=== PATIENT | female | born 1945 | race Caucasian/White ===

== ENCOUNTER → 2016-09-02 | Outpatient (CLI) | payer MEDICARE | LOC: RAD 07:58 | PROVIDERS: ATTEND Physician Assistant | DX: M25.511 Pain in right shoulder (principal) ==

== ENCOUNTER 2016-09-11 22:33 | Emergency (ER) | payer MEDICARE ==
[2016-09-12] MEDS ORDERED: ONDANSETRON 4 MG TAB.RAPDIS PO ONE (00:40)
[2016-09-12] MEDS ORDERED: OXYCODONE-ACETAMINOPHEN 5-325 MG TABLET PO ONE (00:40)
--- NOTE | 2016-09-12 00:42 | ER Document Report ---
ED General - General Chief Complaint: Back Pain Stated Complaint: BACK PAIN Time seen by provider: 00:40 Notes: Patient is a 71-year-old female that comes emergency department for chief complaint of pain in her lower back, she states she was lying on the couch on her belly when her 40 pound dog jumped up on the couch and landed on her back, she states that she had some pain initially but now she has increased pain over the following hours, she states she has felt some tingling in both of her legs, she denies bowel or bladder incontinence, she denies current numbness. She states she has had surgery on her lower back in the past. TRAVEL OUTSIDE OF THE [place] IN LAST 30 DAYS: No - Related Data Allergies/Adverse Reactions: NSAIDS (Non-Steroidal Anti-Inflamma [Nsaids] Allergy (Severe, Verified 09/11/16 22:50) gastric bleed adhesive [Adhesive] Allergy (Intermediate, Verified 09/11/16 22:50) Past Medical History - General Information source: Patient - Social History Smoking Status: Current Every Day Smoker Frequency of alcohol use: None Drug Abuse: None Lives with: Family Family History: Reviewed & Not Pertinent, CAD, DM Patient has suicidal ideation: No Patient has homicidal ideation: No - Past Medical History Cardiac Medical History: Reports: Hx Coronary Artery Disease, Hx Hypercholesterolemia, Hx Hypertension Denies: Hx Congestive Heart Failure, Hx DVT, Hx Heart Attack, Hx Pulmonary Embolism Pulmonary Medical History: Reports: Hx Bronchitis, Hx COPD Denies: Hx Asthma, Hx Pneumonia Neurological Medical History: Denies: Hx Cerebrovascular Accident, Hx Seizures Endocrine Medical History: Reports: Hx Diabetes Mellitus Type 2. Denies: Hx Hyperthyroidism, Hx Hypothyroidism Renal/ Medical History: Denies: Hx Peritoneal Dialysis GI Medical History: Denies: Hx Cirrhosis, Hx Gastroesophageal Reflux Disease, Hx Hepatitis Musculoskeltal Medical History: Reports Hx Arthritis, Reports Hx Muscle Spasm Psychiatric Medical History: Reports: Hx Bipolar Disorder, Hx Dementia, Hx Depression Infectious Medical History: Denies: Hx Hepatitis Past Surgical History: Reports: Hx Abdominal Surgery - BOTOX INJECTIONS [id number] , Hx Cholecystectomy, Hx Hysterectomy, Hx Orthopedic Surgery - Back surgery, Hx Urinary Tract Surgery, Other - Bladder tack - Immunizations Hx Diphtheria, Pertussis, Tetanus Vaccination: Yes Hx Pneumococcal Vaccination: 10/04/13 Review of Systems - Review of Systems Constitutional: No symptoms reported EENT: No symptoms reported Cardiovascular: No symptoms reported Respiratory: No symptoms reported Gastrointestinal: No symptoms reported Genitourinary: No symptoms reported Female Genitourinary: No symptoms reported Musculoskeletal: See HPI Skin: No symptoms reported Hematologic/Lymphatic: No symptoms reported Neurological/Psychological: No symptoms reported Physical Exam - Vital signs Vitals: Temp Pulse Resp BP Pulse Ox 98.1 F 81 16 152/66 H 97 09/11/16 22:43 09/11/16 22:43 09/11/16 22:43 09/11/16 22:43 09/11/16 22:43 Interpretation: Normal - General General appearance: Alert, Anxious In distress: Mild - Patient appears to be in some pain, moves and sits awkwardly - HEENT Head: Normocephalic, Atraumatic Eyes: Normal Conjunctiva: Normal Extraocular movements intact: Yes Eyelashes: Normal Pupils: PERRL Mouth/Lips: Normal Mucous membranes: Normal Pharynx: Normal Neck: Normal - Respiratory Respiratory status: No respiratory distress Chest status: Nontender Breath sounds: Normal Chest palpation: Normal - Cardiovascular Rhythm: Regular Heart sounds: Normal auscultation Murmur: No - Abdominal Inspection: Normal Distension: No distension Bowel sounds: Normal Tenderness: Nontender Organomegaly: No organomegaly - Back Back: Tender - There is tenderness in the lumbar area generally with palpation, no contusions, swelling, or obvious deformity noted. No saddle anesthesia. Normal cervical and thoracic examination, patient moves all extremities without difficulty, slightly positive straight leg raises bilaterally, normal distal neurovascular exam - Extremities General upper extremity: Normal inspection, Nontender, Normal color, Normal ROM , Normal temperature General lower extremity: Normal inspection, Nontender, Normal color, Normal ROM , Normal temperature, Normal weight bearing. No: Damion's sign - Neurological Neuro grossly intact: Yes Cognition: Normal Orientation: AAOx4 [place] Coma Scale Eye Opening: Spontaneous [place] Coma Scale Verbal: Oriented [place] Coma Scale Motor: Obeys Commands [place] Coma Scale Total: 15 Speech: Normal Motor strength normal: LUE, RUE, LLE, RLE Sensory: Normal - Psychological Associated symptoms: Normal affect, Normal mood - Skin Skin Temperature: Warm Skin Moisture: Dry Skin Color: Normal Course - Re-evaluation Re-evalutation: Patient with pain with palpation over the lumbar midline and paraspinal muscles , positive straight leg raises bilaterally, patient can ambulate but appears to be in some pain when doing so. Patient has no saddle anesthesia, no distal numbness, normal capillary refill and pulses distally, no ecchymosis or signs of trauma on exam. Widespread degenerative changes on x-ray, progressed from previous CAT scan, no fractures, no acute abnormalities noted. After treatment patient is ambulated without any discomfort, is very well- appearing, requesting to leave. Patient takes narcotic pain medication occasionally at home, has not done so in a couple of days, because the Valium worked so well here she is requesting some at home, I did discuss taking this separate from the oxycodone, precautions about sedation, also discussed return precautions for potential complications from back injury, patient and state understanding and agreement. - Vital Signs Vital signs: Temp Pulse Resp BP Pulse Ox 98.0 F 77 18 148/62 H 98 09/12/16 02:54 09/12/16 02:54 09/12/16 02:54 09/12/16 02:54 09/12/16 02:54 Discharge - Discharge Clinical Impression: Lower back injury Qualifiers: Encounter type: initial encounter Qualified Code(s): S39.92XA - Unspecified injury of lower back, initial encounter Condition: Stable Disposition: HOME, SELF-CARE Additional Instructions: There is degenerative breakdown in your lower back, no acute abnormalities are seen by x-ray or evaluation. Take the Valium as directed (caution: Start slow, cut in half if needed, this can be very sedating, do not combine with alcohol or other sedating medications) . Apply heat to lower back, rest. Follow-up with your provider for additional evaluation and management. Return the emergency department for any concerning or worsening symptoms including bowel or bladder incontinence, new numbness, or any other concerning symptoms. Prescriptions: Diazepam [Valium 5 mg Tablet] 5 mg PO TID #15 tablet Forms: Elevated Blood Pressure Referrals: TERESA WARD DO [Primary Care Provider] - Follow up as needed
[2016-09-12] MEDS ORDERED: DIAZEPAM INJ 10 MG/2 ML DISP.SYRIN IM ONE (02:05)
[2016-09-12 03:30] VITALS: BP 148/62
== END 2016-09-12 03:15 | disposition home or self-care (01) ==
LOC: ER 22:33
DX: S39.92XA Unspecified injury of lower back, initial encounter (principal); W54.8XXA Other contact with dog, initial encounter; M54.5 Low back pain; R20.2 Paresthesia of skin; E11.9 Type 2 diabetes mellitus without complications; I25.10 Atherosclerotic heart disease of native coronary artery without angina pectoris; I10 Essential (primary) hypertension; J44.9 Chronic obstructive pulmonary disease, unspecified; F17.200 Nicotine dependence, unspecified, uncomplicated; Z98.890 Other specified postprocedural states; Z88.8 Allergy status to other drugs, medicaments and biological substances; Z91.048 Other nonmedicinal substance allergy status
CPT/HCPCS: 99283; 72110; A9270 ×2; S0119

== ENCOUNTER 2016-11-18 14:46 | Inpatient (IN) | payer MEDICARE, OTHER ==
--- NOTE | 2016-11-18 15:16 | ER Document Report ---
ED Medical Screen (RME) - General Chief Complaint: Nausea/Vomiting Stated Complaint: VOMITING Notes: Patient is a 71-year-old female with past medical history of diabetes, hypertension, bipolar disorder who presents with 2 days of nausea, vomiting, lethargy and confusion. Patient has had similar symptoms in the past with pyelonephritis and believes she may have an infection again today. Her also notes that she is struggling to keep anything down over the last 48 hours and has seemed increasingly lethargic. Her primary care doctor referred to the emergency department today and further assessment. She has not had fever at home nor diarrhea. She is not complaining of any chest pain, cough or shortness of breath. I have greeted and performed a rapid initial assessment of this patient. A comprehensive ED assessment and evaluation of the patient, analysis of test results and completion of medical decision making process will be conducted by an additional ED providers. TRAVEL OUTSIDE OF THE [place] IN LAST 30 DAYS: No - Related Data Allergies/Adverse Reactions: NSAIDS (Non-Steroidal Anti-Inflamma [Nsaids] Allergy (Severe, Verified 09/11/16 22:50) gastric bleed adhesive [Adhesive] Allergy (Intermediate, Verified 09/11/16 22:50) Past Medical History - Social History Family history: Reviewed & Not Pertinent - Past Medical History Cardiac Medical History: Reports: Hx Coronary Artery Disease, Hx Hypercholesterolemia, Hx Hypertension Denies: Hx Congestive Heart Failure, Hx DVT, Hx Heart Attack, Hx Pulmonary Embolism Pulmonary Medical History: Reports: Hx Bronchitis, Hx COPD Denies: Hx Asthma, Hx Pneumonia Neurological Medical History: Denies: Hx Cerebrovascular Accident, Hx Seizures Endocrine Medical History: Reports: Hx Diabetes Mellitus Type 1, Hx Diabetes Mellitus Type 2. Denies: Hx Hyperthyroidism, Hx Hypothyroidism Renal/ Medical History: Denies: Hx Peritoneal Dialysis GI Medical History: Denies: Hx Cirrhosis, Hx Gastroesophageal Reflux Disease, Hx Hepatitis Musculoskeltal Medical History: Reports Hx Arthritis, Reports Hx Muscle Spasm Psychiatric Medical History: Reports: Hx Bipolar Disorder, Hx Dementia, Hx Depression Infectious Medical History: Denies: Hx Hepatitis Past Surgical History: Reports: Hx Abdominal Surgery - BOTOX INJECTIONS [id number] , Hx Cholecystectomy, Hx Hysterectomy, Hx Orthopedic Surgery - Back surgery, Hx Urinary Tract Surgery, Other - Bladder tack - Immunizations Hx Diphtheria, Pertussis, Tetanus Vaccination: Yes Physical Exam - Vital signs Vitals: Temp Pulse Resp BP Pulse Ox 98.6 F 69 16 137/51 H 97 11/18/16 15:00 11/18/16 15:00 11/18/16 15:00 11/18/16 15:00 11/18/16 15:00 Interpretation: Normal Notes: PHYSICAL EXAMINATION: GENERAL: Well-appearing, well-nourished and in no acute distress. HEAD: Atraumatic, normocephalic. EYES: sclera anicteric, conjunctiva are normal. ENT: Moist mucous membranes. NECK: Normal range of motion LUNGS: Normal work of breathing HEART: 2+ radial pulses bilaterally EXTREMITIES: no pitting or edema. No cyanosis. NEUROLOGICAL: No focal neurological deficits. Moves all extremities spontaneously and on command. PSYCH: Seems somewhat confused, having difficulty concentrating during initial assessment SKIN: Warm, Dry, normal turgor, no rashes or lesions noted. Course - Vital Signs Vital signs: Temp Pulse Resp BP Pulse Ox 98.6 F 69 16 137/51 H 97 11/18/16 15:00 11/18/16 15:00 11/18/16 15:00 11/18/16 15:00 11/18/16 15:00
[2016-11-18 15:59] LABS: ABSOLUTE LYMPHOCYTES (AUTO) 1.8 10^3/uL (0.5-4.7); ABSOLUTE MONOCYTES (AUTO) 1.7 10^3/uL (0.1-1.4); ABSOLUTE NEUT (AUTO) 6.3 10^3/uL (1.7-8.2); BASOPHILS % (AUTO) 0.2 % (0-2); EOSINOPHILS % (AUTO) 0.4 % (0-6); HEMATOCRIT 39.7 % (36.0-47.0); HEMOGLOBIN 13.9 g/dL (12.0-15.5); LYMPHOCYTES % (AUTO) 18.4 % (13-45); MEAN CORPUSCULAR HGB CONC 34.9 g/dL (32.0-36.0); MEAN CORPUSCULAR VOLUME 80 fl (80-97); MONOCYTES % (AUTO) 16.9 % (3-13); RED BLOOD COUNT 4.95 10^6/uL (3.72-5.28); RED CELL DISTRIBUTION WIDTH 13.6 % (11.5-14.0); SEGMENTED NEUTROPHILS % (AUTO) 64.1 % (42-78); WHITE BLOOD COUNT 9.8 10^3/uL (4.0-10.5)
[2016-11-18 16:25] LABS: ALANINE AMINOTRANSFERASE 57 U/L (9-52); ALBUMIN 5.1 g/dL (3.5-5.0); ALKALINE PHOSPHATASE 84 U/L (38-126); ANION GAP 16 (5-19); ASPARTATE AMINO TRANSFERASE 80 U/L (14-36); BILIRUBIN,DIRECT 0.4 mg/dL (0.0-0.4); BILIRUBIN,TOTAL 1.2 mg/dL (0.2-1.3); BLOOD UREA NITROGEN 15 mg/dL (7-20); CALCIUM 9.9 mg/dL (8.4-10.2); CARBON DIOXIDE 29 mmol/L (22-30); CHLORIDE 67 mmol/L (98-107); CREATININE RESULT 0.71 mg/dL (0.52-1.25); GLUCOSE 173 mg/dL (75-110); TOTAL PROTEIN 8.6 g/dL (6.3-8.2)
[2016-11-18 16:37] LABS: POTASSIUM 2.9 mmol/L (3.6-5.0)
[2016-11-18] MEDS ORDERED: NORMAL SALINE 1000 ML 1,000 ML IV ONE (16:49)
--- NOTE | 2016-11-18 17:04 | ER Document Report ---
ED General - General Chief Complaint: Nausea/Vomiting Stated Complaint: VOMITING Mode of Arrival: Ambulatory Information source: Parent Notes: Patient presents to the emergency department with complaints of nausea vomiting upset stomach for the past week. Patient also reports she's felt very lethargic and not able to think properly. She reports her legs feet and hands hurt. She also reports left sided chest pressure that started yesterday, does not radiate. Last time she vomited was yesterday. She denies fever denies diarrhea. Reports no other family members are ill. Reports she hasn't slept in 3 days TRAVEL OUTSIDE OF THE [place] IN LAST 30 DAYS: No - HPI Onset: Last week Onset/Duration: Persistent Quality of pain: Achy Severity: Moderate Pain Level: 3 Associated symptoms: Nausea, Vomiting Exacerbated by: Denies Relieved by: Denies Similar symptoms previously: No Recently seen / treated by doctor: No - Related Data Allergies/Adverse Reactions: NSAIDS (Non-Steroidal Anti-Inflamma [Nsaids] Allergy (Severe, Verified 09/11/16 22:50) gastric bleed adhesive [Adhesive] Allergy (Intermediate, Verified 09/11/16 22:50) Past Medical History - General Information source: Patient - Social History Smoking Status: Current Every Day Smoker Cigarette use (# per day): Yes Chew tobacco use (# tins/day): No Frequency of alcohol use: None Drug Abuse: None Lives with: Family Family History: Reviewed & Not Pertinent, CAD, DM Patient has suicidal ideation: No Patient has homicidal ideation: No - Past Medical History Cardiac Medical History: Reports: Hx Coronary Artery Disease, Hx Hypercholesterolemia, Hx Hypertension Denies: Hx Congestive Heart Failure, Hx DVT, Hx Heart Attack, Hx Pulmonary Embolism Pulmonary Medical History: Reports: Hx Bronchitis, Hx COPD Denies: Hx Asthma, Hx Pneumonia Neurological Medical History: Denies: Hx Cerebrovascular Accident, Hx Seizures Endocrine Medical History: Reports: Hx Diabetes Mellitus Type 1, Hx Diabetes Mellitus Type 2. Denies: Hx Hyperthyroidism, Hx Hypothyroidism Renal/ Medical History: Denies: Hx Peritoneal Dialysis GI Medical History: Denies: Hx Cirrhosis, Hx Gastroesophageal Reflux Disease, Hx Hepatitis Musculoskeltal Medical History: Reports Hx Arthritis, Reports Hx Muscle Spasm Psychiatric Medical History: Reports: Hx Bipolar Disorder, Hx Dementia, Hx Depression Infectious Medical History: Denies: Hx Hepatitis Past Surgical History: Reports: Hx Abdominal Surgery - BOTOX INJECTIONS [id number] , Hx Cholecystectomy, Hx Hysterectomy, Hx Orthopedic Surgery - Back surgery, Hx Urinary Tract Surgery, Other - Bladder tack - Immunizations Hx Diphtheria, Pertussis, Tetanus Vaccination: Yes Hx Pneumococcal Vaccination: 10/04/13 Review of Systems - Review of Systems Notes: Review HPI for review of systems., All other systems negative Physical Exam - Vital signs Vitals: Temp Pulse Resp BP Pulse Ox 98.6 F 69 16 137/51 H 97 11/18/16 15:00 11/18/16 15:00 11/18/16 15:00 11/18/16 15:00 11/18/16 15:00 - Notes Notes: PHYSICAL EXAMINATION: GENERAL: Nontoxic looking HEAD: Atraumatic, normocephalic. EYES: Pupils equal round and reactive to light, extraocular movements intact, sclera anicteric, conjunctiva are normal. ENT: nares patent, oropharynx clear without exudates. Moist mucous membranes. NECK: Normal range of motion, supple without lymphadenopathy LUNGS: CTAB and equal. No wheezes rales or rhonchi. HEART: Regular rate and rhythm without murmurs ABDOMEN: Soft, generalize tenderness increased ttp in lower abd.. No guarding, no rebound BACK: Reports pain all over, no obvious deformity good distal movement and sensation no erythema swelling is readily. EXTREMITIES: Normal range of motion, no pitting edema. No cyanosis. NEUROLOGICAL: Cranial nerves grossly intact. Normal sensory/motor exams. PSYCH: Normal mood, normal affect. Answers all questions appropriately, confused over medication dosages SKIN: Warm, Dry, normal turgor, no rashes or lesions noted Course - Re-evaluation Re-evalutation: 11/18/16 17:00 K+2.9, Sodium 112, consulted dr stacy, jairon and k+ rider ordered, repeat EKG 11/18/16 17:28 +nitrite, rocephin ordered new onset Left bundle branch block noted troponin 0.030, second troponin ordered , pt on rn cardiac rehab 11/18/16 17:53 Dr. Mallory contacted for admission for hypokalemia and hyponatremia chest pressure. Family and patient aware of admission to [facility]. She went and family are aware about her on medications. She reports she hasn't slept in 3 days. She reports she takes gabapentin to help her sleep. Family instructed to discuss medication with Dr. Mallory. Dr Stacy updated on admission - Vital Signs Vital signs: Temp Pulse Resp BP Pulse Ox 98.6 F 67 16 112/62 97 11/18/16 15:00 11/18/16 17:06 11/18/16 17:06 11/18/16 17:06 11/18/16 15:00 - Laboratory Result Diagrams: 11/18/16 15:38 11/18/16 15:38 Laboratory results interpreted by me: 11/18/16 11/18/16 11/18/16 15:38 15:38 16:35 Monocytes % 16.9 H Absolute Monocytes 1.7 H Sodium 112.0 L* Potassium 2.9 L* Chloride 67 L Glucose 173 H AST 80 H ALT 57 H Total Protein 8.6 H Albumin 5.1 H Urine Ketones TRACE H Urine Nitrite POSITIVE H - EKG Interpretation by Me EKG shows normal: Sinus rhythm [place]/QRS: LBBB When compared to previous EKG there are: Changes noted Discharge - Discharge Clinical Impression: Chest pain, Hyponatremia, Hypokalemia Condition: Stable Disposition: ADMITTED INPATIENT Admitting Provider: Justine mallory Unit Admitted: [facility]
[2016-11-18 17:15] LABS: APPEARANCE,URINE CLEAR; BILIRUBIN,URINE NEGATIVE (NEGATIVE); GLUCOSE, URINE NEGATIVE (NEGATIVE); KETONES,URINE TRACE mg/dL (NEGATIVE); LEUKOCYTE ESTERASE,URINE NEGATIVE (NEGATIVE); NITRITE,URINE POSITIVE (NEGATIVE); PROTEIN,URINE NEGATIVE (NEGATIVE); URINE SPECIFIC GRAVITY 1.005; UROBILINOGEN,URINE NEGATIVE mg/dL (<2.0)
[2016-11-18] MEDS ORDERED: CEFTRIAXONE RTU 1 GM/D5W 50 ML IV ONE (17:31)
[2016-11-18] MEDS ORDERED: ASPIRIN 81 MG TABLET, CHEWABLE PO ONE (18:10)
[2016-11-18] MEDS ORDERED: POTASSI CL 20 MEQ/NS 1L 1,000 ML IV PRN ×2 (18:29→21:07)
[2016-11-18] MEDS ORDERED: POTASSI CL 20 MEQ/50 ML RIDER 50 ML IV SCH (18:30)
[2016-11-18] MEDS ORDERED: GLUCAGON,HUMAN RECOMB 1 MG INJ IM PRN (18:32)
[2016-11-18] MEDS ORDERED: HYDRALAZINE HCL INJ/PF 20 MG/1 ML SDV IV PRN (18:32)
[2016-11-18] MEDS ORDERED: DEXTROSE 40% GEL 15 GM TUBE PO PRN ×2 (18:32)
[2016-11-18] MEDS ORDERED: DEXTROSE 50%-WATER 25 GM/50 ML DISP.SYRIN IV PRN ×2 (18:32)
[2016-11-18] MEDS ORDERED: ONDANSETRON HCL INJ/PF 4 MG/2 ML SDV IV PRN (18:33)
[2016-11-18] MEDS ORDERED: ACETAMINOPHEN 325 MG TABLET PO PRN (18:33)
[2016-11-18] MEDS: POTASSI CL 20 MEQ/50 ML RIDER 50 ML IV SCH ×2 (18:45→23:38)
[2016-11-18] MEDS ORDERED: ALBUTEROL SULFATE 0.083% NEB 2.5 MG/3 ML AMPUL NEB PRN (18:46)
--- NOTE | 2016-11-18 18:48 | PDOC H&P ---
History of Present Illness Admission Date/PCP: TERESA WARD DO Patient complains of: Nausea and vomiting History of Present Illness: ADILENE LEWIS is a 71 year old female with past medical history of diabetes , hypertension, bipolar disorder, neuropathy, peripheral vascular disease presents with several day history of nausea and vomiting. She has also recently noted chest pressure left side of her chest. Review of her pharmacy records indicate that she was started on Lasix on 11/11/2016. She has chronically been taking a combination blood pressure medication containing hydrochlorothiazide as well. Review of prior hospital records indicate that she had echocardiogram in May 2016 that showed normal ejection fraction, grade 2/4 left ventricular diastolic dysfunction. She had Cardiolite stress test on 03/30/2015 that was negative. EKG on 05/23/2016 showed sinus rhythm with no evidence of bundle branch block. Past Medical History Cardiac Medical History: Reports: Coronary Artery Disease, Hyperlipidema, Hypertension Denies: Congestive Heart Failure, DVT, Myocardial Infarction, Pulmonary Embolism Pulmonary Medical History: Reports: Bronchitis, Chronic Obstructive Pulmonary Disease (COPD) Denies: Asthma, Pneumonia Neurological Medical History: Denies: Seizures Endocrine Medical History: Reports: Diabetes Mellitus Type 2 Denies: Hyperthyroidism, Hypothyroidism GI Medical History: Denies: Cirrhosis, Gastroesophageal Reflux Disease, Hepatitis Musculoskeltal Medical History: Reports: Arthritis Psychiatric Medical History: Reports: Bipolar Disorder, Dementia, Depression Hematology: Denies: Anemia Past Surgical History Past Surgical History: Reports: Cholecystectomy, Hysterectomy, Orthopedic Surgery - Back surgery, Other - Bladder tack Social History Information Source: Patient Lives with: Family Smoking Status: Current Every Day Smoker Frequency of Alcohol Use: None Hx Recreational Drug Use: No Hx Prescription Drug Abuse: No - Advance Directive Resuscitation Status: Full Code Surrogate healthcare decision maker:: Family History Family History: CAD, DM Parental Family History Reviewed: Yes Children Family History Reviewed: Yes Sibling(s) Family History Reviewed.: Yes Medication/Allergy Home Medications: Telmisartan 80 mg PO DAILY 03/28/15 Aspirin [Aspirin EC] 1 tab PO DAILY 03/29/15 Gabapentin 400 mg PO TID 05/23/16 Hydrocodone Bit/Acetaminophen [Hydrocodon-Acetaminophn 10-325] 1 tab PO Q6H PRN 05/23/16 Insulin Lispro [Humalog Kwikpen] 100 unit SQ TID 05/23/16 Omeprazole 20 mg PO DAILY 05/23/16 Ondansetron HCl [Ondansetron HCl] 4 mg PO Q6H PRN 05/23/16 Tizanidine HCl 4 mg PO TID 05/23/16 Triazolam 0.5 mg PO QHS 05/23/16 Alprazolam [Xanax 0.5 mg Tablet] 0.5 mg PO BID #30 tablet 05/27/16 Amlodipine Besylate 5 mg PO DAILYP PRN #30 tab 05/27/16 Atorvastatin Calcium [Lipitor 40 mg Tablet] 40 mg PO QHS #30 tablet 05/27/16 Cyanocobalamin (Vitamin B-12) [B-12] 1,000 mcg PO DAILY #30 tablet 05/27/16 Nebivolol HCl [Bystolic 5 mg Tablet] 5 mg PO DAILY #30 tablet 05/27/16 Diazepam [Valium 5 mg Tablet] 5 mg PO TID #15 tablet 09/12/16 Allergies/Adverse Reactions: NSAIDS (Non-Steroidal Anti-Inflamma [Nsaids] Allergy (Severe, Verified 09/11/16 22:50) gastric bleed adhesive [Adhesive] Allergy (Intermediate, Verified 09/11/16 22:50) Review of Systems Constitutional: PRESENT: fatigue, weakness. ABSENT: chills, fever(s), headache( s), weight gain, weight loss Eyes: ABSENT: visual disturbances Ears: ABSENT: hearing changes Cardiovascular: PRESENT: chest pain. ABSENT: dyspnea on exertion, edema, orthropnea, palpitations Respiratory: ABSENT: cough, hemoptysis Gastrointestinal: PRESENT: nausea, vomiting. ABSENT: abdominal pain, constipation, diarrhea, hematemesis, hematochezia Genitourinary: ABSENT: dysuria, hematuria Musculoskeletal: ABSENT: joint swelling Integumentary: ABSENT: rash, wounds Neurological: ABSENT: abnormal gait, abnormal speech, confusion, dizziness, focal weakness, syncope Psychiatric: ABSENT: anxiety, depression, homidical ideation, suicidal ideation Endocrine: ABSENT: cold intolerance, heat intolerance, polydipsia, polyuria Hematologic/Lymphatic: ABSENT: easy bleeding, easy bruising Physical Exam Vital Signs: Temp Pulse Resp BP Pulse Ox 98.6 F 67 16 112/62 97 11/18/16 15:00 11/18/16 17:06 11/18/16 17:06 11/18/16 17:06 11/18/16 15:00 Intake & Output 11/17/16 11/18/16 11/19/16 06:59 06:59 06:59 Weight 70.4 kg PHYSICAL EXAM: GENERAL: Appears well, no acute distress HEENT: Normocephalic, no scleral icterus, conjunctiva clear, EOEM intact, PERRLA , moist mucous membranes NECK: trachea midline, no thyromegally RESPIRATORY: Clear to auscultation, no wheezes/rhonchi CARDIAC: Regular rate and rhythm, no murmur/irlanda/rub ABDOMEN: Soft, no distension, no tenderness, no guarding, normal bowel sounds, negative Prescott sign RECTAL: deferred : deferred EXTREMITIES: No edema, cyanosis, clubbing MUSCULOSKELETAL: No joint swelling or deformity VASCULAR: normal peripheral pulses NEUROLOGIC: Alert, oriented to person/place/time, normal speech, cranial nerves grossly intact, 5/5 strength in all extremities, tactile sensation intact in all extremities SKIN: No rash, no wounds, no worrisome skin lesions PSYCHIATRIC: Flat affect Results Laboratory Results: 11/18/16 15:38 11/18/16 15:38 11/18/16 11/18/16 11/18/16 15:38 15:38 16:35 WBC 9.8 RBC 4.95 Hgb 13.9 Hct 39.7 MCV 80 MCH 28.0 MCHC 34.9 RDW 13.6 Plt Count 346 Seg Neutrophils % 64.1 Lymphocytes % 18.4 Monocytes % 16.9 H Eosinophils % 0.4 Basophils % 0.2 Absolute Neutrophils 6.3 Absolute Lymphocytes 1.8 Absolute Monocytes 1.7 H Absolute Eosinophils 0.0 Absolute Basophils 0.0 Sodium 112.0 L* Potassium 2.9 L* Chloride 67 L Carbon Dioxide 29 Anion Gap 16 BUN 15 Creatinine 0.71 Est GFR ( Amer) > 60 Est GFR (Non-Af Amer) > 60 Glucose 173 H Calcium 9.9 Total Bilirubin 1.2 AST 80 H ALT 57 H Alkaline Phosphatase 84 Total Protein 8.6 H Albumin 5.1 H Urine Color YELLOW Urine Appearance CLEAR Urine pH 7.0 Ur Specific [place] 1.005 Urine Protein NEGATIVE Urine Glucose (UA) NEGATIVE Urine Ketones TRACE H Urine Blood NEGATIVE Urine Nitrite POSITIVE H Ur Leukocyte Esterase NEGATIVE Urine WBC (Auto) 1 Urine RBC (Auto) 0 11/18/16 15:38 Troponin I 0.030 EKG Comments: Sinus tachycardia with a heart rate of 120, left bundle branch block (new compared to EKG from 05/23/2016) Assessment & Plan - Diagnosis (1) Hyponatremia Is this a current diagnosis for this admission?: YesPlan: Patient presents primarily with symptomatic hyponatremia. This likely resulted from concomitant use of Lasix and hydrochlorothiazide. Both of these medications will be discontinued. Patient will be given IV normal saline. Follow-up labs. Place on seizure precautions. (2) Hypokalemia Is this a current diagnosis for this admission?: YesPlan: Replace as needed. Check magnesium level. Likely secondary as well to concomitant use of Lasix and hydrochlorothiazide. (3) Chest pain Is this a current diagnosis for this admission?: YesPlan: Place patient on telemetry monitoring. Patient also noted to have new left bundle branch block. Check serial cardiac enzymes. Continue aspirin. Check lipid panel. Consult cardiology. As mentioned above patient had negative stress test in 2014. Echocardiogram in May 2016 showed normal EF, rate 2/4 diastolic dysfunction. (4) Abnormal urinalysis Is this a current diagnosis for this admission?: YesPlan: Urinalysis is not that impressive with only 1 white blood cell per high-powered field. Check urine culture. Patient was administered 1 dose of IV Rocephin in the emergency department but I will not continue antibiotics unless urine culture positive. (5) COPD (chronic obstructive pulmonary disease) Qualifiers: Emphysema type: unspecified Is this a current diagnosis for this admission?: Yes (6) Chronic pain Qualifiers: Chronic pain type: other chronic pain Qualified Code(s): G89.29 - Other chronic pain Is this a current diagnosis for this admission?: YesPlan: Chronic opiate dependence. When necessary oxycodone. 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 Continue aspirin. Check lipid panel in the morning. (8) Bipolar disorder Qualifiers: Active/Remission status: remission status unspecified Qualified Code (s): F31.9 - Bipolar disorder, unspecified Is this a current diagnosis for this admission?: YesPlan: When necessary Xanax for now until routine medications can be verified. (9) DM w/o complication type II Is this a current diagnosis for this admission?: YesPlan: Sliding scale insulin coverage. Check hemoglobin A1c. (10) Essential hypertension Is this a current diagnosis for this admission?: YesPlan: Discontinue Lasix and hydrochlorothiazide. Hold all routine medications for now. When necessary IV hydralazine. (11) Neuropathy Is this a current diagnosis for this admission?: YesPlan: Neurontin. (12) Cigarette nicotine dependence Is this a current diagnosis for this admission?: Yes - Time Time Spent: Greater than 70 Minutes
--- NOTE | 2016-11-18 19:04 | EKG REPORT ---
SEVERITY:- ABNORMAL ECG - SINUS RHYTHM CLBBB : Confirmed by: Gurinder Child MD 18-Nov-2016 19:03:10
--- NOTE | 2016-11-18 19:06 | EKG REPORT ---
SEVERITY:- ABNORMAL ECG - SINUS TACHYCARDIA PROBABLE LEFT ATRIAL ABNORMALITY LEFT BUNDLE BRANCH BLOCK : Confirmed by: Gurinder Child MD 18-Nov-2016 19:06:02
[2016-11-18 19:51] LABS: CREATINE KINASE MB 13.6 ng/mL (<4.55)
[2016-11-18 19:58] LABS: TROPONIN I 0.034 ng/mL
[2016-11-18] MEDS ORDERED: POTASSIUM CHLORIDE 20 MEQ/50 ML RTU IV ONE (20:00)
[2016-11-18 20:03] LABS: ANION GAP 14 (5-19); BLOOD UREA NITROGEN 14 mg/dL (7-20); CARBON DIOXIDE 25 mmol/L (22-30); CHLORIDE 77 mmol/L (98-107); CREATININE RESULT 0.61 mg/dL (0.52-1.25); GLUCOSE 179 mg/dL (75-110)
[2016-11-18 20:24] LABS: POTASSIUM 2.6 mmol/L (3.6-5.0); SODIUM 116.1 mmol/L (137-145)
--- NOTE | 2016-11-18 20:45 | PDOC CONSULTATION ---
Consultation Consult Date: 11/18/16 Attending physician:: LUKE MATT Consult reason:: Abnormal electrocardiogram History of Present Illness Admission Date/PCP: 11/18/16 18:33 TERESA WARD DO Patient complains of: General fatigue, tiredness, unsteadiness of gait History of Present Illness: ADILENE LEWIS is a 71 year old female with past medical history of diabetes , hypertension, bipolar disorder, neuropathy, peripheral vascular disease presents with several day history of nausea and vomiting. Review of her pharmacy records indicate that she was started on Lasix on 11/11/2016. She has chronically been taking a combination blood pressure medication containing hydrochlorothiazide as well. Patient was noted to be severely hyponatremic and also hypokalemic therefore was admitted. Twelve-lead EKG shows new left bundle branch block pattern. Patient however denied any prior history of myocardial infarction, angina or any history of heart blockage. She does give history of complete blockage of one side carotid artery where as the other side carotid artery has 30% blockage. Review of prior hospital records indicate that she had echocardiogram in May 2016 that showed normal ejection fraction, grade 2/4 left ventricular diastolic dysfunction. She had Cardiolite stress test on 03/30/2015 that was negative. EKG on 05/23/2016 showed sinus rhythm with new evidence of bundle branch block. Patient on questioning denied any chest pain, shortness of breath, PND, orthopnea. She is a poor historian. History supplemented by interviewing patient's and daughter. It seems patient had a event monitor about 6 months ago for reasons of unsteadiness of gait. Past Medical History Cardiac Medical History: Reports: Coronary Artery Disease, Hyperlipidema, Hypertension, Peripheral Vascular Disease - Carotid artery disease Denies: Congestive Heart Failure, DVT, Myocardial Infarction, Pulmonary Embolism Pulmonary Medical History: Reports: Bronchitis, Chronic Obstructive Pulmonary Disease (COPD) Denies: Asthma, Pneumonia Neurological Medical History: Denies: Seizures Endocrine Medical History: Reports: Diabetes Mellitus Type 2 Denies: Hyperthyroidism, Hypothyroidism GI Medical History: Denies: Cirrhosis, Gastroesophageal Reflux Disease, Hepatitis Musculoskeltal Medical History: Reports: Arthritis Psychiatric Medical History: Reports: Bipolar Disorder, Dementia, Depression Hematology: Denies: Anemia Past Surgical History Past Surgical History: Reports: Cholecystectomy, Hysterectomy, Orthopedic Surgery - Back surgery Social History Information Source: Patient Lives with: Family Smoking Status: Current Every Day Smoker Frequency of Alcohol Use: None Hx Recreational Drug Use: No Hx Prescription Drug Abuse: No - Advance Directive Resuscitation Status: Full Code Surrogate healthcare decision maker:: Patient's is the surrogate decision maker Family History Family History: Reviewed & Not Pertinent, CAD, DM Parental Family History Reviewed: Yes Children Family History Reviewed: Yes Sibling(s) Family History Reviewed.: Yes Medication/Allergy Home Medications: Alprazolam [Alprazolam] 1 mg PO Q8 11/18/16 Amlodipine Besylate [Amlodipine Besylate] 5 mg PO DAILY 11/18/16 Aspirin [Aspirin EC] 81 mg PO DAILY 11/18/16 Butalb/Acetaminophen/Caffeine [Orkats-Kmobtflq-Wfgu 50-325-40] 1 tab PO Q6HP PRN MDD 4 TABLETS 11/18/16 Cyanocobalamin (Vitamin B-12) [Vitamin B-12 1000 mcg Tablet] 1,000 mcg PO DAILY 11/18/16 Furosemide [Furosemide] 20 mg PO DAILY 11/18/16 Gabapentin [Gabapentin] 1,200 mg PO QHS 11/18/16 Gabapentin [Gabapentin] 800 mg PO DAILY 11/18/16 Insulin Lispro [Humalog Kwikpen U-100] 0 units SQ TID PRN 11/18/16 Losartan/Hydrochlorothiazide [Losartan-Hctz 100-25 mg Tab] 1 tab PO DAILY Ondansetron HCl [Ondansetron HCl] 4 mg PO Q8HP PRN 11/18/16 Oxycodone HCl [Oxycodone HCl] 10 mg PO Q6HP PRN 11/18/16 Potassium Chloride [Klor-Con M10] 10 meq PO DAILY 11/18/16 Triazolam [Halcion] 0.5 mg PO QHS 11/18/16 Allergies/Adverse Reactions: NSAIDS (Non-Steroidal Anti-Inflamma [Nsaids] Allergy (Severe, Verified 09/11/16 22:50) gastric bleed adhesive [Adhesive] Allergy (Intermediate, Verified 09/11/16 22:50) Review of Systems Review of Systems: Please see history of present illness and past medical history as wall. Constitutional: No fever or chills reported. Head : No recent chronic headaches, recent head injury. Eyes: No recent eye pain, diplopia, redness, discharge, acute visual changes. Ears: No recent chronic ear pain, acute hearing loss, ear discharge. Oral cavity: No recent ulcerations, bleeding, oral cavity discomfort. Neck: No recent acute neck pain reported. Hematologic: No recent easy bruising or bleeding or hematologic malignancy reported. Lymphatic: No recent lymphatic malignancy, chronic lymphadenopathy reported yet Cardiovascular system review: See history of present illness. Respiratory system review: No recent chronic cough, hemoptysis, blood clots in the lungs reported. Mild Shortness of breath on exertion Gastrointestinal system review: Negative for any recent acute or chronic abdominal pain, hematemesis, melena, recent change in bowel habits. Genitourinary system review: No recent acute or chronic hematuria, flank pain, UTI etc. reported. Skin system review: Negative for any recent abnormal bruising, no rash, no pruritus reported. Neurologic: No prior history of strokes, mini strokes, seizure disorder. Patient has noted recent confusion, memory problem. History of unsteadiness of gait. Psychologic: Patient has a history of psychiatric problems.. Musculoskeletal: Minor aches and pains reported. No acute joint swelling reported. Patient is complaining of bilateral hip pain. Endocrine: No recent polyuria, polydipsia, recent heat or cold intolerance. Physical Exam Vital Signs: Temp Pulse Resp BP Pulse Ox 98.6 F 67 16 112/62 97 11/18/16 15:00 11/18/16 17:06 11/18/16 17:06 11/18/16 17:06 11/18/16 15:00 Exam: GENERAL: well-nourished and in no acute distress. Alert and oriented x3 HEAD: Atraumatic, normocephalic. EYES: Pupils equal round and reactive to light, extraocular movements intact, sclera anicteric, conjunctiva are normal. ENT: TMs normal, nares patent, oropharynx clear without exudates. Moist mucous membranes. No oral ulcerations or bleeding gums noted NECK: supple without lymphadenopathy. Trachea is central. No cervical or axillary lymphadenopathy noted. Carotids are 2+, JVD WNL LUNGS: Respiration seems nonlabored, no significant accessory muscle action noted. Breath sounds clear to auscultation bilaterally and equal noted. No wheezes rales or rhonchi noted. No significant dullness noted on percussion. CHEST: Palpation of the chest wall shows no significant chest wall tenderness. No other significant abnormalities noted. HEART: [place] [employer], No PSH, 1/6 CHIVO aortic area, 1/6 odom systolic murmur mitral area, no rubs, no gallops. ABDOMEN: Soft, no significant tenderness appreciated, normoactive bowel sounds. No guarding, no rebound. No rigidity noted . No masses appreciated. EXTREMITIES: Pedal pulses are 1-2+, no calf tenderness noted. No clubbing or cyanosis.trace pedal edema noted NEUROLOGICAL: Focused neurological exam showed no significant neurologic deficit. Normal speech, no focal weakness appreciated. PSYCH: Normal mood, normal affect. Judgment and insight within normal limits. SKIN: No significant ecchymosis, rash, ulcerations or signs of pruritus noted. MUSCULOSKELETAL EXAM: No significant joint swelling noted. Results Laboratory Results: 11/18/16 19:11 11/18/16 19:11 Sodium 116.1 L* Potassium 2.6 L* Chloride 77 L Carbon Dioxide 25 Anion Gap 14 BUN 14 Creatinine 0.61 Est GFR ( Amer) > 60 Est GFR (Non-Af Amer) > 60 Glucose 179 H Calcium 9.0 11/18/16 11/18/16 19:11 19:11 Creatine Kinase 610 H CK-MB (CK-2) 13.60 H Troponin I 0.034 EKG Comments: Sinus rhythm with left bundle branch block pattern and secondary ST-T wave changes. Impressions: Chest X-Ray 11/18/16 18:10 IMPRESSION: NO ACUTE RADIOGRAPHIC FINDING IN THE CHEST. Assessment & Plan - Diagnosis (1) Left bundle branch block (LBBB) on electrocardiogram Is this a current diagnosis for this admission?: Yes (2) PVD (peripheral vascular disease) Is this a current diagnosis for this admission?: Yes (3) Cigarette nicotine dependence Is this a current diagnosis for this admission?: Yes (4) DM w/o complication type II Is this a current diagnosis for this admission?: Yes (5) Essential hypertension Is this a current diagnosis for this admission?: Yes (6) Hypokalemia Is this a current diagnosis for this admission?: Yes (7) Hyponatremia Is this a current diagnosis for this admission?: Yes (8) COPD (chronic obstructive pulmonary disease) Qualifiers: Emphysema type: unspecified Is this a current diagnosis for this admission?: Yes - Notes Notes: Left bundle branch block pattern: New since May 2016. Exact etiology not clear but could be related to progression of conduction disease, ischemic event since May 2016. Troponin I is negative therefore doubt any such event occurred in the last 2 weeks. At this point recommend optimization of therapy for underlying presumed CAD. Patient does have PVD. PVD: Recommend statins, WILDA inhibitor/ARB/beta milind therapy/antiplatelet therapy along with aggressive risk factor modification. Tobacco abuse: Patient advised tobacco cessation. Hypertension: Reasonably well controlled. Blood pressure goal in this patient is 135/85 or less. Diabetes: Recommend good control of blood sugar. However should avoid any hypoglycemia. Patient being expertly managed by primary care M.D. Hypokalemia: Agree with replacement therapy. Hyponatremia: Recommend fluid restriction, stopped HCTZ. Follow patient's electrolytes closely. COPD: Currently stable. - Time Time Spent: 30 to 50 Minutes - CODE STATUS was discussed, patient remains full code. Surrogate decision-maker patient's . Multiple medical problems were addressed.More than 50% of the time spent coordinating care, discussing management plans with involved caregivers. Management plans discussed with involved personnels. Medical decision making was of moderate to high complexity , patient's has multiple severe comorbidities.
[2016-11-18] MEDS: ALPRAZOLAM 0.5 MG TABLET PO PRN (20:56)
[2016-11-18] MEDS: OXYCODONE HCL IR 5 MG TABLET PO PRN (20:57)
[2016-11-18] MEDS ORDERED: ENOXAPARIN SODIUM INJ 40 MG/0.4 ML DISP.SYRIN SUBCUT ONE (21:00)
[2016-11-18] MEDS ORDERED: POTASSIUM CHLORIDE 20 MEQ/15 ML UDCUP PO ONE (21:30)
[2016-11-18] MEDS: GABAPENTIN 400 MG CAPSULE PO SCH (21:46)
[2016-11-18] MEDS: FAMOTIDINE INJ/PF 20 MG/2 ML SDV IV SCH (21:47)
[2016-11-18] MEDS: POTASSIUM CHLORIDE 20 MEQ/15 ML UDCUP PO SCH (23:49)
[2016-11-18] MEDS: INSULIN LISPRO 100 UNIT/ML 3 ML VIAL SUBCUT PRN (23:49)
[2016-11-19 00:06] LABS: ANION GAP 11 (5-19); BLOOD UREA NITROGEN 14 mg/dL (7-20); CALCIUM 8.3 mg/dL (8.4-10.2); CARBON DIOXIDE 25 mmol/L (22-30); CHLORIDE 80 mmol/L (98-107); CREATININE RESULT 0.64 mg/dL (0.52-1.25); GLUCOSE 187 mg/dL (75-110); POTASSIUM 3.1 mmol/L (3.6-5.0)
[2016-11-19 02:03] LABS: CREATINE KINASE MB 12.3 ng/mL (<4.55); TROPONIN I 0.045 ng/mL
[2016-11-19] MEDS: POTASSIUM CHLORIDE 20 MEQ/15 ML UDCUP PO SCH ×2 (02:12→04:20)
[2016-11-19 04:38] LABS: BLOOD UREA NITROGEN 16 mg/dL (7-20); CALCIUM 8.6 mg/dL (8.4-10.2); CARBON DIOXIDE 23 mmol/L (22-30); CHLORIDE 86 mmol/L (98-107); GLUCOSE 149 mg/dL (75-110); POTASSIUM 3.8 mmol/L (3.6-5.0)
[2016-11-19 04:39] LABS: ANION GAP 11 (5-19)
[2016-11-19 05:05] LABS: SODIUM 119.6 mmol/L (137-145)
[2016-11-19] MEDS: GABAPENTIN 400 MG CAPSULE PO SCH ×2 (05:10→13:46)
[2016-11-19] MEDS ORDERED: POTASSI CL 20 MEQ/NS 1L 1,000 ML IV PRN (07:22)
--- NOTE | 2016-11-19 07:50 | EKG REPORT ---
SEVERITY:- ABNORMAL ECG - SINUS RHYTHM LEFT BUNDLE BRANCH BLOCK : Confirmed by: Gurinder Child MD 19-Nov-2016 07:50:20
[2016-11-19 08:30] LABS: ANION GAP 13 (5-19); BLOOD UREA NITROGEN 15 mg/dL (7-20); CALCIUM 9.5 mg/dL (8.4-10.2); CARBON DIOXIDE 24 mmol/L (22-30); CHLORIDE 90 mmol/L (98-107); CHOLESTEROL 192.72 mg/dL (0-200); CREATINE KINASE 625 U/L (30-135); Direct HDL 46 mg/dL (>40); GLUCOSE 137 mg/dL (75-110); MAGNESIUM 2.1 mg/dL (1.6-2.3); SODIUM 126.7 mmol/L (137-145); TRIGLYCERIDES 136 mg/dL (<150)
[2016-11-19 08:40] LABS: DIRECT LDL 115 mg/dL (<100)
[2016-11-19 08:41] LABS: CREATINE KINASE MB 11.2 ng/mL (<4.55); TROPONIN I 0.031 ng/mL
[2016-11-19 08:48] LABS: ABSOLUTE EOSINOPHILS # (AUTO) 0.1 10^3/uL (0.0-0.6); ABSOLUTE LYMPHOCYTES (AUTO) 1.8 10^3/uL (0.5-4.7); ABSOLUTE MONOCYTES (AUTO) 1.4 10^3/uL (0.1-1.4); ABSOLUTE NEUT (AUTO) 4.3 10^3/uL (1.7-8.2); BASOPHILS % (AUTO) 0.5 % (0-2); EOSINOPHILS % (AUTO) 1.4 % (0-6); HEMATOCRIT 37.6 % (36.0-47.0); HEMOGLOBIN 13.3 g/dL (12.0-15.5); HGB HCT DIFFERENCE 2.3; LYMPHOCYTES % (AUTO) 23.6 % (13-45); MEAN CORPUSCULAR HEMOGLOBIN 28.5 pg (27.0-33.4); MEAN CORPUSCULAR HGB CONC 35.3 g/dL (32.0-36.0); MEAN CORPUSCULAR VOLUME 81 fl (80-97); MONOCYTES % (AUTO) 17.8 % (3-13); RED BLOOD COUNT 4.65 10^6/uL (3.72-5.28); RED CELL DISTRIBUTION WIDTH 13.8 % (11.5-14.0); SEGMENTED NEUTROPHILS % (AUTO) 56.7 % (42-78); WHITE BLOOD COUNT 7.6 10^3/uL (4.0-10.5)
[2016-11-19] MEDS: ASPIRIN 81 MG TABLET, ENT COATED PO SCH (09:00)
[2016-11-19] MEDS: FAMOTIDINE INJ/PF 20 MG/2 ML SDV IV SCH ×2 (09:02→21:55)
[2016-11-19] MEDS: ENOXAPARIN SODIUM INJ 40 MG/0.4 ML DISP.SYRIN SUBCUT SCH (09:09)
[2016-11-19] MEDS: INSULIN LISPRO 100 UNIT/ML 3 ML VIAL SUBCUT PRN ×2 (11:53→17:01)
[2016-11-19] MEDS: OXYCODONE HCL IR 5 MG TABLET PO PRN ×2 (13:46→22:13)
--- NOTE | 2016-11-19 14:59 | PDOC PROGRESS REPORT ---
Subjective Progress Note for:: 11/19/16 Subjective:: Patient feels generally much better today. She has no nausea, vomiting. Her chest pain has resolved. She denies shortness of breath. She denies weakness or dizziness. Physical Exam Vital Signs: Temp Pulse Resp BP Pulse Ox 98.4 F 71 16 111/42 L 96 11/19/16 11:08 11/19/16 11:08 11/19/16 11:08 11/19/16 11:08 11/19/16 11:08 Intake & Output 11/18/16 11/19/16 11/20/16 06:59 06:59 06:59 Intake Total 177 Output Total 0 Balance 177 Weight 66.9 kg GENERAL: No acute distress HEENT: Conjunctiva clear, nonicteric, moist mucous membranes, no JVD, midline trachea RESPIRATORY: Clear to auscultation bilaterally, no wheezes, no rhonchi CARDIAC: Regular rate and rhythm, no murmurs/gallops/rubs ABDOMEN: Soft, nondistended, nontender, positive bowel sounds, no rebound, no guarding EXTREMETIES: No edema, cyanosis, clubbing NEUROLOGIC: Alert, oriented to person/place/time, CN's grossly intact, no focal deficits SKIN: No rash, wounds PSYCH: Normal mood, normal affect Results Laboratory Results: 11/19/16 08:39 11/19/16 07:50 11/18/16 11/18/16 11/18/16 19:11 19:11 23:35 WBC RBC Hgb Hct MCV MCH MCHC RDW Plt Count Seg Neutrophils % Lymphocytes % Monocytes % Eosinophils % Basophils % Absolute Neutrophils Absolute Lymphocytes Absolute Monocytes Absolute Eosinophils Absolute Basophils Sodium 116.1 L* 116.0 L* Potassium 2.6 L* 3.1 L Chloride 77 L 80 L Carbon Dioxide 25 25 Anion Gap 14 11 BUN 14 14 Creatinine 0.61 0.64 Est GFR ( Amer) > 60 > 60 Est GFR (Non-Af Amer) > 60 > 60 Glucose 179 H 187 H Calcium 9.0 8.3 L Magnesium Triglycerides Cholesterol LDL Cholesterol Direct VLDL Cholesterol HDL Cholesterol TSH 2.52 11/19/16 11/19/16 11/19/16 03:39 07:50 08:39 WBC 7.6 RBC 4.65 Hgb 13.3 Hct 37.6 MCV 81 MCH 28.5 MCHC 35.3 RDW 13.8 Plt Count 350 Seg Neutrophils % 56.7 Lymphocytes % 23.6 Monocytes % 17.8 H Eosinophils % 1.4 Basophils % 0.5 Absolute Neutrophils 4.3 Absolute Lymphocytes 1.8 Absolute Monocytes 1.4 Absolute Eosinophils 0.1 Absolute Basophils 0.0 Sodium 119.6 L* 126.7 L Potassium 3.8 4.0 Chloride 86 L 90 L Carbon Dioxide 23 24 Anion Gap 11 13 BUN 16 15 Creatinine 0.70 0.70 Est GFR ( Amer) > 60 > 60 Est GFR (Non-Af Amer) > 60 > 60 Glucose 149 H 137 H Calcium 8.6 9.5 Magnesium 2.1 Triglycerides 136 Cholesterol 192.72 LDL Cholesterol Direct 115 H VLDL Cholesterol 27.0 HDL Cholesterol 46 TSH 11/18/16 11/18/16 11/19/16 19:11 19:11 01:24 Creatine Kinase 610 H 595 H CK-MB (CK-2) 13.60 H Troponin I 0.034 11/19/16 11/19/16 11/19/16 01:24 07:50 07:50 Creatine Kinase 625 H CK-MB (CK-2) 12.30 H 11.20 H Troponin I 0.045 0.031 EKG Comments: Sinus rhythm, left bundle branch block Impressions: Chest X-Ray 11/18/16 18:10 IMPRESSION: NO ACUTE RADIOGRAPHIC FINDING IN THE CHEST. Assessment & Plan - Diagnosis (1) Hyponatremia Is this a current diagnosis for this admission?: YesPlan: Patient is now asymptomatic. Sodium is correcting gradually. Patient is euvolemic at this time. I would like to discontinue IV fluids now. (2) Hypokalemia Is this a current diagnosis for this admission?: YesPlan: Replace as needed. (3) Chest pain Is this a current diagnosis for this admission?: YesPlan: Resolved. Cardiac enzymes negative. EKG difficult to assess secondary to left bundle branch block. Cardiology following and recommends outpatient stress test. Continue aspirin. Hold off on statin for right now secondary to mild rhabdomyolysis (4) Abnormal urinalysis Is this a current diagnosis for this admission?: YesPlan: Urine culture negative. (5) COPD (chronic obstructive pulmonary disease) Qualifiers: Emphysema type: unspecified Is this a current diagnosis for this admission?: Yes (6) Chronic pain Qualifiers: Chronic pain type: other chronic pain Qualified Code(s): G89.29 - Other chronic pain Is this a current diagnosis for this admission?: YesPlan: Chronic opiate dependence. When necessary oxycodone. 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 Continue aspirin. Hold off on statin therapy at this time secondary to elevated CPK levels. (8) Bipolar disorder Qualifiers: Active/Remission status: remission status unspecified Qualified Code (s): F31.9 - Bipolar disorder, unspecified Is this a current diagnosis for this admission?: YesPlan: When necessary Xanax for now until routine medications can be verified. (9) DM w/o complication type II Is this a current diagnosis for this admission?: YesPlan: Sliding scale insulin coverage. Hemoglobin A1c 6.6. (10) Essential hypertension Is this a current diagnosis for this admission?: YesPlan: Hold blood pressure medicines for now secondary to hypotension. (11) Neuropathy Is this a current diagnosis for this admission?: YesPlan: Continue Neurontin. (12) Cigarette nicotine dependence Is this a current diagnosis for this admission?: Yes (13) Rhabdomyolysis Qualifiers: Rhabdomyolysis type: non-traumatic Qualified Code(s): M62.82 - Rhabdomyolysis Is this a current diagnosis for this admission?: Yes - Time Time Spent with patient: 35 or more minutes Anticipated discharge: Home Within: within 48 hours
--- NOTE | 2016-11-19 17:10 | PDOC PROGRESS REPORT ---
Subjective Progress Note for:: 11/19/16 Subjective:: Patient was seen at around 11 AM. She seems to be doing well and resting comfortably. Currently patient is oriented 3 but nurses reports intermittent confusion. Patient is denying any chest pain or shortness of breath. Telemetry strips shows sinus rhythm with bundle branch block pattern. Cardiac enzymes have been negative. Physical Exam Vital Signs: Temp Pulse Resp BP Pulse Ox 97.8 F 71 16 115/52 L 98 11/19/16 15:57 11/19/16 15:57 11/19/16 15:57 11/19/16 15:57 11/19/16 15:57 Intake & Output 11/18/16 11/19/16 11/20/16 06:59 06:59 06:59 Intake Total 177 1100 Output Total 0 Balance 177 1100 Weight 66.9 kg Exam: GENERAL: well-nourished and in no acute distress. Alert and oriented x3 HEAD: Atraumatic, normocephalic. EYES: Pupils equal round and reactive to light, extraocular movements intact, sclera anicteric, conjunctiva are normal. ENT: TMs normal, nares patent, oropharynx clear without exudates. Moist mucous membranes. No oral ulcerations or bleeding gums noted NECK: supple without lymphadenopathy. Trachea is central. No cervical or axillary lymphadenopathy noted. Carotids are 2+, JVD WNL LUNGS: Respiration seems nonlabored, no significant accessory muscle action noted. Breath sounds clear to auscultation bilaterally and equal noted. No wheezes rales or rhonchi noted. No significant dullness noted on percussion. CHEST: Palpation of the chest wall shows no significant chest wall tenderness. No other significant abnormalities noted. HEART: [employer], No PSH, 1/6 CHIVO aortic area, 1/6 odom systolic murmur mitral area, no rubs, no gallops. ABDOMEN: Soft, no significant tenderness appreciated, normoactive bowel sounds. No guarding, no rebound. No rigidity noted . No masses appreciated. EXTREMITIES: Pedal pulses are 1-2+, no calf tenderness noted. No clubbing or cyanosis.trace pedal edema noted NEUROLOGICAL: Focused neurological exam showed no significant neurologic deficit. Normal speech, no focal weakness appreciated. PSYCH: Normal mood, normal affect. Judgment and insight possibly mildly impaired. SKIN: No significant ecchymosis, rash, ulcerations or signs of pruritus noted. MUSCULOSKELETAL EXAM: No significant joint swelling noted. Results Laboratory Results: 11/19/16 08:39 11/19/16 07:50 11/18/16 11/18/16 11/18/16 19:11 19:11 23:35 WBC RBC Hgb Hct MCV MCH MCHC RDW Plt Count Seg Neutrophils % Lymphocytes % Monocytes % Eosinophils % Basophils % Absolute Neutrophils Absolute Lymphocytes Absolute Monocytes Absolute Eosinophils Absolute Basophils Sodium 116.1 L* 116.0 L* Potassium 2.6 L* 3.1 L Chloride 77 L 80 L Carbon Dioxide 25 25 Anion Gap 14 11 BUN 14 14 Creatinine 0.61 0.64 Est GFR ( Amer) > 60 > 60 Est GFR (Non-Af Amer) > 60 > 60 Glucose 179 H 187 H Calcium 9.0 8.3 L Magnesium Triglycerides Cholesterol LDL Cholesterol Direct VLDL Cholesterol HDL Cholesterol TSH 2.52 11/19/16 11/19/16 11/19/16 03:39 07:50 08:39 WBC 7.6 RBC 4.65 Hgb 13.3 Hct 37.6 MCV 81 MCH 28.5 MCHC 35.3 RDW 13.8 Plt Count 350 Seg Neutrophils % 56.7 Lymphocytes % 23.6 Monocytes % 17.8 H Eosinophils % 1.4 Basophils % 0.5 Absolute Neutrophils 4.3 Absolute Lymphocytes 1.8 Absolute Monocytes 1.4 Absolute Eosinophils 0.1 Absolute Basophils 0.0 Sodium 119.6 L* 126.7 L Potassium 3.8 4.0 Chloride 86 L 90 L Carbon Dioxide 23 24 Anion Gap 11 13 BUN 16 15 Creatinine 0.70 0.70 Est GFR ( Amer) > 60 > 60 Est GFR (Non-Af Amer) > 60 > 60 Glucose 149 H 137 H Calcium 8.6 9.5 Magnesium 2.1 Triglycerides 136 Cholesterol 192.72 LDL Cholesterol Direct 115 H VLDL Cholesterol 27.0 HDL Cholesterol 46 TSH 11/18/16 11/18/16 11/19/16 19:11 19:11 01:24 Creatine Kinase 610 H 595 H CK-MB (CK-2) 13.60 H Troponin I 0.034 11/19/16 11/19/16 11/19/16 01:24 07:50 07:50 Creatine Kinase 625 H CK-MB (CK-2) 12.30 H 11.20 H Troponin I 0.045 0.031 Impressions: Chest X-Ray 11/18/16 18:10 IMPRESSION: NO ACUTE RADIOGRAPHIC FINDING IN THE CHEST. Assessment & Plan - Diagnosis (1) Chest pain Qualifiers: Chest pain type: unspecified Qualified Code(s): R07.9 - Chest pain, unspecified Is this a current diagnosis for this admission?: Yes (2) Left bundle branch block (LBBB) on electrocardiogram Is this a current diagnosis for this admission?: Yes (3) PVD (peripheral vascular disease) Is this a current diagnosis for this admission?: Yes (4) Cigarette nicotine dependence Is this a current diagnosis for this admission?: Yes (5) DM w/o complication type II Is this a current diagnosis for this admission?: Yes (6) Essential hypertension Is this a current diagnosis for this admission?: Yes (7) Hypokalemia Is this a current diagnosis for this admission?: Yes (8) Hyponatremia Is this a current diagnosis for this admission?: Yes (9) COPD (chronic obstructive pulmonary disease) Qualifiers: Emphysema type: unspecified Is this a current diagnosis for this admission?: Yes - Notes Notes: Chest pain: This apparently was complaint this admission. So far cardiac enzymes has been negative. Will consider a nuclear stress test as an outpatient when patient more stable. If patient becomes unstable consider transfer to tertiary care for heart catheterization but otherwise well recommend medical management at this point. This is because of multiple comorbid diagnosis that the patient has ongoing currently. Left bundle branch block pattern: New since May 2016. Exact etiology not clear but could be related to progression of conduction disease, ischemic event since May 2016. Troponin I is negative therefore doubt any such event occurred in the last 2 weeks. At this point recommend optimization of therapy for underlying presumed CAD. Patient does have PVD. PVD: Recommend statins, WILDA inhibitor/ARB/beta milind therapy/antiplatelet therapy along with aggressive risk factor modification. Statins on hold because of low level rhabdomyolysis. Tobacco abuse: Patient advised tobacco cessation. Hypertension: Reasonably well controlled. Blood pressure goal in this patient is 135/85 or less. Diabetes: Recommend good control of blood sugar. However should avoid any hypoglycemia. Patient being expertly managed by primary care MKush. Hypokalemia: Agree with replacement therapy. Hyponatremia: Recommend fluid restriction, stopped HCTZ. Follow patient's electrolytes closely. Serum sodium is slowly improving. COPD: Currently stable. Rhabdomyolysis: Possibly related to hip pain, exact etiology not clear. Continue to follow cardiac enzymes. - Time Time with patient: 15-25 minutes - CODE STATUS was discussed, patient remains full code. Surrogate decision-maker patient's . Multiple medical problems were addressed.More than 50% of the time spent coordinating care, discussing management plans with involved caregivers. Management plans discussed with involved personnels. Medical decision making was of moderate to high complexity, patient's has multiple severe comorbidities. Medications reviewed and adjusted accordingly: Yes
--- NOTE | 2016-11-19 18:21 | EKG REPORT ---
SEVERITY:- ABNORMAL ECG - SINUS RHYTHM LEFT BUNDLE BRANCH BLOCK : Confirmed by: Gurinder Child MD 19-Nov-2016 18:20:16
[2016-11-19] MEDS ORDERED: GABAPENTIN 400 MG CAPSULE PO SCH (22:00)
[2016-11-19] MEDS: ALPRAZOLAM 0.5 MG TABLET PO PRN (22:13)
[2016-11-20 06:38] LABS: ABSOLUTE BASOPHILS # (AUTO) 0.1 10^3/uL (0.0-0.2); ABSOLUTE EOSINOPHILS # (AUTO) 0.2 10^3/uL (0.0-0.6); ABSOLUTE MONOCYTES (AUTO) 1.1 10^3/uL (0.1-1.4); ABSOLUTE NEUT (AUTO) 3.3 10^3/uL (1.7-8.2); EOSINOPHILS % (AUTO) 3.1 % (0-6); HEMATOCRIT 34.2 % (36.0-47.0); HEMOGLOBIN 11.8 g/dL (12.0-15.5); HGB HCT DIFFERENCE 1.2; LYMPHOCYTES % (AUTO) 29.8 % (13-45); MEAN CORPUSCULAR HEMOGLOBIN 28.8 pg (27.0-33.4); MEAN CORPUSCULAR HGB CONC 34.6 g/dL (32.0-36.0); MEAN CORPUSCULAR VOLUME 83 fl (80-97); MONOCYTES % (AUTO) 16.4 % (3-13); RED BLOOD COUNT 4.11 10^6/uL (3.72-5.28); RED CELL DISTRIBUTION WIDTH 13.7 % (11.5-14.0); SEGMENTED NEUTROPHILS % (AUTO) 49.7 % (42-78); WHITE BLOOD COUNT 6.7 10^3/uL (4.0-10.5)
[2016-11-20 07:00] LABS: ANION GAP 8 (5-19); BLOOD UREA NITROGEN 12 mg/dL (7-20); CALCIUM 9.1 mg/dL (8.4-10.2); CARBON DIOXIDE 24 mmol/L (22-30); CHLORIDE 98 mmol/L (98-107); CREATININE RESULT 0.63 mg/dL (0.52-1.25); GLUCOSE 121 mg/dL (75-110); POTASSIUM 3.7 mmol/L (3.6-5.0); SODIUM 129.8 mmol/L (137-145)
[2016-11-20] MEDS: OXYCODONE HCL IR 5 MG TABLET PO PRN (07:12)
[2016-11-20] MEDS: ALPRAZOLAM 0.5 MG TABLET PO PRN (07:12)
[2016-11-20] MEDS: ASPIRIN 81 MG TABLET, ENT COATED PO SCH (09:00)
[2016-11-20] MEDS: FAMOTIDINE INJ/PF 20 MG/2 ML SDV IV SCH (09:00)
[2016-11-20] MEDS: ENOXAPARIN SODIUM INJ 40 MG/0.4 ML DISP.SYRIN SUBCUT SCH (09:01)
[2016-11-20] MEDS ORDERED: GABAPENTIN 400 MG CAPSULE PO SCH (10:00)
[2016-11-20] MEDS ORDERED: CYANOCOBALAMIN (VITAMIN B-12) 1,000 MCG TABLET PO SCH (10:00)
[2016-11-20] MEDS ORDERED: LOSARTAN POTASSIUM 50 MG TABLET PO SCH (10:00)
--- NOTE | 2016-11-20 10:00 | PDOC DISCHARGE SUMMARY ---
General - Admit/Disc Date/PCP Admission Date/Primary Care Provider: 11/18/16 18:33 TERESA WARD, Discharge Date: 11/20/16 - Discharge Diagnosis (1) Hyponatremia Is this a current diagnosis for this admission?: Yes (2) Hypokalemia Is this a current diagnosis for this admission?: Yes (3) Chest pain Is this a current diagnosis for this admission?: Yes (4) Abnormal urinalysis Is this a current diagnosis for this admission?: Yes (5) COPD (chronic obstructive pulmonary disease) Is this a current diagnosis for this admission?: Yes (6) Chronic pain Is this a current diagnosis for this admission?: Yes (7) PVD (peripheral vascular disease) Is this a current diagnosis for this admission?: Yes (8) Bipolar disorder Is this a current diagnosis for this admission?: Yes (9) DM w/o complication type II Is this a current diagnosis for this admission?: Yes (10) Essential hypertension Is this a current diagnosis for this admission?: Yes (11) Neuropathy Is this a current diagnosis for this admission?: Yes (12) Cigarette nicotine dependence Is this a current diagnosis for this admission?: Yes (13) Rhabdomyolysis Is this a current diagnosis for this admission?: Yes - Additional Information Resuscitation Status: Full Code Discharge Diet: Cardiac Discharge Activity: Activity As Tolerated Home Medications: Alprazolam 1 mg PO Q8 11/18/16 Aspirin [Aspirin EC] 81 mg PO DAILY 11/18/16 Butalb/Acetaminophen/Caffeine [Lphyhm-Mhmjaokw-Qhew 50-325-40] 1 tab PO Q6HP PRN MDD 4 TABLETS 11/18/16 Cyanocobalamin (Vitamin B-12) [Vitamin B-12 1000 mcg Tablet] 1,000 mcg PO DAILY 11/18/16 Gabapentin 1,200 mg PO QHS 11/18/16 Gabapentin 800 mg PO DAILY 11/18/16 Insulin Lispro [Humalog Kwikpen U-100] 0 units SQ TID PRN 11/18/16 Ondansetron HCl 4 mg PO Q8HP PRN 11/18/16 Oxycodone HCl 10 mg PO Q6HP PRN 11/18/16 Triazolam [Halcion] 0.5 mg PO QHS 11/18/16 Losartan Potassium [Cozaar 50 mg Tablet] 50 mg PO DAILY #30 tablet 11/20/16 History of Present Illness Patient complains of: Weakness, chest pain, nausea History of Present Illness: ADILENE LEWIS is a 71 year old female with past medical history of diabetes , hypertension, bipolar disorder, neuropathy, peripheral vascular disease presents with several day history of nausea and vomiting. She has also recently noted chest pressure left side of her chest. Review of her pharmacy records indicate that she was started on Lasix on 11/11/2016. She has chronically been taking a combination blood pressure medication containing hydrochlorothiazide as well. Review of prior hospital records indicate that she had echocardiogram in May 2016 that showed normal ejection fraction, grade 2/4 left ventricular diastolic dysfunction. She had Cardiolite stress test on 03/30/2015 that was negative. EKG on 05/23/2016 showed sinus rhythm with no evidence of bundle branch block. Hospital Course Hospital Course: Patient presented with profound hyponatremia and sodium of 111 secondary to chronic hydrochlorothiazide administration and recent initiation of Lasix. Patient has also recently started strict sodium restriction secondary to swelling in her legs. Basically Lasix was started 7 days prior to presentation and she's been having about 3 days of nausea and increasing weakness. Diuretics and blood pressure medicines were held due to hyponatremia and hypotension. Patient was given gentle normal saline and her sodium has been correcting. Her weakness is resolved. Her nausea has resolved. Sodium at discharge is 129. We will advise her to discontinue hydrochlorothiazide and Lasix for now. I will also take her off of amlodipine. I will start her on Cozaar 50 mg daily for hypertension. Patient had chest pain on presentation as well and was noted to have a new left bundle branch block. She apparently had a cardiac workup by Dr. Child last year and was told that she was stable from a cardiac standpoint. She was seen by Dr. Guzman in the hospital and he has recommended that she have repeat stress test secondary to new left bundle branch block. Patient states that she does not desire to seek Dr. Child and follow-up as he has a bed bedside manner. We will have her follow-up with Dr. Guzman. Physical Exam Vital Signs: Temp Pulse Resp BP Pulse Ox 98.1 F 73 16 115/57 L 97 11/20/16 07:52 11/20/16 07:52 11/20/16 07:52 11/20/16 07:52 11/20/16 07:52 Intake & Output 11/19/16 11/20/16 11/21/16 06:59 06:59 06:59 Intake Total 472 1583 Output Total 0 Balance 472 1583 Weight 66.9 kg 66.2 kg GENERAL: No acute distress HEENT: Conjunctiva clear, nonicteric, moist mucous membranes, no JVD, midline trachea RESPIRATORY: Clear to auscultation bilaterally, no wheezes, no rhonchi CARDIAC: Regular rate and rhythm, no murmurs/gallops/rubs ABDOMEN: Soft, nondistended, nontender, positive bowel sounds, no rebound, no guarding EXTREMETIES: No edema, cyanosis, clubbing NEUROLOGIC: Alert, oriented to person/place/time, CN's grossly intact, no focal deficits SKIN: No rash, wounds PSYCH: Normal mood, normal affect Results Laboratory Results: 11/20/16 06:13 11/20/16 06:13 11/20/16 11/20/16 06:13 06:13 WBC 6.7 RBC 4.11 Hgb 11.8 L Hct 34.2 L MCV 83 MCH 28.8 MCHC 34.6 RDW 13.7 Plt Count 285 Seg Neutrophils % 49.7 Lymphocytes % 29.8 Monocytes % 16.4 H Eosinophils % 3.1 Basophils % 1.0 Absolute Neutrophils 3.3 Absolute Lymphocytes 2.0 Absolute Monocytes 1.1 Absolute Eosinophils 0.2 Absolute Basophils 0.1 Sodium 129.8 L Potassium 3.7 Chloride 98 Carbon Dioxide 24 Anion Gap 8 BUN 12 Creatinine 0.63 Est GFR ( Amer) > 60 Est GFR (Non-Af Amer) > 60 Glucose 121 H Calcium 9.1 11/18/16 11/18/16 11/19/16 19:11 19:11 01:24 Creatine Kinase 610 H 595 H CK-MB (CK-2) 13.60 H Troponin I 0.034 11/19/16 11/19/16 11/19/16 01:24 07:50 07:50 Creatine Kinase 625 H CK-MB (CK-2) 12.30 H 11.20 H Troponin I 0.045 0.031 Labs- Entire Visit 11/18/16 11/18/16 11/18/16 15:38 15:38 15:38 WBC 9.8 RBC 4.95 Hgb 13.9 Hct 39.7 MCV 80 MCH 28.0 MCHC 34.9 RDW 13.6 Plt Count 346 Seg Neutrophils % 64.1 Lymphocytes % 18.4 Monocytes % 16.9 H Eosinophils % 0.4 Basophils % 0.2 Absolute Neutrophils 6.3 Absolute Lymphocytes 1.8 Absolute Monocytes 1.7 H Absolute Eosinophils 0.0 Absolute Basophils 0.0 Sodium 112.0 L* Potassium 2.9 L* Chloride 67 L Carbon Dioxide 29 Anion Gap 16 BUN 15 Creatinine 0.71 Est GFR ( Amer) > 60 Est GFR (Non-Af Amer) > 60 Glucose 173 H POC Glucose Hemoglobin A1c % Calcium 9.9 Magnesium Total Bilirubin 1.2 Direct Bilirubin 0.4 Indirect Bilirubin Not Reportable Neonat Total Bilirubin Not Reportable AST 80 H ALT 57 H Alkaline Phosphatase 84 Creatine Kinase CK-MB (CK-2) Troponin I 0.030 Total Protein 8.6 H Albumin 5.1 H Triglycerides Cholesterol LDL Cholesterol Direct VLDL Cholesterol HDL Cholesterol TSH Urine Color Urine Appearance Urine pH Ur Specific [place] Urine Protein Urine Glucose (UA) Urine Ketones Urine Blood Urine Nitrite Urine Bilirubin Urine Urobilinogen Ur Leukocyte Esterase Urine WBC (Auto) Urine RBC (Auto) Squamous Epi Cells Auto Urine Mucus (Auto) Urine Ascorbic Acid 11/18/16 11/18/16 11/18/16 15:38 16:35 19:11 WBC RBC Hgb Hct MCV MCH MCHC RDW Plt Count Seg Neutrophils % Lymphocytes % Monocytes % Eosinophils % Basophils % Absolute Neutrophils Absolute Lymphocytes Absolute Monocytes Absolute Eosinophils Absolute Basophils Sodium Potassium Chloride Carbon Dioxide Anion Gap BUN Creatinine Est GFR ( Amer) Est GFR (Non-Af Amer) Glucose POC Glucose Hemoglobin A1c % Calcium Magnesium 1.7 Total Bilirubin Direct Bilirubin Indirect Bilirubin Neonat Total Bilirubin AST ALT Alkaline Phosphatase Creatine Kinase 610 H CK-MB (CK-2) Troponin I Total Protein Albumin Triglycerides Cholesterol LDL Cholesterol Direct VLDL Cholesterol HDL Cholesterol TSH Urine Color YELLOW Urine Appearance CLEAR Urine pH 7.0 Ur Specific [place] 1.005 Urine Protein NEGATIVE Urine Glucose (UA) NEGATIVE Urine Ketones TRACE H Urine Blood NEGATIVE Urine Nitrite POSITIVE H Urine Bilirubin NEGATIVE Urine Urobilinogen NEGATIVE Ur Leukocyte Esterase NEGATIVE Urine WBC (Auto) 1 Urine RBC (Auto) 0 Squamous Epi Cells Auto <1 Urine Mucus (Auto) RARE Urine Ascorbic Acid NEGATIVE 11/18/16 11/18/16 11/18/16 19:11 19:11 19:11 WBC RBC Hgb Hct MCV MCH MCHC RDW Plt Count Seg Neutrophils % Lymphocytes % Monocytes % Eosinophils % Basophils % Absolute Neutrophils Absolute Lymphocytes Absolute Monocytes Absolute Eosinophils Absolute Basophils Sodium 116.1 L* Potassium 2.6 L* Chloride 77 L Carbon Dioxide 25 Anion Gap 14 BUN 14 Creatinine 0.61 Est GFR ( Amer) > 60 Est GFR (Non-Af Amer) > 60 Glucose 179 H POC Glucose Hemoglobin A1c % Calcium 9.0 Magnesium Total Bilirubin Direct Bilirubin Indirect Bilirubin Neonat Total Bilirubin AST ALT Alkaline Phosphatase Creatine Kinase CK-MB (CK-2) 13.60 H Troponin I 0.034 Total Protein Albumin Triglycerides Cholesterol LDL Cholesterol Direct VLDL Cholesterol HDL Cholesterol TSH 2.52 Urine Color Urine Appearance Urine pH Ur Specific [place] Urine Protein Urine Glucose (UA) Urine Ketones Urine Blood Urine Nitrite Urine Bilirubin Urine Urobilinogen Ur Leukocyte Esterase Urine WBC (Auto) Urine RBC (Auto) Squamous Epi Cells Auto Urine Mucus (Auto) Urine Ascorbic Acid 11/18/16 11/18/16 11/19/16 23:22 23:35 01:24 WBC RBC Hgb Hct MCV MCH MCHC RDW Plt Count Seg Neutrophils % Lymphocytes % Monocytes % Eosinophils % Basophils % Absolute Neutrophils Absolute Lymphocytes Absolute Monocytes Absolute Eosinophils Absolute Basophils Sodium 116.0 L* Potassium 3.1 L Chloride 80 L Carbon Dioxide 25 Anion Gap 11 BUN 14 Creatinine 0.64 Est GFR ( Amer) > 60 Est GFR (Non-Af Amer) > 60 Glucose 187 H POC Glucose 203 H Hemoglobin A1c % Calcium 8.3 L Magnesium Total Bilirubin Direct Bilirubin Indirect Bilirubin Neonat Total Bilirubin AST ALT Alkaline Phosphatase Creatine Kinase 595 H CK-MB (CK-2) Troponin I Total Protein Albumin Triglycerides Cholesterol LDL Cholesterol Direct VLDL Cholesterol HDL Cholesterol TSH Urine Color Urine Appearance Urine pH Ur Specific [place] Urine Protein Urine Glucose (UA) Urine Ketones Urine Blood Urine Nitrite Urine Bilirubin Urine Urobilinogen Ur Leukocyte Esterase Urine WBC (Auto) Urine RBC (Auto) Squamous Epi Cells Auto Urine Mucus (Auto) Urine Ascorbic Acid 11/19/16 11/19/16 11/19/16 01:24 03:39 06:08 WBC RBC Hgb Hct MCV MCH MCHC RDW Plt Count Seg Neutrophils % Lymphocytes % Monocytes % Eosinophils % Basophils % Absolute Neutrophils Absolute Lymphocytes Absolute Monocytes Absolute Eosinophils Absolute Basophils Sodium 119.6 L* Potassium 3.8 Chloride 86 L Carbon Dioxide 23 Anion Gap 11 BUN 16 Creatinine 0.70 Est GFR ( Amer) > 60 Est GFR (Non-Af Amer) > 60 Glucose 149 H POC Glucose 132 H Hemoglobin A1c % Calcium 8.6 Magnesium Total Bilirubin Direct Bilirubin Indirect Bilirubin Neonat Total Bilirubin AST ALT Alkaline Phosphatase Creatine Kinase CK-MB (CK-2) 12.30 H Troponin I 0.045 Total Protein Albumin Triglycerides Cholesterol LDL Cholesterol Direct VLDL Cholesterol HDL Cholesterol TSH Urine Color Urine Appearance Urine pH Ur Specific [place] Urine Protein Urine Glucose (UA) Urine Ketones Urine Blood Urine Nitrite Urine Bilirubin Urine Urobilinogen Ur Leukocyte Esterase Urine WBC (Auto) Urine RBC (Auto) Squamous Epi Cells Auto Urine Mucus (Auto) Urine Ascorbic Acid 11/19/16 11/19/16 11/19/16 07:50 07:50 08:39 WBC 7.6 RBC 4.65 Hgb 13.3 Hct 37.6 MCV 81 MCH 28.5 MCHC 35.3 RDW 13.8 Plt Count 350 Seg Neutrophils % 56.7 Lymphocytes % 23.6 Monocytes % 17.8 H Eosinophils % 1.4 Basophils % 0.5 Absolute Neutrophils 4.3 Absolute Lymphocytes 1.8 Absolute Monocytes 1.4 Absolute Eosinophils 0.1 Absolute Basophils 0.0 Sodium 126.7 L Potassium 4.0 Chloride 90 L Carbon Dioxide 24 Anion Gap 13 BUN 15 Creatinine 0.70 Est GFR ( Amer) > 60 Est GFR (Non-Af Amer) > 60 Glucose 137 H POC Glucose Hemoglobin A1c % Calcium 9.5 Magnesium 2.1 Total Bilirubin Direct Bilirubin Indirect Bilirubin Neonat Total Bilirubin AST ALT Alkaline Phosphatase Creatine Kinase 625 H CK-MB (CK-2) 11.20 H Troponin I 0.031 Total Protein Albumin Triglycerides 136 Cholesterol 192.72 LDL Cholesterol Direct 115 H VLDL Cholesterol 27.0 HDL Cholesterol 46 TSH Urine Color Urine Appearance Urine pH Ur Specific [place] Urine Protein Urine Glucose (UA) Urine Ketones Urine Blood Urine Nitrite Urine Bilirubin Urine Urobilinogen Ur Leukocyte Esterase Urine WBC (Auto) Urine RBC (Auto) Squamous Epi Cells Auto Urine Mucus (Auto) Urine Ascorbic Acid 11/19/16 11/19/16 11/19/16 08:39 11:09 16:01 WBC RBC Hgb Hct MCV MCH MCHC RDW Plt Count Seg Neutrophils % Lymphocytes % Monocytes % Eosinophils % Basophils % Absolute Neutrophils Absolute Lymphocytes Absolute Monocytes Absolute Eosinophils Absolute Basophils Sodium Potassium Chloride Carbon Dioxide Anion Gap BUN Creatinine Est GFR ( Amer) Est GFR (Non-Af Amer) Glucose POC Glucose 192 H 166 H Hemoglobin A1c % 6.6 H Calcium Magnesium Total Bilirubin Direct Bilirubin Indirect Bilirubin Neonat Total Bilirubin AST ALT Alkaline Phosphatase Creatine Kinase CK-MB (CK-2) Troponin I Total Protein Albumin Triglycerides Cholesterol LDL Cholesterol Direct VLDL Cholesterol HDL Cholesterol TSH Urine Color Urine Appearance Urine pH Ur Specific [place] Urine Protein Urine Glucose (UA) Urine Ketones Urine Blood Urine Nitrite Urine Bilirubin Urine Urobilinogen Ur Leukocyte Esterase Urine WBC (Auto) Urine RBC (Auto) Squamous Epi Cells Auto Urine Mucus (Auto) Urine Ascorbic Acid 11/19/16 11/20/16 11/20/16 22:09 06:00 06:13 WBC 6.7 RBC 4.11 Hgb 11.8 L Hct 34.2 L MCV 83 MCH 28.8 MCHC 34.6 RDW 13.7 Plt Count 285 Seg Neutrophils % 49.7 Lymphocytes % 29.8 Monocytes % 16.4 H Eosinophils % 3.1 Basophils % 1.0 Absolute Neutrophils 3.3 Absolute Lymphocytes 2.0 Absolute Monocytes 1.1 Absolute Eosinophils 0.2 Absolute Basophils 0.1 Sodium Potassium Chloride Carbon Dioxide Anion Gap BUN Creatinine Est GFR ( Amer) Est GFR (Non-Af Amer) Glucose POC Glucose 118 H 121 H Hemoglobin A1c % Calcium Magnesium Total Bilirubin Direct Bilirubin Indirect Bilirubin Neonat Total Bilirubin AST ALT Alkaline Phosphatase Creatine Kinase CK-MB (CK-2) Troponin I Total Protein Albumin Triglycerides Cholesterol LDL Cholesterol Direct VLDL Cholesterol HDL Cholesterol TSH Urine Color Urine Appearance Urine pH Ur Specific [place] Urine Protein Urine Glucose (UA) Urine Ketones Urine Blood Urine Nitrite Urine Bilirubin Urine Urobilinogen Ur Leukocyte Esterase Urine WBC (Auto) Urine RBC (Auto) Squamous Epi Cells Auto Urine Mucus (Auto) Urine Ascorbic Acid 11/20/16 06:13 WBC RBC Hgb Hct MCV MCH MCHC RDW Plt Count Seg Neutrophils % Lymphocytes % Monocytes % Eosinophils % Basophils % Absolute Neutrophils Absolute Lymphocytes Absolute Monocytes Absolute Eosinophils Absolute Basophils Sodium 129.8 L Potassium 3.7 Chloride 98 Carbon Dioxide 24 Anion Gap 8 BUN 12 Creatinine 0.63 Est GFR ( Amer) > 60 Est GFR (Non-Af Amer) > 60 Glucose 121 H POC Glucose Hemoglobin A1c % Calcium 9.1 Magnesium Total Bilirubin Direct Bilirubin Indirect Bilirubin Neonat Total Bilirubin AST ALT Alkaline Phosphatase Creatine Kinase CK-MB (CK-2) Troponin I Total Protein Albumin Triglycerides Cholesterol LDL Cholesterol Direct VLDL Cholesterol HDL Cholesterol TSH Urine Color Urine Appearance Urine pH Ur Specific [place] Urine Protein Urine Glucose (UA) Urine Ketones Urine Blood Urine Nitrite Urine Bilirubin Urine Urobilinogen Ur Leukocyte Esterase Urine WBC (Auto) Urine RBC (Auto) Squamous Epi Cells Auto Urine Mucus (Auto) Urine Ascorbic Acid EKG Comments: Sinus rhythm, left bundle branch block Impressions: Chest X-Ray 11/18/16 18:10 IMPRESSION: NO ACUTE RADIOGRAPHIC FINDING IN THE CHEST. Qualifiers PATEINT BEING DISCHARGED WITH ANY OF THE FOLLOWING DIAGNOSIS?: No Plan Time Spent: Less than 30 Minutes
[2016-11-20 10:17] VITALS: BP 93/45
--- NOTE | 2016-11-20 22:20 | PDOC PROGRESS REPORT ---
Subjective Progress Note for:: 11/20/16 Subjective:: Patient was seen at around 9 AM. She seems to be doing well and resting comfortably. Currently patient is oriented 3. Patient is getting discharged. Patient has been recommended a stress test as an outpatient. Patient will also need a 2-D echocardiogram. This is in view of new onset left bundle branch block pattern. Patient is denying any chest pain or shortness of breath. Telemetry strips shows sinus rhythm with bundle branch block pattern. Cardiac enzymes have been negative. Physical Exam Vital Signs: Temp Pulse Resp BP Pulse Ox 98.1 F 73 16 93/45 L 97 11/20/16 10:15 11/20/16 10:15 11/20/16 10:15 11/20/16 10:15 11/20/16 10:15 Intake & Output 11/19/16 11/20/16 11/21/16 06:59 06:59 06:59 Intake Total 472 1583 Output Total 0 Balance 472 1583 Weight 66.9 kg 66.2 kg Exam: GENERAL: well-nourished and in no acute distress. Alert and oriented x3 HEAD: Atraumatic, normocephalic. EYES: Pupils equal round and reactive to light, extraocular movements intact, sclera anicteric, conjunctiva are normal. ENT: TMs normal, nares patent, oropharynx clear without exudates. Moist mucous membranes. No oral ulcerations or bleeding gums noted NECK: supple without lymphadenopathy. Trachea is central. No cervical or axillary lymphadenopathy noted. Carotids are 2+, JVD WNL LUNGS: Respiration seems nonlabored, no significant accessory muscle action noted. Breath sounds clear to auscultation bilaterally and equal noted. No wheezes rales or rhonchi noted. No significant dullness noted on percussion. CHEST: Palpation of the chest wall shows no significant chest wall tenderness. No other significant abnormalities noted. 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 ABDOMEN: Soft, no significant tenderness appreciated, normoactive bowel sounds. No guarding, no rebound. No rigidity noted . No masses appreciated. EXTREMITIES: Pedal pulses are 1-2+, no calf tenderness noted. No clubbing or cyanosis.trace to 1+ pedal edema noted NEUROLOGICAL: Focused neurological exam showed no significant neurologic deficit. Normal speech, no focal weakness appreciated. PSYCH: Normal mood, normal affect. Judgment and insight within normal limits. SKIN: No significant ecchymosis, rash, ulcerations or signs of pruritus noted. MUSCULOSKELETAL EXAM: No significant joint swelling noted. Results Laboratory Results: 11/20/16 06:13 11/20/16 06:13 11/20/16 11/20/16 06:13 06:13 WBC 6.7 RBC 4.11 Hgb 11.8 L Hct 34.2 L MCV 83 MCH 28.8 MCHC 34.6 RDW 13.7 Plt Count 285 Seg Neutrophils % 49.7 Lymphocytes % 29.8 Monocytes % 16.4 H Eosinophils % 3.1 Basophils % 1.0 Absolute Neutrophils 3.3 Absolute Lymphocytes 2.0 Absolute Monocytes 1.1 Absolute Eosinophils 0.2 Absolute Basophils 0.1 Sodium 129.8 L Potassium 3.7 Chloride 98 Carbon Dioxide 24 Anion Gap 8 BUN 12 Creatinine 0.63 Est GFR ( Amer) > 60 Est GFR (Non-Af Amer) > 60 Glucose 121 H Calcium 9.1 11/18/16 11/18/16 11/19/16 19:11 19:11 01:24 Creatine Kinase 610 H 595 H CK-MB (CK-2) 13.60 H Troponin I 0.034 11/19/16 11/19/16 11/19/16 01:24 07:50 07:50 Creatine Kinase 625 H CK-MB (CK-2) 12.30 H 11.20 H Troponin I 0.045 0.031 Impressions: Chest X-Ray 11/18/16 18:10 IMPRESSION: NO ACUTE RADIOGRAPHIC FINDING IN THE CHEST. Assessment & Plan - Diagnosis (1) Chest pain Qualifiers: Chest pain type: unspecified Qualified Code(s): R07.9 - Chest pain, unspecified Is this a current diagnosis for this admission?: Yes (2) Left bundle branch block (LBBB) on electrocardiogram Is this a current diagnosis for this admission?: Yes (3) PVD (peripheral vascular disease) Is this a current diagnosis for this admission?: Yes (4) Cigarette nicotine dependence Is this a current diagnosis for this admission?: Yes (5) DM w/o complication type II Is this a current diagnosis for this admission?: Yes (6) Essential hypertension Is this a current diagnosis for this admission?: Yes (7) Hypokalemia Is this a current diagnosis for this admission?: Yes (8) Hyponatremia Is this a current diagnosis for this admission?: Yes (9) COPD (chronic obstructive pulmonary disease) Qualifiers: Emphysema type: unspecified Is this a current diagnosis for this admission?: Yes - Notes Notes: Chest pain: This apparently was complaint this admission. So far cardiac enzymes has been negative. Patient Prefers to have a stress test and 2-D echocardiogram as an outpatient. This is needed in view of new left bundle branch block on EKG since May 2016 and patient having risk factors for CAD. Patient being discharged today. Left bundle branch block pattern: New since May 2016. Exact etiology not clear but could be related to progression of conduction disease, ischemic event since May 2016. Troponin I is negative therefore doubt any such event occurred in the last 2 weeks. At this point recommend optimization of therapy for underlying presumed CAD. Patient does have PVD. As noted above have recommended a 2-D echocardiogram and a nuclear stress test. PVD: Recommend statins, WILDA inhibitor/ARB/beta milind therapy/antiplatelet therapy along with aggressive risk factor modification. Statins on hold because of low level rhabdomyolysis. Will consider starting statins as an outpatient. Tobacco abuse: Patient advised tobacco cessation. Hypertension: Reasonably well controlled. Blood pressure goal in this patient is 135/85 or less. Diabetes: Recommend good control of blood sugar. However should avoid any hypoglycemia. Patient being expertly managed by primary care MKush. Hypokalemia: This has improved. Hyponatremia: Recommend fluid restriction, stopped HCTZ. This has improved. Patient has no clinical manifestation of hyponatremia at this time. COPD: Currently stable. Rhabdomyolysis: Possibly related to hip pain, exact etiology not clear. As usual I thank Dr. Tracy for involving me in care of this nice lady. - Time Time with patient: 15-25 minutes - CODE STATUS was discussed, patient remains full code. Surrogate decision-maker unchanged. Multiple medical problems were addressed.More than 50% of the time spent coordinating care, discussing management plans with involved caregivers. Management plans discussed with involved personnels. Medical decision making was of moderate to high complexity , patient's has multiple severe comorbidities. Medications reviewed and adjusted accordingly: Yes
== END 2016-11-20 10:41 | disposition home or self-care (01) | DRG 641 ==
LOC: ER 14:46 → EH 18:33 → UNDOADMIN 18:41 → EH 18:41 → 3S 23:10
PROVIDERS: ADMIT Family Medicine; ATTEND Family Medicine
DX: E87.1 Hypo-osmolality and hyponatremia (principal); M62.82 Rhabdomyolysis; T50.2X5A Adverse effect of carbonic-anhydrase inhibitors, benzothiadiazides and other diuretics, initial encounter; T50.1X5A Adverse effect of loop [high-ceiling] diuretics, initial encounter; Y92.019 Unspecified place in single-family (private) house as the place of occurrence of the external cause; E87.6 Hypokalemia; I10 Essential (primary) hypertension; I25.10 Atherosclerotic heart disease of native coronary artery without angina pectoris; E78.5 Hyperlipidemia, unspecified; I44.7 Left bundle-branch block, unspecified; I73.9 Peripheral vascular disease, unspecified; J44.9 Chronic obstructive pulmonary disease, unspecified; E11.40 Type 2 diabetes mellitus with diabetic neuropathy, unspecified; R82.90 Unspecified abnormal findings in urine; F31.9 Bipolar disorder, unspecified; F03.90 Unspecified dementia, unspecified severity, without behavioral disturbance, psychotic disturbance, mood disturbance, and anxiety; F17.210 Nicotine dependence, cigarettes, uncomplicated; Z79.82 Long term (current) use of aspirin; Z79.4 Long term (current) use of insulin; Z79.899 Other long term (current) drug therapy; Z88.6 Allergy status to analgesic agent; Z91.048 Other nonmedicinal substance allergy status
CPT/HCPCS: 36415; 71010; 80048; 80053; 80061; 81001; 82550; 82553; 82962; 83036; 83735; 84443; 84484; 85025; 87086; 93005; 93010; 99285; J0696; J1650; J1815; J3480; J3490; J7030; S0028

== ENCOUNTER 2016-12-15 10:37 | Observation (INO) | payer MEDICARE, OTHER ==
[2016-12-15] MEDS ORDERED: ONDANSETRON HCL INJ/PF 4 MG/2 ML SDV IV ONE (11:06)
--- NOTE | 2016-12-15 11:11 | ER Document Report ---
ED General - General Chief Complaint: Altered Mental Status Stated Complaint: ALTERED MENTAL STATUS Time Seen by Provider: 12/15/16 11:01 Mode of Arrival: Medic Information source: Emergency Med Personnel Notes: This is a 71-year-old female with a history of hypertension, diabetes, dyslipidemia, left bundle branch block, TIAs, migraines, GI bleed and bipolar affective disorder. Patient is brought in by EMS for altered mental status. EMS reports that there has been stated the patient had a headache yesterday at 7 PM and that when the patient awoke, she was nonverbal and altered and nonresponsive. The Accu-Chek at the home was 133. The patient's baseline mental status is alert and oriented 4 and ambulatory without assistance. TRAVEL OUTSIDE OF THE [place] IN LAST 30 DAYS: No - HPI Onset: Yesterday Onset/Duration: Gradual Quality of pain: Dull Severity: Moderate Pain Level: 2 Associated symptoms: denies: Chills, Fever, Nausea, Vomiting Exacerbated by: Denies Relieved by: Denies Similar symptoms previously: Yes Recently seen / treated by doctor: No - Related Data Allergies/Adverse Reactions: NSAIDS (Non-Steroidal Anti-Inflamma [Nsaids] Allergy (Severe, Verified 09/11/16 22:50) gastric bleed adhesive [Adhesive] Allergy (Intermediate, Verified 09/11/16 22:50) morphine Allergy (Verified 12/15/16 17:47) Home Medications: Current Home Medications Alprazolam [Xanax] 1 mg PO Q8 12/15/16 [History] Aspirin [Aspirin EC] 81 mg PO DAILY 12/15/16 [History] Butalb/Acetaminophen/Caffeine [Fioricet (50-325-40 mg) Tablet] 1 tab PO Q6HP PRN 12/15/16 [History] Clonidine HCl [Catapres 0.1 mg Tablet] 0.1 mg PO Q8HP PRN 12/15/16 [History] Cyanocobalamin (Vitamin B-12) [Vitamin B-12 1000 mcg Tablet] 1,000 mcg PO DAILY 12/15/16 [History] Gabapentin [Neurontin 400 mg Capsule] 1,200 mg PO QHS 12/15/16 [History] Gabapentin [Neurontin 400 mg Capsule] 800 mg PO DAILY 12/15/16 [History] Insulin Lispro [Humalog Kwikpen U-100] 0 units SUBCUT TIDP PRN 12/15/16 [History ] Losartan Potassium [Cozaar 50 mg Tablet] 50 mg PO DAILY 12/15/16 [History] Multivit with Calcium,Iron,Min [Women's Daily Formula] 1 tab PO DAILY 12/15/16 [ History] Omeprazole 40 mg PO BIDBS 12/15/16 [History] Ondansetron HCl [Zofran 4 mg Tablet] 4 mg PO Q8HP PRN 12/15/16 [History] Oxycodone HCl [Oxycodone HCl 10 MG Tablet] 10 mg PO Q6HP PRN 12/15/16 [History] Promethazine HCl [Phenergan 25 mg Tablet] 25 mg PO Q4HP PRN 12/15/16 [History] Triazolam [Halcion] 0.5 mg PO QHS 12/15/16 [History] Past Medical History - General Information source: Relative - Social History Smoking Status: Never Smoker Cigarette use (# per day): No Chew tobacco use (# tins/day): No Frequency of alcohol use: None Drug Abuse: None Lives with: Family Family History: Reviewed & Not Pertinent, CAD, DM Patient has suicidal ideation: No Patient has homicidal ideation: No - Past Medical History Cardiac Medical History: Reports: Hx Coronary Artery Disease, Hx Hypercholesterolemia, Hx Hypertension, Hx Peripheral Vascular Disease - Carotid artery disease Denies: Hx Congestive Heart Failure, Hx DVT, Hx Heart Attack, Hx Pulmonary Embolism Pulmonary Medical History: Reports: Hx Bronchitis, Hx COPD Denies: Hx Asthma, Hx Pneumonia Neurological Medical History: Denies: Hx Cerebrovascular Accident, Hx Seizures Endocrine Medical History: Reports: Hx Diabetes Mellitus Type 1, Hx Diabetes Mellitus Type 2. Denies: Hx Hyperthyroidism, Hx Hypothyroidism Renal/ Medical History: Denies: Hx Peritoneal Dialysis GI Medical History: Denies: Hx Cirrhosis, Hx Gastroesophageal Reflux Disease, Hx Hepatitis Musculoskeltal Medical History: Reports Hx Arthritis, Reports Hx Muscle Spasm Psychiatric Medical History: Reports: Hx Bipolar Disorder, Hx Dementia, Hx Depression Infectious Medical History: Denies: Hx Hepatitis Past Surgical History: Reports: Hx Abdominal Surgery - BOTOX INJECTIONS [id number] , Hx Cholecystectomy, Hx Hysterectomy, Hx Orthopedic Surgery - Back surgery, Hx Urinary Tract Surgery, Other - Bladder tack - Immunizations Hx Diphtheria, Pertussis, Tetanus Vaccination: Yes Hx Pneumococcal Vaccination: 10/04/13 Review of Systems - Review of Systems Constitutional: denies: Chills, Fever EENT: No symptoms reported Cardiovascular: No symptoms reported Respiratory: No symptoms reported Gastrointestinal: See HPI Genitourinary: No symptoms reported Female Genitourinary: No symptoms reported Musculoskeletal: No symptoms reported Skin: No symptoms reported Hematologic/Lymphatic: No symptoms reported Neurological/Psychological: See HPI Physical Exam - Vital signs Vitals: Resp BP Pulse Ox 10 L 158/64 H 98 12/15/16 11:00 12/15/16 11:00 12/15/16 11:00 Notes: No GENERAL: 71-year-old female lying supine in stretcher, nonverbal with eyes closed. Patient is actively resistant when I try and open up her eyelids. Pulse is 65, blood pressure is 135/70. Respiratory rate is 16 and nonlabored. The patient does not appear to be in any distress. HEAD: Atraumatic, normocephalic. EYES: Pupils equal round and reactive to light, extraocular movements intact, sclera anicteric, conjunctiva are normal. ENT: TMs normal, nares patent, oropharynx clear without exudates. Moist mucous membranes. NECK: Normal range of motion, supple without lymphadenopathy or JVD. LUNGS: Breath sounds clear to auscultation bilaterally and equal. No wheezes rales or rhonchi. HEART: Regular rate and rhythm without murmurs, rubs or gallops. ABDOMEN: Soft, normoactive bowel sounds. No tenderness to palpation. No guarding, no rebound. No masses appreciated. EXTREMITIES: Normal range of motion, no pitting or edema. No clubbing or cyanosis. NEUROLOGICAL: Nonverbal, nonresponsive, eyes closed and resisting me when I try to open up her eyelids. Patient appears to be moving all extremities. PSYCH: Normal mood, normal affect. Nonverbal SKIN: Warm, Dry, normal turgor, no rashes or lesions noted. Course - Vital Signs Vital signs: Temp Pulse Resp BP Pulse Ox 97.4 F 70 16 142/67 H 97 12/15/16 16:34 12/15/16 16:41 12/15/16 16:34 12/15/16 16:34 12/15/16 16:34 - Laboratory Result Diagrams: 12/15/16 10:55 12/15/16 10:55 Laboratory results interpreted by me: 12/15/16 12/15/16 12/15/16 10:55 10:55 10:55 WBC 11.2 H RDW 14.4 H Seg Neutrophils % 80.6 H Lymphocytes % 12.3 L Absolute Neutrophils 9.0 H VBG pH 7.46 H Glucose 200 H POC Glucose Urine Ketones 12/15/16 12/15/16 12:25 13:35 WBC RDW Seg Neutrophils % Lymphocytes % Absolute Neutrophils VBG pH Glucose POC Glucose 188 H Urine Ketones 20 H - Diagnostic Test Radiology reviewed: Image reviewed, Reports reviewed - CT head: no acute intracranial process. CT of the abdomen shows no acute intra-abdominal process - EKG Interpretation by Me Rate: Normal Rhythm: NSR - EKG shows normal sinus rhythm with a ventricular rate of 82, left bundle branch block which is been noted previously. Discharge - Discharge Clinical Impression: Acute altered mental status, Vomiting with nausea Condition: Stable Disposition: ADMITTED INPATIENT Admitting Provider: Hospitalist - Dr. Taylor Unit Admitted: Telemetry
[2016-12-15 11:22] LABS: ABSOLUTE LYMPHOCYTES (AUTO) 1.4 10^3/uL (0.5-4.7); ABSOLUTE MONOCYTES (AUTO) 0.7 10^3/uL (0.1-1.4); BASOPHILS % (AUTO) 0.3 % (0-2); EOSINOPHILS % (AUTO) 0.1 % (0-6); HEMATOCRIT 40.2 % (36.0-47.0); HEMOGLOBIN 13.2 g/dL (12.0-15.5); HGB HCT DIFFERENCE -0.6; LYMPHOCYTES % (AUTO) 12.3 % (13-45); MEAN CORPUSCULAR HEMOGLOBIN 27.9 pg (27.0-33.4); MEAN CORPUSCULAR HGB CONC 32.9 g/dL (32.0-36.0); MEAN CORPUSCULAR VOLUME 85 fl (80-97); MONOCYTES % (AUTO) 6.7 % (3-13); RED BLOOD COUNT 4.74 10^6/uL (3.72-5.28); RED CELL DISTRIBUTION WIDTH 14.4 % (11.5-14.0); SEGMENTED NEUTROPHILS % (AUTO) 80.6 % (42-78); WHITE BLOOD COUNT 11.2 10^3/uL (4.0-10.5)
[2016-12-15 11:33] LABS: VENOUS BLOOD BASE EXCESS 2.1 mmol/L; VENOUS BLOOD HCO3 25.9 mmol/L (20-32); VENOUS BLOOD PCO2 37.7 mmHg (35-63); VENOUS BLOOD PH 7.46 (7.30-7.42)
[2016-12-15 11:41] LABS: ALANINE AMINOTRANSFERASE 41 U/L (9-52); ALBUMIN 4.2 g/dL (3.5-5.0); ALKALINE PHOSPHATASE 80 U/L (38-126); ANION GAP 11 (5-19); ASPARTATE AMINO TRANSFERASE 30 U/L (14-36); BILIRUBIN,DIRECT 0.4 mg/dL (0.0-0.4); BILIRUBIN,TOTAL 0.7 mg/dL (0.2-1.3); BLOOD UREA NITROGEN 11 mg/dL (7-20); CARBON DIOXIDE 26 mmol/L (22-30); CHLORIDE 100 mmol/L (98-107); CREATINE KINASE 64 U/L (30-135); CREATININE RESULT 0.53 mg/dL (0.52-1.25); GLUCOSE 200 mg/dL (75-110); MAGNESIUM 1.7 mg/dL (1.6-2.3); POTASSIUM 4.4 mmol/L (3.6-5.0); SODIUM 137.4 mmol/L (137-145); TOTAL PROTEIN 7.9 g/dL (6.3-8.2)
[2016-12-15 11:52] LABS: CREATINE KINASE MB 1.17 ng/mL (<4.55)
[2016-12-15 11:54] LABS: TROPONIN I < 0.012 ng/mL
--- NOTE | 2016-12-15 12:11 | RADIOLOGY REPORT (SQ) ---
EXAM DESCRIPTION: CHEST SINGLE VIEW COMPLETED DATE/TIME: 12/15/2016 11:28 am REASON FOR STUDY: acute altered mental status, variable respirations COMPARISON: 11/18/2016 EXAM PARAMETERS: NUMBER OF VIEWS: One view. TECHNIQUE: Single frontal radiographic view of the chest acquired. RADIATION DOSE: NA LIMITATIONS: None. FINDINGS: LUNGS AND PLEURA: Chronic interstitial changes are present. There is a small calcified gr anuloma the right lung and calcified right hilar nodes are present. There is no acute pulmonary infi ltrate or pleural effusion. MEDIASTINUM AND HILAR STRUCTURES: No masses. Contour normal. HEART AND VASCULAR STRUCTURES: Heart normal in size. Normal vasculature. BONES: No acute findings. HARDWARE: None in the chest. OTHER: No other significant finding. IMPRESSION: Chronic lung changes with no acute cardiopulmonary disease. TECHNICAL DOCUMENTATION: JOB ID: [id number]
--- NOTE | 2016-12-15 12:14 | RADIOLOGY REPORT (SQ) ---
EXAM DESCRIPTION: CT HEAD WITHOUT COMPLETED DATE/TIME: 12/15/2016 11:28 am REASON FOR STUDY: acute encephalopathy COMPARISON: 05/23/2016 TECHNIQUE: Axial images acquired through the brain without intravenous contrast. Images reviewed wi th bone, brain and subdural windows. Images stored on PACS. All CT scanners at this facility use dose modulation, iterative reconstruction, and/or weight based d osing when appropriate to reduce radiation dose to as low as reasonably achievable (ALARA). [facility]: Dose Right [facility]: CareDose [facility]: Dose Right [facility]: Teradose 4D [facility]: [employer] RADIATION DOSE: 64.61 mGy. LIMITATIONS: None. FINDINGS: VENTRICLES: Normal. CEREBRUM: No masses. No hemorrhage. No midline shift. Normal clark/white matter differentiation. N o evidence for acute infarction. CEREBELLUM: No masses. No hemorrhage. No alteration of density. No evidence for acute infarction. EXTRAAXIAL SPACES: No fluid collections. No masses. ORBITS AND GLOBE: No intra- or extraconal masses. Normal contour of globe without masses. CALVARIUM: No fracture. PARANASAL SINUSES: No fluid or mucosal thickening. SOFT TISSUES: No mass or hematoma. OTHER: No other significant finding. IMPRESSION: NORMAL BRAIN CT WITHOUT CONTRAST. TECHNICAL DOCUMENTATION: JOB ID: [id number] Quality ID # [id number]: Final reports with documentation of one or more dose reduction techniques (e.g., Au tomated exposure control, adjustment of the mA and/or kV according to patient size, use of iterative reconstruction technique) 2010 [employer]- All Rights Reserved
--- NOTE | 2016-12-15 12:25 | RADIOLOGY REPORT (SQ) ---
EXAM DESCRIPTION: CT ABD/PELVIS WITH IV ONLY COMPLETED DATE/TIME: 12/15/2016 12:02 pm REASON FOR STUDY: vomiting, altered COMPARISON: None. TECHNIQUE: CT scan of the abdomen and pelvis performed using helical scanning technique with dynamic intravenous contrast injection. No oral contrast. Images reviewed with lung, soft tissue, and bone windows. Reconstructed coronal and sagittal MPR images reviewed. Delayed images for evaluation of the urinary system also acquired. All images stored on PACS. All CT scanners at this facility use dose modulation, iterative reconstruction, and/or weight based d osing when appropriate to reduce radiation dose to as low as reasonably achievable (ALARA). [facility]: Dose Right [facility]: CareDose [facility]: Dose Right [facility]: Teradose 4D [facility]: [employer] CONTRAST TYPE AND DOSE: 69mL Isovue 370- low osmolar. RENAL FUNCTION: Creatinine 0.5 BUN 11 RADIATION DOSE: 26.86mGy. LIMITATIONS: None. FINDINGS: LOWER CHEST: No significant findings. No nodules or infiltrates. LIVER: Normal size. No masses or dilated ducts. Diffusely hypodense. SPLEEN: Normal size. No focal lesions. PANCREAS: No masses. No significant calcifications. No adjacent inflammation or peripancreatic fluid collections. Pancreatic duct not dilated. GALLBLADDER: Surgically absent. ADRENAL GLANDS: No significant masses or asymmetry. RIGHT KIDNEY AND URETER: No solid masses. No significant calcifications. No hydronephrosis or hyd roureter. LEFT KIDNEY AND URETER: No solid masses. No significant calcifications. No hydronephrosis or hydr oureter. AORTA AND VESSELS: Atherosclerosis. There is no aneurysm, but the infrarenal abdominal aorta widens to 25 mm. RETROPERITONEUM: No retroperitoneal adenopathy, hemorrhage or masses. BOWEL AND PERITONEAL CAVITY: Occasional sigmoid diverticula are present. There are no acute inflamma tory changes. APPENDIX: Not identified. PELVIS: The uterus is absent. There is no adnexal mass or fluid collection. The urinary bladder is normal. ABDOMINAL WALL: No masses. No hernias. BONES: No significant or acute findings. OTHER: No other significant finding. IMPRESSION: 1. Fatty infiltration of the liver. 2. There is ectasia of the infrarenal abdominal aorta, but no true aneurysmal dilatation. 3. There is mild diverticulosis coli. TECHNICAL DOCUMENTATION: JOB ID: [id number] Quality ID # [id number]: Final reports with documentation of one or more dose reduction techniques (e.g., Au tomated exposure control, adjustment of the mA and/or kV according to patient size, use of iterative reconstruction technique) 2010 [employer]- All Rights Reserved
[2016-12-15 12:44] LABS: APPEARANCE,URINE CLEAR; BILIRUBIN,URINE NEGATIVE (NEGATIVE); GLUCOSE, URINE NEGATIVE (NEGATIVE); KETONES,URINE 20 mg/dL (NEGATIVE); LEUKOCYTE ESTERASE,URINE NEGATIVE (NEGATIVE); NITRITE,URINE NEGATIVE (NEGATIVE); PROTEIN,URINE NEGATIVE (NEGATIVE); URINE SPECIFIC GRAVITY 1.016; UROBILINOGEN,URINE NEGATIVE mg/dL (<2.0)
[2016-12-15 14:52] LABS: URINE BARBITURATES SCREEN UNCONFIRMED POSITIVE; URINE METHADONE SCREEN NEGATIVE; URINE OPIATES LOW UNCONFIRMED POSITIVE; URINE PHENCYCLIDINE SCREEN NEGATIVE
[2016-12-15] MEDS ORDERED: GLUCAGON,HUMAN RECOMB 1 MG INJ SUBCUT PRN (15:51)
[2016-12-15] MEDS ORDERED: DEXTROSE 50%-WATER 25 GM/50 ML DISP.SYRIN IV PRN ×2 (15:51)
[2016-12-15] MEDS ORDERED: DEXTROSE 40% GEL 15 GM TUBE PO PRN ×2 (15:51)
[2016-12-15] MEDS ORDERED: ACETAMINOPHEN 325 MG TABLET PO PRN (15:51)
[2016-12-15] MEDS ORDERED: ONDANSETRON HCL INJ/PF 4 MG/2 ML SDV IV PRN (16:02)
--- NOTE | 2016-12-15 16:32 | PDOC H&P ---
History of Present Illness Admission Date/PCP: 12/15/16 14:34 TERESA WARD DO Patient complains of: Altered mental status History of Present Illness: ADILENE LEWIS is a 71 year old female, with history of COPD, bipolar disorder, diabetes mellitus, peripheral neuropathy, as well as chronic pain syndrome apparently was doing well until about last night where the patient developed some migraine headaches and to Fioricet for pain. The patient apparently has long history of insomnia and takes Halcion. Patient likewise states Xanax for anxiety. She is on gabapentin as well as oxycodone for pain. Patient apparently has altered mental status earlier today. Reportedly she was becoming altered last night according to the spouse who is at bedside. No reported epileptiform activity. No nausea or vomiting reported. Daughter is at bedside who reported the patient felt unwell yesterday. No reported shortness of breath or frequent coughing nor temperature spikes nor any nausea or vomiting no diarrhea. The patient was recently admitted to the hospital for hyponatremia and urinary tract infection causing alterations in mental status. In the emergency room workups were essentially noncontributory. Patient was then referred for observation. Past Medical History Cardiac Medical History: Reports: Coronary Artery Disease, Hyperlipidema, Hypertension, Peripheral Vascular Disease - Carotid artery disease Denies: Congestive Heart Failure, DVT, Myocardial Infarction, Pulmonary Embolism Pulmonary Medical History: Reports: Bronchitis, Chronic Obstructive Pulmonary Disease (COPD) Denies: Asthma, Pneumonia Neurological Medical History: Denies: Seizures Endocrine Medical History: Reports: Diabetes Mellitus Type 1, Diabetes Mellitus Type 2 Denies: Hyperthyroidism, Hypothyroidism GI Medical History: Denies: Cirrhosis, Gastroesophageal Reflux Disease, Hepatitis Musculoskeltal Medical History: Reports: Arthritis Psychiatric Medical History: Reports: Bipolar Disorder, Dementia, Depression Hematology: Denies: Anemia Past Surgical History Past Surgical History: Reports: Cholecystectomy, Hysterectomy, Orthopedic Surgery - Back surgery, Other - Bladder tack Social History Information Source: Relative Smoking Status: Former Smoker Frequency of Alcohol Use: None Hx Recreational Drug Use: No Drugs: None Hx Prescription Drug Abuse: No Family History Family History: CAD, DM Parental Family History Reviewed: Yes Children Family History Reviewed: Yes Sibling(s) Family History Reviewed.: Yes Medication/Allergy Allergies/Adverse Reactions: NSAIDS (Non-Steroidal Anti-Inflamma [Nsaids] Allergy (Severe, Verified 09/11/16 22:50) gastric bleed adhesive [Adhesive] Allergy (Intermediate, Verified 09/11/16 22:50) Review of Systems ROS unobtainable: Due to mental status - Unobtainable at this time due to mental status. Information provided by the family. Other than episodes happen 2-3 times in the past no other symptoms reported. Physical Exam Vital Signs: Temp Pulse Resp BP Pulse Ox 98.2 F 71 12 158/62 H 100 12/15/16 12:14 12/15/16 13:13 12/15/16 15:01 12/15/16 15:01 12/15/16 15:01 General appearance: PRESENT: no acute distress, well-developed, other - Nonverbal at this time, unable to follow command at this time. Head exam: PRESENT: atraumatic, normocephalic Eye exam: PRESENT: conjunctiva pink. ABSENT: scleral icterus Ear exam: PRESENT: normal external ear exam. ABSENT: drainage Mouth exam: PRESENT: dry mucosa, moist, neck supple Neck exam: ABSENT: carotid bruit, JVD, lymphadenopathy, thyromegaly Respiratory exam: PRESENT: clear to auscultation vinicius - Poor effort however. ABSENT: rales, rhonchi, wheezes Cardiovascular exam: PRESENT: RRR. ABSENT: diastolic murmur, rubs, systolic murmur Pulses: PRESENT: normal dorsalis pedis pul Vascular exam: PRESENT: normal capillary refill GI/Abdominal exam: PRESENT: normal bowel sounds, soft. ABSENT: distended, guarding, mass, organolmegaly, rebound, tenderness Rectal exam: PRESENT: deferred Extremities exam: PRESENT: full ROM. ABSENT: calf tenderness, clubbing, pedal edema Neurological exam: PRESENT: altered - Lethargic arousable but easily falls back to sleep, other - Unable to follow command at this time Psychiatric exam: ABSENT: agitated Focused psych exam: ABSENT: restlessness Skin exam: PRESENT: dry, intact, warm. ABSENT: cyanosis, rash Results Laboratory Results: 12/15/16 15:15 Troponin I < 0.012 Impressions: Chest X-Ray 12/15/16 11:01 IMPRESSION: Chronic lung changes with no acute cardiopulmonary disease. Head CT 12/15/16 11:02 IMPRESSION: NORMAL BRAIN CT WITHOUT CONTRAST. Abdomen/Pelvis CT 12/15/16 11:15 IMPRESSION: 1. Fatty infiltration of the liver. 2. There is ectasia of the infrarenal abdominal aorta, but no true aneurysmal dilatation. 3. There is mild diverticulosis coli. Assessment & Plan - Diagnosis (1) Altered mental status Qualifiers: Altered mental status type: unspecified Qualified Code(s): R41.82 - Altered mental status, unspecified Is this a current diagnosis for this admission?: Yes (2) COPD (chronic obstructive pulmonary disease) Qualifiers: Emphysema type: unspecified Is this a current diagnosis for this admission?: Yes (3) PVD (peripheral vascular disease) Is this a current diagnosis for this admission?: Yes (4) Bipolar disorder Qualifiers: Active/Remission status: remission status unspecified Qualified Code (s): F31.9 - Bipolar disorder, unspecified Is this a current diagnosis for this admission?: Yes (5) DM w/o complication type II Qualifiers: Diabetes mellitus shelter insulin use: unspecified terminal manager insulin use status Qualified Code(s): E11.9 - Type 2 diabetes mellitus without complications Is this a current diagnosis for this admission?: Yes (6) Chronic pain Qualifiers: Chronic pain type: other chronic pain Qualified Code(s): G89.29 - Other chronic pain Is this a current diagnosis for this admission?: Yes (7) Neuropathy Is this a current diagnosis for this admission?: Yes (8) Essential hypertension Is this a current diagnosis for this admission?: Yes - Time Time Spent: 50 to 70 Minutes - Plan Summary Plan Summary: The patient will be admitted to observation. I will hydrate the patient with normal saline. I will hold her medications at this time until she is awake. Likely we will try to cut down the medications again as reported by the family from prior admission that it was decreased when discharged. In the meantime we will obtain a TSH and a free T4, B12 level, ammonia level, and likewise obtain an MRI of the brain. If indeed everything was negative likely cause would be medications. Discussed in length with the family who understood questions were answered to their satisfaction. Patient will be placed on DVT prophylaxis. Sliding scale insulin will also be administered. Further testing depends on the initial evaluations outlined above.
[2016-12-15] MEDS: DOCUSATE SODIUM 100 MG CAPSULE PO SCH (17:32)
[2016-12-15] MEDS: NORMAL SALINE 1000 ML 1,000 ML IV PRN (17:59)
[2016-12-15] MEDS: INSULIN REG, HUMAN 100 UNIT/ML 3 ML VIAL (PYX) SUBCUT PRN (18:24)
[2016-12-15] MEDS ORDERED: LORAZEPAM 0.5 MG TABLET PO PRN (21:37)
[2016-12-15] MEDS ORDERED: LORAZEPAM INJ 2 MG/1 ML VIAL IV PRN (22:01)
[2016-12-16] MEDS: LANSOPRAZOLE 30 MG TAB.RAP.DR PO SCH (05:20)
[2016-12-16 06:56] LABS: ANION GAP 12 (5-19); BLOOD UREA NITROGEN 15 mg/dL (7-20); CALCIUM 9.2 mg/dL (8.4-10.2); CARBON DIOXIDE 21 mmol/L (22-30); CHLORIDE 108 mmol/L (98-107); CREATININE RESULT 0.55 mg/dL (0.52-1.25); GLUCOSE 200 mg/dL (75-110); MAGNESIUM 1.6 mg/dL (1.6-2.3); PHOSPHORUS 3.5 mg/dL (2.5-4.5); POTASSIUM 3.6 mmol/L (3.6-5.0); SODIUM 141.4 mmol/L (137-145)
[2016-12-16] MEDS ORDERED: LORAZEPAM 0.5 MG TABLET PO PRN (07:31)
[2016-12-16] MEDS: ENOXAPARIN SODIUM INJ 40 MG/0.4 ML DISP.SYRIN SUBCUT SCH (08:32)
--- NOTE | 2016-12-16 08:54 | EKG REPORT ---
SEVERITY:- ABNORMAL ECG - SINUS RHYTHM ABERRANT COMPLEX PROBABLE LEFT ATRIAL ABNORMALITY LEFT BUNDLE BRANCH BLOCK : Confirmed by: Bella Guzman 16-Dec-2016 08:52:47
[2016-12-16] MEDS: DOCUSATE SODIUM 100 MG CAPSULE PO SCH ×2 (09:21→17:35)
--- NOTE | 2016-12-16 11:13 | PDOC PROGRESS REPORT ---
Subjective Progress Note for:: 12/16/16 Subjective:: Patient reportedly still unresponsive. Had an episode of vomiting last night. No reported chills or fever. No respiratory distress noted. No reported diarrhea. Patient still does not verbalize. No upward rolling of the eyeballs noted. Physical Exam Vital Signs: Temp Pulse Resp BP Pulse Ox 99.1 F 61 17 155/54 H 93 12/16/16 07:30 12/16/16 07:30 12/16/16 07:30 12/16/16 07:30 12/16/16 07:30 Intake & Output 12/15/16 12/16/16 12/17/16 06:59 06:59 06:59 Intake Total 2 Output Total 1330 Balance -1328 Weight 69.2 kg General appearance: PRESENT: no acute distress, other - Nonverbal Head exam: PRESENT: normocephalic Eye exam: PRESENT: conjunctiva pink, other - Pupils are equal bilateral Ear exam: ABSENT: drainage Mouth exam: PRESENT: moist, neck supple Neck exam: ABSENT: JVD Respiratory exam: PRESENT: clear to auscultation vinicius. ABSENT: rhonchi, wheezes Cardiovascular exam: PRESENT: RRR, systolic murmur - Left sternal border. ABSENT: gallop GI/Abdominal exam: PRESENT: hypoactive bowel sounds, soft. ABSENT: distended, tenderness Extremities exam: PRESENT: other - Trace lower extremity edema Neurological exam: PRESENT: altered - Patient does not verbalize. Skin exam: PRESENT: dry, warm. ABSENT: cyanosis Results Laboratory Results: 12/16/16 06:19 12/15/16 12/15/16 12/16/16 17:22 17:22 06:19 Sodium 141.4 Potassium 3.6 Chloride 108 H Carbon Dioxide 21 L Anion Gap 12 BUN 15 Creatinine 0.55 Est GFR ( Amer) > 60 Est GFR (Non-Af Amer) > 60 Glucose 200 H Calcium 9.2 Phosphorus 3.5 Magnesium 1.6 Ammonia < 8.7 L Vitamin B12 > 1000.0 H Impressions: Chest X-Ray 12/15/16 11:01 IMPRESSION: Chronic lung changes with no acute cardiopulmonary disease. Head CT 12/15/16 11:02 IMPRESSION: NORMAL BRAIN CT WITHOUT CONTRAST. Abdomen/Pelvis CT 12/15/16 11:15 IMPRESSION: 1. Fatty infiltration of the liver. 2. There is ectasia of the infrarenal abdominal aorta, but no true aneurysmal dilatation. 3. There is mild diverticulosis coli. Assessment & Plan - Diagnosis (1) Altered mental status Qualifiers: Altered mental status type: unspecified Qualified Code(s): R41.82 - Altered mental status, unspecified Is this a current diagnosis for this admission?: Yes (2) COPD (chronic obstructive pulmonary disease) Qualifiers: Emphysema type: unspecified Is this a current diagnosis for this admission?: Yes (3) PVD (peripheral vascular disease) Is this a current diagnosis for this admission?: Yes (4) Bipolar disorder Qualifiers: Active/Remission status: remission status unspecified Qualified Code (s): F31.9 - Bipolar disorder, unspecified Is this a current diagnosis for this admission?: Yes (5) DM w/o complication type II Qualifiers: Diabetes mellitus intermediate frame tender insulin use: unspecified [place] [facility] insulin use status Qualified Code(s): E11.9 - Type 2 diabetes mellitus without complications Is this a current diagnosis for this admission?: Yes (6) Chronic pain Qualifiers: Chronic pain type: other chronic pain Qualified Code(s): G89.29 - Other chronic pain Is this a current diagnosis for this admission?: Yes (7) Neuropathy Is this a current diagnosis for this admission?: Yes (8) Essential hypertension Is this a current diagnosis for this admission?: Yes - Time Time Spent with patient: 25-34 minutes - Plan Summary Plan Summary: Continue hydration. Recheck electrolytes. Recheck WBC. We will obtain a KUB, obtain a chest x-ray to check for aspiration. Obtain EEG for questionable subclinical seizures. Awaiting MRI of the brain.
[2016-12-16] MEDS ORDERED: LORAZEPAM INJ 2 MG/1 ML VIAL IV PRN (11:39)
[2016-12-16] MEDS: INSULIN REG, HUMAN 100 UNIT/ML 3 ML VIAL (PYX) SUBCUT PRN (11:40)
--- NOTE | 2016-12-16 11:52 | RADIOLOGY REPORT (SQ) ---
EXAM DESCRIPTION: KUB/ABDOMEN (SINGLE VIEW) COMPLETED DATE/TIME: 12/16/2016 11:33 am REASON FOR STUDY: Vomiting R41.82 ALTERED MENTAL STATUS, UNSPECIFIED COMPARISON: None. NUMBER OF VIEWS: One view. TECHNIQUE: Supine radiographic image of the abdomen acquired. LIMITATIONS: None. FINDINGS: BOWEL GAS PATTERN: Normal bowel gas pattern. No dilated loops. CALCIFICATIONS: No suspicious calcifications. SOFT TISSUES: The liver is prominent in size. HARDWARE: Surgical clips in the gallbladder fossa. BONES: No acute fracture. No worrisome bone lesions. OTHER: No other significant finding. IMPRESSION: Possible hepatomegaly. TECHNICAL DOCUMENTATION: JOB ID: [id number] [employer]- All Rights Reserved
--- NOTE | 2016-12-16 11:53 | RADIOLOGY REPORT (SQ) ---
EXAM DESCRIPTION: CHEST SINGLE VIEW COMPLETED DATE/TIME: 12/16/2016 11:33 am REASON FOR STUDY: Aspiration COMPARISON: 12/15/2016 EXAM PARAMETERS: NUMBER OF VIEWS: One view. TECHNIQUE: Single frontal radiographic view of the chest acquired. RADIATION DOSE: NA LIMITATIONS: None. FINDINGS: LUNGS AND PLEURA: Mild chronic interstitial changes are present. No acute pulmonary infil trate is seen. MEDIASTINUM AND HILAR STRUCTURES: No masses. Contour normal. HEART AND VASCULAR STRUCTURES: Heart normal in size. Normal vasculature. BONES: No acute findings. HARDWARE: None in the chest. OTHER: No other significant finding. IMPRESSION: Chronic lung changes with no acute cardiopulmonary disease. TECHNICAL DOCUMENTATION: JOB ID: [id number]
[2016-12-16] MEDS ORDERED: LORAZEPAM INJ 2 MG/1 ML VIAL ONE (16:02)
[2016-12-16] MEDS ORDERED: LORAZEPAM INJ 2 MG/1 ML VIAL IV ONE (17:45)
[2016-12-16] MEDS ORDERED: ALPRAZOLAM 0.5 MG TABLET PO ONE (20:00)
[2016-12-16] MEDS: ALPRAZOLAM 0.5 MG TABLET PO SCH (21:30)
[2016-12-16] MEDS: NORMAL SALINE 1000 ML 1,000 ML IV PRN (23:45)
[2016-12-17 05:15] LABS: HEMATOCRIT 32.4 % (36.0-47.0); HGB HCT DIFFERENCE -0.3; MEAN CORPUSCULAR HGB CONC 32.9 g/dL (32.0-36.0); MEAN CORPUSCULAR VOLUME 85 fl (80-97); RED BLOOD COUNT 3.82 10^6/uL (3.72-5.28); RED CELL DISTRIBUTION WIDTH 14.5 % (11.5-14.0); WHITE BLOOD COUNT 10.6 10^3/uL (4.0-10.5)
[2016-12-17 05:23] LABS: ANION GAP 9 (5-19); BLOOD UREA NITROGEN 13 mg/dL (7-20); CALCIUM 8.9 mg/dL (8.4-10.2); CARBON DIOXIDE 22 mmol/L (22-30); CHLORIDE 110 mmol/L (98-107); CREATININE RESULT 0.52 mg/dL (0.52-1.25); GLUCOSE 138 mg/dL (75-110); POTASSIUM 3.7 mmol/L (3.6-5.0); SODIUM 141.2 mmol/L (137-145)
[2016-12-17 05:34] LABS: HEMOGLOBIN 10.7 g/dL (12.0-15.5)
[2016-12-17] MEDS: ALPRAZOLAM 0.5 MG TABLET PO SCH ×2 (05:39→21:59)
[2016-12-17] MEDS: LANSOPRAZOLE 30 MG TAB.RAP.DR PO SCH (05:39)
[2016-12-17] MEDS: NORMAL SALINE 1000 ML 1,000 ML IV PRN (08:25)
[2016-12-17] MEDS: ENOXAPARIN SODIUM INJ 40 MG/0.4 ML DISP.SYRIN SUBCUT SCH (08:26)
[2016-12-17] MEDS ORDERED: INSULIN REG, HUMAN 100 UNIT/ML 3 ML VIAL (PYX) SUBCUT PRN (08:54)
[2016-12-17] MEDS ORDERED: CLONIDINE HCL 0.1 MG TABLET PO PRN (09:29)
[2016-12-17] MEDS: DOCUSATE SODIUM 100 MG CAPSULE PO SCH ×2 (09:46→17:47)
[2016-12-17] MEDS: LOSARTAN POTASSIUM 50 MG TABLET PO SCH (09:46)
[2016-12-17] MEDS ORDERED: NORMAL SALINE 1000 ML 1,000 ML IV PRN (12:30)
--- NOTE | 2016-12-17 12:41 | PDOC PROGRESS REPORT ---
Subjective Progress Note for:: 12/17/16 Subjective:: Patient is awake and alert and oriented to person and place as reported. Patient is more responsive and more awake today. Reportedly patient woke up after given Ativan. No reported nausea or vomiting no chills or fever or diarrhea. Patient denies any dysuria urgency or frequency no coughing or chest congestion. Physical Exam Vital Signs: Temp Pulse Resp BP Pulse Ox 98.6 F 54 L 18 162/63 H 100 12/17/16 08:31 12/17/16 08:31 12/17/16 08:31 12/17/16 08:31 12/17/16 08:31 Intake & Output 12/16/16 12/17/16 12/18/16 06:59 06:59 06:59 Intake Total 2 1181 Output Total 1330 1750 Balance -1328 -569 Weight 69.2 kg 68.9 kg General appearance: PRESENT: no acute distress, thin Eye exam: PRESENT: EOMI Mouth exam: PRESENT: moist, neck supple Neck exam: ABSENT: JVD Respiratory exam: PRESENT: clear to auscultation vinicius. ABSENT: rhonchi, wheezes Cardiovascular exam: PRESENT: RRR. ABSENT: gallop GI/Abdominal exam: PRESENT: soft. ABSENT: distended, tenderness Extremities exam: ABSENT: pedal edema Neurological exam: PRESENT: alert, awake, oriented to person, oriented to place , oriented to situation Psychiatric exam: ABSENT: agitated, anxious Focused psych exam: ABSENT: restlessness Skin exam: PRESENT: dry, warm. ABSENT: cyanosis Results Laboratory Results: 12/17/16 04:17 12/17/16 04:17 12/16/16 12/17/16 12/17/16 06:19 04:17 04:17 WBC 10.6 H RBC 3.82 Hgb 10.7 L D Hct 32.4 L MCV 85 MCH 28.0 MCHC 32.9 RDW 14.5 H Plt Count 347 Sodium 141.2 Potassium 3.7 Chloride 110 H Carbon Dioxide 22 Anion Gap 9 BUN 13 Creatinine 0.52 Est GFR ( Amer) > 60 Est GFR (Non-Af Amer) > 60 Glucose 138 H Calcium 8.9 TSH 1.31 12/15/16 15:15 Troponin I < 0.012 Impressions: Head CT 12/15/16 11:02 IMPRESSION: NORMAL BRAIN CT WITHOUT CONTRAST. Abdomen/Pelvis CT 12/15/16 11:15 IMPRESSION: 1. Fatty infiltration of the liver. 2. There is ectasia of the infrarenal abdominal aorta, but no true aneurysmal dilatation. 3. There is mild diverticulosis coli. Chest X-Ray 12/16/16 00:00 IMPRESSION: Chronic lung changes with no acute cardiopulmonary disease. KUB X-Ray 12/16/16 00:00 IMPRESSION: Possible hepatomegaly. Assessment & Plan - Diagnosis (1) Altered mental status Qualifiers: Altered mental status type: unspecified Qualified Code(s): R41.82 - Altered mental status, unspecified Is this a current diagnosis for this admission?: Yes (2) COPD (chronic obstructive pulmonary disease) Qualifiers: Emphysema type: unspecified Is this a current diagnosis for this admission?: Yes (3) PVD (peripheral vascular disease) Is this a current diagnosis for this admission?: Yes (4) Bipolar disorder Qualifiers: Active/Remission status: remission status unspecified Qualified Code (s): F31.9 - Bipolar disorder, unspecified Is this a current diagnosis for this admission?: Yes (5) DM w/o complication type II Qualifiers: Diabetes mellitus manager intermediate insulin use: unspecified manager intermediate insulin use status Qualified Code(s): E11.9 - Type 2 diabetes mellitus without complications Is this a current diagnosis for this admission?: Yes (6) Chronic pain Qualifiers: Chronic pain type: other chronic pain Qualified Code(s): G89.29 - Other chronic pain Is this a current diagnosis for this admission?: Yes (7) Neuropathy Is this a current diagnosis for this admission?: Yes (8) Essential hypertension Is this a current diagnosis for this admission?: Yes - Time Time Spent with patient: 35 or more minutes - Plan Summary Plan Summary: I had long discussion with the family regarding the patient's possible cause of alteration in mental status. Patient reports that she ran out of her Xanax. Patient EEG is pending. Mental status reportedly significantly improved after Ativan. Patient may be having subclinical seizures from benzodiazepine withdrawal. I have explained this in length with the family who is at bedside and they understood. Also patient has been hydrated and metabolites and all other medications probably has been excreted renally and patient is about to wake up. They are aware that patient needs to be weaned and tapered off the Xanax. They reported that the patient unable to sleep without taking the Halcion. Likewise the patient has neuropathy and is on oxycodone and high-dose Neurontin. I will resume the patient's antihypertensive medications. I will decrease the dose of the Xanax. I will resume the patient's gabapentin. I have explained to the family in length that reinforcement needs to be emphasized by the family and at the same time by her primary care physician as well.
[2016-12-17] MEDS ORDERED: GABAPENTIN 400 MG CAPSULE PO SCH (14:00)
[2016-12-17] MEDS ORDERED: TRIAZOLAM 0.5 MG PO SCH (22:00)
[2016-12-17] MEDS ORDERED: GABAPENTIN 300 MG CAPSULE PO SCH (22:00)
[2016-12-17] MEDS: GABAPENTIN 300 MG CAPSULE PO SCH (22:00)
[2016-12-18] MEDS: LANSOPRAZOLE 30 MG TAB.RAP.DR PO SCH (05:44)
[2016-12-18] MEDS: GABAPENTIN 300 MG CAPSULE PO SCH (05:44)
[2016-12-18 08:19] VITALS: BP 146/64
[2016-12-18] MEDS: LOSARTAN POTASSIUM 50 MG TABLET PO SCH (09:05)
[2016-12-18] MEDS: ALPRAZOLAM 0.5 MG TABLET PO SCH (09:07)
[2016-12-18] MEDS: DOCUSATE SODIUM 100 MG CAPSULE PO SCH (09:07)
[2016-12-18] MEDS: ENOXAPARIN SODIUM INJ 40 MG/0.4 ML DISP.SYRIN SUBCUT SCH (09:09)
[2016-12-18] MEDS ORDERED: ASPIRIN 81 MG TABLET, ENT COATED PO SCH (10:00)
[2016-12-18] MEDS ORDERED: CYANOCOBALAMIN (VITAMIN B-12) 1,000 MCG TABLET PO SCH (10:00)
--- NOTE | 2016-12-18 11:52 | PDOC DISCHARGE SUMMARY ---
General - Admit/Disc Date/PCP Admission Date/Primary Care Provider: 12/15/16 14:34 TERESA WARD, Discharge Date: 12/19/16 - Discharge Diagnosis (1) Altered mental status Is this a current diagnosis for this admission?: YesSummary: Medication induced (2) COPD (chronic obstructive pulmonary disease) Is this a current diagnosis for this admission?: Yes (3) PVD (peripheral vascular disease) Is this a current diagnosis for this admission?: Yes (4) Bipolar disorder Is this a current diagnosis for this admission?: Yes (5) DM w/o complication type II Is this a current diagnosis for this admission?: Yes (6) Chronic pain Is this a current diagnosis for this admission?: Yes (7) Neuropathy Is this a current diagnosis for this admission?: Yes (8) Essential hypertension Is this a current diagnosis for this admission?: Yes - Additional Information Discharge Diet: Cardiac - Low-fat low-salt, Diabetic - No concentrated sweets Discharge Activity: Activity As Tolerated, Balance Activity w/Rest Home Medications: Aspirin [Aspirin EC] 81 mg PO DAILY 12/15/16 Butalb/Acetaminophen/Caffeine [Fioricet (50-325-40 mg) Tablet] 1 tab PO Q6HP PRN 12/15/16 Cyanocobalamin (Vitamin B-12) [Vitamin B-12 1000 mcg Tablet] 1,000 mcg PO DAILY 12/15/16 Insulin Lispro [Humalog Kwikpen U-100] 0 units SUBCUT TIDP PRN 12/15/16 Losartan Potassium [Cozaar 50 mg Tablet] 50 mg PO DAILY 12/15/16 Multivit with Calcium,Iron,Min [Women's Daily Formula] 1 tab PO DAILY 12/15/16 Omeprazole 40 mg PO BIDBS 12/15/16 Ondansetron HCl [Zofran 4 mg Tablet] 4 mg PO Q8HP PRN 12/15/16 Oxycodone HCl [Oxycodone HCl 10 MG Tablet] 10 mg PO Q6HP PRN 12/15/16 Promethazine HCl [Phenergan 25 mg Tablet] 25 mg PO Q4HP PRN 12/15/16 Triazolam [Halcion] 0.5 mg PO QHS 12/15/16 Alprazolam [Xanax] 1 mg PO Q12H #30 tablet 12/18/16 Gabapentin [Neurontin 300 mg Capsule] 600 mg PO Q8 #90 capsule 12/18/16 Additional Information: Follow-up EEG reported as outpatient with primary care physician. History of Present Illness Patient complains of: Altered mental status History of Present Illness: ADILENE LEWIS is a 71 year old female, with history of COPD, bipolar disorder, diabetes mellitus, peripheral neuropathy, as well as chronic pain syndrome apparently was doing well until about last night where the patient developed some migraine headaches and to Fioricet for pain. The patient apparently has long history of insomnia and takes Halcion. Patient likewise states Xanax for anxiety. She is on gabapentin as well as oxycodone for pain. Patient apparently has altered mental status earlier today. Reportedly she was becoming altered last night according to the spouse who is at bedside. No reported epileptiform activity. No nausea or vomiting reported. Daughter is at bedside who reported the patient felt unwell yesterday. No reported shortness of breath or frequent coughing nor temperature spikes nor any nausea or vomiting no diarrhea. The patient was recently admitted to the hospital for hyponatremia and urinary tract infection causing alterations in mental status. In the emergency room workups were essentially noncontributory. Patient was then referred for observation. Hospital Course Hospital Course: The patient was admitted to telemetry. The patient was begun on intravenous fluids. Her sedatives were all discontinued. After 48 hours the patient started to wake up. Chest x-ray did not reveal any acute infiltrate urine culture was negative. CT of the brain was negative for any acute abnormality. CT of the abdomen and pelvis likewise negative for any acute abnormality. An MRI was therefore ordered and the patient was tried on Ativan prior to MRI due to reported claustrophobia upon administration of Ativan the patient became more awake and patient showed no focal deficit. MRI was canceled. Patient had an EEG but report is pending. Patient and family was advised to follow-up EEG results in an outpatient basis with primary care physician. Patient eventually admitted that she ran out of her Xanax. No seizure activity was noted during the course of her admission. However she could have had subclinical seizures that could explain why she woke up after administration of Ativan. Subsequently patient improved, physical therapy was instituted, she was resumed on her Xanax at a lower dose. Her gabapentin was likewise resume at a lower dose. The rest of the hospital stay is unremarkable. Patient was eventually discharged home improved with above instruction. Daughter instructed to monitor her medication intake and likewise to discuss with primary care physician about weaning and tapering her off benzodiazepines. Physical Exam Vital Signs: Temp Pulse Resp BP Pulse Ox 98.2 F 71 16 146/64 H 99 12/18/16 08:08 12/18/16 08:08 12/18/16 08:08 12/18/16 08:08 12/18/16 08:08 Intake & Output 12/17/16 12/18/16 12/19/16 06:59 06:59 06:59 Intake Total 1181 2895 Output Total 1750 1120 Balance -569 1775 Weight 68.9 kg 70.9 kg General appearance: PRESENT: no acute distress, cooperative Head exam: PRESENT: normocephalic Eye exam: PRESENT: EOMI Mouth exam: PRESENT: moist, neck supple Neck exam: ABSENT: JVD Respiratory exam: PRESENT: clear to auscultation vinicius Cardiovascular exam: PRESENT: RRR. ABSENT: gallop GI/Abdominal exam: PRESENT: soft. ABSENT: distended, tenderness Extremities exam: ABSENT: pedal edema Neurological exam: PRESENT: alert, awake, oriented to person, oriented to place , oriented to time, oriented to situation Skin exam: PRESENT: dry, warm. ABSENT: cyanosis Results Laboratory Results: 12/17/16 04:17 12/17/16 04:17 12/15/16 15:15 Troponin I < 0.012 Impressions: Head CT 12/15/16 11:02 IMPRESSION: NORMAL BRAIN CT WITHOUT CONTRAST. Abdomen/Pelvis CT 12/15/16 11:15 IMPRESSION: 1. Fatty infiltration of the liver. 2. There is ectasia of the infrarenal abdominal aorta, but no true aneurysmal dilatation. 3. There is mild diverticulosis coli. Chest X-Ray 12/16/16 00:00 IMPRESSION: Chronic lung changes with no acute cardiopulmonary disease. KUB X-Ray 12/16/16 00:00 IMPRESSION: Possible hepatomegaly. Qualifiers PATEINT BEING DISCHARGED WITH ANY OF THE FOLLOWING DIAGNOSIS?: No Plan Discharge Plan: Follow-up with primary care physician in 1 week. Time Spent: Less than 30 Minutes
--- NOTE | 2016-12-20 15:59 | EEG PRO FEE REPORT ---
EEG INTERPRETATION PATIENT NAME: ADILENE LEWIS ROOM#: [id number] ORDER#: [id number] DATE OF STUDY: 12/16/2016 : 1945 REFERRING MD: Isael Taylor MD DIAGNOSIS: Seizure; altered mental status REPORT The background activity consists of 3-4 Hz delta throughout with a large amount of superimposed artifact throughout the entire tracing due to patient moving all over. No definite epileptiform activity is noted, but the motion artifact obscures the background and makes it look sharp at times. No amplitude asymmetry is noted or clear cut further focal slowing. IMPRESSION This is an abnormal EEG due to generalized cerebral slowing that can be most seen in a toxic,metabolic or other generalized causes of cerebral dysfunction. No clear epileptiform activity is noted but there is excessive artifact obscuring the tracing. If seizures are indicated would repeat this EEG otherwise impression as above. INTERPRETING PHYSICIAN: MICHAEL BECK M.D. /: MTEFFT TT: [id number] ID: [id number] /: [id number] TD: 1248 JOB: [id number] cc:MICHAEL BECK M.D. >
== END 2016-12-18 12:41 | disposition home or self-care (01) ==
LOC: ER 10:37 → EH 14:34 → INTOOBSV 15:52 → OBSVTOIN 15:52 → 4S 16:18 → 3N 12-16 13:43
PROC: 4A10X4Z Monitoring of Central Nervous Electrical Activity, External Approach (ICD-10-PCS; principal; 2016-12-16)
DX: R41.82 Altered mental status, unspecified (principal); T50.905A Adverse effect of unspecified drugs, medicaments and biological substances, initial encounter; J44.9 Chronic obstructive pulmonary disease, unspecified; I73.9 Peripheral vascular disease, unspecified; F31.9 Bipolar disorder, unspecified; E11.42 Type 2 diabetes mellitus with diabetic polyneuropathy; G89.4 Chronic pain syndrome; I10 Essential (primary) hypertension; F40.240 Claustrophobia; G47.00 Insomnia, unspecified; F03.90 Unspecified dementia, unspecified severity, without behavioral disturbance, psychotic disturbance, mood disturbance, and anxiety; R11.2 Nausea with vomiting, unspecified; R94.01 Abnormal electroencephalogram [EEG]; I44.7 Left bundle-branch block, unspecified; Z79.899 Other long term (current) drug therapy; Z79.82 Long term (current) use of aspirin; Z79.4 Long term (current) use of insulin; Z79.891 Long term (current) use of opiate analgesic; Z87.891 Personal history of nicotine dependence; Z90.49 Acquired absence of other specified parts of digestive tract; Z82.49 Family history of ischemic heart disease and other diseases of the circulatory system; Z86.73 Personal history of transient ischemic attack (TIA), and cerebral infarction without residual deficits
CPT/HCPCS: 95819; 93005; 99285; 51702; 96374; 36415 ×3; 87086; 82553; 82962 ×4; 82140; 82607; 82550; 83735 ×2; 84100; 84443; 85025; 85027; 80048 ×2; 80053; 81001; 84484; 80307; 82803; 83605; 71010 ×2; 74000; 70450; 74177; 93010; 97162; A9270 ×18; J1650 ×3; J2060; J3490 ×3; J2405 ×2; J7030 ×3; G8978; G8979; G8980; G0378; J1815

== ENCOUNTER → 2017-03-15 | Outpatient (CLI) | payer MEDICARE, OTHER ==
[2017-03-15 19:17] LABS: ANION GAP 10 (5-19); BLOOD UREA NITROGEN 12 mg/dL (7-20); CALCIUM 9.4 mg/dL (8.4-10.2); CARBON DIOXIDE 30 mmol/L (22-30); CHLORIDE 94 mmol/L (98-107); CREATININE RESULT 0.67 mg/dL (0.52-1.25); GLUCOSE 118 mg/dL (75-110); POTASSIUM 4.3 mmol/L (3.6-5.0); SODIUM 133.9 mmol/L (137-145)
== END ==
LOC: OD 16:53
PROVIDERS: ATTEND Internal Medicine Cardiovascular Disease
DX: I10 Essential (primary) hypertension (principal); Z79.899 Other long term (current) drug therapy
CPT/HCPCS: 36415; 80048

== ENCOUNTER → 2017-03-27 | Outpatient (CLI) | payer MEDICARE, OTHER ==
[2017-03-27 08:14] LABS: ALANINE AMINOTRANSFERASE 27 U/L (9-52); ALBUMIN 4.6 g/dL (3.5-5.0); ALKALINE PHOSPHATASE 76 U/L (38-126); ANION GAP 11 (5-19); ASPARTATE AMINO TRANSFERASE 22 U/L (14-36); BILIRUBIN,DIRECT 0.4 mg/dL (0.0-0.4); BILIRUBIN,TOTAL 0.5 mg/dL (0.2-1.3); BLOOD UREA NITROGEN 13 mg/dL (7-20); CALCIUM 10.4 mg/dL (8.4-10.2); CARBON DIOXIDE 32 mmol/L (22-30); CHLORIDE 96 mmol/L (98-107); CHOLESTEROL 211.76 mg/dL (0-200); CREATININE RESULT 0.64 mg/dL (0.52-1.25); Direct HDL 57 mg/dL (>40); GLUCOSE 172 mg/dL (75-110); POTASSIUM 4.9 mmol/L (3.6-5.0); TOTAL PROTEIN 7.9 g/dL (6.3-8.2); TRIGLYCERIDES 182 mg/dL (<150)
[2017-03-27 08:25] LABS: DIRECT LDL 122 mg/dL (<100)
[2017-03-27 08:36] LABS: VLDL CHOLESTEROL 36.4 mg/dL (10-31)
== END ==
LOC: OD 07:07
PROVIDERS: ATTEND Internal Medicine Cardiovascular Disease
DX: I10 Essential (primary) hypertension (principal); E78.1 Pure hyperglyceridemia; Z79.899 Other long term (current) drug therapy
CPT/HCPCS: 36415; 80048; 80061; 80076

== ENCOUNTER → 2017-05-25 | Outpatient (CLI) | payer MEDICARE, OTHER ==
[2017-05-25 11:11] LABS: ALANINE AMINOTRANSFERASE 24 U/L (9-52); ALBUMIN 4.1 g/dL (3.5-5.0); ALKALINE PHOSPHATASE 68 U/L (38-126); ANION GAP 13 (5-19); ASPARTATE AMINO TRANSFERASE 21 U/L (14-36); BILIRUBIN,DIRECT 0.4 mg/dL (0.0-0.4); BILIRUBIN,TOTAL 0.5 mg/dL (0.2-1.3); BLOOD UREA NITROGEN 9 mg/dL (7-20); CALCIUM 9.5 mg/dL (8.4-10.2); CARBON DIOXIDE 30 mmol/L (22-30); CHLORIDE 99 mmol/L (98-107); CHOLESTEROL 92.68 mg/dL (0-200); CREATININE RESULT 0.73 mg/dL (0.52-1.25); Direct HDL 40 mg/dL (>40); GLUCOSE 179 mg/dL (75-110); POTASSIUM 4.3 mmol/L (3.6-5.0); SODIUM 141.9 mmol/L (137-145); TOTAL PROTEIN 7.2 g/dL (6.3-8.2); TRIGLYCERIDES 113 mg/dL (<150)
[2017-05-25 11:23] LABS: DIRECT LDL 40 mg/dL (<100)
== END ==
LOC: OD 07:23
PROVIDERS: ATTEND Internal Medicine Cardiovascular Disease
DX: E78.2 Mixed hyperlipidemia (principal); R73.01 Impaired fasting glucose; Z79.899 Other long term (current) drug therapy
CPT/HCPCS: 36415; 80048; 80061; 80076; 83036

== ENCOUNTER → 2017-08-04 | Outpatient (CLI) | payer MEDICARE, OTHER ==
--- NOTE | 2017-08-04 16:16 | RADIOLOGY REPORT (SQ) ---
EXAM DESCRIPTION: HIPS BILATERAL COMPLETED DATE/TIME: 08/04/2017 2:39 pm REASON FOR STUDY: BILATERAL HIP PAIN M25.551 PAIN IN RIGHT HIP M25.552 PAIN IN LEFT HIP COMPARISON: None. NUMBER OF VIEWS: Two views TECHNIQUE: AP pelvis and additional frog-leg view of both hips. LIMITATIONS: None. FINDINGS: MINERALIZATION: Normal. HIPS: No acute fracture or dislocation. No worrisome bone lesions. PELVIS AND SACRUM: No acute fracture or dislocation. No worrisome bone lesions. PUBIS AND ISCHIUM: No acute fracture. LOWER LUMBAR SPINE: Mild degenerative changes. SOFT TISSUES: No findings. OTHER: No other significant finding. IMPRESSION: 1. No significant abnormalities involving the hips. 2. Mild degenerative changes involving the lumbar spine. TECHNICAL DOCUMENTATION: JOB ID: [id number] [employer]- All Rights Reserved
== END ==
LOC: OD 14:13
PROVIDERS: ATTEND Family Medicine
DX: M25.551 Pain in right hip (principal); M25.552 Pain in left hip; M47.896 Other spondylosis, lumbar region
CPT/HCPCS: 73522

== ENCOUNTER 2017-11-08 19:11 | Emergency (ER) | payer MEDICARE, OTHER ==
--- NOTE | 2017-11-08 19:40 | ER Document Report ---
ED General - General Chief Complaint: Urinary Problem Stated Complaint: ALTERED MENTAL STATUS Time Seen by Provider: 11/08/17 19:35 Cannot obtain history due to: Altered mental status Notes: Patient is a 72-year-old female, past medical history bipolar, diabetes, TIA, hypertension, presents with altered mental status for the past 2 days. Family states she becomes this way when she has a UTI or when she is about to go into her manic phase. Patient is awake and will nod yes or no to questions, but unable to provide any additional history. TRAVEL OUTSIDE OF THE [place] IN LAST 30 DAYS: No - Related Data Allergies/Adverse Reactions: NSAIDS (Non-Steroidal Anti-Inflamma [Nsaids] Allergy (Severe, Verified 09/11/16 22:50) gastric bleed adhesive [Adhesive] Allergy (Intermediate, Verified 09/11/16 22:50) morphine Allergy (Verified 12/15/16 17:47) Past Medical History - General Information source: Relative Cannot obtain history due to: Altered mental status - Social History Smoking Status: Unknown if Ever Smoked Family History: Reviewed & Not Pertinent, CAD, DM - Past Medical History Cardiac Medical History: Reports: Hx Coronary Artery Disease, Hx Hypercholesterolemia, Hx Hypertension, Hx Peripheral Vascular Disease - Carotid artery disease Denies: Hx Congestive Heart Failure, Hx DVT, Hx Heart Attack, Hx Pulmonary Embolism Pulmonary Medical History: Reports: Hx Bronchitis, Hx COPD Denies: Hx Asthma, Hx Pneumonia Neurological Medical History: Denies: Hx Cerebrovascular Accident, Hx Seizures Endocrine Medical History: Reports: Hx Diabetes Mellitus Type 1, Hx Diabetes Mellitus Type 2. Denies: Hx Hyperthyroidism, Hx Hypothyroidism Renal/ Medical History: Denies: Hx Peritoneal Dialysis GI Medical History: Denies: Hx Cirrhosis, Hx Gastroesophageal Reflux Disease, Hx Hepatitis Musculoskeltal Medical History: Reports Hx Arthritis, Reports Hx Muscle Spasm Psychiatric Medical History: Reports: Hx Bipolar Disorder, Hx Dementia, Hx Depression Infectious Medical History: Denies: Hx Hepatitis Past Surgical History: Reports: Hx Abdominal Surgery - BOTOX INJECTIONS [id number] , Hx Cholecystectomy, Hx Hysterectomy, Hx Orthopedic Surgery - Back surgery, Hx Urinary Tract Surgery, Other - Bladder tack - Immunizations Hx Diphtheria, Pertussis, Tetanus Vaccination: Yes Hx Pneumococcal Vaccination: 10/04/13 Review of Systems - Review of Systems Notes: REVIEW OF SYSTEMS: CONSTITUTIONAL: -fevers, -chills EENT: -eye pain, -difficulty swallowing, -nasal congestion CARDIOVASCULAR: -chest pain, -syncope. RESPIRATORY: -cough, -SOB GASTROINTESTINAL: -abdominal pain, -nausea, -vomiting, -diarrhea GENITOURINARY: -dysuria, -hematuria MUSCULOSKELETAL: -back pain, -neck pain SKIN: -rash or skin lesions. HEMATOLOGIC: -easy bruising or bleeding. LYMPHATIC: -swollen, enlarged glands. NEUROLOGICAL: +altered mental status, -loss of consciousness, -headache PSYCHIATRIC: -anxiety, -depression. ALL OTHER SYSTEMS REVIEWED AND NEGATIVE. -: Yes ROS unobtainable due to patient's medical condition Physical Exam - Vital signs Vitals: Temp Pulse Resp BP Pulse Ox 97.9 F 88 18 139/71 H 100 11/08/17 19:23 11/08/17 19:23 11/08/17 19:23 11/08/17 19:23 11/08/17 19:23 - Notes Notes: PHYSICAL EXAMINATION: GENERAL: Well-appearing, well-nourished and in no acute distress. HEAD: Atraumatic, normocephalic. EYES: Pupils equal round and reactive to light, extraocular movements intact, sclera anicteric, conjunctiva are normal. ENT: nares patent, oropharynx clear without exudates. Moist mucous membranes. NECK: Normal range of motion, supple without lymphadenopathy LUNGS: Breath sounds clear to auscultation bilaterally and equal. No wheezes rales or rhonchi. HEART: Regular rate and rhythm without murmurs ABDOMEN: Soft, nontender, normoactive bowel sounds. No guarding, no rebound. No masses appreciated. EXTREMITIES: Normal range of motion, no pitting or edema. No cyanosis. NEUROLOGICAL: Cranial nerves grossly intact. Normal sensory and motor exams. PSYCH: Silent. Bizarre affect, normal mood SKIN: Warm, Dry, normal turgor, no rashes or lesions noted. Course - Re-evaluation Re-evalutation: 11/08/17 21:31 Pt does not have evidence of a UTI and no signs of sepsis. Her head CT does not show any acute bleeds and rest of labs are unremarkable. says that her symptoms that she is presenting will occur right before her manic phase. She appears to be in her depressive phase and will not respond verbally to any answers. Patient medically cleared and will have mental health evaluate patient due to her mood swings. - Vital Signs Vital signs: Temp Pulse Resp BP Pulse Ox 97.9 F 88 18 139/71 H 100 11/08/17 19:23 11/08/17 19:23 11/08/17 19:23 11/08/17 19:23 11/08/17 19:23 - Laboratory Result Diagrams: 11/08/17 18:57 11/08/17 18:57 Laboratory results interpreted by me: 11/08/17 11/08/17 11/08/17 18:57 18:57 20:59 RDW 15.0 H Seg Neutrophils % 80.4 H Lymphocytes % 12.7 L Glucose 283 H AST 49 H ALT 72 H Urine Glucose (UA) 150 H Urine Ketones 20 H Urine Blood SMALL H Urine Urobilinogen 2.0 H - Diagnostic Test Radiology reviewed: Image reviewed, Reports reviewed Radiology results interpreted by me: CT Head: NAD CXR: NAD Discharge - Discharge Clinical Impression: Altered mental status Qualifiers: Altered mental status type: unspecified Qualified Code(s): R41.82 - Altered mental status, unspecified Condition: Stable
[2017-11-08 19:54] LABS: ABSOLUTE MONOCYTES (AUTO) 0.5 10^3/uL (0.1-1.4); ABSOLUTE NEUT (AUTO) 6.2 10^3/uL (1.7-8.2); BASOPHILS % (AUTO) 0.4 % (0-2); EOSINOPHILS % (AUTO) 0.1 % (0-6); HEMATOCRIT 36.3 % (36.0-47.0); HEMOGLOBIN 12.4 g/dL (12.0-15.5); LYMPHOCYTES % (AUTO) 12.7 % (13-45); MEAN CORPUSCULAR HEMOGLOBIN 28.3 pg (27.0-33.4); MEAN CORPUSCULAR HGB CONC 34.2 g/dL (32.0-36.0); MEAN CORPUSCULAR VOLUME 83 fl (80-97); MONOCYTES % (AUTO) 6.4 % (3-13); PLATELET COUNT 235 10^3/uL (150-450); RED BLOOD COUNT 4.38 10^6/uL (3.72-5.28); SEGMENTED NEUTROPHILS % (AUTO) 80.4 % (42-78); TOTAL CELLS COUNTED % (AUTO) 100 %; WHITE BLOOD COUNT 7.7 10^3/uL (4.0-10.5)
[2017-11-08 19:57] LABS: ALANINE AMINOTRANSFERASE 72 U/L (9-52); ALKALINE PHOSPHATASE 68 U/L (38-126); ANION GAP 12 (5-19); ASPARTATE AMINO TRANSFERASE 49 U/L (14-36); BILIRUBIN,DIRECT 0.4 mg/dL (0.0-0.4); BILIRUBIN,TOTAL 0.4 mg/dL (0.2-1.3); BLOOD UREA NITROGEN 9 mg/dL (7-20); CALCIUM 9.5 mg/dL (8.4-10.2); CARBON DIOXIDE 28 mmol/L (22-30); CHLORIDE 100 mmol/L (98-107); GLUCOSE 283 mg/dL (75-110); POTASSIUM 4.4 mmol/L (3.6-5.0); SODIUM 139.6 mmol/L (137-145); TOTAL PROTEIN 6.9 g/dL (6.3-8.2)
--- NOTE | 2017-11-08 20:08 | RADIOLOGY REPORT (SQ) ---
EXAM DESCRIPTION: CT HEAD WITHOUT COMPLETED DATE/TIME: 11/08/2017 7:55 pm REASON FOR STUDY: AMS COMPARISON: 2016. TECHNIQUE: Axial images acquired through the brain without intravenous contrast. Images reviewed wi th bone, brain and subdural windows. Additional sagittal and coronal reconstructions were generated. Images stored on PACS. All CT scanners at this facility use dose modulation, iterative reconstruction, and/or weight based d osing when appropriate to reduce radiation dose to as low as reasonably achievable (ALARA). [facility]: Dose Right [facility]: CareDose [facility]: Dose Right [facility]: Teradose 4D [facility]: [place] RADIATION DOSE: CT Rad equipment meets quality standard of care and radiation dose reduction techniq ues were employed. CTDIvol: 53.2 mGy. DLP: 2034 mGy-cm. mGy. LIMITATIONS: None. FINDINGS: VENTRICLES: Normal size and contour. CEREBRUM: No masses. No hemorrhage. No midline shift. No evidence for acute infarction. Normal gra y/white matter differentiation. No areas of low density in the white matter. CEREBELLUM: No masses. No hemorrhage. No alteration of density. No evidence for acute infarction. EXTRAAXIAL SPACES: No fluid collections. No masses. ORBITS AND GLOBE: No intra- or extraconal masses. Normal contour of globe without masses. CALVARIUM: No fracture. PARANASAL SINUSES: No fluid or mucosal thickening. SOFT TISSUES: No mass or hematoma. OTHER: No other significant finding. IMPRESSION: NORMAL BRAIN CT WITHOUT CONTRAST. EVIDENCE OF ACUTE STROKE: NO. COMMENT: Quality ID # [id number]: Final reports with documentation of one or more dose reduction techniques (e.g., Automated exposure control, adjustment of the mA and/or kV according to patient size, use of iterative reconstruction technique) TECHNICAL DOCUMENTATION: JOB ID: [id number] [employer]- All Rights Reserved Reading location - IP/workstation name: [email or web address]
--- NOTE | 2017-11-08 20:22 | RADIOLOGY REPORT (SQ) ---
EXAM DESCRIPTION: CHEST SINGLE VIEW COMPLETED DATE/TIME: 11/08/2017 7:59 pm REASON FOR STUDY: AMS COMPARISON: 2017. NUMBER OF VIEWS: One view. TECHNIQUE: Single frontal radiographic view of the chest acquired. LIMITATIONS: None. FINDINGS: LUNGS AND PLEURA: Stable interstitial prominence in the lungs, suspect some underlying chr onic lung disease. Mild peripheral density in the lung bases is likely related to overlying soft tis sues. Doubt pneumonia. Doubt failure. MEDIASTINUM AND HILAR STRUCTURES: Stable. HEART AND VASCULAR STRUCTURES: Stable. Normal heart size. BONES: No acute findings. HARDWARE: None in the chest. OTHER: No other significant finding. IMPRESSION: Suspect chronic lung changes as above. TECHNICAL DOCUMENTATION: JOB ID: [id number] [email or web address]- All Rights Reserved Reading location - IP/workstation name: [email or web address]
[2017-11-08 21:08] LABS: APPEARANCE,URINE CLEAR; BILIRUBIN,URINE NEGATIVE (NEGATIVE); COLOR,URINE YELLOW; GLUCOSE, URINE 150 mg/dL (NEGATIVE); KETONES,URINE 20 mg/dL (NEGATIVE); LEUKOCYTE ESTERASE,URINE NEGATIVE (NEGATIVE); NITRITE,URINE NEGATIVE (NEGATIVE); PROTEIN,URINE NEGATIVE (NEGATIVE); URINE SPECIFIC GRAVITY 1.019
[2017-11-08 21:23] LABS: URINE AMPHETAMINES SCREEN NEGATIVE; URINE BARBITURATES SCREEN UNCONFIRMED POSITIVE; URINE BENZODIAZEPINES SCREEN UNCONFIRMED POSITIVE; URINE COCAINE SCREEN NEGATIVE; URINE MARIJUANA (THC) SCREEN NEGATIVE; URINE METHADONE SCREEN NEGATIVE; URINE PHENCYCLIDINE SCREEN NEGATIVE
[2017-11-08 22:02] LABS: ACETAMINOPHEN < 10 ug/mL (10-30); ALCOHOL < 10 mg/dL (NONE DETECTED); SALICYLATE < 1.0 mg/dL (2.0-20.0)
--- NOTE | 2017-11-09 07:55 | EKG REPORT ---
SEVERITY:- ABNORMAL ECG - SINUS RHYTHM LEFT ATRIAL ABNORMALITY LEFT BUNDLE BRANCH BLOCK : Confirmed by: Gurinder Child MD 09-Nov-2017 07:54:49
--- NOTE | 2017-11-09 10:37 | ER Document Report ---
Doctor's Note Notes: 11/09/17 10:36 As the rounding physician for our psychiatric patients, I have reviewed the chart, vitals, lab work. Patient has been examined and noted to be resting comfortably with family in the room. I am awaiting mental health in put. Will include sliding scale insulin
[2017-11-09] MEDS ORDERED: DEXTROSE 50%-WATER SYRINGE 25 GM/50 ML DOSE IV PRN (12:04)
[2017-11-09] MEDS ORDERED: GLUCAGON,HUMAN RECOMB 1 MG INJ IM PRN (12:04)
[2017-11-09] MEDS ORDERED: DEXTROSE 50%-WATER SYRINGE 12.5 GM/25 ML DOSE IV PRN (12:04)
[2017-11-09] MEDS ORDERED: DEXTROSE 40% GEL 15 GM TUBE PO PRN (12:04)
[2017-11-09] MEDS ORDERED: DEXTROSE 40% GEL 15 GM TUBE X 2 PO PRN (12:04)
[2017-11-09] MEDS ORDERED: DIVALPROEX SODIUM 250 MG TAB.SR.24H PO ONE (13:00)
--- NOTE | 2017-11-09 13:22 | PSYCHOLOGICAL NOTE ---
Psych Note - Psych Note Psych Note: Reason for consult: Altered Mental Status Consent Permissions: , Gerry [phone] Patient is a 72-year-old female, past medical history bipolar, diabetes, TIA, hypertension, presents with altered mental status for the past 2 days. Family states she becomes this way when she has a UTI or when she is about to go into her manic phase. Patient is awake and will nod yes or no to questions, but unable to provide any additional history. Patient disclosed she is aware she is in the hospital however she is unable to verbalize why she is here. Patient laid back down and refused to engage in evaluation. Patient is observed moaning at times and is very limited engagement with her environment. Patient's , Gerry, disclosed patient has a diagnosis of bipolar and used to be seen by [facility]. She transferred her services to [facility] because she felt she was not receiving adequate care however then stopped going altogether. She currently is not receiving any therapeutic services however is prescribed Xanax and Neurontin. He disclosed that the patient started demonstrating behaviors on Monday; "she slept for 2 days... That is usually how it starts... First the nonstop sleeping then the manic." He disclosed that yesterday the patient started the moaning and has limited her communication. He disclosed that the patient was previously inpatient psychiatric treatment with [facility] times however it has been "a couple years" since her last inpatient treatment. Patient is alert and orientated to person place. Mood and affect is flat. Patient limitedly engages with clinician and her environment. Patient does not make eye contact. Patient is observed with very quiet conversational speech when saying she was in the hospital however refused to speak after that. Attention and concentration are poor. Insight, judgment, impulse control are poor. Medication recommendations per [facility]'s contracted psychiatrist Dr. Kimberly QUINONES are as follows 1. Depakote 250 mg twice daily for mood stabilization 2. BuSpar 5 mg twice daily for anxiety and agitation 296.80 (3 1.9) unspecified bipolar and related disorder per history provided by patient's family Impression\\plan: Patient is recommended for IVC. Patient limitedly engages with clinician in her environment. Patient verbalizes she is in the "hospital" however will not communicate other than grunting after that. Attending physician notes "Pt does not have evidence of a UTI and no signs of sepsis. Her head CT does not show any acute bleeds and rest of labs are unremarkable." Patient has a history of manic episodes that historically start with patient's current trend of symptoms. Patient will be reevaluated. Dr. Dickson was consulted and the care management this patient; attending physician is in agreement with recommendations and disposition.
[2017-11-09] MEDS: INSULIN REG, HUMAN 100 UNIT/ML 3 ML VIAL (PYX) SUBCUT PRN ×2 (13:46→16:27)
[2017-11-09] MEDS ORDERED: TIZANIDINE HCL 4 MG TABLET PO PRN (14:48)
[2017-11-09] MEDS ORDERED: TRIAZOLAM 0.5 MG PO PRN (14:48)
[2017-11-09] MEDS ORDERED: ALPRAZOLAM 0.5 MG TABLET PO PRN (14:48)
[2017-11-09] MEDS ORDERED: PROMETHAZINE HCL 25 MG TABLET PO PRN (14:48)
[2017-11-09] MEDS ORDERED: CLONIDINE HCL 0.1 MG TABLET PO PRN (14:48)
[2017-11-09] MEDS ORDERED: BUTALB/ACETAMINOPHEN/CAFFEINE 1 TAB EACH PO PRN (14:48)
[2017-11-09] MEDS ORDERED: OXYCODONE HCL IR 5 MG TABLET PO PRN (14:48)
[2017-11-09] MEDS ORDERED: ONDANSETRON 4 MG TAB.RAPDIS PO PRN (15:42)
[2017-11-09] MEDS: LANSOPRAZOLE 30 MG TAB.RAP.DR PO SCH (17:55)
[2017-11-09] MEDS: BUSPIRONE HCL 10 MG TABLET PO SCH (17:55)
[2017-11-09] MEDS ORDERED: GABAPENTIN 400 MG CAPSULE PO SCH (22:00)
[2017-11-09] MEDS ORDERED: ATORVASTATIN CALCIUM 40 MG TABLET PO SCH (22:00)
[2017-11-09] MEDS ORDERED: VENLAFAXINE HCL 75 MG TABLET PO SCH (22:00)
[2017-11-09] MEDS ORDERED: DIVALPROEX SODIUM 250 MG TAB.SR.24H PO SCH (22:00)
[2017-11-09] MEDS ORDERED: DIVALPROEX SODIUM 125 MG CAP.SPRINK PO ONE (22:12)
[2017-11-09] MEDS ORDERED: VENLAFAXINE HCL 75 MG TABLET ONE (22:12)
[2017-11-10] MEDS ORDERED: GABAPENTIN 400 MG CAPSULE PO SCH (08:00)
[2017-11-10] MEDS ORDERED: GLIMEPIRIDE 1 MG TABLET PO SCH (08:00)
[2017-11-10] MEDS: LANSOPRAZOLE 30 MG TAB.RAP.DR PO SCH (08:30)
[2017-11-10] MEDS: BUSPIRONE HCL 10 MG TABLET PO SCH (08:31)
[2017-11-10] MEDS ORDERED: ASPIRIN 81 MG TABLET, ENT COATED PO SCH (10:00)
[2017-11-10] MEDS ORDERED: (PENDING PHARMACY ID) (Rosuvastatin Calcium [Crestor 20 Mg Tablet] 20 MG) PO SCH (10:00)
[2017-11-10] MEDS ORDERED: SPIRONOLACTONE 25 MG TABLET PO SCH (10:00)
[2017-11-10] MEDS ORDERED: VENLAFAXINE HCL 75 MG CAP.SR.24H PO SCH (10:00)
[2017-11-10] MEDS ORDERED: NEBIVOLOL HCL 10 MG TABLET PO SCH (10:00)
[2017-11-10] MEDS ORDERED: LOSARTAN POTASSIUM 50 MG TABLET PO SCH (10:00)
[2017-11-10 11:56] VITALS: BP 158/70
--- NOTE | 2017-12-02 10:22 | PSYCHOLOGICAL NOTE ---
Psych Note - Psych Note Psych Note: Reason for consult: Altered Mental Status Consent Permissions: , Gerry [phone] Patient is a 72-year-old female, past medical history bipolar, diabetes, TIA, hypertension, presents with altered mental status for the past 2 days. Family states she becomes this way when she has a UTI or when she is about to go into her manic phase. Patient is awake and will nod yes or no to questions, but unable to provide any additional history. Clinician conducted checking with patient. Patient appears to be slightly improved making eye contact with clinician and disclosing concerned that she has not been able to leave. Medication recommendations per [facility]'s contracted psychiatrist Dr. Kimberly QUINONES are as follows 1. Depakote 250 mg twice daily for mood stabilization 2. BuSpar 5 mg twice daily for anxiety and agitation 296.80 (3 1.9) unspecified bipolar and related disorder per history provided by patient's family Impression\\plan: Patient is recommended to continue under IVC. Patient limitedly engages with clinician in her environment. Patient verbalizes she is in the "hospital" however will not communicate other than grunting after that. Attending physician notes "Pt does not have evidence of a UTI and no signs of sepsis. Her head CT does not show any acute bleeds and rest of labs are unremarkable." Patient has a history of manic episodes that historically start with patient's current trend of symptoms. Patient was accepted to [facility] yesterday; transportation will occur today. Dr. Dickson was consulted and the care management this patient; attending physician is in agreement with recommendations and disposition.
== END 2017-11-10 11:59 ==
LOC: ER 19:11
DX: R41.82 Altered mental status, unspecified (principal); F31.9 Bipolar disorder, unspecified; E11.9 Type 2 diabetes mellitus without complications; I25.10 Atherosclerotic heart disease of native coronary artery without angina pectoris; J44.9 Chronic obstructive pulmonary disease, unspecified; I10 Essential (primary) hypertension; Z86.73 Personal history of transient ischemic attack (TIA), and cerebral infarction without residual deficits; Z87.440 Personal history of urinary (tract) infections; Z88.8 Allergy status to other drugs, medicaments and biological substances; Z91.048 Other nonmedicinal substance allergy status; Z88.5 Allergy status to narcotic agent
CPT/HCPCS: 93005; 99285; 51701; 36415; 82962; 80307 ×4; 85025; 80053; 81001; 71045; 70450; 93010; A9270 ×18; J3490; J1815; S0119

== ENCOUNTER 2018-02-26 10:34 | Emergency (ER) | payer MEDICARE, OTHER ==
[2018-02-26] MEDS ORDERED: NORMAL SALINE 1000 ML 1,000 ML IV ONE (10:57)
--- NOTE | 2018-02-26 11:00 | ER Document Report ---
ED Medical Screen (RME) - General Chief Complaint: Aphasia Stated Complaint: SHORTNESS OF BREATH Time Seen by Provider: 02/26/18 10:55 Notes: 72 yo female presents to the ER with AMS -- pt bring treated for pnemonia with 2 rounbds of antibiotics and has not gotten better. Pt usually gets very altered and agitated with infections. TRAVEL OUTSIDE OF THE [place] IN LAST 30 DAYS: No - Related Data Allergies/Adverse Reactions: NSAIDS (Non-Steroidal Anti-Inflamma [Nsaids] Allergy (Severe, Verified 02/26/18 10:36) gastric bleed adhesive [Adhesive] Allergy (Intermediate, Verified 02/26/18 10:36) morphine Allergy (Verified 02/26/18 10:36) Past Medical History - Social History Family history: Reviewed & Not Pertinent - Past Medical History Cardiac Medical History: Reports: Hx Coronary Artery Disease, Hx Hypercholesterolemia, Hx Hypertension, Hx Peripheral Vascular Disease - Carotid artery disease Denies: Hx Congestive Heart Failure, Hx DVT, Hx Heart Attack, Hx Pulmonary Embolism Pulmonary Medical History: Reports: Hx Bronchitis, Hx COPD Denies: Hx Asthma, Hx Pneumonia Neurological Medical History: Denies: Hx Cerebrovascular Accident, Hx Seizures Endocrine Medical History: Reports: Hx Diabetes Mellitus Type 1, Hx Diabetes Mellitus Type 2. Denies: Hx Hyperthyroidism, Hx Hypothyroidism Renal/ Medical History: Denies: Hx Peritoneal Dialysis GI Medical History: Denies: Hx Cirrhosis, Hx Gastroesophageal Reflux Disease, Hx Hepatitis Musculoskeltal Medical History: Reports Hx Arthritis, Reports Hx Muscle Spasm Psychiatric Medical History: Reports: Hx Bipolar Disorder, Hx Dementia, Hx Depression Infectious Medical History: Denies: Hx Hepatitis Past Surgical History: Reports: Hx Abdominal Surgery - BOTOX INJECTIONS [id number] , Hx Cholecystectomy, Hx Hysterectomy, Hx Orthopedic Surgery - Back surgery, Hx Urinary Tract Surgery, Other - Bladder tack - Immunizations Hx Diphtheria, Pertussis, Tetanus Vaccination: Yes Physical Exam - Vital signs Vitals: Pulse Resp BP Pulse Ox 88 16 151/132 H 95 02/26/18 10:40 02/26/18 10:40 02/26/18 10:40 02/26/18 10:40 - Respiratory Respiratory status: No respiratory distress Chest status: Nontender Breath sounds: Decreased air movement Course - Re-evaluation Re-evalutation: 02/26/18 10:59 Pt agitated and altered. Will start sepsis protocol and get head CT for AMS. - Vital Signs Vital signs: Temp Pulse Resp BP Pulse Ox 88 16 151/132 H 95 02/26/18 10:40 02/26/18 10:40 02/26/18 10:40 02/26/18 10:40 Doctor's Discharge - Discharge Referrals: TERESA WARD DO [Primary Care Provider] - Follow up as needed
[2018-02-26] MEDS ORDERED: LORAZEPAM INJ 2 MG/1 ML VIAL IV ONE ×3 (11:38→15:33)
--- NOTE | 2018-02-26 11:42 | ER Document Report ---
ED General - General Chief Complaint: Aphasia Stated Complaint: SHORTNESS OF BREATH Time Seen by Provider: 02/26/18 10:55 Mode of Arrival: Ambulatory Information source: Relative, [facility] Records Cannot obtain history due to: Altered mental status Notes: 72-year-old female with bipolar disorder, diabetes, COPD, peripheral vascular disease, hypertension, hyperlipidemia, coronary artery disease, chronic neck and back pain (on Percocet) presents from home with her and daughter who are concerned for confusion, agitation. Patient is currently nonverbal which is not her baseline. states that patient has been treated for pneumonia for approximately 1 month. He states that she has been on 2 rounds of antibiotics and is currently still taking one although he does not know the name of the antibiotic. He reports that his son awoke him because his mother was unable to speak and agitated. He states that the son reported that the patient awoke this way. Patient has had a persistent productive cough over the last several weeks. states that last evening she was complaining of abdominal pain and had 2 episodes of vomiting. She also had one episode of diarrhea. He denies any black or bloody stools. They do report that the patient has had similar episodes of altered mental status, agitation with previous infections. They deny any recent falls or head injury. They deny any changes in her current medication. TRAVEL OUTSIDE OF THE [place] IN LAST 30 DAYS: No - HPI Onset: This morning Onset/Duration: Sudden Associated symptoms: Productive cough, Diarrhea, Nausea, Vomiting Similar symptoms previously: Yes Recently seen / treated by doctor: Yes - dr ward - Related Data Allergies/Adverse Reactions: NSAIDS (Non-Steroidal Anti-Inflamma [Nsaids] Allergy (Severe, Verified 02/26/18 10:36) gastric bleed adhesive [Adhesive] Allergy (Intermediate, Verified 02/26/18 10:36) morphine Allergy (Verified 02/26/18 10:36) Past Medical History - General Information source: Relative, [facility] Records - Social History Smoking Status: Former Smoker Cigarette use (# per day): No Chew tobacco use (# tins/day): No - pt vapes Frequency of alcohol use: None Drug Abuse: None Lives with: Spouse/Significant other Family History: Reviewed & Not Pertinent, CAD, DM Patient has suicidal ideation: No Patient has homicidal ideation: No - Past Medical History Cardiac Medical History: Reports: Hx Coronary Artery Disease, Hx Hypercholesterolemia, Hx Hypertension, Hx Peripheral Vascular Disease - Carotid artery disease Denies: Hx Congestive Heart Failure, Hx DVT, Hx Heart Attack, Hx Pulmonary Embolism Pulmonary Medical History: Reports: Hx Bronchitis, Hx COPD Denies: Hx Asthma, Hx Pneumonia Neurological Medical History: Denies: Hx Cerebrovascular Accident, Hx Seizures Endocrine Medical History: Reports: Hx Diabetes Mellitus Type 1, Hx Diabetes Mellitus Type 2. Denies: Hx Hyperthyroidism, Hx Hypothyroidism Renal/ Medical History: Denies: Hx Peritoneal Dialysis GI Medical History: Denies: Hx Cirrhosis, Hx Gastroesophageal Reflux Disease, Hx Hepatitis Musculoskeletal Medical History: Reports Hx Arthritis, Reports Hx Muscle Spasm Psychiatric Medical History: Reports: Hx Bipolar Disorder, Hx Dementia, Hx Depression Infectious Medical History: Denies: Hx Hepatitis Past Surgical History: Reports: Hx Abdominal Surgery - BOTOX INJECTIONS [id number] , Hx Cholecystectomy, Hx Hysterectomy, Hx Orthopedic Surgery - Back surgery, Hx Urinary Tract Surgery, Other - Bladder tack - Immunizations Hx Diphtheria, Pertussis, Tetanus Vaccination: Yes Hx Pneumococcal Vaccination: 10/04/13 Review of Systems - Review of Systems -: Yes ROS unobtainable due to patient's medical condition Physical Exam - Vital signs Vitals: Pulse Resp BP Pulse Ox 88 16 151/132 H 95 02/26/18 10:40 02/26/18 10:40 02/26/18 10:40 02/26/18 10:40 Interpretation: Hypertensive. No: Tachycardic, Febrile - Notes Notes: PHYSICAL EXAMINATION: GENERAL: Agitated, alert, nonverbal, will not follow commands HEAD: Atraumatic, normocephalic. EYES: Pupils equal round and reactive to light, extraocular movements intact, conjunctiva are normal. ENT: Nares patent, oropharynx clear without exudates. Moist mucous membranes. NECK: Normal range of motion, supple without lymphadenopathy LUNGS: Breath sounds clear to auscultation bilaterally and equal. No wheezes rales or rhonchi. HEART: Regular rate and rhythm without murmurs ABDOMEN: Soft, nontender, nondistended abdomen. No guarding, no rebound. No masses appreciated. Female : deferred Musculoskeletal: Normal range of motion, no pitting or edema. No cyanosis. NEUROLOGICAL: GCS 15. Nonverbal. Will not follow commands. Moving all extremities. PSYCH: Agitated, nonverbal SKIN: Scabbed area of the right lateral thigh. Course - Re-evaluation Re-evalutation: 02/26/18 15:11 Laboratory 02/26/18 02/26/18 02/26/18 11:11 11:28 11:28 WBC 7.5 RBC 5.07 Hgb 13.7 Hct 41.0 MCV 81 MCH 27.1 MCHC 33.5 RDW 14.8 H Plt Count 226 Seg Neutrophils % 80.2 H Lymphocytes % 12.0 L Monocytes % 7.2 Eosinophils % 0.1 Basophils % 0.5 Absolute Neutrophils 6.0 Absolute Lymphocytes 0.9 Absolute Monocytes 0.5 Absolute Eosinophils 0.0 Absolute Basophils 0.0 PT 13.4 INR 0.97 VBG pH VBG pCO2 VBG HCO3 VBG Base Excess Sodium Potassium Chloride Carbon Dioxide Anion Gap BUN Creatinine Est GFR ( Amer) Est GFR (Non-Af Amer) Glucose POC Glucose 236 H Lactic Acid Calcium Phosphorus Magnesium Total Bilirubin Direct Bilirubin Neonat Total Bilirubin Neonat Direct Bilirubin Neonat Indirect Bili AST ALT Alkaline Phosphatase Creatine Kinase CK-MB (CK-2) Troponin I NT-Pro-B Natriuret Pep Total Protein Albumin Urine Color Urine Appearance Urine pH Ur Specific Grand Chain Urine Protein Urine Glucose (UA) Urine Ketones Urine Blood Urine Nitrite Urine Bilirubin Urine Urobilinogen Ur Leukocyte Esterase Urine WBC (Auto) Urine RBC (Auto) U Hyaline Cast (Auto) Squamous Epi Cells Auto Urine Mucus (Auto) Urine Ascorbic Acid Salicylates Urine Opiates Screen Urine Methadone Screen Acetaminophen Ur Barbiturates Screen Ur Phencyclidine Scrn Ur Amphetamines Screen U Benzodiazepines Scrn Urine Cocaine Screen U Marijuana (THC) Screen 02/26/18 02/26/18 02/26/18 11:28 11:28 11:28 WBC RBC Hgb Hct MCV MCH MCHC RDW Plt Count Seg Neutrophils % Lymphocytes % Monocytes % Eosinophils % Basophils % Absolute Neutrophils Absolute Lymphocytes Absolute Monocytes Absolute Eosinophils Absolute Basophils PT INR VBG pH 7.39 VBG pCO2 45.3 VBG HCO3 26.5 VBG Base Excess 1.0 Sodium 134.0 L Potassium 4.2 Chloride 95 L Carbon Dioxide 26 Anion Gap 13 BUN 8 Creatinine 0.53 Est GFR ( Amer) > 60 Est GFR (Non-Af Amer) > 60 Glucose 250 H POC Glucose Lactic Acid 1.3 Calcium 9.7 Phosphorus 3.9 Magnesium 1.6 Total Bilirubin 0.6 Direct Bilirubin 0.3 Neonat Total Bilirubin Not Reportable Neonat Direct Bilirubin Not Reportable Neonat Indirect Bili Not Reportable AST 23 ALT 25 Alkaline Phosphatase 59 Creatine Kinase 228 H CK-MB (CK-2) Troponin I NT-Pro-B Natriuret Pep Total Protein 7.6 Albumin 4.4 Urine Color Urine Appearance Urine pH Ur Specific Grand Chain Urine Protein Urine Glucose (UA) Urine Ketones Urine Blood Urine Nitrite Urine Bilirubin Urine Urobilinogen Ur Leukocyte Esterase Urine WBC (Auto) Urine RBC (Auto) U Hyaline Cast (Auto) Squamous Epi Cells Auto Urine Mucus (Auto) Urine Ascorbic Acid Salicylates < 1.0 L Urine Opiates Screen Urine Methadone Screen Acetaminophen < 10 L Ur Barbiturates Screen Ur Phencyclidine Scrn Ur Amphetamines Screen U Benzodiazepines Scrn Urine Cocaine Screen U Marijuana (THC) Screen 02/26/18 02/26/18 02/26/18 11:28 13:06 13:06 WBC RBC Hgb Hct MCV MCH MCHC RDW Plt Count Seg Neutrophils % Lymphocytes % Monocytes % Eosinophils % Basophils % Absolute Neutrophils Absolute Lymphocytes Absolute Monocytes Absolute Eosinophils Absolute Basophils PT INR VBG pH VBG pCO2 VBG HCO3 VBG Base Excess Sodium Potassium Chloride Carbon Dioxide Anion Gap BUN Creatinine Est GFR ( Amer) Est GFR (Non-Af Amer) Glucose POC Glucose Lactic Acid Calcium Phosphorus Magnesium Total Bilirubin Direct Bilirubin Neonat Total Bilirubin Neonat Direct Bilirubin Neonat Indirect Bili AST ALT Alkaline Phosphatase Creatine Kinase CK-MB (CK-2) 2.64 Troponin I < 0.012 NT-Pro-B Natriuret Pep 1510 H Total Protein Albumin Urine Color YELLOW Urine Appearance CLEAR Urine pH 7.0 Ur Specific Grand Chain 1.010 Urine Protein NEGATIVE Urine Glucose (UA) >=500 H Urine Ketones 20 H Urine Blood NEGATIVE Urine Nitrite NEGATIVE Urine Bilirubin NEGATIVE Urine Urobilinogen NEGATIVE Ur Leukocyte Esterase TRACE H Urine WBC (Auto) 3 Urine RBC (Auto) 1 U Hyaline Cast (Auto) 1 Squamous Epi Cells Auto 2 Urine Mucus (Auto) RARE Urine Ascorbic Acid NEGATIVE Salicylates Urine Opiates Screen UNCONFIRMED POSITIVE Urine Methadone Screen NEGATIVE Acetaminophen Ur Barbiturates Screen UNCONFIRMED POSITIVE Ur Phencyclidine Scrn NEGATIVE Ur Amphetamines Screen NEGATIVE U Benzodiazepines Scrn UNCONFIRMED POSITIVE Urine Cocaine Screen NEGATIVE U Marijuana (THC) Screen NEGATIVE Abdomen/Pelvis CT 02/26/18 00:00 IMPRESSION: No acute findings. Head CT 08/13/18 10:57 IMPRESSION: NORMAL BRAIN CT WITHOUT CONTRAST. EVIDENCE OF ACUTE STROKE: NO. Chest CT 02/26/18 11:37 IMPRESSION: Stable, chronic changes. Head CTA 02/26/18 11:37 IMPRESSION: Occluded distal left internal carotid artery. Neck CTA 02/26/18 11:37 IMPRESSION: Occluded proximal left ICA. Very tortuous right ICA with a tonsillar loop. 02/26/18 15:13 72-year-old female with bipolar disorder, diabetes, COPD, peripheral vascular disease, hypertension, hyperlipidemia, coronary artery disease, chronic neck and back pain (on Percocet) presents from home with her and daughter who are concerned for confusion, agitation. Last known well was yesterday evening per the . He states that patient awoke confused, nonverbal this morning per the son who is not currently at the bedside. Upon arrival vital signs reviewed and within normal limits. Patient does not appear toxic or dehydrated. She is agitated, nonverbal and will not follow any commands. No thorough neuro exam could be performed. TC is without leukocytosis or anemia. BMP shows no significant electrolyte abnormalities. Urinalysis not consistent with urinary tract infection. Patient does have a urine drug screen positive for opiates, barbiturates and benzodiazepine which are the patient's chronic pain medications. I am unable to obtain any history from the patient. does report that she has been treated for pneumonia for approximately [address] of the chest was obtained and showed no evidence of pneumonia. CTA of the head and neck showed occluded distal left internal carotid artery and occluded proximal left internal carotid artery. I did speak to Dr. GARZON from [facility] who will accept the patient as an ER to ER transfer. Patient will be flown via [employer]. Family at bedside and is agreeable with transfer. Results discussed with the family. Patient has remained stable throughout her ED course. 02/26/18 15:14 - Vital Signs Vital signs: Temp Pulse Resp BP Pulse Ox 99.0 F 88 19 146/79 H 98 02/26/18 11:41 02/26/18 10:40 02/26/18 15:23 02/26/18 15:17 02/26/18 15:23 - Laboratory Result Diagrams: 02/26/18 11:28 02/26/18 11:28 Laboratory results interpreted by me: 02/26/18 02/26/18 02/26/18 11:11 11:28 11:28 RDW 14.8 H Seg Neutrophils % 80.2 H Lymphocytes % 12.0 L Sodium 134.0 L Chloride 95 L Glucose 250 H POC Glucose 236 H Creatine Kinase 228 H NT-Pro-B Natriuret Pep Urine Glucose (UA) Urine Ketones Ur Leukocyte Esterase Salicylates < 1.0 L Acetaminophen < 10 L 02/26/18 02/26/18 02/26/18 11:28 13:06 15:34 RDW Seg Neutrophils % Lymphocytes % Sodium Chloride Glucose POC Glucose 227 H Creatine Kinase NT-Pro-B Natriuret Pep 1510 H Urine Glucose (UA) >=500 H Urine Ketones 20 H Ur Leukocyte Esterase TRACE H Salicylates Acetaminophen - Diagnostic Test Radiology reviewed: Image reviewed, Reports reviewed - EKG Interpretation by Me EKG shows normal: Sinus rhythm Rate: Normal [place]/QRS: LBBB When compared to previous EKG there are: No significant change Critical Care Note - Critical Care Note Total time excluding time spent on procedures (mins): 35 - minutes of critical care time spent in direct contact evaluating and reevaluating the patient, treating symptoms, reviewing labs and studies and speaking with family and consultants excluding any procedures Discharge - Discharge Clinical Impression: Aphasia, Agitation, Stroke-like symptoms, Left bundle branch block (LBBB) on electrocardiogram, Opiate dependence, continuous ICAO (internal carotid artery occlusion) Qualifiers: Laterality: left Qualified Code(s): I65.22 - Occlusion and stenosis of left carotid artery Altered mental status Qualifiers: Altered mental status type: delirium Qualified Code(s): R41.0 - Disorientation , unspecified Condition: Fair Disposition: [facility] Referrals: TERESA WARD DO [Primary Care Provider] - Follow up as needed
[2018-02-26 11:52] LABS: ABSOLUTE LYMPHOCYTES (AUTO) 0.9 10^3/uL (0.5-4.7); ABSOLUTE MONOCYTES (AUTO) 0.5 10^3/uL (0.1-1.4); BASOPHILS % (AUTO) 0.5 % (0-2); EOSINOPHILS % (AUTO) 0.1 % (0-6); HEMOGLOBIN 13.7 g/dL (12.0-15.5); MEAN CORPUSCULAR HEMOGLOBIN 27.1 pg (27.0-33.4); MEAN CORPUSCULAR HGB CONC 33.5 g/dL (32.0-36.0); MEAN CORPUSCULAR VOLUME 81 fl (80-97); MONOCYTES % (AUTO) 7.2 % (3-13); PLATELET COUNT 226 10^3/uL (150-450); RED BLOOD COUNT 5.07 10^6/uL (3.72-5.28); RED CELL DISTRIBUTION WIDTH 14.8 % (11.5-14.0); SEGMENTED NEUTROPHILS % (AUTO) 80.2 % (42-78); TOTAL CELLS COUNTED % (AUTO) 100 %; WHITE BLOOD COUNT 7.5 10^3/uL (4.0-10.5)
[2018-02-26 11:53] LABS: VENOUS BLOOD HCO3 26.5 mmol/L (20-32); VENOUS BLOOD PCO2 45.3 mmHg (35-63); VENOUS BLOOD PH 7.39 (7.30-7.42)
[2018-02-26 12:08] LABS: INTERNATIONAL RATION (INR) 0.97; PROTHROMBIN TIME 13.4 SEC (11.4-15.4)
[2018-02-26 12:22] LABS: ALANINE AMINOTRANSFERASE 25 U/L (9-52); ALBUMIN 4.4 g/dL (3.5-5.0); ALKALINE PHOSPHATASE 59 U/L (38-126); ANION GAP 13 (5-19); ASPARTATE AMINO TRANSFERASE 23 U/L (14-36); BILIRUBIN,DIRECT 0.3 mg/dL (0.0-0.4); BILIRUBIN,TOTAL 0.6 mg/dL (0.2-1.3); BLOOD UREA NITROGEN 8 mg/dL (7-20); CALCIUM 9.7 mg/dL (8.4-10.2); CARBON DIOXIDE 26 mmol/L (22-30); CHLORIDE 95 mmol/L (98-107); CREATINE KINASE 228 U/L (30-135); GLUCOSE 250 mg/dL (75-110); PHOSPHORUS 3.9 mg/dL (2.5-4.5); POTASSIUM 4.2 mmol/L (3.6-5.0); TOTAL PROTEIN 7.6 g/dL (6.3-8.2)
--- NOTE | 2018-02-26 12:24 | RADIOLOGY REPORT (SQ) ---
EXAM DESCRIPTION: CT HEAD WITHOUT COMPLETED DATE/TIME: 02/26/2018 12:14 pm REASON FOR STUDY: AMS COMPARISON: None. TECHNIQUE: Axial images acquired through the brain without intravenous contrast. Images reviewed wi th bone, brain and subdural windows. Additional sagittal and coronal reconstructions were generated. Images stored on PACS. All CT scanners at this facility use dose modulation, iterative reconstruction, and/or weight based d osing when appropriate to reduce radiation dose to as low as reasonably achievable (ALARA). [facility]: Dose Right [facility]: CareDose [facility]: Dose Right [facility]: Teradose 4D [facility]: saperatec RADIATION DOSE: CT Rad equipment meets quality standard of care and radiation dose reduction techniq ues were employed. CTDIvol: 53.2 mGy. DLP: 1070 mGy-cm. mGy. LIMITATIONS: None. FINDINGS: VENTRICLES: Normal size and contour. CEREBRUM: No masses. No hemorrhage. No midline shift. No evidence for acute infarction. Normal gra y/white matter differentiation. No areas of low density in the white matter. CEREBELLUM: No masses. No hemorrhage. No alteration of density. No evidence for acute infarction. EXTRAAXIAL SPACES: No fluid collections. No masses. ORBITS AND GLOBE: No intra- or extraconal masses. Normal contour of globe without masses. CALVARIUM: No fracture. PARANASAL SINUSES: No fluid or mucosal thickening. SOFT TISSUES: No mass or hematoma. OTHER: No other significant finding. IMPRESSION: NORMAL BRAIN CT WITHOUT CONTRAST. EVIDENCE OF ACUTE STROKE: NO. COMMENT: Quality ID # [id number]: Final reports with documentation of one or more dose reduction techniques (e.g., Automated exposure control, adjustment of the mA and/or kV according to patient size, use of iterative reconstruction technique) TECHNICAL DOCUMENTATION: JOB ID: [id number] [employer])- All Rights Reserved Reading location - IP/workstation name: [email or web address]-[email or web address]
[2018-02-26 12:25] LABS: ACETAMINOPHEN < 10 ug/mL (10-30); SALICYLATE < 1.0 mg/dL (2.0-20.0)
[2018-02-26 12:31] LABS: CREATINE KINASE MB 2.64 ng/mL (<4.55); NT PRO BNP 1510 pg/mL (5-900)
[2018-02-26 12:34] LABS: TROPONIN I < 0.012 ng/mL
--- NOTE | 2018-02-26 12:42 | RADIOLOGY REPORT (SQ) ---
EXAM DESCRIPTION: CT CHEST WITHOUT COMPLETED DATE/TIME: 02/26/2018 12:14 pm REASON FOR STUDY: ams COMPARISON: 09/20/2013 TECHNIQUE: CT scan performed of the chest without intravenous contrast. Images reviewed with lung, soft tissue and bone windows. Reconstructed coronal and sagittal MPR images reviewed. All images st ored on PACS. All CT scanners at this facility use dose modulation, iterative reconstruction, and/or weight based d osing when appropriate to reduce radiation dose to as low as reasonably achievable (ALARA). [facility]: Dose Right [facility]: CareDose [facility]: Dose Right [facility]: Teradose 4D [facility]: [employer] RADIATION DOSE: CT Rad equipment meets quality standard of care and radiation dose reduction techniq ues were employed. CTDIvol: 14.4 mGy. DLP: 577 mGy-cm. mGy. LIMITATIONS: Positioning. FINDINGS: LUNGS AND PLEURA: Chronic interstitial changes. Paraseptal emphysema. No evidence of pul monary edema or pneumonia. Calcified granuloma right upper lobe. No developing nodules. HILAR AND MEDIASTINAL STRUCTURES: Calcified mediastinal and right hilar nodes. HEART AND VASCULAR STRUCTURES: No aneurysm. No pericardial effusion. UPPER ABDOMEN: No significant findings. Limited exam. THYROID AND OTHER SOFT TISSUES: No masses. No adenopathy. BONES: No acute findings. HARDWARE: None in the chest. OTHER: No other significant findings. IMPRESSION: Stable, chronic changes. TECHNICAL DOCUMENTATION: JOB ID: [id number] Quality ID # [id number]: Final reports with documentation of one or more dose reduction techniques (e.g., Au tomated exposure control, adjustment of the mA and/or kV according to patient size, use of iterative reconstruction technique) 2010 [employer]- All Rights Reserved Reading location - IP/workstation name: [email or web address]
--- NOTE | 2018-02-26 12:52 | EKG REPORT ---
SEVERITY:- ABNORMAL ECG - SINUS RHYTHM [Remains] PROBABLE LEFT ATRIAL ABNORMALITY [Remains] LEFT BUNDLE BRANCH BLOCK [Remains] NO SIGNIFICANT CHANGE : Confirmed by: Gurinder Child MD 26-Feb-2018 12:51:21
[2018-02-26] MEDS ORDERED: IPRATROPIUM/ALBUTEROL 0.5-2.5 MG/3 ML AMPUL NEB ONE ×2 (13:00→13:01)
[2018-02-26 13:29] LABS: APPEARANCE,URINE CLEAR; BILIRUBIN,URINE NEGATIVE (NEGATIVE); COLOR,URINE YELLOW; GLUCOSE, URINE >=500 mg/dL (NEGATIVE); KETONES,URINE 20 mg/dL (NEGATIVE); LEUKOCYTE ESTERASE,URINE TRACE (NEGATIVE); NITRITE,URINE NEGATIVE (NEGATIVE); PROTEIN,URINE NEGATIVE (NEGATIVE); UROBILINOGEN,URINE NEGATIVE mg/dL (<2.0)
[2018-02-26 13:51] LABS: URINE AMPHETAMINES SCREEN NEGATIVE; URINE COCAINE SCREEN NEGATIVE; URINE MARIJUANA (THC) SCREEN NEGATIVE; URINE METHADONE SCREEN NEGATIVE; URINE PHENCYCLIDINE SCREEN NEGATIVE
--- NOTE | 2018-02-26 14:05 | RADIOLOGY REPORT (SQ) ---
EXAM DESCRIPTION: CTA HEAD COMPLETED DATE/TIME: 02/26/2018 1:48 pm REASON FOR STUDY: ams COMPARISON: None. TECHNIQUE: Post IV contrast scanning, thin section axial imaging through the brain to evaluate the a rterial structures. Source and MIP images are saved and reviewed on PACS. Advanced 3D imaging as volume-rendering, MIPs, SSD performed? yes All CT scanners at this facility use dose modulation, iterative reconstruction, and/or weight based d osing when appropriate to reduce radiation dose to as low as reasonably achievable (ALARA). [facility]: Dose Right [facility]: CareDose [facility]: Dose Right [facility]: Teradose 4D [facility]: [employer] CONTRAST TYPE AND DOSE: See separate report of the same date. RENAL FUNCTION: See separate report of the same date. LIMITATIONS: None. FINDINGS: NATIVE OF PARR: The anterior, middle, posterior cerebral arteries are all patent. No ev idence of aneurysm or focal stenosis. Distal internal carotid artery is occluded. See separate repo rt. POSTERIOR CIRCULATION: The distal vertebral arteries are patent as is the basilar artery. No aneurysm . BRAIN: No gross enhancing lesions as visualized. BONES: Intact as visualized. IMPRESSION: Occluded distal left internal carotid artery. TECHNICAL DOCUMENTATION: JOB ID: [id number] Quality ID # 436: Final reports with documentation of one or more dose reduction techniques (e.g., Au tomated exposure control, adjustment of the mA and/or kV according to patient size, use of iterative reconstruction technique) 2010 [employer] All Rights Reserved Reading location - IP/workstation name: [email or web address]
--- NOTE | 2018-02-26 14:14 | RADIOLOGY REPORT (SQ) ---
EXAM DESCRIPTION: CTA NECK COMPLETED DATE/TIME: 02/26/2018 1:49 pm REASON FOR STUDY: ams COMPARISON: None. 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 Multiplanar reconstruction. 3-D MIPS and Volume-rendered imag es acquired at the workstation and saved to PACS. Images are reviewed in soft tissue, bone, lung w indows. All CT scanners at this facility use dose modulation, iterative reconstruction, and/or weight based d osing when appropriate to reduce radiation dose to as low as reasonably achievable (ALARA). [facility]: Dose Right [facility]: CareDose [facility]: Dose Right [facility]: Teradose 4D [facility]: [employer] CONTRAST TYPE AND DOSE: contrast/concentration: Isovue 350.00 mg/ml; Total Contrast Delivered: 70.0 ml; Total Saline Delivered: 75.0 ml RENAL FUNCTION: GFR > 60. LIMITATIONS: None. FINDINGS: AORTIC ARCH: Normal three-vessel origin. Bilateral subclavian arteries are patent. No d issection. RIGHT CAROTIDS: Proximal ICA is very tortuous with a tonsillar loop. Approximately 50% narrowing of superior and inferior tortuosity in the vessel. RIGHT VERTEBRAL: Patent. No dissection. LEFT CAROTIDS: Left ICA is occluded about 2 cm from its origin. External carotid artery is occluded with collateral flow via the ICA. LEFT VERTEBRAL: Patent. No dissection. OTHER: No other significant finding. OTHER: 3-D reconstructions confirm findings. IMPRESSION: Occluded proximal left ICA. Very tortuous right ICA with a tonsillar loop. COMMENT: Quality ID #[id number]: Measurements of distal internal carotid diameter were used as the denomina tor for stenosis measurement. TECHNICAL DOCUMENTATION: JOB ID: [id number] Quality ID # 436: Final reports with documentation of one or more dose reduction techniques (e.g., Au tomated exposure control, adjustment of the mA and/or kV according to patient size, use of iterative reconstruction technique) 2010 [employer]- All Rights Reserved Reading location - IP/workstation name: [email or web address]
--- NOTE | 2018-02-26 14:22 | RADIOLOGY REPORT (SQ) ---
EXAM DESCRIPTION: CT ABD/PELVIS WITH IV ONLY COMPLETED DATE/TIME: 02/26/2018 1:49 pm REASON FOR STUDY: pain COMPARISON: 12/15/2016 TECHNIQUE: CT scan of the abdomen and pelvis performed using helical scanning technique with dynamic intravenous contrast injection. No oral contrast. Images reviewed with lung, soft tissue, and bone windows. Reconstructed coronal and sagittal MPR images reviewed. Delayed images for evaluation of the urinary system also acquired. All images stored on PACS. All CT scanners at this facility use dose modulation, iterative reconstruction, and/or weight based d osing when appropriate to reduce radiation dose to as low as reasonably achievable (ALARA). [facility]: Dose Right [facility]: CareDose [facility]: Dose Right [facility]: Teradose 4D [facility]: [employer] CONTRAST TYPE AND DOSE: See separate report. RENAL FUNCTION: See separate report. RADIATION DOSE: CT Rad equipment meets quality standard of care and radiation dose reduction techniq ues were employed. CTDIvol: 9.6 - 14.4 mGy. DLP: 1366 mGy-cm.. LIMITATIONS: Timing of contrast. FINDINGS: LOWER CHEST: No significant findings. No nodules or infiltrates. LIVER: Old granulomatous disease. SPLEEN: Normal size. No focal lesions. PANCREAS: No masses. No significant calcifications. No adjacent inflammation or peripancreatic fluid collections. Pancreatic duct not dilated. GALLBLADDER: Surgically absent. ADRENAL GLANDS: No significant masses or asymmetry. RIGHT KIDNEY AND URETER: No solid masses. No significant calcifications. No hydronephrosis or hyd roureter. LEFT KIDNEY AND URETER: No solid masses. No significant calcifications. No hydronephrosis or hydr oureter. AORTA AND VESSELS: Ectasia. No aneurysm. RETROPERITONEUM: No retroperitoneal adenopathy, hemorrhage or masses. BOWEL AND PERITONEAL CAVITY: Sigmoid diverticulosis. No masses or inflammatory changes. No free flui d or peritoneal masses. APPENDIX: Normal. PELVIS: No mass. No free fluid. Normal bladder. ABDOMINAL WALL: No acute findings. BONES: No acute findings. OTHER: No other significant finding. IMPRESSION: No acute findings. TECHNICAL DOCUMENTATION: JOB ID: [id number] Quality ID # [id number]: Final reports with documentation of one or more dose reduction techniques (e.g., Au tomated exposure control, adjustment of the mA and/or kV according to patient size, use of iterative reconstruction technique) 2010 [employer]- All Rights Reserved Reading location - IP/workstation name: [email or web address]
[2018-02-26 14:29] LABS: URINE BENZODIAZEPINES SCREEN UNCONFIRMED POSITIVE
[2018-02-26 14:30] LABS: URINE BARBITURATES SCREEN UNCONFIRMED POSITIVE
[2018-02-26 15:46] VITALS: BP 146/79
== END 2018-02-26 15:46 | disposition short-term general hospital (02) ==
LOC: ER 10:34
DX: R41.0 Disorientation, unspecified (principal); R47.01 Aphasia; R45.1 Restlessness and agitation; I65.22 Occlusion and stenosis of left carotid artery; I44.7 Left bundle-branch block, unspecified; R05 Cough; R19.7 Diarrhea, unspecified; R11.2 Nausea with vomiting, unspecified; R10.9 Unspecified abdominal pain; M54.2 Cervicalgia; M54.9 Dorsalgia, unspecified; G89.29 Other chronic pain; F11.20 Opioid dependence, uncomplicated; J44.0 Chronic obstructive pulmonary disease with (acute) lower respiratory infection; J18.9 Pneumonia, unspecified organism; E11.51 Type 2 diabetes mellitus with diabetic peripheral angiopathy without gangrene; I25.10 Atherosclerotic heart disease of native coronary artery without angina pectoris; I10 Essential (primary) hypertension; Z87.891 Personal history of nicotine dependence; Z88.5 Allergy status to narcotic agent; Z88.8 Allergy status to other drugs, medicaments and biological substances; Z91.048 Other nonmedicinal substance allergy status
CPT/HCPCS: 93005; 96376; 94640; 99285; 96361; 96374; 36415; 87040; 87086; 82553; 82962; 82550; 83735; 84100; 80307 ×3; 85025; 85610; 80053; 81001; 84484; 82803; 83605; 83880; 70450; 70496; 70498; 71250; 74177; 93010; J2060; J7030; A9270; J7620

== ENCOUNTER 2018-04-23 19:02 | Emergency (ER) | payer MEDICARE, OTHER ==
[2018-04-23] MEDS ORDERED: ALPRAZOLAM 0.5 MG TABLET PO ONE (20:22)
--- NOTE | 2018-04-23 20:26 | ER Document Report ---
ED Blood Pressure Problem - General Chief Complaint: Blood Pressure Problem Stated Complaint: BLOOD PRESSURE ISSUES Time Seen by Provider: 04/23/18 19:47 TRAVEL OUTSIDE OF THE [place] IN LAST 30 DAYS: No - HPI Notes: Patient is a 72-year-old female that presents to the emergency department for chief complaint of hypertension. Vision states for the last week she has been having a hard time getting her blood pressure down to normal. She states it has been running in the 160s-170s systolic. She does report intermittent headaches and states they feel similar to headache she has had in the past. She reports she takes Fioricet at home for headaches which has given her symptomatic relief. Currently she denies any symptoms. She states she does feel a little jittery because she has not had her last 2 doses of Xanax today. She states she takes 1 mg 3 times daily and has only had one dose today. Past Medical History: Hypertension, anxiety Past Surgical History: Viewed in chart Social History: Denies drugs alcohol and tobacco Family History: Reviewed and noncontributory for presenting illness Allergies: Reviewed, see documented allergy list. REVIEW OF SYSTEMS: CONSTITUTIONAL : No fever No chills No diaphoresis No recent illness EENT: No vision changes No congestion No sore throat CARDIOVASCULAR: No chest pain No palpitations RESPIRATORY: No shortness of breath No cough No difficulty breathing GASTROINTESTINAL: No abdominal pain No nausea No vomiting No diarrhea GENITOURINARY: No dysuria No hematuria No difficulty urinating MUSCULOSKELETAL: No back pain No leg pain No arm pain SKIN: No rashes No lesions LYMPHATIC: No swollen, enlarged glands. NEUROLOGICAL: No lightheadedness No headache No weakness No paresthesias PSYCHIATRIC: anxiety No depression PHYSICAL EXAMINATION: Vital signs reviewed, nursing noted reviewed. GENERAL: Well-appearing, well-nourished and in no acute distress. HEAD: Atraumatic, normocephalic. EYES: Eyes appear normal, extraocular movements intact, sclera anicteric, conjunctiva are normal. ENT: nares patent, oropharynx clear without exudates. Moist mucous membranes. NECK: Normal range of motion, supple without lymphadenopathy LUNGS: Breath sounds clear to auscultation bilaterally and equal. No wheezes rales or rhonchi. HEART: Regular rate and rhythm without murmurs ABDOMEN: Soft, nontender, normoactive bowel sounds. No rebound, guarding, or rigidity. No masses appreciated. EXTREMITIES: Nontender, good range of motion, no pitting or edema. NEUROLOGICAL: No focal neurological deficits. Moves all extremities spontaneously Motor and sensory grossly intact on exam. PSYCH: Anxious SKIN: Warm, Dry, normal turgor, no rashes or lesions noted on exposed skin - Related Data Allergies/Adverse Reactions: NSAIDS (Non-Steroidal Anti-Inflamma [Nsaids] Allergy (Severe, Verified 02/26/18 10:36) gastric bleed adhesive [Adhesive] Allergy (Intermediate, Verified 02/26/18 10:36) morphine Allergy (Verified 02/26/18 10:36) Past Medical History - Social History Smoking Status: Never Smoker Family History: Reviewed & Not Pertinent, CAD, DM - Past Medical History Cardiac Medical History: Reports: Hx Coronary Artery Disease, Hx Hypercholesterolemia, Hx Hypertension, Hx Peripheral Vascular Disease - Carotid artery disease Denies: Hx Congestive Heart Failure, Hx DVT, Hx Heart Attack, Hx Pulmonary Embolism Pulmonary Medical History: Reports: Hx Bronchitis, Hx COPD Denies: Hx Asthma, Hx Pneumonia Neurological Medical History: Denies: Hx Cerebrovascular Accident, Hx Seizures Endocrine Medical History: Reports: Hx Diabetes Mellitus Type 1, Hx Diabetes Mellitus Type 2. Denies: Hx Hyperthyroidism, Hx Hypothyroidism Renal/ Medical History: Denies: Hx Peritoneal Dialysis GI Medical History: Denies: Hx Cirrhosis, Hx Gastroesophageal Reflux Disease, Hx Hepatitis Musculoskeletal Medical History: Reports Hx Arthritis, Reports Hx Muscle Spasm Psychiatric Medical History: Reports: Hx Bipolar Disorder, Hx Dementia, Hx Depression Infectious Medical History: Denies: Hx Hepatitis Past Surgical History: Reports: Hx Abdominal Surgery - BOTOX INJECTIONS [id number] , Hx Cholecystectomy, Hx Hysterectomy, Hx Orthopedic Surgery - Back surgery, Hx Urinary Tract Surgery, Other - Bladder tack - Immunizations Hx Diphtheria, Pertussis, Tetanus Vaccination: Yes Hx Pneumococcal Vaccination: 10/04/13 Review of Systems - Review of Systems Notes: Dictated Physical Exam - Vital signs Vitals: Temp Pulse Resp BP Pulse Ox 98.7 F 62 18 162/59 H 97 04/23/18 19:14 04/23/18 19:14 04/23/18 19:14 04/23/18 19:14 04/23/18 19:14 - Notes Notes: Dictated Course - Re-evaluation Re-evalutation: 04/23/18 20:24 Vitals reviewed. Nursing notes reviewed. Patient currently is only feeling anxious and jittery and has missed 2 doses of Xanax today. She was given a dose of p.o. Xanax in the ED. 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 Her blood pressure is 160s and she is not having any headache currently. Patient's asymptomatic hypertension will be followed by her primary care provider. She will continue taking all home medications as already prescribed. She will call her PCP tomorrow morning for blood pressure recheck. She will return to the emergency room for new or worsening symptoms. - Vital Signs Vital signs: Temp Pulse Resp BP Pulse Ox 98.7 F 62 18 162/59 H 97 04/23/18 19:14 04/23/18 19:14 04/23/18 19:14 04/23/18 19:14 04/23/18 19:14 Discharge - Discharge Clinical Impression: Anxiety Hypertension Qualifiers: Hypertension type: unspecified Qualified Code(s): I10 - Essential (primary) hypertension Condition: Stable Disposition: HOME, SELF-CARE Additional Instructions: Please return to the emergency department if you have any worsening, or concern of your symptoms. Please return to the emergency department if you develop chest pain, difficulty breathing, severe abdominal pain, or ongoing vomiting. Please follow-up with your primary care physician in 2-3 days and any other recommended physicians. If prescribed, take all medications as directed. If you have any questions or concerns do not hesitate to return the emergency department for evaluation. [] Referrals: TERESA WARD DO [Primary Care Provider] - Follow up in 3-5 days
[2018-04-23 20:58] VITALS: BP 163/57
== END 2018-04-23 20:58 | disposition home or self-care (01) ==
LOC: ER 19:02
DX: I10 Essential (primary) hypertension (principal); F41.9 Anxiety disorder, unspecified; T42.4X6A Underdosing of benzodiazepines, initial encounter; Z91.14 Patient's other noncompliance with medication regimen; Z79.899 Other long term (current) drug therapy; J44.9 Chronic obstructive pulmonary disease, unspecified; I25.10 Atherosclerotic heart disease of native coronary artery without angina pectoris; E11.9 Type 2 diabetes mellitus without complications; Z88.8 Allergy status to other drugs, medicaments and biological substances; Z91.048 Other nonmedicinal substance allergy status; Z88.5 Allergy status to narcotic agent
CPT/HCPCS: 99283; A9270

== ENCOUNTER 2018-12-17 17:48 | Inpatient (IN) | payer MEDICARE, OTHER ==
[2018-12-17 18:39] LABS: ABSOLUTE LYMPHOCYTES (AUTO) 1.4 10^3/uL (0.5-4.7); ABSOLUTE MONOCYTES (AUTO) 0.7 10^3/uL (0.1-1.4); ABSOLUTE NEUT (AUTO) 10.8 10^3/uL (1.7-8.2); BASOPHILS % (AUTO) 0.2 % (0-2); EOSINOPHILS % (AUTO) 0.1 % (0-6); HEMATOCRIT 34.5 % (36.0-47.0); HEMOGLOBIN 11.6 g/dL (12.0-15.5); MEAN CORPUSCULAR HEMOGLOBIN 27.2 pg (27.0-33.4); MEAN CORPUSCULAR HGB CONC 33.7 g/dL (32.0-36.0); MEAN CORPUSCULAR VOLUME 81 fl (80-97); MONOCYTES % (AUTO) 5.4 % (3-13); PLATELET COUNT 614 10^3/uL (150-450); RED BLOOD COUNT 4.27 10^6/uL (3.72-5.28); RED CELL DISTRIBUTION WIDTH 14.7 % (11.5-14.0); SEGMENTED NEUTROPHILS % (AUTO) 83.3 % (42-78); TOTAL CELLS COUNTED % (AUTO) 100 %
[2018-12-17 18:57] LABS: ALANINE AMINOTRANSFERASE 29 U/L (9-52); ALBUMIN 4.4 g/dL (3.5-5.0); ALKALINE PHOSPHATASE 90 U/L (38-126); ANION GAP 16 (5-19); ASPARTATE AMINO TRANSFERASE 21 U/L (14-36); BILIRUBIN,DIRECT 0.4 mg/dL (0.0-0.4); BILIRUBIN,TOTAL 0.5 mg/dL (0.2-1.3); BLOOD UREA NITROGEN 28 mg/dL (7-20); CALCIUM 10.4 mg/dL (8.4-10.2); CARBON DIOXIDE 24 mmol/L (22-30); CHLORIDE 100 mmol/L (98-107); GLUCOSE 239 mg/dL (75-110); POTASSIUM 4.2 mmol/L (3.6-5.0); SODIUM 139.7 mmol/L (137-145); TOTAL PROTEIN 8.2 g/dL (6.3-8.2)
[2018-12-17 19:28] LABS: APPEARANCE,URINE SLIGHTLY-CLOUDY; BILIRUBIN,URINE NEGATIVE (NEGATIVE); GLUCOSE, URINE >=500 mg/dL (NEGATIVE); KETONES,URINE NEGATIVE (NEGATIVE); LEUKOCYTE ESTERASE,URINE NEGATIVE (NEGATIVE); NITRITE,URINE NEGATIVE (NEGATIVE); PROTEIN,URINE NEGATIVE (NEGATIVE); URINE SPECIFIC GRAVITY 1.018; UROBILINOGEN,URINE NEGATIVE mg/dL (<2.0)
--- NOTE | 2018-12-17 19:28 | EKG REPORT ---
SEVERITY:- ABNORMAL ECG - SINUS RHYTHM PROBABLE LEFT ATRIAL ABNORMALITY LEFT BUNDLE BRANCH BLOCK : Confirmed by: Gurinder Child MD 17-Dec-2018 19:27:45
[2018-12-17 19:29] LABS: COLOR,URINE YELLOW
--- NOTE | 2018-12-17 19:37 | RADIOLOGY REPORT (SQ) ---
EXAM DESCRIPTION: CHEST SINGLE VIEW COMPLETED DATE/TIME: 12/17/2018 7:11 pm REASON FOR STUDY: fever with altered mental status COMPARISON: 12/15/2016 EXAM PARAMETERS: NUMBER OF VIEWS: One view. TECHNIQUE: Single frontal radiographic view of the chest acquired. RADIATION DOSE: NA LIMITATIONS: None. FINDINGS: LUNGS AND PLEURA: No opacities, masses or pneumothorax. No pleural effusion. MEDIASTINUM AND HILAR STRUCTURES: No masses. Contour normal. HEART AND VASCULAR STRUCTURES: Heart normal in size. Normal vasculature. BONES: No acute findings. HARDWARE: None in the chest. OTHER: No other significant finding. IMPRESSION: NO ACUTE RADIOGRAPHIC FINDING IN THE CHEST. TECHNICAL DOCUMENTATION: JOB ID: [id number] [employer]- All Rights Reserved Reading location - IP/workstation name: [email or web address]
[2018-12-17 20:03] LABS: INTERNATIONAL RATION (INR) 0.99; PROTHROMBIN TIME 13.5 SEC (11.4-15.4)
[2018-12-17 20:41] LABS: VENOUS BLOOD BASE EXCESS 1.5 mmol/L; VENOUS BLOOD HCO3 22.1 mmol/L (20-32); VENOUS BLOOD PCO2 21.5 mmHg (35-63); VENOUS BLOOD PH 7.63 (7.30-7.42)
[2018-12-17] MEDS ORDERED: LIDOCAINE 1% INJ-PF (10 MG/ML) 30 ML SDV INJ ONE (20:53)
[2018-12-17] MEDS ORDERED: CEFTRIAXONE 2 GM/D5W RTU 2 GM/50 ML RTUPB IV ONE (22:47)
[2018-12-17] MEDS ORDERED: ONDANSETRON 4 MG TAB.RAPDIS PO PRN (23:09)
[2018-12-17] MEDS ORDERED: MAG HYDROX/AL HYDROX/SIMETH SUSP 30 ML UDCUP PO PRN (23:09)
[2018-12-17] MEDS ORDERED: MAGNESIUM HYDROXIDE SUSP 30 ML UDCUP PO PRN (23:09)
--- NOTE | 2018-12-17 23:13 | ER Document Report ---
ED General - General Chief Complaint: Altered Mental Status Stated Complaint: ALTERED MENTAL STATUS Time Seen by Provider: 12/17/18 18:47 Primary Care Provider: TERESA WARD DO [Primary Care Provider] - Follow up as needed TRAVEL OUTSIDE OF THE [place] IN LAST 30 DAYS: No - HPI Notes: Patient is a 73-year-old female brought into the emergency department for evaluation. Patient's is the primary historian. Evidently since of last week the patient has been intermittently confused. He states that she walks towards the closet, stating she had to go to the bathroom. She has had decreased oral intake. He was unaware of any fevers. She has had a little bit of a cough. He states that yesterday she was acting normally, eating and drinking. Her mental status worsened again today so he called the ambulance. He states she does have a history of a similar episode in the past, believes she had a urinary tract infection. - Related Data Allergies/Adverse Reactions: NSAIDS (Non-Steroidal Anti-Inflamma [Nsaids] Allergy (Severe, Verified 02/26/18 10:36) gastric bleed adhesive [Adhesive] Allergy (Intermediate, Verified 02/26/18 10:36) codeine Allergy (Verified 12/17/18 18:26) meperidine Allergy (Verified 12/17/18 18:26) morphine Allergy (Verified 02/26/18 10:36) Past Medical History - General Information source: Relative - - Social History Smoking Status: Current Every Day Smoker - Smokes an electronic cigarette Family History: Reviewed & Not Pertinent, CAD, DM Patient has suicidal ideation: No Patient has homicidal ideation: No - Past Medical History Cardiac Medical History: Reports: Hx Coronary Artery Disease, Hx Hypercholesterolemia, Hx Hypertension, Hx Peripheral Vascular Disease - Carotid artery disease Denies: Hx Congestive Heart Failure, Hx DVT, Hx Heart Attack, Hx Pulmonary Embolism Pulmonary Medical History: Reports: Hx Bronchitis, Hx COPD Denies: Hx Asthma, Hx Pneumonia Neurological Medical History: Denies: Hx Cerebrovascular Accident, Hx Seizures Endocrine Medical History: Reports: Hx Diabetes Mellitus Type 1, Hx Diabetes Mellitus Type 2. Denies: Hx Hyperthyroidism, Hx Hypothyroidism Renal/ Medical History: Denies: Hx Peritoneal Dialysis GI Medical History: Denies: Hx Cirrhosis, Hx Gastroesophageal Reflux Disease, Hx Hepatitis Musculoskeletal Medical History: Reports Hx Arthritis, Reports Hx Muscle Spasm Psychiatric Medical History: Reports: Hx Bipolar Disorder, Hx Dementia, Hx Depression Infectious Medical History: Denies: Hx Hepatitis Past Surgical History: Reports: Hx Abdominal Surgery - BOTOX INJECTIONS [id number], Hx Cholecystectomy, Hx Hysterectomy, Hx Orthopedic Surgery - Back surgery, Hx Urinary Tract Surgery, Other - Bladder tack - Immunizations Hx Diphtheria, Pertussis, Tetanus Vaccination: Yes Hx Pneumococcal Vaccination: 10/04/13 Review of Systems - Review of Systems -: Yes ROS unobtainable due to patient's medical condition Physical Exam - Vital signs Vitals: Temp Pulse Resp BP Pulse Ox 100.4 F 68 18 98/73 L 100 12/17/18 18:03 12/17/18 18:03 12/17/18 18:03 12/17/18 18:03 12/17/18 18:03 - Notes Notes: Patient is a 73-year-old female who appears her stated age. She is in no apparent distress. She will not open her eyes by command. She actively combats any attempts to open her eyes by this examiner. Head is normocephalic and atraumatic. Pupils are equal round, reactive to light. Oral mucosa is moist. Patient does exhibit some signs of nuchal rigidity. Heart is regular rate and rhythm, lungs show diminished breath sounds but no wheezes, rales, rhonchi are noted. Abdomen is soft, nontender, no active bowel sounds. Patient is drowsy but arouses to verbal stimuli. She moves all 4 extremities spontaneously. She has no gross facial asymmetry. She will not follow commands but withdraws from painful stimuli. Course - Re-evaluation Re-evalutation: 12/17/18 23:10 Patient presents to the emergency department for evaluation. Laboratory in vestigations were ordered and obtained, as well as imaging. Patient's laboratory investigations revealed leukocytosis, but were otherwise unremarkable. Straight cath urine did show some white blood cells under the microscope, but urine was nitrite and leukocyte esterace negative. Urine and blood cultures ordered and pending. Patient does have chronic neck pain. Initially I had attributed her nuchal rigidity to this, but now in light of a fever no obvious source, I am concerned about the possibility of meningitis. I did explain my concerns to the patient's . Questions were sought and answered. Consent was signed and placed on the chart. Lumbar puncture was attempted. Please see separate procedure chart. Unfortunately I was unsuccessful in obtaining CSF. I am still concerned about this being the most life-threatening possibility as an etiology for her fever. She is given 2 grams of IV ceftriaxone. I spoke to Dr. Ross, he will admit the patient for further care. 12/17/18 23:14 - Vital Signs Vital signs: Temp Pulse Resp BP Pulse Ox 100.4 F 68 11 L 98/73 L 96 12/17/18 18:03 12/17/18 18:03 12/17/18 19:00 12/17/18 18:03 12/17/18 19:00 - Laboratory Result Diagrams: 12/17/18 17:24 12/17/18 17:24 Laboratory results interpreted by me: 12/17/18 12/17/18 12/17/18 17:24 17:24 18:12 WBC 13.0 H Hgb 11.6 L Hct 34.5 L RDW 14.7 H Plt Count 614 H Seg Neutrophils % 83.3 H Lymphocytes % 11.0 L Absolute Neutrophils 10.8 H VBG pH VBG pCO2 BUN 28 H Est GFR (Non-Af Amer) 52 L Glucose 239 H POC Glucose 216 H Calcium 10.4 H Urine Glucose (UA) Urine Blood 12/17/18 12/17/18 18:49 20:10 WBC Hgb Hct RDW Plt Count Seg Neutrophils % Lymphocytes % Absolute Neutrophils VBG pH 7.63 H VBG pCO2 21.5 L BUN Est GFR (Non-Af Amer) Glucose POC Glucose Calcium Urine Glucose (UA) >=500 H Urine Blood SMALL H Procedures - Lumbar Puncture Lumbar puncture Time completed: 22:32 Consent obtained: Yes Lumbar puncture pre-procedure: Sterile PPE donned, Betadine prep applied Patient position: Lying Needle size: 22 Lumbar puncture location: L3-4 Anesthetic type: 1% Lidocaine mL's of anesthetic: 3 Number of attempts: 2 Notes: 12/17/18 23:12 Patient was prepped and draped in the usual sterile fashion. She was laying on her right side. The area between L3 and L4 was anesthetized with 1% lidocaine. 22-gauge Quincke spinal needle was advanced. I did get a small amount of CSF, then the patient moved. Bloody effluent was obtained and then the needle clotted off. Despite repositioning I was unable to obtain any more fluid. A second attempt was made it was unsuccessful. Patient's back was recleansed, bandage was placed, the patient was placed in the supine position. Discharge - Discharge Clinical Impression: Fever, Altered mental status, Rule out meningitis Condition: Stable Disposition: ADMITTED INPATIENT Admitting Provider: Vandana (Hospitalist) Unit Admitted: ICU Referrals: TERESA WARD DO [Primary Care Provider] - Follow up as needed
[2018-12-17] MEDS ORDERED: NORMAL SALINE 1000 ML 1,000 ML IV ONE (23:14)
[2018-12-17] MEDS ORDERED: NICOTINE 21 MG/24 HR PATCH.TD24 TD PRN (23:20)
[2018-12-17] MEDS ORDERED: ACETAMINOPHEN 650 MG SUPP.RECT PR PRN (23:20)
[2018-12-17] MEDS ORDERED: GLUCAGON,HUMAN RECOMB 1 MG INJ IM PRN (23:20)
[2018-12-17] MEDS ORDERED: DEXTROSE 50%-WATER 25 GM/50 ML DISP.SYRIN IV PRN ×2 (23:20)
[2018-12-17] MEDS ORDERED: DEXTROSE 40% GEL 15 GM TUBE PO PRN ×2 (23:20)
[2018-12-18 00:41] LABS: CREATINE KINASE MB 2.38 ng/mL (<4.55)
[2018-12-18 00:42] LABS: TROPONIN I < 0.012 ng/mL
--- NOTE | 2018-12-18 02:17 | PDOC H&P ---
History of Present Illness Admission Date/PCP: 12/17/18 23:39 TERESA WARD DO Patient complains of: Altered mental status History of Present Illness: ADILENE LEWIS is a 73 year old female who presented to the emergency room via EMS with a 5-day history of altered mental status. Patient's provided information to the emergency room staff that for the last 5 days the patient has been increasingly confused on an intermittent basis until today when she was severely confused and is not eating or drinking. Her intermittent confusion for the last 5 days has been accompanied by an occasional cough and variably decreased oral intake. Her admits that she has had similar p rior episodes with urinary tract infections and he has not identified any aggravating or ameliorating factors for her intermittent confusion. Patient is confused at this time and is unable to provide reliably accurate input into this evaluation. In the emergency room she was found to have an elevated white blood count with a low-grade fever and nuchal rigidity on exam. A lumbar puncture was attempted but was unable to be completed due to patient movement. Patient was started on empiric antibiotic therapy with Rocephin in the emergency room and has been admitted to the ICU for further evaluation and treatment. Past Medical History Past Medical History: Past medical history, past surgical history, social history and family medical history are obtained from current and previous medical records as well as other reliable sources due to the patient's acute encephalopathy. Cardiac Medical History: Reports: Coronary Artery Disease, Hyperlipidema, Hypertension, Peripheral Vascular Disease - Carotid artery disease Denies: Congestive Heart Failure, DVT, Myocardial Infarction, Pulmonary Embolism Pulmonary Medical History: Reports: Bronchitis, Chronic Obstructive Pulmonary Disease (COPD) Denies: Asthma, Pneumonia EENT Medical History: Denies: Cataracts, Ears - Hearing aids Neurological Medical History: Denies: Hemorrhagic CVA, Ischemic CVA, Seizures Endocrine Medical History: Reports: Diabetes Mellitus Type 2 Denies: Hyperthyroidism, Hypothyroidism Renal/ Medical History: Denies: Chronic Kidney Disease, Nephrolithiasis Malignancy Medical History: Reports: None GI Medical History: Denies: Cirrhosis, Gastroesophageal Reflux Disease, Hepatitis Musculoskeltal Medical History: Reports: Arthritis Denies: Gout Skin Medical History: Denies: Eczema, Psoriasis Psychiatric Medical History: Reports: Bipolar Disorder, Dementia, Depression, Tobacco Dependency Denies: Alcohol Dependency, Substance Abuse Traumatic Medical History: Reports: None Hematology: Denies: Anemia, Bleeding Tendencies Infectious Medical History: Reports: None Past Surgical History Past Surgical History: Past medical history, past surgical history, social history and family medical history are obtained from current and previous medical records as well as other reliable sources due to the patient's acute encephalopathy. Past Surgical History: Reports: Cholecystectomy, Hysterectomy, Orthopedic Surgery - Back surgery, Other - Urinary bladder suspension procedure Social History Information Source: Relative, [facility] Lives with: Spouse/Significant other Smoking Status: Current Every Day Smoker - Smokes an electronic cigarette Frequency of Alcohol Use: None Hx Recreational Drug Use: No Drugs: None Hx Prescription Drug Abuse: No Past Social History Note: Past medical history, past surgical history, social history and family medical history are obtained from current and previous medical records as well as other reliable sources due to the patient's acute encephalopathy. Family History Family History: CAD, DM, Other - Peptic ulcer disease Family History: Past medical history, past surgical history, social history and family medical history are obtained from current and previous medical records as well as other reliable sources due to the patient's acute encephalopathy. Parental Family History Reviewed: Yes Children Family History Reviewed: No Sibling(s) Family History Reviewed.: Yes Medication/Allergy Home Medications: Alprazolam [Xanax] 1 mg PO BIDP PRN 11/09/17 Aspirin [Aspirin EC] 81 mg PO DAILY 11/09/17 Butalb/Acetaminophen/Caffeine [Fioricet (50-325-40 mg) Tablet] 1 tab PO Q6HP PRN MDD 4 TABLETS 11/09/17 Clonidine HCl [Catapres 0.1 mg Tablet] 0.1 mg PO Q8HP PRN 11/09/17 Gabapentin [Neurontin 400 mg Capsule] 1,200 mg PO QHS 11/09/17 Gabapentin [Neurontin 400 mg Capsule] 400 mg PO BID@0800,1400 11/09/17 Glimepiride [Amaryl] 2 mg PO QAM 11/09/17 Losartan Potassium [Cozaar 100 mg Tablet] 100 mg PO DAILY 11/09/17 Nebivolol HCl [Bystolic] 20 mg PO DAILY 11/09/17 Omeprazole 40 mg PO BIDBS 11/09/17 Ondansetron HCl [Zofran 4 mg Tablet] 1 tab PO Q8HP PRN 11/09/17 Oxycodone HCl [Oxycodone HCl 10 MG Tablet] 10 mg PO Q6HP PRN 11/09/17 Promethazine HCl [Phenergan 25 mg Tablet] 25 mg PO Q6HP PRN 11/09/17 Rosuvastatin Calcium [Crestor 20 mg Tablet] 20 mg PO DAILY 11/09/17 Spironolactone [Aldactone] 50 mg PO DAILY 11/09/17 Tizanidine HCl [Zanaflex 4 Mg Tablet] 2 mg PO HSP PRN 11/09/17 Triazolam [Halcion] 0.5 mg PO HSP PRN 11/09/17 Venlafaxine HCl [Effexor Xr] 150 mg PO DAILY 11/09/17 Allergies/Adverse Reactions: NSAIDS (Non-Steroidal Anti-Inflamma [Nsaids] Allergy (Severe, Verified 02/26/18 10:36) gastric bleed adhesive [Adhesive] Allergy (Intermediate, Verified 02/26/18 10:36) codeine Allergy (Verified 12/17/18 18:26) meperidine Allergy (Verified 12/17/18 18:26) morphine Allergy (Verified 02/26/18 10:36) Review of Systems ROS unobtainable: Due to mental status - Acute encephalopathy with severe confus ion Physical Exam Vital Signs: Temp Pulse Resp BP Pulse Ox 100.4 F 68 11 L 98/73 L 96 12/17/18 18:03 12/17/18 18:03 12/17/18 19:00 12/17/18 18:03 12/17/18 19:00 General appearance: PRESENT: no acute distress, disheveled, other - Confused Head exam: PRESENT: atraumatic, normocephalic Eye exam: ABSENT: conjunctival injection, scleral icterus Ear exam: PRESENT: normal external ear exam. ABSENT: bleeding, drainage Mouth exam: PRESENT: dry mucosa, other - Cervical rigidity noted Neck exam: ABSENT: JVD, thyromegaly, tracheal deviation Respiratory exam: PRESENT: clear to auscultation vinicius, symmetrical, tachypnea, unlabored Cardiovascular exam: PRESENT: tachycardia. ABSENT: clicks, gallop, rubs Pulses: PRESENT: normal radial pulses, normal dorsalis pedis pul Vascular exam: PRESENT: normal capillary refill. ABSENT: pallor GI/Abdominal exam: PRESENT: normal bowel sounds, soft Rectal exam: PRESENT: deferred Extremities exam: ABSENT: joint swelling, pedal edema Musculoskeletal exam: ABSENT: deformity, dislocation Neurological exam: PRESENT: altered - Confused, CN II-XII grossly intact - To limited gross exam Psychiatric exam: PRESENT: other - Confusion limits evaluation. Skin exam: PRESENT: dry, intact, warm. ABSENT: jaundice, rash, urticaria Results Laboratory Results: 12/17/18 17:24 12/17/18 17:24 12/17/18 12/17/18 12/17/18 17:24 17:24 18:49 WBC 13.0 H RBC 4.27 Hgb 11.6 L Hct 34.5 L MCV 81 MCH 27.2 MCHC 33.7 RDW 14.7 H Plt Count 614 H Seg Neutrophils % 83.3 H Lymphocytes % 11.0 L Monocytes % 5.4 Eosinophils % 0.1 Basophils % 0.2 Absolute Neutrophils 10.8 H Absolute Lymphocytes 1.4 Absolute Monocytes 0.7 Absolute Eosinophils 0.0 Absolute Basophils 0.0 VBG pH VBG pCO2 VBG HCO3 VBG Base Excess Sodium 139.7 Potassium 4.2 Chloride 100 Carbon Dioxide 24 Anion Gap 16 BUN 28 H Creatinine 1.05 Est GFR ( Amer) > 60 Est GFR (Non-Af Amer) 52 L Glucose 239 H Lactic Acid Calcium 10.4 H Total Bilirubin 0.5 AST 21 ALT 29 Alkaline Phosphatase 90 Total Protein 8.2 Albumin 4.4 Urine Color YELLOW Urine Appearance SLIGHTLY-CLOUDY Urine pH 5.0 Ur Specific [place] 1.018 Urine Protein NEGATIVE Urine Glucose (UA) >=500 H Urine Ketones NEGATIVE Urine Blood SMALL H Urine Nitrite NEGATIVE Ur Leukocyte Esterase NEGATIVE Urine WBC (Auto) 7 Urine RBC (Auto) 2 12/17/18 12/17/18 12/17/18 18:55 19:27 20:10 WBC RBC Hgb Hct MCV MCH MCHC RDW Plt Count Seg Neutrophils % Lymphocytes % Monocytes % Eosinophils % Basophils % Absolute Neutrophils Absolute Lymphocytes Absolute Monocytes Absolute Eosinophils Absolute Basophils VBG pH Cancelled 7.63 H VBG pCO2 Cancelled 21.5 L VBG HCO3 Cancelled 22.1 VBG Base Excess Cancelled 1.5 Sodium Potassium Chloride Carbon Dioxide Anion Gap BUN Creatinine Est GFR ( Amer) Est GFR (Non-Af Amer) Glucose Lactic Acid 1.6 Calcium Total Bilirubin AST ALT Alkaline Phosphatase Total Protein Albumin Urine Color Urine Appearance Urine pH Ur Specific [place] Urine Protein Urine Glucose (UA) Urine Ketones Urine Blood Urine Nitrite Ur Leukocyte Esterase Urine WBC (Auto) Urine RBC (Auto) Impressions: Chest X-Ray 12/17/18 18:48 IMPRESSION: NO ACUTE RADIOGRAPHIC FINDING IN THE CHEST. Assessment and Plan - Diagnosis (1) Acute encephalopathy Is this a current diagnosis for this admission?: Yes Plan: Patient will be admitted to ICU status and she will be observed closely with hardware monitoring. Vital signs and neuro checks will be done frequently and her progress will be documented for ongoing evaluation. She will be treated empirically with IV Rocephin and intravenous Decadron for a possible meningitis until a lumbar puncture can be performed by radiology and at least preliminary results can be obtained. Patient's metabolic profile will be followed on a regular basis. Additional laboratory will include serial magnesium levels and the patient's hemoglobin A1c and thyroid functions will also be evaluated. (2) Elevated temperature Is this a current diagnosis for this admission?: Yes Plan: Patient's elevated temperature will be treated with Tylenol suppositories as needed for fever greater than 101.5 F. She will receive all usual supportive and symptomatic cares. (3) Nuchal rigidity Is this a current diagnosis for this admission?: Yes Plan: Patient's nuchal rigidity will be observed with serial examinations as required. Patient does have a history of chronic back and neck problems thus making this finding more difficult to assess. This will require ongoing clinical reevaluation. If she has significant pain she will be treated with Nubain 5 mg IV every 2 hours as needed. (4) Leukocytosis Qualifiers: Leukocytosis type: unspecified Qualified Code(s): D72.829 - Elevated white blood cell count, unspecified Is this a current diagnosis for this admission?: Yes Plan: Patient's CBC will be followed to evaluate her leukocytosis on a regular basis. - Time Time Spent with patient: 15-24 minutes Medications reviewed and adjusted accordingly: Yes - Inpatient Certification Based on my medical assessment, after consideration of the patient's comorbidities, presenting symptoms, or acuity I expect that the services needed warrant INPATIENT care.: Yes I certify that my determination is in accordance with my understanding of Medicare's requirements for reasonable and necessary INPATIENT services [42 CFR 412.3e].: Yes Medical Necessity: Significant Comorbidiites Make Outpatient Treatment Too Risky, Need Close Monitoring Due to Risk of Patient Decompensation, Need For IV Fluids, Need For Continuous Telemetry Monitoring, Need for Neurological Checks, Need for IV Antibiotics, Risk of Complication if Not Cared For in Hospital
[2018-12-18] MEDS ORDERED: DEXAMETHASONE SOD PHOS INJ 10 MG/1 ML VIAL IV ONE ×2 (03:30)
[2018-12-18] MEDS ORDERED: NORMAL SALINE 1000 ML 1,000 ML IV ONE (03:30)
[2018-12-18] MEDS ORDERED: FAMOTIDINE INJ/PF 20 MG/2 ML SDV IV ONE (03:30)
[2018-12-18] MEDS: FAMOTIDINE INJ/PF 20 MG/2 ML SDV IV SCH ×3 (03:47→21:56)
[2018-12-18] MEDS: RINGERS SOLUTION,LACTATED 1,000 ML IV PRN (04:50)
[2018-12-18] MEDS ORDERED: ONDANSETRON HCL INJ/PF 4 MG/2 ML SDV ONE (05:40)
[2018-12-18] MEDS ORDERED: DEXAMETHASONE SOD PHOSPHATE INJ 4 MG/1 ML VIAL IV SCH (06:00)
[2018-12-18 06:02] LABS: ABSOLUTE BASOPHILS # (AUTO) 0.2 10^3/uL (0.0-0.2); ABSOLUTE LYMPHOCYTES (AUTO) 0.9 10^3/uL (0.5-4.7); ABSOLUTE MONOCYTES (AUTO) 0.4 10^3/uL (0.1-1.4); ABSOLUTE NEUT (AUTO) 13.1 10^3/uL (1.7-8.2); BASOPHILS % (AUTO) 1.2 % (0-2); EOSINOPHILS % (AUTO) 0.1 % (0-6); HEMATOCRIT 31.1 % (36.0-47.0); HEMOGLOBIN 10.5 g/dL (12.0-15.5); LYMPHOCYTES % (AUTO) 6.1 % (13-45); MEAN CORPUSCULAR HEMOGLOBIN 27.6 pg (27.0-33.4); MEAN CORPUSCULAR HGB CONC 33.8 g/dL (32.0-36.0); MEAN CORPUSCULAR VOLUME 82 fl (80-97); MONOCYTES % (AUTO) 2.8 % (3-13); PLATELET COUNT 567 10^3/uL (150-450); RED BLOOD COUNT 3.81 10^6/uL (3.72-5.28); RED CELL DISTRIBUTION WIDTH 14.8 % (11.5-14.0); SEGMENTED NEUTROPHILS % (AUTO) 89.8 % (42-78); TOTAL CELLS COUNTED % (AUTO) 100 %; WHITE BLOOD COUNT 14.6 10^3/uL (4.0-10.5)
[2018-12-18 06:35] LABS: ANION GAP 13 (5-19); BLOOD UREA NITROGEN 31 mg/dL (7-20); CALCIUM 9.5 mg/dL (8.4-10.2); CARBON DIOXIDE 20 mmol/L (22-30); CHLORIDE 109 mmol/L (98-107); CREATINE KINASE 192 U/L (30-135); GLUCOSE 321 mg/dL (75-110); POTASSIUM 3.8 mmol/L (3.6-5.0)
[2018-12-18 06:44] LABS: CREATINE KINASE MB 3.07 ng/mL (<4.55)
[2018-12-18 06:48] LABS: TROPONIN I < 0.012 ng/mL
[2018-12-18] MEDS: HEPARIN SOD (PORCINE) 5,000 UNIT/ML 1 ML SYRINGE SUBCUT SCH ×3 (06:51→21:47)
[2018-12-18 06:55] LABS: FREE T3 2.68 pg/mL (2.77-5.27); FREE T4 (FREE THYROXINE) 1.22 ng/dL (0.78-2.19)
[2018-12-18] MEDS: NALBUPHINE HCL INJ 10 MG/1 ML AMPULE IV PRN ×2 (06:58→11:16)
[2018-12-18 07:09] LABS: THYROID STIMULATING HORMONE 1.28 uIU/mL (0.47-4.68)
[2018-12-18] MEDS: DEXAMETHASONE SOD PHOSPHATE INJ 4 MG/1 ML VIAL IV SCH ×3 (09:25→21:56)
[2018-12-18] MEDS: DOCUSATE SODIUM 100 MG CAPSULE PO SCH ×2 (09:26→18:04)
[2018-12-18] MEDS: CEFTRIAXONE 2 GM/D5W RTU 2 GM/50 ML RTUPB IV SCH (09:26)
--- NOTE | 2018-12-18 10:42 | RADIOLOGY REPORT (SQ) ---
EXAM DESCRIPTION: CT HEAD WITHOUT COMPLETED DATE/TIME: 12/18/2018 10:32 am REASON FOR STUDY: ams COMPARISON: 02/26/2018 TECHNIQUE: Axial images acquired through the brain without intravenous contrast. Images reviewed wi th bone, brain and subdural windows. Additional sagittal and coronal reconstructions were generated. Images stored on PACS. All CT scanners at this facility use dose modulation, iterative reconstruction, and/or weight based d osing when appropriate to reduce radiation dose to as low as reasonably achievable (ALARA). [facility]: Dose Right [facility]: CareDose [facility]: Dose Right [facility]: Teradose 4D [facility]: Smart Epay Systems RADIATION DOSE: CT Rad equipment meets quality standard of care and radiation dose reduction techniq ues were employed. CTDIvol: 53.2 mGy. DLP: 1044 mGy-cm. mGy. LIMITATIONS: None. FINDINGS: VENTRICLES: Normal size and contour. CEREBRUM: No masses. No hemorrhage. No midline shift. No evidence for acute infarction. Normal gra y/white matter differentiation. No areas of low density in the white matter. CEREBELLUM: No masses. No hemorrhage. No alteration of density. No evidence for acute infarction. EXTRAAXIAL SPACES: No fluid collections. No masses. ORBITS AND GLOBE: No intra- or extraconal masses. Normal contour of globe without masses. CALVARIUM: No fracture. PARANASAL SINUSES: No fluid or mucosal thickening. SOFT TISSUES: No mass or hematoma. OTHER: No other significant finding. IMPRESSION: NORMAL BRAIN CT WITHOUT CONTRAST. EVIDENCE OF ACUTE STROKE: NO. COMMENT: Quality ID # [id number]: Final reports with documentation of one or more dose reduction techniques (e.g., Automated exposure control, adjustment of the mA and/or kV according to patient size, use of iterative reconstruction technique) TECHNICAL DOCUMENTATION: JOB ID: [id number] [employer]- All Rights Reserved Reading location - IP/workstation name: [email or web address]
[2018-12-18] MEDS: INSULIN REG, HUMAN 100 UNIT/ML 3 ML VIAL (PYX) SUBCUT PRN ×3 (11:15→23:03)
[2018-12-18] MEDS ORDERED: VANCOMYCIN HCL 0 MG in DEXTROSE 5%-WATER 250 ML IV NR (12:15)
[2018-12-18] MEDS ORDERED: HALOPERIDOL LACTATE INJ 5 MG/1 ML VIAL IV ONE (14:03)
[2018-12-18] MEDS ORDERED: LORAZEPAM INJ 2 MG/1 ML VIAL IV ONE (14:03)
--- NOTE | 2018-12-18 15:32 | RADIOLOGY REPORT (SQ) ---
EXAM DESCRIPTION: LUMBAR PUNCTURE; FLUORO/NEEDLE PLACEMENT/SPINE COMPLETED DATE/TIME: 12/18/2018 3:16 pm REASON FOR STUDY: AMS, fever, nuchal rigidity; AMS COMPARISON: None. FLUOROSCOPY TIME: 21 seconds 1 Images saved to PACS. TECHNIQUE: Fluoroscopic guided lumbar puncture with opening and closing pressures. LIMITATIONS: None. PROCEDURE: After written consent and assessment were obtained, the patient was brought into the [facility] roscopy room and placed prone on the table. The patient's lower back was prepped in a sterile fashion and an entry site was selected under live fluoroscopic guidance. The entry site was anesthetized wit h 1% lidocaine. A 22 gauge needle was advanced through the skin and into the thecal sac at the level of L 3 -L 4 . An opening pressure of 19 units was obtained. After approximately 9 ml of CSF was drain ed, a closing pressure of 13 units was obtained. The needle was removed and a sterile bandage was ruben fox of the site. Specimens were sent to the lab for testing. A fluoroscopic spot image was saved to [facility] confirming level access. FINDINGS: Clear CSF IMPRESSION: Lumbar puncture under fluoroscopy. No immediate complication. COMMENT: Patient medication list reviewed: Yes- Quality ID# [id number]:Eligible professional attests to doc umenting in the medical record they obtained, updated, or reviewed the patient's current medications. Quality ID 145: Final reports for procedures using fluoroscopy that document radiation exposure indic es, or exposure time and number of fluorographic images (if radiation exposure indices are not availa ble) TECHNICAL DOCUMENTATION: Job ID: [id number] [employer]- All Rights Reserved Reading location - IP/workstation name: [email or web address]
--- NOTE | 2018-12-18 15:32 | RADIOLOGY REPORT (SQ) ---
EXAM DESCRIPTION: LUMBAR PUNCTURE; FLUORO/NEEDLE PLACEMENT/SPINE COMPLETED DATE/TIME: 12/18/2018 3:16 pm REASON FOR STUDY: AMS, fever, nuchal rigidity; AMS COMPARISON: None. FLUOROSCOPY TIME: 21 seconds 1 Images saved to PACS. TECHNIQUE: Fluoroscopic guided lumbar puncture with opening and closing pressures. LIMITATIONS: None. PROCEDURE: After written consent and assessment were obtained, the patient was brought into the [facility] roscopy room and placed prone on the table. The patient's lower back was prepped in a sterile fashion and an entry site was selected under live fluoroscopic guidance. The entry site was anesthetized wit h 1% lidocaine. A 22 gauge needle was advanced through the skin and into the thecal sac at the level of L 3 -L 4 . An opening pressure of 19 units was obtained. After approximately 9 ml of CSF was drain ed, a closing pressure of 13 units was obtained. The needle was removed and a sterile bandage was ruben fox of the site. Specimens were sent to the lab for testing. A fluoroscopic spot image was saved to [facility] confirming level access. FINDINGS: Clear CSF IMPRESSION: Lumbar puncture under fluoroscopy. No immediate complication. COMMENT: Patient medication list reviewed: Yes- Quality ID# [id number]:Eligible professional attests to doc umenting in the medical record they obtained, updated, or reviewed the patient's current medications. Quality ID 145: Final reports for procedures using fluoroscopy that document radiation exposure indic es, or exposure time and number of fluorographic images (if radiation exposure indices are not availa ble) TECHNICAL DOCUMENTATION: Job ID: [id number] [employer]- All Rights Reserved Reading location - IP/workstation name: [email or web address]
[2018-12-18 15:45] LABS: GLUCOSE,CSF 178 mg/dL (40-70); PROTEIN,CSF 64 mg/dL (12-60)
[2018-12-18 15:54] LABS: APPEARANCE ALL TUBES HAZY; COLOR ALL TUBES PINK; CSF TUBE NUMBER 1; RED BLOOD CELL,CSF 7020 /uL (0-10); VOLUME TUBE 4 2.8 CC
[2018-12-18 15:55] LABS: CSF TOTAL VOLUME 8.5 CC; VOLUME TUBE 1 1.7 CC; WHITE BLOOD CELL,CSF 8 /uL (0-5)
[2018-12-18 16:01] LABS: MONONUCLEAR CELLS CSF 23 %; POLYMORPHONUCLEAR CELLS CSF 77 %
[2018-12-18 16:03] LABS: CSF TUBE NUMBER 4
[2018-12-18 16:04] LABS: APPEARANCE ALL TUBES HAZY; COLOR ALL TUBES PINK; CSF TOTAL VOLUME 8.5 CC; RED BLOOD CELL,CSF 6195 /uL (0-10); VOLUME TUBE 1 1.7 CC; VOLUME TUBE 4 2.8 CC
[2018-12-18 16:05] LABS: WHITE BLOOD CELL,CSF 9 /uL (0-5)
[2018-12-18 16:11] LABS: MONONUCLEAR CELLS CSF 19 %; POLYMORPHONUCLEAR CELLS CSF 81 %
[2018-12-18] MEDS: VANCOMYCIN HCL 750 MG in DEXTROSE 5%-WATER 250 ML IV SCH (18:00)
--- NOTE | 2018-12-18 18:40 | PDOC PROGRESS REPORT ---
Subjective Progress Note for:: 12/18/18 Subjective:: Some care today. This is a 71-year-old female who presented with a 5-day history of acute confusion. She reportedly had a fever and questionable nuchal rigidity and meningitis was initially suspected. Initial LP in the ER was unsuccessful due to patient being uncooperative. Upon encounter this morning, patient is awake and alert but was nonconversant. She appears comfortable on room air. LP was finally done this afternoon and initial CSF analysis is not consistent with bacterial meningitis. Continues to be awake and is initially nonconversant. She is now able to tell me her name and able to knowledge and the name of her daughter and bedside. She had this same episode of medication before when she had previous UTIs. He says that she was previously treated for urinary tract infection last week. Reason For Visit: ALTERED MENTAL STATUS WITH CONFUSION AND FEVER Physical Exam Vital Signs: Temp Pulse Resp BP Pulse Ox 98.3 F 68 12 149/55 H 99 12/18/18 06:39 12/17/18 18:03 12/18/18 10:01 12/18/18 10:01 12/18/18 10:01 Intake & Output 12/17/18 12/18/18 12/19/18 06:59 06:59 06:59 Intake Total 1050 550 Output Total 700 Balance 1050 -150 General appearance: PRESENT: no acute distress, well-developed, well-nourished Head exam: PRESENT: atraumatic, normocephalic Eye exam: PRESENT: conjunctiva pink, EOMI, PERRLA. ABSENT: scleral icterus Ear exam: PRESENT: normal external ear exam Neck exam: ABSENT: carotid bruit, JVD, lymphadenopathy, thyromegaly Respiratory exam: PRESENT: clear to auscultation vinicius. ABSENT: rales, rhonchi, wheezes Cardiovascular exam: PRESENT: RRR. ABSENT: diastolic murmur, rubs, systolic murmur GI/Abdominal exam: PRESENT: normal bowel sounds, soft. ABSENT: distended, guarding, mass, organolmegaly, rebound, tenderness Rectal exam: PRESENT: deferred Neurological exam: PRESENT: alert, awake, oriented to person, CN II-XII grossly intact. ABSENT: oriented to place, oriented to time, motor sensory deficit Results Laboratory Results: 12/18/18 05:49 12/18/18 05:49 12/17/18 12/17/18 12/17/18 17:24 17:24 18:49 WBC 13.0 H RBC 4.27 Hgb 11.6 L Hct 34.5 L MCV 81 MCH 27.2 MCHC 33.7 RDW 14.7 H Plt Count 614 H Seg Neutrophils % 83.3 H Lymphocytes % 11.0 L Monocytes % 5.4 Eosinophils % 0.1 Basophils % 0.2 Absolute Neutrophils 10.8 H Absolute Lymphocytes 1.4 Absolute Monocytes 0.7 Absolute Eosinophils 0.0 Absolute Basophils 0.0 VBG pH VBG pCO2 VBG HCO3 VBG Base Excess Sodium 139.7 Potassium 4.2 Chloride 100 Carbon Dioxide 24 Anion Gap 16 BUN 28 H Creatinine 1.05 Est GFR ( Amer) > 60 Est GFR (Non-Af Amer) 52 L Glucose 239 H Lactic Acid Calcium 10.4 H Magnesium Total Bilirubin 0.5 AST 21 ALT 29 Alkaline Phosphatase 90 Total Protein 8.2 Albumin 4.4 TSH Free T4 Free T3 pg/mL Urine Color YELLOW Urine Appearance SLIGHTLY-CLOUDY Urine pH 5.0 Ur Specific [place] 1.018 Urine Protein NEGATIVE Urine Glucose (UA) >=500 H Urine Ketones NEGATIVE Urine Blood SMALL H Urine Nitrite NEGATIVE Ur Leukocyte Esterase NEGATIVE Urine WBC (Auto) 7 Urine RBC (Auto) 2 12/17/18 12/17/18 12/17/18 18:55 19:27 20:10 WBC RBC Hgb Hct MCV MCH MCHC RDW Plt Count Seg Neutrophils % Lymphocytes % Monocytes % Eosinophils % Basophils % Absolute Neutrophils Absolute Lymphocytes Absolute Monocytes Absolute Eosinophils Absolute Basophils VBG pH Cancelled 7.63 H VBG pCO2 Cancelled 21.5 L VBG HCO3 Cancelled 22.1 VBG Base Excess Cancelled 1.5 Sodium Potassium Chloride Carbon Dioxide Anion Gap BUN Creatinine Est GFR ( Amer) Est GFR (Non-Af Amer) Glucose Lactic Acid 1.6 Calcium Magnesium Total Bilirubin AST ALT Alkaline Phosphatase Total Protein Albumin TSH Free T4 Free T3 pg/mL Urine Color Urine Appearance Urine pH Ur Specific [place] Urine Protein Urine Glucose (UA) Urine Ketones Urine Blood Urine Nitrite Ur Leukocyte Esterase Urine WBC (Auto) Urine RBC (Auto) 12/18/18 12/18/18 12/18/18 00:03 00:03 05:49 WBC RBC Hgb Hct MCV MCH MCHC RDW Plt Count Seg Neutrophils % Lymphocytes % Monocytes % Eosinophils % Basophils % Absolute Neutrophils Absolute Lymphocytes Absolute Monocytes Absolute Eosinophils Absolute Basophils VBG pH VBG pCO2 VBG HCO3 VBG Base Excess Sodium Potassium Chloride Carbon Dioxide Anion Gap BUN Creatinine Est GFR ( Amer) Est GFR (Non-Af Amer) Glucose Lactic Acid 0.9 1.3 Calcium Magnesium Total Bilirubin AST ALT Alkaline Phosphatase Total Protein Albumin TSH 1.28 Free T4 1.22 Free T3 pg/mL 2.68 L Urine Color Urine Appearance Urine pH Ur Specific [place] Urine Protein Urine Glucose (UA) Urine Ketones Urine Blood Urine Nitrite Ur Leukocyte Esterase Urine WBC (Auto) Urine RBC (Auto) 12/18/18 12/18/18 12/18/18 05:49 05:49 09:32 WBC 14.6 H RBC 3.81 Hgb 10.5 L Hct 31.1 L MCV 82 MCH 27.6 MCHC 33.8 RDW 14.8 H Plt Count 567 H Seg Neutrophils % 89.8 H Lymphocytes % 6.1 L Monocytes % 2.8 L Eosinophils % 0.1 Basophils % 1.2 Absolute Neutrophils 13.1 H Absolute Lymphocytes 0.9 Absolute Monocytes 0.4 Absolute Eosinophils 0.0 Absolute Basophils 0.2 VBG pH VBG pCO2 VBG HCO3 VBG Base Excess Sodium 142.0 Potassium 3.8 Chloride 109 H Carbon Dioxide 20 L Anion Gap 13 BUN 31 H Creatinine 0.99 Est GFR ( Amer) > 60 Est GFR (Non-Af Amer) 55 L Glucose 321 H Lactic Acid 1.5 Calcium 9.5 Magnesium 2.1 Total Bilirubin AST ALT Alkaline Phosphatase Total Protein Albumin TSH Free T4 Free T3 pg/mL Urine Color Urine Appearance Urine pH Ur Specific [place] Urine Protein Urine Glucose (UA) Urine Ketones Urine Blood Urine Nitrite Ur Leukocyte Esterase Urine WBC (Auto) Urine RBC (Auto) 12/18/18 12/18/18 12/18/18 00:03 00:03 05:49 Creatine Kinase 141 H 192 H CK-MB (CK-2) 2.38 Troponin I < 0.012 12/18/18 05:49 Creatine Kinase CK-MB (CK-2) 3.07 Troponin I < 0.012 Impressions: Chest X-Ray 12/17/18 18:48 IMPRESSION: NO ACUTE RADIOGRAPHIC FINDING IN THE CHEST. Head CT 12/18/18 08:21 IMPRESSION: NORMAL BRAIN CT WITHOUT CONTRAST. EVIDENCE OF ACUTE STROKE: NO. Assessment and Plan - Diagnosis (1) Acute encephalopathy Is this a current diagnosis for this admission?: Yes Plan: Initially suspected to have meningitis. She just had a lumbar puncture and initial CSF analysis is not consistent with bacterial meningitis. CSF culture pending. Blood cultures are growing gram-positive cocci. Currently on Rocephin. We will add vancomycin. Await final culture results. (2) Gram-positive bacteremia Is this a current diagnosis for this admission?: Yes Plan: Currently on Rocephin. Vancomycin added. Repeat blood cultures tomorrow. - Time Time Spent with patient: 25-34 minutes
[2018-12-18] MEDS ORDERED: ACYCLOVIR SODIUM INJ/PF 500 MG/10 ML SDV IV SCH (18:45)
[2018-12-18] MEDS: ACYCLOVIR SODIUM 700 MG in NORMAL SALINE 100 ML IV SCH (21:56)
[2018-12-19] MEDS: RINGERS SOLUTION,LACTATED 1,000 ML IV PRN (02:32)
[2018-12-19] MEDS: DEXAMETHASONE SOD PHOSPHATE INJ 4 MG/1 ML VIAL IV SCH ×2 (02:32→08:22)
[2018-12-19] MEDS: HEPARIN SOD (PORCINE) 5,000 UNIT/ML 1 ML SYRINGE SUBCUT SCH ×3 (05:23→21:09)
[2018-12-19] MEDS: ACYCLOVIR SODIUM 700 MG in NORMAL SALINE 100 ML IV SCH ×2 (05:24→12:50)
[2018-12-19] MEDS: VANCOMYCIN HCL 750 MG in DEXTROSE 5%-WATER 250 ML IV SCH ×2 (05:25→17:16)
[2018-12-19 06:10] LABS: ABSOLUTE LYMPHOCYTES (AUTO) 0.9 10^3/uL (0.5-4.7); ABSOLUTE MONOCYTES (AUTO) 0.8 10^3/uL (0.1-1.4); ABSOLUTE NEUT (AUTO) 13.3 10^3/uL (1.7-8.2); BASOPHILS % (AUTO) 0.2 % (0-2); HEMATOCRIT 28.6 % (36.0-47.0); HEMOGLOBIN 9.4 g/dL (12.0-15.5); LYMPHOCYTES % (AUTO) 5.9 % (13-45); MEAN CORPUSCULAR HEMOGLOBIN 26.7 pg (27.0-33.4); MEAN CORPUSCULAR HGB CONC 32.7 g/dL (32.0-36.0); MEAN CORPUSCULAR VOLUME 82 fl (80-97); MONOCYTES % (AUTO) 5.1 % (3-13); PLATELET COUNT 554 10^3/uL (150-450); RED CELL DISTRIBUTION WIDTH 14.7 % (11.5-14.0); SEGMENTED NEUTROPHILS % (AUTO) 88.8 % (42-78); TOTAL CELLS COUNTED % (AUTO) 100 %
[2018-12-19 06:30] LABS: ANION GAP 12 (5-19); BLOOD UREA NITROGEN 25 mg/dL (7-20); CALCIUM 9.4 mg/dL (8.4-10.2); CARBON DIOXIDE 21 mmol/L (22-30); CHLORIDE 108 mmol/L (98-107); GLUCOSE 267 mg/dL (75-110); POTASSIUM 4.2 mmol/L (3.6-5.0); SODIUM 141.2 mmol/L (137-145)
[2018-12-19] MEDS: FAMOTIDINE INJ/PF 20 MG/2 ML SDV IV SCH ×2 (08:22→21:08)
[2018-12-19] MEDS: DOCUSATE SODIUM 100 MG CAPSULE PO SCH ×2 (08:22→17:20)
[2018-12-19] MEDS: CEFTRIAXONE 2 GM/D5W RTU 2 GM/50 ML RTUPB IV SCH (08:22)
[2018-12-19] MEDS: INSULIN REG, HUMAN 100 UNIT/ML 3 ML VIAL (PYX) SUBCUT PRN ×3 (08:29→21:17)
[2018-12-19] MEDS ORDERED: LINAGLIPTIN PO SCH (10:30)
[2018-12-19] MEDS ORDERED: EMPAGLIFLOZIN PO SCH (10:30)
[2018-12-19] MEDS ORDERED: ALPRAZOLAM 0.5 MG TABLET PO PRN (10:48)
[2018-12-19] MEDS: AMLODIPINE BESYLATE 5 MG TABLET PO SCH (12:49)
[2018-12-19] MEDS: SERTRALINE HCL 50 MG TABLET PO SCH (12:49)
[2018-12-19] MEDS: ASPIRIN 81 MG TABLET, ENT COATED PO SCH (12:49)
[2018-12-19] MEDS: ACETAMINOPHEN 325 MG TABLET PO PRN (12:50)
--- NOTE | 2018-12-19 17:12 | Progress Note ---
Provider Note Provider Note: ID Telephone Consultation Note Asked to review patient's chart. Pt not seen or examined. Ms. Darden is a 73 year old woman with poorly controlled DM, bipolar d/o, TIA, and HTN who was admitted on 12/17/18, lyric by her for increasing intermittent confusion x 5 days, occasional cough, and decreased PO intake. ROS was unobtainable from pt. Pt's reported she has previously had confusion similar to this when she was diagnosed with a UTI. She had a fever on presentation. On exam, she was noted to have some signs of nuchal rigidity appreciated. She was disheveled, confused, had dry mucosa, grossly nonfocal cranial nerves and no other remarkable findings documented on exam. Initial labs showed some leukocytosis and thrombocytosis and SCr of around 1. U/A from straight cath sample had 7 WBC/hpf, negative for leukocyte esterase, showed glycosuria. UCx grew >100k cfu Klebsiella pneumoniae resistant to Macrobid and ampicillin. Blood cultures drawn on presentation are now preliminarily reported as having GPCs in clusters from 1 set and GPCs in chains and GPRs from one bottle of the other set. CXR did not show an acute focal infiltrate. CT head w/o contrast was normal. She had an LP performed with initial return of CSF then interruption by patient movement/lack of cooperativity, resulting in a bloody tap. The submitted sample was pink in color with <10 WBC. many RBCs, and mildly elevated protein compared to reference range. Gram stain of the fluid did not show any bacteria, and the culture did not grow anything x 1 day. The next day pt was awake and alert, able to answer simple questions. Empirically IV vancomycin, Rocephin and acyclovir had been ordered given the initial suspicion for encephalitis or meningitis. Impression/Recommendations suspected delirium or toxic metabolic encephalopathy - Agree, CSF formula is not consistent with bacterial meningitis. Viral encephalitis or meningitis would be expected to produce some inflammation reflected in the CSF WBC count and protein, which is essentially absent here. Consider stopping IV acyclovir. Blood culture growth of GPCs in clusters, GPR, and GPCs in chains - Anticipate blood culture contamination rather than true bacteremia. However, continuing IV vancomycin while awaiting identification appears to be prudent. Preliminary verbal report from Micro lab is suspected coagulase negative Staph species for the GPCs in clusters and the GPR appears to be a diphtheroid, consistent with skin carlene. possible complicated UTI - Whether she had irritative urinary symptoms could not be elicited when she presented, but no other source yet identified to account for the fever and leukocytosis, reactive thrombocytosis. Rocephin is active against the Klebsiella that grew from the UCx. Yvan Bowers MD [facility] Infectious Diseases pager [phone]
--- NOTE | 2018-12-19 17:51 | PDOC PROGRESS REPORT ---
Subjective Progress Note for:: 12/19/18 Subjective:: 12/18: This is a 71-year-old female who presented with a 5-day history of acute confusion. She reportedly had a fever and questionable nuchal rigidity and meningitis was initially suspected. Initial LP in the ER was unsuccessful due to patient being uncooperative. Upon encounter this morning, patient is awake and alert but was nonconversant. She appears comfortable on room air. LP was finally done this afternoon and initial CSF analysis is not consistent with bacterial meningitis. Continues to be awake and is initially nonconversant. She is now able to tell me her name and able to knowledge and the name of her daughter and bedside. She had this same episode of medication before when she had previous UTIs. He says that she was previously treated for urinary tract infection last week. 12/19: No acute event overnight. Upon encounter this morning, patient continues to be more awake but she is not at her baseline yet. She is more conversant today and is able to tell me her name and her 's name. reveals that she was bitten by her dog 5 days ago but says the dog had recently updated vaccinations. Blood cultures are growing gram-positive cocci. Reason For Visit: ALTERED MENTAL STATUS WITH CONFUSION AND FEVER Physical Exam Vital Signs: Temp Pulse Resp BP Pulse Ox 98.3 F 62 15 163/59 H 97 12/19/18 11:41 12/19/18 14:00 12/19/18 11:41 12/19/18 11:41 12/19/18 11:41 Intake & Output 12/18/18 12/19/18 12/20/18 06:59 06:59 06:59 Intake Total 1050 2278 1164 Output Total 1375 500 Balance 1050 903 664 Weight 158 lb 1.143 oz General appearance: PRESENT: no acute distress, well-developed, well-nourished Head exam: PRESENT: atraumatic, normocephalic Eye exam: PRESENT: conjunctiva pink, EOMI, PERRLA. ABSENT: scleral icterus Ear exam: PRESENT: normal external ear exam Mouth exam: PRESENT: moist, tongue midline Neck exam: ABSENT: carotid bruit, JVD, lymphadenopathy, thyromegaly Respiratory exam: PRESENT: clear to auscultation vinicius. ABSENT: rales, rhonchi, wheezes Cardiovascular exam: PRESENT: RRR. ABSENT: diastolic murmur, rubs, systolic murmur Pulses: PRESENT: normal dorsalis pedis pul GI/Abdominal exam: PRESENT: normal bowel sounds, soft. ABSENT: distended, guarding, mass, organolmegaly, rebound, tenderness Rectal exam: PRESENT: deferred Neurological exam: PRESENT: alert, awake, oriented to person, CN II-XII grossly intact. ABSENT: motor sensory deficit Results Laboratory Results: 12/19/18 05:10 12/19/18 05:10 12/19/18 12/19/18 05:10 05:10 WBC 15.0 H RBC 3.50 L Hgb 9.4 L Hct 28.6 L MCV 82 MCH 26.7 L MCHC 32.7 RDW 14.7 H Plt Count 554 H Seg Neutrophils % 88.8 H Lymphocytes % 5.9 L Monocytes % 5.1 Eosinophils % 0.0 Basophils % 0.2 Absolute Neutrophils 13.3 H Absolute Lymphocytes 0.9 Absolute Monocytes 0.8 Absolute Eosinophils 0.0 Absolute Basophils 0.0 Sodium 141.2 Potassium 4.2 Chloride 108 H Carbon Dioxide 21 L Anion Gap 12 BUN 25 H Creatinine 0.78 Est GFR ( Amer) > 60 Est GFR (Non-Af Amer) > 60 Glucose 267 H Calcium 9.4 Magnesium 2.0 12/17/18 18:49 Catheterized Urine Urine Culture - Final Klebsiella Pneumoniae 12/18/18 12/18/18 12/18/18 00:03 00:03 05:49 Creatine Kinase 141 H 192 H CK-MB (CK-2) 2.38 Troponin I < 0.012 12/18/18 05:49 Creatine Kinase CK-MB (CK-2) 3.07 Troponin I < 0.012 Impressions: Lumbar Puncture 12/17/18 00:00 IMPRESSION: Lumbar puncture under fluoroscopy. No immediate complication. Chest X-Ray 12/17/18 18:48 IMPRESSION: NO ACUTE RADIOGRAPHIC FINDING IN THE CHEST. Guidance Fluoroscopy 12/18/18 00:00 IMPRESSION: Lumbar puncture under fluoroscopy. No immediate complication. Head CT 12/18/18 08:21 IMPRESSION: NORMAL BRAIN CT WITHOUT CONTRAST. EVIDENCE OF ACUTE STROKE: NO. Assessment and Plan - Diagnosis (1) Acute encephalopathy Is this a current diagnosis for this admission?: Yes Plan: 12/18: Initially suspected to have meningitis. She just had a lumbar puncture and initial CSF analysis is not consistent with bacterial meningitis. CSF culture pending. Blood cultures are growing gram-positive cocci. Currently on R ocephin. We will add vancomycin. Await final culture results. 12/19: Appreciate ID recommendations. Will discontinue IV acyclovir. Continue vancomycin Rocephin until final blood cultures are resulted. Possible dipthteroids may be contaminants vs bacteremia from dog bite. (2) Gram-positive bacteremia Is this a current diagnosis for this admission?: Yes Plan: Currently on Rocephin and vancomycin. Repeat blood cultures pending. (3) UTI (urinary tract infection) Is this a current diagnosis for this admission?: Yes Plan: Urine culture grew Klebsiella. On Rocephin. - Time Time Spent with patient: 25-34 minutes
[2018-12-19] MEDS ORDERED: (PENDING PHARMACY ID) (Cyclobenzaprine Hcl [Flexeril 5 Mg Tablet] 5 MG) PO PRN (17:58)
[2018-12-19] MEDS ORDERED: OXYCODONE HCL IR 5 MG TABLET PO PRN (18:05)
[2018-12-19] MEDS: CYCLOBENZAPRINE HCL 10 MG TABLET PO PRN (18:22)
[2018-12-20] MEDS: ACETAMINOPHEN 325 MG TABLET PO PRN ×2 (02:18→09:25)
[2018-12-20] MEDS: CYCLOBENZAPRINE HCL 10 MG TABLET PO PRN (04:03)
[2018-12-20] MEDS: VANCOMYCIN HCL 750 MG in DEXTROSE 5%-WATER 250 ML IV SCH (05:47)
[2018-12-20] MEDS: HEPARIN SOD (PORCINE) 5,000 UNIT/ML 1 ML SYRINGE SUBCUT SCH ×3 (05:48→21:18)
[2018-12-20 06:09] LABS: ABSOLUTE EOSINOPHILS # (AUTO) 0.1 10^3/uL (0.0-0.6); ABSOLUTE LYMPHOCYTES (AUTO) 1.5 10^3/uL (0.5-4.7); ABSOLUTE NEUT (AUTO) 10.2 10^3/uL (1.7-8.2); BASOPHILS % (AUTO) 0.3 % (0-2); HEMATOCRIT 30.1 % (36.0-47.0); HEMOGLOBIN 9.8 g/dL (12.0-15.5); LYMPHOCYTES % (AUTO) 11.7 % (13-45); MEAN CORPUSCULAR HEMOGLOBIN 26.7 pg (27.0-33.4); MEAN CORPUSCULAR HGB CONC 32.5 g/dL (32.0-36.0); MEAN CORPUSCULAR VOLUME 82 fl (80-97); MONOCYTES % (AUTO) 7.4 % (3-13); PLATELET COUNT 522 10^3/uL (150-450); RED BLOOD COUNT 3.67 10^6/uL (3.72-5.28); RED CELL DISTRIBUTION WIDTH 14.6 % (11.5-14.0); SEGMENTED NEUTROPHILS % (AUTO) 79.6 % (42-78); TOTAL CELLS COUNTED % (AUTO) 100 %; WHITE BLOOD COUNT 12.9 10^3/uL (4.0-10.5)
[2018-12-20 06:38] LABS: VANCOMYCIN,TROUGH 10.4 ug/mL (5.0-20.0)
[2018-12-20 07:05] LABS: ANION GAP 10 (5-19); BLOOD UREA NITROGEN 14 mg/dL (7-20); CALCIUM 9.2 mg/dL (8.4-10.2); CARBON DIOXIDE 24 mmol/L (22-30); CHLORIDE 106 mmol/L (98-107); GLUCOSE 191 mg/dL (75-110); POTASSIUM 3.7 mmol/L (3.6-5.0); SODIUM 139.9 mmol/L (137-145)
[2018-12-20] MEDS: INSULIN REG, HUMAN 100 UNIT/ML 3 ML VIAL (PYX) SUBCUT SCH ×4 (08:42→21:18)
[2018-12-20] MEDS: GABAPENTIN 400 MG CAPSULE PO SCH ×2 (08:48→15:05)
[2018-12-20] MEDS: DOCUSATE SODIUM 100 MG CAPSULE PO SCH ×2 (09:22→18:33)
[2018-12-20] MEDS: FAMOTIDINE INJ/PF 20 MG/2 ML SDV IV SCH ×2 (09:26→21:18)
[2018-12-20] MEDS: ASPIRIN 81 MG TABLET, ENT COATED PO SCH (09:26)
[2018-12-20] MEDS: CEFTRIAXONE 2 GM/D5W RTU 2 GM/50 ML RTUPB IV SCH (09:26)
[2018-12-20] MEDS: SERTRALINE HCL 50 MG TABLET PO SCH (09:26)
[2018-12-20] MEDS: AMLODIPINE BESYLATE 5 MG TABLET PO SCH (09:26)
--- NOTE | 2018-12-20 10:57 | PDOC PROGRESS REPORT ---
Subjective Progress Note for:: 12/20/18 Subjective:: 12/18: This is a 71-year-old female who presented with a 5-day history of acute confusion. She reportedly had a fever and questionable nuchal rigidity and meningitis was initially suspected. Initial LP in the ER was unsuccessful due to patient being uncooperative. Upon encounter this morning, patient is awake and alert but was nonconversant. She appears comfortable on room air. LP was finally done this afternoon and initial CSF analysis is not consistent with bacterial meningitis. Continues to be awake and is initially nonconversant. She is now able to tell me her name and able to knowledge and the name of her daughter and bedside. She had this same episode of medication before when she had previous UTIs. He says that she was previously treated for urinary tract infection last week. 12/19: Upon encounter this morning, patient continues to be more awake but she is not at her baseline yet. She is more conversant today and is able to tell me her name and her 's name. reveals that she was bitten by her dog 5 days ago but says the dog had recently updated vaccinations. Blood cultures are growing gram-positive cocci. 12/20: No acute event overnight. She is more conversant today. She is now oriented to person, place and time. Family says she is close to her baseline mentation. First set of cultures are growing gram positive cocci in cluster, gram positive cocci in chains and gram positive rods. She does now say that she was having dysuria a few days ago. Reason For Visit: ALTERED MENTAL STATUS WITH CONFUSION AND FEVER Physical Exam Vital Signs: Temp Pulse Resp BP Pulse Ox 98.9 F 69 16 165/58 H 97 12/20/18 08:27 12/20/18 08:27 12/20/18 08:27 12/20/18 08:27 12/20/18 08:27 Intake & Output 12/19/18 12/20/18 12/21/18 06:59 06:59 06:59 Intake Total 2278 1764 Output Total 1375 800 Balance 903 964 Weight 158 lb 1.143 oz 154 lb 1.65 oz General appearance: PRESENT: no acute distress, well-developed, well-nourished Head exam: PRESENT: atraumatic, normocephalic Eye exam: PRESENT: conjunctiva pink, EOMI, PERRLA. ABSENT: scleral icterus Ear exam: PRESENT: normal external ear exam Mouth exam: PRESENT: moist, tongue midline Neck exam: ABSENT: carotid bruit, JVD, lymphadenopathy, thyromegaly Respiratory exam: PRESENT: clear to auscultation vinicius. ABSENT: rales, rhonchi, wheezes Cardiovascular exam: PRESENT: RRR. ABSENT: diastolic murmur, rubs, systolic murmur Pulses: PRESENT: normal dorsalis pedis pul Vascular exam: PRESENT: normal capillary refill GI/Abdominal exam: PRESENT: normal bowel sounds, soft. ABSENT: distended, guarding, mass, organolmegaly, rebound, tenderness Rectal exam: PRESENT: deferred Neurological exam: PRESENT: alert, awake, oriented to person, oriented to place, oriented to time, CN II-XII grossly intact. ABSENT: motor sensory deficit Results Laboratory Results: 12/20/18 05:47 12/20/18 05:47 12/20/18 12/20/18 05:47 05:47 WBC 12.9 H RBC 3.67 L Hgb 9.8 L Hct 30.1 L MCV 82 MCH 26.7 L MCHC 32.5 RDW 14.6 H Plt Count 522 H Seg Neutrophils % 79.6 H Lymphocytes % 11.7 L Monocytes % 7.4 Eosinophils % 1.0 Basophils % 0.3 Absolute Neutrophils 10.2 H Absolute Lymphocytes 1.5 Absolute Monocytes 1.0 Absolute Eosinophils 0.1 Absolute Basophils 0.0 Sodium 139.9 Potassium 3.7 Chloride 106 Carbon Dioxide 24 Anion Gap 10 BUN 14 Creatinine 0.76 Est GFR ( Amer) > 60 Est GFR (Non-Af Amer) > 60 Glucose 191 H Calcium 9.2 Magnesium 1.8 12/17/18 18:49 Catheterized Urine Urine Culture - Final Klebsiella Pneumoniae 12/18/18 12/18/18 12/18/18 00:03 00:03 05:49 Creatine Kinase 141 H 192 H CK-MB (CK-2) 2.38 Troponin I < 0.012 12/18/18 05:49 Creatine Kinase CK-MB (CK-2) 3.07 Troponin I < 0.012 Impressions: Lumbar Puncture 12/17/18 00:00 IMPRESSION: Lumbar puncture under fluoroscopy. No immediate complication. Chest X-Ray 12/17/18 18:48 IMPRESSION: NO ACUTE RADIOGRAPHIC FINDING IN THE CHEST. Guidance Fluoroscopy 12/18/18 00:00 IMPRESSION: Lumbar puncture under fluoroscopy. No immediate complication. Head CT 12/18/18 08:21 IMPRESSION: NORMAL BRAIN CT WITHOUT CONTRAST. EVIDENCE OF ACUTE STROKE: NO. Assessment and Plan - Diagnosis (1) Acute encephalopathy Is this a current diagnosis for this admission?: Yes Plan: 12/18: Initially suspected to have meningitis. She just had a lumbar puncture and initial CSF analysis is not consistent with bacterial meningitis. CSF culture pending. Blood cultures are growing gram-positive cocci. Currently on Rocephin. We will add vancomycin. Await final culture results. 12/19: Appreciate ID recommendations. Will discontinue IV acyclovir. Continue vancomycin Rocephin until final blood cultures are resulted. Possible dipthteroids may be contaminants vs bacteremia from dog bite. 12/20: Significantly improved. She is more conversant today. She is now oriented to person, place and time. Family says she is close to her baseline mentation. (2) Gram-positive bacteremia Is this a current diagnosis for this admission?: Yes Plan: First set of cultures are growing gram positive cocci in cluster, gram positive cocci in chains and gram positive rods. Currently on Rocephin and vancomycin. Repeat blood cultures negative so far. (3) UTI (urinary tract infection) Is this a current diagnosis for this admission?: Yes Plan: Urine culture grew Klebsiella. On Rocephin. - Time Time Spent with patient: 25-34 minutes
[2018-12-20] MEDS ORDERED: CLONIDINE HCL 0.1 MG TABLET PO PRN (15:48)
[2018-12-20] MEDS: VANCOMYCIN HCL 1,000 MG in DEXTROSE 5%-WATER 250 ML IV SCH (17:56)
[2018-12-21] MEDS: VANCOMYCIN HCL 1,000 MG in DEXTROSE 5%-WATER 250 ML IV SCH (05:19)
[2018-12-21] MEDS: HEPARIN SOD (PORCINE) 5,000 UNIT/ML 1 ML SYRINGE SUBCUT SCH ×2 (05:19→13:55)
[2018-12-21] MEDS: INSULIN REG, HUMAN 100 UNIT/ML 3 ML VIAL (PYX) SUBCUT SCH ×2 (07:38→12:52)
[2018-12-21] MEDS: GABAPENTIN 400 MG CAPSULE PO SCH ×2 (07:41→13:55)
[2018-12-21] MEDS: SERTRALINE HCL 50 MG TABLET PO SCH (09:16)
[2018-12-21] MEDS: AMLODIPINE BESYLATE 5 MG TABLET PO SCH (09:16)
[2018-12-21] MEDS: FAMOTIDINE INJ/PF 20 MG/2 ML SDV IV SCH (09:16)
[2018-12-21] MEDS: CEFTRIAXONE 2 GM/D5W RTU 2 GM/50 ML RTUPB IV SCH (09:16)
[2018-12-21] MEDS: ASPIRIN 81 MG TABLET, ENT COATED PO SCH (09:16)
[2018-12-21] MEDS: DOCUSATE SODIUM 100 MG CAPSULE PO SCH (09:17)
[2018-12-21] MEDS: ACETAMINOPHEN 325 MG TABLET PO PRN (13:55)
--- NOTE | 2018-12-21 14:37 | Progress Note ---
Provider Note Provider Note: ID Consult Brief Follow Up Note Spoke with Dr. Childs via telephone. Pt improved, impending discharge. She is planned to receive Augmentin as an outpatient to continue treatment of complicated Klebsiella UTI, which is certainly reasonable, and supported by the susceptibility results. Her blood cultures show two different CoNS in one set and from the other a mix of Micrococcus, a viridans group Strep and Corynebacterium species. These are most consistent with contaminants, and no antibiotics are indicated. Yvan Bowers MD [facility] Infectious Diseases pager [phone]
[2018-12-21 15:12] VITALS: BP 149/52
--- NOTE | 2018-12-21 18:16 | PDOC DISCHARGE SUMMARY ---
General - Admit/Disc Date/PCP Admission Date/Primary Care Provider: 12/17/18 23:39 TERESA WARD, DO Discharge Date: 12/21/18 - Discharge Diagnosis (1) Acute encephalopathy Is this a current diagnosis for this admission?: Yes (2) Gram-positive bacteremia Is this a current diagnosis for this admission?: Yes (3) UTI (urinary tract infection) Is this a current diagnosis for this admission?: Yes - Additional Information Resuscitation Status: Full Code Discharge Diet: Diabetic Discharge Activity: Activity As Tolerated, Balance Activity w/Rest Prescriptions: Amoxicillin/Potassium Clav [Augmentin 500-125 Tablet] 1 each PO BID 5 Days #10 tablet Home Medications: Alprazolam [Xanax] 1 mg PO Q8HP PRN 11/09/17 Aspirin [Aspirin EC] 81 mg PO DAILY 11/09/17 Butalb/Acetaminophen/Caffeine [Fioricet (50-325-40 mg) Tablet] 1 tab PO Q6HP PRN MDD 4 TABLETS 11/09/17 Clonidine HCl [Catapres 0.1 mg Tablet] 0.1 mg PO Q8HP PRN 11/09/17 Gabapentin [Neurontin 400 mg Capsule] 1,200 mg PO QHS 11/09/17 Gabapentin [Neurontin 400 mg Capsule] 400 mg PO BID@0800,1400 11/09/17 Nebivolol HCl [Bystolic] 20 mg PO DAILY 11/09/17 Omeprazole 40 mg PO BIDBS 11/09/17 Oxycodone HCl [Oxycodone HCl 10 MG Tablet] 10 mg PO Q6HP PRN 11/09/17 Rosuvastatin Calcium [Crestor 20 mg Tablet] 20 mg PO QHS 11/09/17 Tizanidine HCl [Zanaflex 4 mg Tablet] 2 mg PO HSP PRN MDD 4 MG 11/09/17 Albuterol Sulfate [Albuterol Sulfate Hfa] 1 puff IH Q6HP PRN 12/18/18 Amlodipine Besylate [Norvasc 5 mg Tablet] 5 mg PO DAILY 12/18/18 Cyanocobalamin (Vitamin B-12) [Vitamin B-12 1000 mcg Tablet] 1,000 mcg PO DAILY 12/18/18 Cyclobenzaprine HCl [Flexeril 5 mg Tablet] 5 mg PO Q8HP PRN 12/18/18 Empagliflozin/Linagliptin [Glyxambi 10 mg-5 mg Tablet] 1 each PO DAILY 12/18/18 Insulin Lispro [Humalog Insulin (Lispro) 100 unit/mL] 0 unit SUBCUT .SLD SCALE MDD 80 UNITS 12/18/18 Magnesium Oxide [Mag-Ox 400 mg Tablet] 400 mg PO DAILY 12/18/18 Pioglitazone HCl [Actos 15 mg Tablet] 15 mg PO DAILY 12/18/18 Sertraline HCl [Zoloft 50 mg Tablet] 100 mg PO DAILY 12/18/18 Telmisartan/Hydrochlorothiazid [Telmisartan-Hctz 80-12.5 mg Tb] 1 each PO DAILY 12/18/18 Amoxicillin/Potassium Clav [Augmentin 500-125 Tablet] 1 each PO BID 5 Days #10 tablet 12/21/18 History of Present Illness History of Present Illness: Admitting hospitalist's H&P: ADILENE LEWIS is a 73 year old female who presented to the emergency room via EMS with a 5-day history of altered mental status. Patient's provided information to the emergency room staff that for the last 5 days the patient has been increasingly confused on an intermittent basis until today when she was severely confused and is not eating or drinking. Her intermittent confusion for the last 5 days has been accompanied by an occasional cough and variably decreased oral intake. Her admits that she has had similar prior episodes with urinary tract infections and he has not identified any aggravating or ameliorating factors for her intermittent confusion. Patient is confused at this time and is unable to provide reliably accurate input into this evaluation. In the emergency room she was found to have an elevated white blood count with a low-grade fever and nuchal rigidity on exam. A lumbar puncture was attempted but was unable to be completed due to patient movement. Patient was started on empiric antibiotic therapy with Rocephin in the emergency room and has been admitted to the ICU for further evaluation and treatment. Hospital Course Hospital Course: This is a 71-year-old female who presented with a 5-day history of acute confusion. She reportedly had a fever and questionable nuchal rigidity and meningitis was initially suspected. Initial LP in the ER was unsuccessful due to patient being uncooperative. Upon encounter this morning, patient is awake and alert but was nonconversant. ID was also consulted. Patient eventually had successful LP and this ruled out meningitis. Her mentaiton did significantly improve with antibiotics geared t owards her UTI. She returned to her baseline and did report that she was having dysuria prior to admission. Urine culture grew Klebsiella. Her blood culture results were deemed as contaminants. The 2nd set was negative. She will be discharged on Augmentin for her UTI. Physical Exam Vital Signs: Temp Pulse Resp BP Pulse Ox 98.4 F 61 16 149/52 H 97 12/21/18 15:00 12/21/18 15:00 12/21/18 15:00 12/21/18 15:00 12/21/18 15:00 Intake & Output 12/20/18 12/21/18 12/22/18 06:59 06:59 06:59 Intake Total 1764 1552 540 Output Total 800 1000 Balance 964 552 540 Weight 154 lb 1.65 oz 155 lb 3.287 oz General appearance: PRESENT: no acute distress, well-developed, well-nourished Head exam: PRESENT: atraumatic, normocephalic Eye exam: PRESENT: conjunctiva pink, EOMI, PERRLA. ABSENT: scleral icterus Ear exam: PRESENT: normal external ear exam Mouth exam: PRESENT: moist, tongue midline Neck exam: ABSENT: carotid bruit, JVD, lymphadenopathy, thyromegaly Respiratory exam: PRESENT: clear to auscultation vinicius. ABSENT: rales, rhonchi, wheezes Cardiovascular exam: PRESENT: RRR. ABSENT: diastolic murmur, rubs, systolic murmur Pulses: PRESENT: normal dorsalis pedis pul GI/Abdominal exam: PRESENT: normal bowel sounds, soft. ABSENT: distended, gu arding, mass, organolmegaly, rebound, tenderness Rectal exam: PRESENT: deferred Neurological exam: PRESENT: alert, awake, oriented to person, oriented to place, oriented to time, oriented to situation, CN II-XII grossly intact. ABSENT: motor sensory deficit Results Laboratory Results: 12/20/18 05:47 12/20/18 05:47 12/17/18 20:10 Blood Blood Culture - Final Strep Mutans (Viridans Strep) Micrococcus Species Corynebacterium Species 12/17/18 18:55 Blood Blood Culture - Final Staphylococcus Epidermidis Staphylococcus Epidermidis#2 12/18/18 14:46 Cerebral Spinal Fluid - Csf Gram Stain - Final 12/18/18 14:46 Cerebral Spinal Fluid - Csf CSF Culture - Final NO GROWTH 3 DAYS 12/18/18 12/18/18 12/18/18 00:03 00:03 05:49 Creatine Kinase 141 H 192 H CK-MB (CK-2) 2.38 Troponin I < 0.012 12/18/18 05:49 Creatine Kinase CK-MB (CK-2) 3.07 Troponin I < 0.012 Impressions: Lumbar Puncture 12/17/18 00:00 IMPRESSION: Lumbar puncture under fluoroscopy. No immediate complication. Chest X-Ray 12/17/18 18:48 IMPRESSION: NO ACUTE RADIOGRAPHIC FINDING IN THE CHEST. Guidance Fluoroscopy 12/18/18 00:00 IMPRESSION: Lumbar puncture under fluoroscopy. No immediate complication. Head CT 12/18/18 08:21 IMPRESSION: NORMAL BRAIN CT WITHOUT CONTRAST. EVIDENCE OF ACUTE STROKE: NO. Qualifiers - * PATIENT BEING DISCHARGED WITH ANY OF THE FOLLOWING DIAGNOSIS: No Acute Heart Failure - Is this a Heart Failure Patient?: No LVEF < 40%?: No- if no continue to question #3 3. Anticoagulant therapy for permanect/persistent/paraoxysmal Afib or Aflutter: N/A
== END 2018-12-21 16:16 | disposition home health service (06) | DRG 690 ==
LOC: ER 17:48 → EH 23:39 → 3W 12-18 18:50
PROVIDERS: ADMIT Emergency Medicine; ATTEND Emergency Medicine
PROC: 00JU3ZZ Inspection of Spinal Canal, Percutaneous Approach (ICD-10-PCS; principal; 2018-12-17)
PROC: 009U3ZX Drainage of Spinal Canal, Percutaneous Approach, Diagnostic (ICD-10-PCS; 2018-12-18)
PROC: B01BZZZ Fluoroscopy of Spinal Cord (ICD-10-PCS; 2018-12-18)
DX: N39.0 Urinary tract infection, site not specified (principal); R78.81 Bacteremia; G93.40 Encephalopathy, unspecified; I25.10 Atherosclerotic heart disease of native coronary artery without angina pectoris; E78.00 Pure hypercholesterolemia, unspecified; I10 Essential (primary) hypertension; I73.9 Peripheral vascular disease, unspecified; J44.9 Chronic obstructive pulmonary disease, unspecified; D72.829 Elevated white blood cell count, unspecified; B96.1 Klebsiella pneumoniae [K. pneumoniae] as the cause of diseases classified elsewhere; E11.8 Type 2 diabetes mellitus with unspecified complications; F17.290 Nicotine dependence, other tobacco product, uncomplicated; Z79.84 Long term (current) use of oral hypoglycemic drugs; Z79.82 Long term (current) use of aspirin; Z79.899 Other long term (current) drug therapy
CPT/HCPCS: 36415; 51701; 62270; 70450; 71045; 77003; 80048; 80053; 80202; 81001; 82550; 82553; 82803; 82945; 82962; 83036; 83605; 83735; 84157; 84439; 84443; 84481; 84484; 85025; 85610; 87040; 87070; 87077; 87086; 87088; 87186; 87205; 89050; 93005; 93010; 96365; 99285; J0133; J0696; J1100; J1630; J1644; J1815; J2060; J2300; J2405; J3370; J3490; J7030; J7050; J7060; J7120; S0028

== ENCOUNTER 2019-01-16 12:44 | Inpatient (IN) | payer MEDICARE, OTHER ==
[2019-01-16 13:32] LABS: APPEARANCE,URINE CLEAR; BILIRUBIN,URINE NEGATIVE (NEGATIVE); COLOR,URINE YELLOW; GLUCOSE, URINE >=500 mg/dL (NEGATIVE); KETONES,URINE NEGATIVE (NEGATIVE); LEUKOCYTE ESTERASE,URINE NEGATIVE (NEGATIVE); NITRITE,URINE NEGATIVE (NEGATIVE); PROTEIN,URINE NEGATIVE (NEGATIVE); URINE SPECIFIC GRAVITY 1.018; UROBILINOGEN,URINE NEGATIVE mg/dL (<2.0)
[2019-01-16 13:46] LABS: VENOUS BLOOD BASE EXCESS 5.1 mmol/L; VENOUS BLOOD HCO3 28.3 mmol/L (20-32); VENOUS BLOOD PCO2 36.3 mmHg (35-63); VENOUS BLOOD PH 7.51 (7.30-7.42)
[2019-01-16 13:47] LABS: ABSOLUTE BASOPHILS # (AUTO) 0.1 10^3/uL (0.0-0.2); ABSOLUTE LYMPHOCYTES (AUTO) 1.2 10^3/uL (0.5-4.7); ABSOLUTE MONOCYTES (AUTO) 0.8 10^3/uL (0.1-1.4); ABSOLUTE NEUT (AUTO) 10.4 10^3/uL (1.7-8.2); BASOPHILS % (AUTO) 0.5 % (0-2); EOSINOPHILS % (AUTO) 0.1 % (0-6); HEMATOCRIT 34.4 % (36.0-47.0); HEMOGLOBIN 11.3 g/dL (12.0-15.5); MEAN CORPUSCULAR HEMOGLOBIN 26.8 pg (27.0-33.4); MEAN CORPUSCULAR HGB CONC 32.9 g/dL (32.0-36.0); MEAN CORPUSCULAR VOLUME 81 fl (80-97); MONOCYTES % (AUTO) 6.4 % (3-13); PLATELET COUNT 221 10^3/uL (150-450); RED BLOOD COUNT 4.23 10^6/uL (3.72-5.28); RED CELL DISTRIBUTION WIDTH 15.6 % (11.5-14.0); TOTAL CELLS COUNTED % (AUTO) 100 %; WHITE BLOOD COUNT 12.5 10^3/uL (4.0-10.5)
[2019-01-16 13:56] LABS: PROTHROMBIN TIME 13.2 SEC (11.4-15.4)
[2019-01-16 14:05] LABS: ALANINE AMINOTRANSFERASE 22 U/L (9-52); ALBUMIN 4.2 g/dL (3.5-5.0); ALKALINE PHOSPHATASE 75 U/L (38-126); ANION GAP 10 (5-19); ASPARTATE AMINO TRANSFERASE 40 U/L (14-36); BILIRUBIN,DIRECT 0.4 mg/dL (0.0-0.4); BILIRUBIN,TOTAL 0.6 mg/dL (0.2-1.3); BLOOD UREA NITROGEN 19 mg/dL (7-20); CALCIUM 9.6 mg/dL (8.4-10.2); CARBON DIOXIDE 27 mmol/L (22-30); CHLORIDE 96 mmol/L (98-107); GLUCOSE 243 mg/dL (75-110); POTASSIUM 4.2 mmol/L (3.6-5.0); SODIUM 133.1 mmol/L (137-145); TOTAL PROTEIN 7.9 g/dL (6.3-8.2)
[2019-01-16] MEDS ORDERED: MIDAZOLAM 2 MG/2 ML INJ IV ONE (14:39)
[2019-01-16] MEDS ORDERED: CEFTRIAXONE 1 GM/D5W RTU 1 GM/50 ML RTUPB IV ONE (14:49)
--- NOTE | 2019-01-16 15:23 | RADIOLOGY REPORT (SQ) ---
EXAM DESCRIPTION: CT HEAD WITHOUT COMPLETED DATE/TIME: 01/16/2019 3:01 pm REASON FOR STUDY: Altered mental status COMPARISON: 12/18/2018 TECHNIQUE: Axial images acquired through the brain without intravenous contrast. Images reviewed wi th bone, brain and subdural windows. Additional sagittal and coronal reconstructions were generated. Images stored on PACS. All CT scanners at this facility use dose modulation, iterative reconstruction, and/or weight based d osing when appropriate to reduce radiation dose to as low as reasonably achievable (ALARA). [facility]: Dose Right [facility]: CareDose [facility]: Dose Right [facility]: Teradose 4D [facility]: [employer] RADIATION DOSE: CT Rad equipment meets quality standard of care and radiation dose reduction techniq ues were employed. CTDIvol: 53.2 mGy. DLP: 1150 mGy-cm. mGy. LIMITATIONS: None. FINDINGS: VENTRICLES: Normal size and contour. CEREBRUM: No masses. No hemorrhage. No midline shift. No evidence for acute infarction. Normal gra y/white matter differentiation. No areas of low density in the white matter. CEREBELLUM: No masses. No hemorrhage. No alteration of density. No evidence for acute infarction. EXTRAAXIAL SPACES: No fluid collections. No masses. ORBITS AND GLOBE: No intra- or extraconal masses. Normal contour of globe without masses. CALVARIUM: No fracture. PARANASAL SINUSES: No fluid or mucosal thickening. SOFT TISSUES: No mass or hematoma. OTHER: No other significant finding. IMPRESSION: No acute intracranial pathology. EVIDENCE OF ACUTE STROKE: NO. COMMENT: Quality ID # [id number]: Final reports with documentation of one or more dose reduction techniques (e.g., Automated exposure control, adjustment of the mA and/or kV according to patient size, use of iterative reconstruction technique) TECHNICAL DOCUMENTATION: JOB ID: [id number] [employer]- All Rights Reserved Reading location - IP/workstation name: [email or web address]
--- NOTE | 2019-01-16 16:38 | ER Document Report ---
ED General - General Chief Complaint: Altered Mental Status Stated Complaint: ALTERED MENTAL STATUS Time Seen by Provider: 01/16/19 12:59 Notes: Patient is acting confused and disoriented since last night. Here with her daughter who says the patient had a similar presentation about a month ago and was diagnosed with a UTI. She was hospitalized at this hospital. She had a urine test that was negative although her subsequent urine culture grew out Klebsiella pneumoniae. She also grew out positive strep viridans and Staphylococcus epidermidis in her blood cultures. Patient has not had any vomiting or diarrhea. Has developed a slight cough. Has not had any fever. TRAVEL OUTSIDE OF THE [place] IN LAST 30 DAYS: No - Related Data Allergies/Adverse Reactions: NSAIDS (Non-Steroidal Anti-Inflamma [Nsaids] Allergy (Severe, Verified 02/26/18 10:36) gastric bleed adhesive [Adhesive] Allergy (Intermediate, Verified 02/26/18 10:36) codeine Allergy (Verified 12/17/18 18:26) meperidine Allergy (Verified 12/17/18 18:26) morphine Allergy (Verified 02/26/18 10:36) Past Medical History - Social History Smoking Status: Unknown if Ever Smoked Family History: Reviewed & Not Pertinent, CAD, DM, Other - Peptic ulcer disease Patient has suicidal ideation: No Patient has homicidal ideation: No - Past Medical History Cardiac Medical History: Reports: Hx Coronary Artery Disease, Hx Hype rcholesterolemia, Hx Hypertension, Hx Peripheral Vascular Disease - Carotid artery disease Pulmonary Medical History: Reports: Hx Bronchitis, Hx COPD Endocrine Medical History: Reports: Hx Diabetes Mellitus Type 1, Hx Diabetes Mellitus Type 2. Denies: Hx Hyperthyroidism, Hx Hypothyroidism Musculoskeletal Medical History: Reports Hx Arthritis, Reports Hx Muscle Spasm Psychiatric Medical History: Reports: Hx Bipolar Disorder, Hx Dementia, Hx Depression Infectious Medical History: Denies: Hx Hepatitis Past Surgical History: Reports: Hx Abdominal Surgery - BOTOX INJECTIONS [id number], Hx Cholecystectomy, Hx Hysterectomy, Hx Orthopedic Surgery - Back surgery, Hx Urinary Tract Surgery, Other - Urinary bladder suspension procedure - Immunizations Hx Diphtheria, Pertussis, Tetanus Vaccination: Yes Hx Pneumococcal Vaccination: 10/04/13 Review of Systems - Review of Systems Notes: REVIEW OF SYSTEMS: Provided by daughter. Patient is unable to communicate. She is awake, but not alert and does not follow commands or answer questions. Seems to be very confused. Vital signs are all essentially normal. Afebrile. CONSTITUTIONAL : Denies fever. EENT: Denies eye, ear, nose or mouth or throat pain or other symptoms. CARDIOVASCULAR: Denies chest pain. RESPIRATORY: Denies cough, chest congestion, or shortness of breath. GASTROINTESTINAL: Denies abdominal pain or nausea, vomiting, or diarrhea. GENITOURINARY: Denies difficulty or painful urinating, urinary frequency, blood in urine. MUSCULOSKELETAL: Denies back or neck pain. Denies joint pain or swelling. SKIN: Denies rash or skin lesions. NEUROLOGICAL: Denies LOC but altered mental status, see HPI.. Denies sensory loss or motor deficits. ALL OTHER SYSTEMS REVIEWED AND NEGATIVE. Physical Exam - Vital signs Vitals: Resp Pulse Ox 17 99 01/16/19 13:22 01/16/19 13:22 Interpretation: Normal Notes: PHYSICAL EXAMINATION: GENERAL: Well-appearing, in no acute distress. Patient is confused. Does not follow commands. Does not answer questions. Is able to stand up at bedside without assistance. Moves all 4 extremities. HEAD: Atraumatic, normocephalic. EYES: Pupils equal round and reactive to light, extraocular movements intact. ENT: oropharynx clear without exudates. Moist mucous membranes. NECK: Normal range of motion, supple. LUNGS: Breath sounds clear and equal bilaterally. HEART: Regular rate and rhythm without murmurs. ABDOMEN: Soft, nontender. No guarding or rebound. No masses. BACK: No tenderness throughout entire back. EXTREMITIES: Normal range of motion without pain. NEUROLOGICAL: Does not speak. Grossly normal sensory, motor, and reflex exams. Not alert or oriented.. PSYCH: Normal mood, normal affect. SKIN: Warm, dry, no rashes. Course - Re-evaluation Re-evalutation: 01/16/19 16:38 Work-up done in labs showed no likely UTI. White count slightly elevated. CT scan of the head is negative. Spoke with the hospitalist will admit the patient for altered mental status. Antibiotics have been and started. - Vital Signs Vital signs: Temp Pulse Resp BP Pulse Ox 97.4 F 69 16 129/54 H 94 01/17/19 08:14 01/17/19 08:14 01/17/19 08:14 01/17/19 08:14 01/17/19 08:14 - Laboratory Result Diagrams: 01/17/19 05:51 07/04/19 05:51 Laboratory results interpreted by me: 01/16/19 01/16/19 01/16/19 13:20 13:30 13:30 WBC 12.5 H Hgb 11.3 L Hct 34.4 L MCH 26.8 L RDW 15.6 H Seg Neutrophils % 83.0 H Lymphocytes % 10.0 L Absolute Neutrophils 10.4 H VBG pH Sodium 133.1 L Chloride 96 L Glucose 243 H AST 40 H Urine Glucose (UA) >=500 H 01/16/19 13:30 WBC Hgb Hct MCH RDW Seg Neutrophils % Lymphocytes % Absolute Neutrophils VBG pH 7.51 H Sodium Chloride Glucose AST Urine Glucose (UA) - Diagnostic Test Radiology reviewed: Image reviewed, Reports reviewed - CT scan of the brain is normal. - EKG Interpretation by Me EKG shows normal: Sinus rhythm Rate: Normal Rhythm: NSR [place]/QRS: LBBB Discharge - Discharge Clinical Impression: Altered mental status Condition: Stable Disposition: ADMITTED INPATIENT Admitting Provider: Natalia (Hospitalist) Unit Admitted: [facility]
--- NOTE | 2019-01-16 17:10 | RADIOLOGY REPORT (SQ) ---
EXAM DESCRIPTION: CHEST SINGLE VIEW COMPLETED DATE/TIME: 01/16/2019 4:59 pm REASON FOR STUDY: Altered mental status COMPARISON: CT chest 02/26/2018 CT abdomen pelvis 12/15/2016, 05/03/2016 Chest films 05/23/2016, 11/08/2017, 12/17/2018 EXAM PARAMETERS: NUMBER OF VIEWS: One view. TECHNIQUE: Single frontal radiographic view of the chest acquired. RADIATION DOSE: NA LIMITATIONS: None. FINDINGS: LUNGS AND PLEURA: Patient has pulmonary fibrosis with increased interstitial markings arou nd the periphery of both lungs. This is accentuated by low lung volumes on the current film. No dense consolidation worrisome for pneumonia. No pleural effusions. No pneumothorax. MEDIASTINUM AND HILAR STRUCTURES: No masses. Contour normal. HEART AND VASCULAR STRUCTURES: No cardiomegaly BONES: No acute findings. HARDWARE: None in the chest. OTHER: No other significant finding. IMPRESSION: Increased interstitial markings likely chronic pulmonary fibrosis accentuated by low micah g volumes. TECHNICAL DOCUMENTATION: JOB ID: [id number] [employer] [place]- All Rights Reserved Reading location - IP/workstation name: [email or web address]
[2019-01-16] MEDS ORDERED: IPRATROPIUM/ALBUTEROL 0.5-2.5 MG/3 ML AMPUL NEB PRN (17:51)
--- NOTE | 2019-01-16 17:57 | EKG REPORT ---
SEVERITY:- ABNORMAL ECG - SINUS RHYTHM PROBABLE LEFT ATRIAL ABNORMALITY LEFT BUNDLE BRANCH BLOCK : Confirmed by: Bella Guzman 16-Jan-2019 17:56:53
[2019-01-16] MEDS ORDERED: HYDRALAZINE HCL INJ/PF 20 MG/1 ML SDV IV PRN (17:59)
[2019-01-16] MEDS ORDERED: DEXTROSE 40% GEL 15 GM TUBE PO PRN ×2 (18:00)
[2019-01-16] MEDS ORDERED: GLUCAGON,HUMAN RECOMB 1 MG INJ IM PRN (18:00)
[2019-01-16] MEDS ORDERED: DEXTROSE 50%-WATER 25 GM/50 ML DISP.SYRIN IV PRN ×2 (18:00)
[2019-01-16] MEDS ORDERED: LORAZEPAM INJ 2 MG/1 ML VIAL IV PRN (18:16)
--- NOTE | 2019-01-16 18:16 | PDOC H&P ---
History of Present Illness Admission Date/PCP: TERESA WARD DO History of Present Illness: ADILENE LEWIS is a 73 year old female past medical history of CAD, per lipidemia, hypertension, PVD, COPD, diabetes, dementia, depression, recurrent, diffuse, recurrent altered mental status for the last 3 years. Last hospitalization , hospital for acute encephalopathy, gram- positive bacteremia, UTI. As per daughter patient was doing fine after discharge and at baseline she is independent and not altered, last night when she called her around 7:53 PM she sounded disoriented, when she checked on her and this morning she was unresponsive, and agitated. Per patient's daughter who is at the bedside, stating that her mother does not seem like following any commands and she was disoriented to the point she was missed taking the kitchen with her bathroom. Patient is awake, restless, does not follow any command, not seem to be in any acute distress, cannot communicate, touched for physical exam. Patient gets agitated. Patient daughter stating that she has been having altered mental status about every 6 months for the last 3 years, and symptoms tend to be all the same each time, and last hospitalization she was told that her ultrasound was closed by her UTI. At baseline patient is living with her and living in independent life. Past Medical History Cardiac Medical History: Reports: Coronary Artery Disease, Hyperlipidema, Hypertension, Peripheral Vascular Disease - Carotid artery disease Pulmonary Medical History: Reports: Bronchitis, Chronic Obstructive Pulmonary Disease (COPD) Endocrine Medical History: Reports: Diabetes Mellitus Type 1, Diabetes Mellitus Type 2 Denies: Hyperthyroidism, Hypothyroidism GI Medical History: Denies: Hepatitis Musculoskeltal Medical History: Reports: Arthritis Psychiatric Medical History: Reports: Bipolar Disorder, Dementia, Depression Hematology: Denies: Anemia, Bleeding Tendencies Past Surgical History Past Surgical History: Reports: Cholecystectomy, Hysterectomy, Orthopedic Surgery - Back surgery, Other - Urinary bladder suspension procedure Social History Smoking Status: Unknown if Ever Smoked Frequency of Alcohol Use: None Hx Recreational Drug Use: No Drugs: None Hx Prescription Drug Abuse: No Family History Family History: Reviewed & Not Pertinent, CAD, DM, Other - Peptic ulcer disease Parental Family History Reviewed: Yes Children Family History Reviewed: Yes Sibling(s) Family History Reviewed.: Yes Medication/Allergy Home Medications: Alprazolam [Xanax] 1 mg PO Q8HP PRN 11/09/17 Aspirin [Aspirin EC] 81 mg PO DAILY 11/09/17 Butalb/Acetaminophen/Caffeine [Fioricet (50-325-40 mg) Tablet] 1 tab PO Q6HP PRN MDD 4 TABLETS 11/09/17 Clonidine HCl [Catapres 0.1 mg Tablet] 0.1 mg PO Q8HP PRN 11/09/17 Gabapentin [Neurontin 400 mg Capsule] 1,200 mg PO QHS 11/09/17 Gabapentin [Neurontin 400 mg Capsule] 400 mg PO BID@0800,1400 11/09/17 Nebivolol HCl [Bystolic] 20 mg PO DAILY 11/09/17 Omeprazole 40 mg PO BIDBS 11/09/17 Oxycodone HCl [Oxycodone HCl 10 MG Tablet] 10 mg PO Q6HP PRN 11/09/17 Rosuvastatin Calcium [Crestor 20 mg Tablet] 20 mg PO QHS 11/09/17 Tizanidine HCl [Zanaflex 4 mg Tablet] 2 mg PO HSP PRN MDD 4 MG 11/09/17 Albuterol Sulfate [Albuterol Sulfate Hfa] 1 puff IH Q6HP PRN 12/18/18 Amlodipine Besylate [Norvasc 5 mg Tablet] 5 mg PO DAILY 12/18/18 Cyanocobalamin (Vitamin B-12) [Vitamin B-12 1000 mcg Tablet] 1,000 mcg PO DAILY 12/18/18 Cyclobenzaprine HCl [Flexeril 5 mg Tablet] 5 mg PO Q8HP PRN 12/18/18 Empagliflozin/Linagliptin [Glyxambi 10 mg-5 mg Tablet] 1 each PO DAILY 12/18/18 Insulin Lispro [Humalog Insulin (Lispro) 100 unit/mL] 0 unit SUBCUT .SLD SCALE MDD 80 UNITS 12/18/18 Magnesium Oxide [Mag-Ox 400 mg Tablet] 400 mg PO DAILY 12/18/18 Pioglitazone HCl [Actos 15 mg Tablet] 15 mg PO DAILY 12/18/18 Sertraline HCl [Zoloft 50 mg Tablet] 100 mg PO DAILY 12/18/18 Telmisartan/Hydrochlorothiazid [Telmisartan-Hctz 80-12.5 mg Tb] 1 each PO DAILY 12/18/18 Amoxicillin/Potassium Clav [Augmentin 500-125 Tablet] 1 each PO BID 5 Days #10 tablet 12/21/18 Allergies/Adverse Reactions: NSAIDS (Non-Steroidal Anti-Inflamma [Nsaids] Allergy (Severe, Verified 02/26/18 10:36) gastric bleed adhesive [Adhesive] Allergy (Intermediate, Verified 02/26/18 10:36) codeine Allergy (Verified 12/17/18 18:26) meperidine Allergy (Verified 12/17/18 18:26) morphine Allergy (Verified 02/26/18 10:36) Review of Systems ROS unobtainable: Due to mental status Physical Exam Vital Signs: Temp Pulse Resp BP Pulse Ox 13 134/53 H 100 01/16/19 17:00 01/16/19 15:52 01/16/19 15:50 Intake & Output 01/15/19 01/16/19 01/17/19 06:59 06:59 06:59 Intake Total 50 Balance 50 General appearance: PRESENT: no acute distress, well-developed, well-nourished Head exam: PRESENT: atraumatic, normocephalic Respiratory exam: PRESENT: clear to auscultation vinicius. ABSENT: rales, rhonchi, wheezes Cardiovascular exam: PRESENT: RRR. ABSENT: diastolic murmur, rubs, systolic murmur GI/Abdominal exam: PRESENT: normal bowel sounds, soft. ABSENT: distended, guarding, mass, organolmegaly, rebound, tenderness Extremities exam: PRESENT: full ROM. ABSENT: calf tenderness, clubbing, pedal edema Neurological exam: PRESENT: altered Skin exam: PRESENT: dry, intact, warm. ABSENT: cyanosis, rash Results Laboratory Results: 01/16/19 13:30 01/16/19 13:30 01/16/19 01/16/19 01/16/19 13:20 13:30 13:30 WBC 12.5 H RBC 4.23 Hgb 11.3 L Hct 34.4 L MCV 81 MCH 26.8 L MCHC 32.9 RDW 15.6 H Plt Count 221 Seg Neutrophils % 83.0 H Lymphocytes % 10.0 L Monocytes % 6.4 Eosinophils % 0.1 Basophils % 0.5 Absolute Neutrophils 10.4 H Absolute Lymphocytes 1.2 Absolute Monocytes 0.8 Absolute Eosinophils 0.0 Absolute Basophils 0.1 VBG pH VBG pCO2 VBG HCO3 VBG Base Excess Sodium 133.1 L Potassium 4.2 Chloride 96 L Carbon Dioxide 27 Anion Gap 10 BUN 19 Creatinine 0.79 Est GFR ( Amer) > 60 Est GFR (Non-Af Amer) > 60 Glucose 243 H Lactic Acid Calcium 9.6 Total Bilirubin 0.6 AST 40 H ALT 22 Alkaline Phosphatase 75 Total Protein 7.9 Albumin 4.2 Urine Color YELLOW Urine Appearance CLEAR Urine pH 7.0 Ur Specific Waterflow 1.018 Urine Protein NEGATIVE Urine Glucose (UA) >=500 H Urine Ketones NEGATIVE Urine Blood NEGATIVE Urine Nitrite NEGATIVE Ur Leukocyte Esterase NEGATIVE Urine WBC (Auto) 6 Urine RBC (Auto) 1 01/16/19 01/16/19 13:30 13:30 WBC RBC Hgb Hct MCV MCH MCHC RDW Plt Count Seg Neutrophils % Lymphocytes % Monocytes % Eosinophils % Basophils % Absolute Neutrophils Absolute Lymphocytes Absolute Monocytes Absolute Eosinophils Absolute Basophils VBG pH 7.51 H VBG pCO2 36.3 VBG HCO3 28.3 VBG Base Excess 5.1 Sodium Potassium Chloride Carbon Dioxide Anion Gap BUN Creatinine Est GFR ( Amer) Est GFR (Non-Af Amer) Glucose Lactic Acid 1.7 Calcium Total Bilirubin AST ALT Alkaline Phosphatase Total Protein Albumin Urine Color Urine Appearance Urine pH Ur Specific Waterflow Urine Protein Urine Glucose (UA) Urine Ketones Urine Blood Urine Nitrite Ur Leukocyte Esterase Urine WBC (Auto) Urine RBC (Auto) Impressions: Head CT 01/16/19 14:37 IMPRESSION: No acute intracranial pathology. EVIDENCE OF ACUTE STROKE: NO. Chest X-Ray 01/16/19 16:41 IMPRESSION: Increased interstitial markings likely chronic pulmonary fibrosis accentuated by low lung volumes. Assessment and Plan - Diagnosis (1) Acute encephalopathy Is this a current diagnosis for this admission?: Yes Plan: Metabolic versus polypharmacy. Patient is on several medications I counseled about 22. Daughter insists that her father is overseeing her medication intake and does not think that she has overdosed. She is on tizanidine, gabapentin, cyclobenzaprine, oxycodone, Xanax, triazolam on top of BP, CAD, and diabetes medications. On CBC patient has elevated leukocytes, and CMP mild hyponatremia otherwise unremarkable. UA negative. CT head negative for any acute changes. Admit to IMCU, telemetry, empiric IV antibiotics, hold psychoactive meds, culture, urine culture, PRN Haldol for agitation (2) Diabetes Qualifiers: Diabetes mellitus type: type 2 Is this a current diagnosis for this admission?: Yes Plan: Diabetic diet, sliding scale insulin, long-acting insulin, pre-meal insulin, hypoglycemia protocol, Accu-Chek. Adjust meds as needed. Restart home meds upon discharge. Follow-up with PCP. (3) Hypertension Is this a current diagnosis for this admission?: Yes Plan: Restart home meds. Adjust meds as needed. IV hydralazine PRN. (4) CAD (coronary artery disease) Is this a current diagnosis for this admission?: Yes Plan: Status post stent placement. EKG chronic LBBB. No acute changes. Continue antiplatelets, beta-blockers, ARB, statins. Outpatient PCP and cardiology follow-up. (5) COPD (chronic obstructive pulmonary disease) Qualifiers: Emphysema type: unspecified Is this a current diagnosis for this admission?: Yes Plan: Does not seem to be exacerbated. Supplemental oxygen, PRN duo nebs, PRN BiPAP. Start home meds on discharge. (6) Leukocytosis Qualifiers: Leukocytosis type: unspecified Qualified Code(s): D72.829 - Elevated white blood cell count, unspecified Is this a current diagnosis for this admission?: Yes Plan: Mild leukocytosis, no bandemia. Blood culture, empiric IV antibiotics. Follow up blood culture.
[2019-01-16 20:02] LABS: URINE AMPHETAMINES SCREEN NEGATIVE; URINE BARBITURATES SCREEN UNCONFIRMED POSITIVE; URINE BENZODIAZEPINES SCREEN UNCONFIRMED POSITIVE; URINE COCAINE SCREEN NEGATIVE; URINE MARIJUANA (THC) SCREEN NEGATIVE; URINE METHADONE SCREEN NEGATIVE; URINE PHENCYCLIDINE SCREEN NEGATIVE
[2019-01-16] MEDS: ONDANSETRON HCL INJ/PF 4 MG/2 ML SDV IV PRN (20:20)
[2019-01-16] MEDS: HALOPERIDOL LACTATE INJ 5 MG/1 ML VIAL IV PRN (21:31)
[2019-01-16] MEDS: NORMAL SALINE 1000 ML 1,000 ML IV PRN (21:32)
[2019-01-16] MEDS ORDERED: INSULIN GLARGINE,HUM.REC.ANLOG 1,000 UNIT/10 ML VIAL (PYX) SUBCUT ONE ×2 (21:40→22:00)
[2019-01-16] MEDS: INSULIN REG, HUMAN 100 UNIT/ML 3 ML VIAL (PYX) SUBCUT SCH (21:41)
[2019-01-16] MEDS ORDERED: INSULIN GLARGINE,HUM.REC.ANLOG 1,000 UNIT/10 ML VIAL SUBCUT SCH (22:00)
[2019-01-16] MEDS: FAMOTIDINE 20 MG TABLET PO SCH (22:56)
[2019-01-17 06:09] LABS: ABSOLUTE NEUT (AUTO) 9.4 10^3/uL (1.7-8.2); BASOPHILS % (AUTO) 0.4 % (0-2); EOSINOPHILS % (AUTO) 0.1 % (0-6); HEMATOCRIT 31.1 % (36.0-47.0); HEMOGLOBIN 10.3 g/dL (12.0-15.5); LYMPHOCYTES % (AUTO) 8.5 % (13-45); MEAN CORPUSCULAR HEMOGLOBIN 26.7 pg (27.0-33.4); MEAN CORPUSCULAR HGB CONC 33.2 g/dL (32.0-36.0); MEAN CORPUSCULAR VOLUME 80 fl (80-97); PLATELET COUNT 205 10^3/uL (150-450); RED BLOOD COUNT 3.87 10^6/uL (3.72-5.28); RED CELL DISTRIBUTION WIDTH 15.6 % (11.5-14.0); TOTAL CELLS COUNTED % (AUTO) 100 %; WHITE BLOOD COUNT 11.4 10^3/uL (4.0-10.5)
[2019-01-17 06:29] LABS: ALANINE AMINOTRANSFERASE 22 U/L (9-52); ALBUMIN 3.7 g/dL (3.5-5.0); ALKALINE PHOSPHATASE 65 U/L (38-126); ANION GAP 11 (5-19); ASPARTATE AMINO TRANSFERASE 34 U/L (14-36); BILIRUBIN,DIRECT 0.4 mg/dL (0.0-0.4); BILIRUBIN,TOTAL 0.5 mg/dL (0.2-1.3); BLOOD UREA NITROGEN 18 mg/dL (7-20); CALCIUM 9.2 mg/dL (8.4-10.2); CARBON DIOXIDE 23 mmol/L (22-30); CHLORIDE 103 mmol/L (98-107); GLUCOSE 179 mg/dL (75-110); POTASSIUM 3.5 mmol/L (3.6-5.0); SODIUM 137.1 mmol/L (137-145)
[2019-01-17] MEDS ORDERED: ACYCLOVIR SODIUM INJ/PF 500 MG/10 ML SDV IV ONE (08:51)
[2019-01-17] MEDS: INSULIN REG, HUMAN 100 UNIT/ML 3 ML VIAL (PYX) SUBCUT SCH ×4 (09:41→22:17)
[2019-01-17] MEDS: NEBIVOLOL HCL 10 MG TABLET PO SCH (09:42)
[2019-01-17] MEDS: DOCUSATE SODIUM 100 MG CAPSULE PO SCH (09:42)
[2019-01-17] MEDS: ENOXAPARIN SODIUM INJ 40 MG/0.4 ML DISP.SYRIN SUBCUT SCH (09:42)
[2019-01-17] MEDS: FAMOTIDINE 20 MG TABLET PO SCH ×2 (09:43→22:12)
[2019-01-17] MEDS: ONDANSETRON HCL INJ/PF 4 MG/2 ML SDV IV PRN (09:43)
[2019-01-17] MEDS ORDERED: CEFTRIAXONE 1 GM/D5W RTU 1 GM/50 ML RTUPB IV SCH (10:00)
--- NOTE | 2019-01-17 11:50 | PDOC PROGRESS REPORT ---
Subjective Progress Note for:: 01/17/19 Subjective:: ADILENE LEWIS is a 73 year old female past medical history of CAD, per lipidemia, hypertension, PVD, COPD, diabetes, dementia, depression, recurrent, diffuse, recurrent altered mental status for the last 3 years. Last hospitalization , hospital for acute encephalopathy, gram- positive bacteremia, UTI. As per daughter patient was doing fine after discharge and at baseline she is independent and not altered, last night when she called her around 7:53 PM she sounded disoriented, when she checked on her and this morning she was unresponsive, and agitated. Per patient's daughter who is at the bedside, stating that her mother does not seem like following any commands and she was disoriented to the point she was missed taking the kitchen with her bathroom. Patient is awake, restless, does not follow any command, not seem to be in any acute distress, cannot communicate, touched for physical exam. Patient gets agitated. Patient daughter stating that she has been having altered mental status about every 6 months for the last 3 years, and symptoms tend to be all the same each time, and last hospitalization she was told that her ultrasound was closed by her UTI. At baseline patient is living with her and living in independent life. 01/17/2019. No acute events overnight, no significant changes. Patient still altered, awake, however does not communicate, does not follow any command, does not seem to be in any apparent distress, on physical examination but there is no rash, there is no meningismus. is on the bedside and updated on the patient's status. Reason For Visit: ENCEPHALOPAPHY Physical Exam Vital Signs: Temp Pulse Resp BP Pulse Ox 97.4 F 69 16 129/54 H 94 01/17/19 08:14 01/17/19 08:14 01/17/19 08:14 01/17/19 08:14 01/17/19 08:14 Intake & Output 01/16/19 01/17/19 01/18/19 06:59 06:59 06:59 Intake Total 50 Output Total 1000 Balance -950 Weight 75.8 kg General appearance: PRESENT: no acute distress, well-developed, well-nourished Head exam: PRESENT: atraumatic, normocephalic Respiratory exam: PRESENT: clear to auscultation vinicius. ABSENT: rales, rhonchi, wheezes Cardiovascular exam: PRESENT: RRR. ABSENT: diastolic murmur, rubs, systolic murmur GI/Abdominal exam: PRESENT: normal bowel sounds, soft. ABSENT: distended, guard ing, mass, organolmegaly, rebound, tenderness Extremities exam: PRESENT: full ROM. ABSENT: calf tenderness, clubbing, pedal edema Neurological exam: PRESENT: altered, awake, CN II-XII grossly intact. ABSENT: motor sensory deficit Skin exam: PRESENT: dry, intact, warm. ABSENT: cyanosis, rash Results Laboratory Results: 01/17/19 05:51 01/17/19 05:51 01/16/19 01/16/19 01/16/19 13:20 13:30 13:30 WBC 12.5 H RBC 4.23 Hgb 11.3 L Hct 34.4 L MCV 81 MCH 26.8 L MCHC 32.9 RDW 15.6 H Plt Count 221 Seg Neutrophils % 83.0 H Lymphocytes % 10.0 L Monocytes % 6.4 Eosinophils % 0.1 Basophils % 0.5 Absolute Neutrophils 10.4 H Absolute Lymphocytes 1.2 Absolute Monocytes 0.8 Absolute Eosinophils 0.0 Absolute Basophils 0.1 VBG pH VBG pCO2 VBG HCO3 VBG Base Excess Sodium 133.1 L Potassium 4.2 Chloride 96 L Carbon Dioxide 27 Anion Gap 10 BUN 19 Creatinine 0.79 Est GFR ( Amer) > 60 Est GFR (Non-Af Amer) > 60 Glucose 243 H Lactic Acid Calcium 9.6 Total Bilirubin 0.6 AST 40 H ALT 22 Alkaline Phosphatase 75 Ammonia Total Protein 7.9 Albumin 4.2 TSH Urine Color YELLOW Urine Appearance CLEAR Urine pH 7.0 Ur Specific [place] 1.018 Urine Protein NEGATIVE Urine Glucose (UA) >=500 H Urine Ketones NEGATIVE Urine Blood NEGATIVE Urine Nitrite NEGATIVE Ur Leukocyte Esterase NEGATIVE Urine WBC (Auto) 6 Urine RBC (Auto) 1 01/16/19 01/16/19 01/16/19 13:30 13:30 21:00 WBC RBC Hgb Hct MCV MCH MCHC RDW Plt Count Seg Neutrophils % Lymphocytes % Monocytes % Eosinophils % Basophils % Absolute Neutrophils Absolute Lymphocytes Absolute Monocytes Absolute Eosinophils Absolute Basophils VBG pH 7.51 H VBG pCO2 36.3 VBG HCO3 28.3 VBG Base Excess 5.1 Sodium Potassium Chloride Carbon Dioxide Anion Gap BUN Creatinine Est GFR ( Amer) Est GFR (Non-Af Amer) Glucose Lactic Acid 1.7 Calcium Total Bilirubin AST ALT Alkaline Phosphatase Ammonia < 8.7 L Total Protein Albumin TSH Urine Color Urine Appearance Urine pH Ur Specific [place] Urine Protein Urine Glucose (UA) Urine Ketones Urine Blood Urine Nitrite Ur Leukocyte Esterase Urine WBC (Auto) Urine RBC (Auto) 01/17/19 01/17/19 01/17/19 05:51 05:51 05:51 WBC 11.4 H RBC 3.87 Hgb 10.3 L Hct 31.1 L MCV 80 MCH 26.7 L MCHC 33.2 RDW 15.6 H Plt Count 205 Seg Neutrophils % 82.0 H Lymphocytes % 8.5 L Monocytes % 9.0 Eosinophils % 0.1 Basophils % 0.4 Absolute Neutrophils 9.4 H Absolute Lymphocytes 1.0 Absolute Monocytes 1.0 Absolute Eosinophils 0.0 Absolute Basophils 0.0 VBG pH VBG pCO2 VBG HCO3 VBG Base Excess Sodium 137.1 Potassium 3.5 L Chloride 103 Carbon Dioxide 23 Anion Gap 11 BUN 18 Creatinine 0.75 Est GFR ( Amer) > 60 Est GFR (Non-Af Amer) > 60 Glucose 179 H Lactic Acid Calcium 9.2 Total Bilirubin 0.5 AST 34 ALT 22 Alkaline Phosphatase 65 Ammonia Total Protein 7.0 Albumin 3.7 TSH 1.63 Urine Color Urine Appearance Urine pH Ur Specific [place] Urine Protein Urine Glucose (UA) Urine Ketones Urine Blood Urine Nitrite Ur Leukocyte Esterase Urine WBC (Auto) Urine RBC (Auto) Impressions: Head CT 01/16/19 14:37 IMPRESSION: No acute intracranial pathology. EVIDENCE OF ACUTE STROKE: NO. Chest X-Ray 01/16/19 16:41 IMPRESSION: Increased interstitial markings likely chronic pulmonary fibrosis accentuated by low lung volumes. Assessment and Plan - Diagnosis (1) Acute encephalopathy Is this a current diagnosis for this admission?: Yes Plan: Antibiotics/polypharmacy/viral encephalitis. Patient is on several medications I counseled about 22. Daughter insists that her father is overseeing her medication intake and does not think that she has overdosed. She is on tizanidine, gabapentin, cyclobenzaprine, oxycodone, Xanax, triazolam on top of BP, CAD, and diabetes medications. On CBC patient has elevated leukocytes, and CMP mild hyponatremia otherwise unremarkable. UA negative. UDS negative except for benzos and barbiturates.. CT head on admission negative for any acute changes. Admit to IMCU, telemetry, empiric IV antibiotics, hold psychoactive meds, culture, urine culture, PRN Haldol for agitation Patient had lumbar puncture and last admission which was unremarkable. As per patient is very claustrophobic and also she is very altered and unfortunately an MRI brain would not be obtainable at this moment. Would benefit from MRI brain and lumbar puncture if possible. Patient has history of chickenpox as a child, as per who is at the bedside she did have a rash sometimes in the past but he is not sure if they were shingles. Will start on prophylactic acyclovir IV for presumptive HSV/VZV encephalitis. Pending HSV 1 and 2 antibody, pending VZV IgM. Day #2 of antibiotics. Day 2 of IV ceftriaxone. Day 1 off IV acyclovir. Follow-up cultures. (2) Diabetes Qualifiers: Diabetes mellitus type: type 2 Is this a current diagnosis for this admission?: Yes Plan: Diabetic diet, sliding scale insulin, long-acting insulin, pre-meal insulin, hypoglycemia protocol, Accu-Chek. Adjust meds as needed. Restart home meds upon discharge. Follow-up with PCP. (3) Hypertension Is this a current diagnosis for this admission?: Yes Plan: Restart home meds. Adjust meds as needed. IV hydralazine PRN. (4) CAD (coronary artery disease) Is this a current diagnosis for this admission?: Yes Plan: Status post stent placement. EKG chronic LBBB. No acute changes. Continue antiplatelets, beta-blockers, ARB, statins. Outpatient PCP and cardiology follow-up. (5) COPD (chronic obstructive pulmonary disease) Qualifiers: Emphysema type: unspecified Is this a current diagnosis for this admission?: Yes Plan: Does not seem to be exacerbated. Supplemental oxygen, PRN duo nebs, PRN BiPAP. Start home meds on discharge. (6) Leukocytosis Qualifiers: Leukocytosis type: unspecified Qualified Code(s): D72.829 - Elevated white blood cell count, unspecified Is this a current diagnosis for this admission?: Yes Plan: Improving. Mild leukocytosis neutrophilic predominant. No bandemia. Blood and urine culture no growth so far. Continue empiric IV antibiotics. Follow-up cultures.
[2019-01-17] MEDS: ACYCLOVIR SODIUM 700 MG in NORMAL SALINE 100 ML IV SCH ×2 (11:53→17:15)
[2019-01-17] MEDS: HALOPERIDOL LACTATE INJ 5 MG/1 ML VIAL IV PRN (12:01)
[2019-01-17] MEDS: CEFTRIAXONE SODIUM 1,000 MG in DEXTROSE 5%-WATER 50 ML IV SCH (12:26)
[2019-01-17] MEDS: INSULIN GLARGINE,HUM.REC.ANLOG 1,000 UNIT/10 ML VIAL SUBCUT SCH (22:18)
[2019-01-18] MEDS: ACYCLOVIR SODIUM 700 MG in NORMAL SALINE 100 ML IV SCH ×3 (02:27→17:13)
[2019-01-18] MEDS: NORMAL SALINE 1000 ML 1,000 ML IV PRN ×2 (02:29→20:50)
[2019-01-18 07:26] LABS: ABSOLUTE LYMPHOCYTES (AUTO) 0.9 10^3/uL (0.5-4.7); ABSOLUTE MONOCYTES (AUTO) 0.8 10^3/uL (0.1-1.4); ABSOLUTE NEUT (AUTO) 7.5 10^3/uL (1.7-8.2); BASOPHILS % (AUTO) 0.2 % (0-2); EOSINOPHILS % (AUTO) 0.4 % (0-6); HEMATOCRIT 30.9 % (36.0-47.0); HEMOGLOBIN 10.3 g/dL (12.0-15.5); LYMPHOCYTES % (AUTO) 10.1 % (13-45); MEAN CORPUSCULAR HEMOGLOBIN 27.1 pg (27.0-33.4); MEAN CORPUSCULAR HGB CONC 33.2 g/dL (32.0-36.0); MEAN CORPUSCULAR VOLUME 81 fl (80-97); MONOCYTES % (AUTO) 8.4 % (3-13); PLATELET COUNT 248 10^3/uL (150-450); RED BLOOD COUNT 3.79 10^6/uL (3.72-5.28); RED CELL DISTRIBUTION WIDTH 15.5 % (11.5-14.0); SEGMENTED NEUTROPHILS % (AUTO) 80.9 % (42-78); TOTAL CELLS COUNTED % (AUTO) 100 %; WHITE BLOOD COUNT 9.2 10^3/uL (4.0-10.5)
[2019-01-18 08:01] LABS: ALANINE AMINOTRANSFERASE 25 U/L (9-52); ALBUMIN 3.5 g/dL (3.5-5.0); ALKALINE PHOSPHATASE 63 U/L (38-126); ANION GAP 8 (5-19); ASPARTATE AMINO TRANSFERASE 31 U/L (14-36); BILIRUBIN,DIRECT 0.3 mg/dL (0.0-0.4); BILIRUBIN,TOTAL 0.4 mg/dL (0.2-1.3); BLOOD UREA NITROGEN 15 mg/dL (7-20); CALCIUM 9.1 mg/dL (8.4-10.2); CARBON DIOXIDE 23 mmol/L (22-30); CHLORIDE 110 mmol/L (98-107); GLUCOSE 145 mg/dL (75-110); POTASSIUM 3.7 mmol/L (3.6-5.0); SODIUM 141.4 mmol/L (137-145); TOTAL PROTEIN 6.9 g/dL (6.3-8.2)
[2019-01-18] MEDS: DOCUSATE SODIUM 100 MG CAPSULE PO SCH (10:43)
[2019-01-18] MEDS: INSULIN REG, HUMAN 100 UNIT/ML 3 ML VIAL (PYX) SUBCUT SCH ×4 (10:43→23:01)
[2019-01-18] MEDS: FAMOTIDINE 20 MG TABLET PO SCH ×2 (10:50→23:02)
[2019-01-18] MEDS: ENOXAPARIN SODIUM INJ 40 MG/0.4 ML DISP.SYRIN SUBCUT SCH (10:50)
[2019-01-18] MEDS: NEBIVOLOL HCL 10 MG TABLET PO SCH (10:51)
[2019-01-18] MEDS: CEFTRIAXONE SODIUM 1,000 MG in DEXTROSE 5%-WATER 50 ML IV SCH (12:35)
--- NOTE | 2019-01-18 17:04 | PDOC PROGRESS REPORT ---
Subjective Progress Note for:: 01/18/19 Subjective:: Spoke with and examined patient at bedside along with and daughter in the room. Spoke to her about her current status and her altered mental status. states that she has been like this in the past and was also scheduled to get a lumbar puncture and in the past she was about to get a anesthetic which actually woke her up from her altered mental status state. I spoke with daughter and about her medication and possible polypharmacy. She is on a whole lot of psychotropic medications and tells me that there is a privacy policy with her primary care doctor where she has not allowed or family members to go in the visit to the family doctor. Supposedly her family doctor provides her with all her medication and she has not seen a psychiatrist in a while. States she used to see a psychiatrist but has not in the past year or more. Reason For Visit: ENCEPHALOPAPHY Physical Exam Vital Signs: Temp Pulse Resp BP Pulse Ox 97.5 F 57 L 17 101/72 99 01/18/19 12:16 01/18/19 14:00 01/18/19 12:16 01/18/19 12:16 01/18/19 12:16 Intake & Output 01/17/19 01/18/19 01/19/19 06:59 06:59 06:59 Intake Total 50 719 480 Output Total 1000 700 600 Balance -950 19 -120 Weight 167 lb 1.766 oz 171 lb 15.369 oz General appearance: PRESENT: no acute distress, other - Patient laying in bed with her eyes closed and rolling around on the bed Head exam: PRESENT: atraumatic, normocephalic Eye exam: PRESENT: other - Eyes are closed and she does not respond or follow commands to open her eyes Ear exam: PRESENT: normal external ear exam Respiratory exam: PRESENT: clear to auscultation vinicius, symmetrical Cardiovascular exam: PRESENT: +S1, +S2 GI/Abdominal exam: PRESENT: normal bowel sounds, soft Extremities exam: ABSENT: +2 edema Neurological exam: PRESENT: other - Does not follow commands, does not open her eyes, nor does she answer any of my questions She does grimace to physical pain Skin exam: PRESENT: dry, warm Results Laboratory Results: 01/18/19 06:53 01/18/19 06:53 01/18/19 01/18/19 06:53 06:53 WBC 9.2 RBC 3.79 Hgb 10.3 L Hct 30.9 L MCV 81 MCH 27.1 MCHC 33.2 RDW 15.5 H Plt Count 248 Seg Neutrophils % 80.9 H Lymphocytes % 10.1 L Monocytes % 8.4 Eosinophils % 0.4 Basophils % 0.2 Absolute Neutrophils 7.5 Absolute Lymphocytes 0.9 Absolute Monocytes 0.8 Absolute Eosinophils 0.0 Absolute Basophils 0.0 Sodium 141.4 Potassium 3.7 Chloride 110 H Carbon Dioxide 23 Anion Gap 8 BUN 15 Creatinine 0.72 Est GFR ( Amer) > 60 Est GFR (Non-Af Amer) > 60 Glucose 145 H Calcium 9.1 Magnesium 1.9 Total Bilirubin 0.4 AST 31 ALT 25 Alkaline Phosphatase 63 Total Protein 6.9 Albumin 3.5 01/16/19 13:20 Catheterized Urine Urine Culture - Final NO GROWTH 2 DAYS Impressions: Head CT 01/16/19 14:37 IMPRESSION: No acute intracranial pathology. EVIDENCE OF ACUTE STROKE: NO. Chest X-Ray 01/16/19 16:41 IMPRESSION: Increased interstitial markings likely chronic pulmonary fibrosis accentuated by low lung volumes. Assessment and Plan - Diagnosis (2) CAD (coronary artery disease) Is this a current diagnosis for this admission?: Yes (3) DM w/o complication type II Qualifiers: Diabetes mellitus regional intermodal truck driver insulin use: unspecified regional intermodal truck driver insulin use status Qualified Code(s): E11.9 - Type 2 diabetes mellitus without complications Is this a current diagnosis for this admission?: Yes (4) Hyponatremia Is this a current diagnosis for this admission?: Yes (5) Essential hypertension Is this a current diagnosis for this admission?: Yes - Plan Summary Plan Summary: Acute encephalopathy-unclear etiology-metabolic versus toxic versus septic. She was started on IV Rocephin and acyclovir for suspected HSV infection since had stated that he saw a rash a week or 2 ago. She also had leukocytosis and started on Rocephin for suspected UTI. Her white count has since then trended down. She remains comfortable and not in acute distress but she is not responding to any verbal commands nor she following any other commands. She has her eyes closed when I was in the room examining her and talking to her family. Per family this has happened in the past and at that time she just woke up on herself and became better. She does have a lot of medications at home that she is taking currently that her states that he is not allowed to see her primary care during the visits. This seems very unusual to me since is not allowed to be in the primary care's office when she is visiting her doctor. Her home meds are currently being held hoping that this will clear her system and hopefully she will start to respond a little bit better. Her and her last episode of such acute encephalopathy it took her 3 to 4 days before she came around. Previous physician felt that she might benefit from a lumbar puncture or an MRI-unfortunately both of those are not possible at this time since she is not cooperative and she is not following verbal commands. Continue with IV fluids for now for some hydration as she is not having good p.o. intake Diabetes-continue with Lantus and SSI. Hypertension-she is currently only on a Bystolic and all her other meds are being held. 3 of her other home meds are being held at this time. Her blood pressure seems to be stable at this time. We may need to restart her home meds gradually as blood pressure starts to trend up History of CAD-I will restart her aspirin from tomorrow
[2019-01-18] MEDS ORDERED: (PENDING PHARMACY ID) (Rosuvastatin Calcium [Crestor 20 Mg Tablet] 20 MG) PO SCH (22:00)
[2019-01-18] MEDS: INSULIN GLARGINE,HUM.REC.ANLOG 1,000 UNIT/10 ML VIAL SUBCUT SCH (23:01)
[2019-01-18] MEDS: ATORVASTATIN CALCIUM 40 MG TABLET PO SCH (23:02)
[2019-01-19] MEDS: ACYCLOVIR SODIUM 700 MG in NORMAL SALINE 100 ML IV SCH ×3 (02:15→17:09)
[2019-01-19 04:44] LABS: ABSOLUTE BASOPHILS # (AUTO) 0.1 10^3/uL (0.0-0.2); ABSOLUTE LYMPHOCYTES (AUTO) 1.1 10^3/uL (0.5-4.7); ABSOLUTE MONOCYTES (AUTO) 0.7 10^3/uL (0.1-1.4); ABSOLUTE NEUT (AUTO) 5.8 10^3/uL (1.7-8.2); BASOPHILS % (AUTO) 0.7 % (0-2); EOSINOPHILS % (AUTO) 0.5 % (0-6); HEMATOCRIT 32.6 % (36.0-47.0); HEMOGLOBIN 10.9 g/dL (12.0-15.5); LYMPHOCYTES % (AUTO) 14.4 % (13-45); MEAN CORPUSCULAR HGB CONC 33.5 g/dL (32.0-36.0); MEAN CORPUSCULAR VOLUME 81 fl (80-97); MONOCYTES % (AUTO) 8.6 % (3-13); PLATELET COUNT 286 10^3/uL (150-450); RED BLOOD COUNT 4.05 10^6/uL (3.72-5.28); RED CELL DISTRIBUTION WIDTH 15.3 % (11.5-14.0); SEGMENTED NEUTROPHILS % (AUTO) 75.8 % (42-78); TOTAL CELLS COUNTED % (AUTO) 100 %; WHITE BLOOD COUNT 7.7 10^3/uL (4.0-10.5)
[2019-01-19 05:02] LABS: ALANINE AMINOTRANSFERASE 23 U/L (9-52); ALBUMIN 3.6 g/dL (3.5-5.0); ALKALINE PHOSPHATASE 65 U/L (38-126); ANION GAP 10 (5-19); ASPARTATE AMINO TRANSFERASE 32 U/L (14-36); BILIRUBIN,DIRECT 0.2 mg/dL (0.0-0.4); BILIRUBIN,TOTAL 0.3 mg/dL (0.2-1.3); BLOOD UREA NITROGEN 13 mg/dL (7-20); CALCIUM 9.1 mg/dL (8.4-10.2); CARBON DIOXIDE 21 mmol/L (22-30); CHLORIDE 111 mmol/L (98-107); GLUCOSE 176 mg/dL (75-110); POTASSIUM 3.4 mmol/L (3.6-5.0); SODIUM 142.1 mmol/L (137-145); TOTAL PROTEIN 6.9 g/dL (6.3-8.2)
[2019-01-19] MEDS: INSULIN REG, HUMAN 100 UNIT/ML 3 ML VIAL (PYX) SUBCUT SCH ×4 (08:00→21:56)
[2019-01-19] MEDS: NEBIVOLOL HCL 10 MG TABLET PO SCH (09:33)
[2019-01-19] MEDS: ENOXAPARIN SODIUM INJ 40 MG/0.4 ML DISP.SYRIN SUBCUT SCH (09:34)
[2019-01-19] MEDS: ASPIRIN 81 MG TABLET, ENT COATED PO SCH (09:34)
[2019-01-19] MEDS: FAMOTIDINE 20 MG TABLET PO SCH ×2 (09:34→21:46)
[2019-01-19] MEDS: DOCUSATE SODIUM 100 MG CAPSULE PO SCH (09:34)
[2019-01-19] MEDS: MAGNESIUM OXIDE 400 MG TABLET PO SCH (09:34)
[2019-01-19] MEDS: NORMAL SALINE 1000 ML 1,000 ML IV PRN (10:33)
[2019-01-19] MEDS: ACETAMINOPHEN 325 MG TABLET PO PRN (12:12)
[2019-01-19] MEDS: CEFTRIAXONE SODIUM 1,000 MG in DEXTROSE 5%-WATER 50 ML IV SCH (12:17)
[2019-01-19] MEDS: ONDANSETRON HCL INJ/PF 4 MG/2 ML SDV IV PRN (12:24)
[2019-01-19] MEDS ORDERED: ACETAMINOPHEN 325 MG TABLET PO ONE (12:30)
[2019-01-19] MEDS ORDERED: CLONIDINE HCL 0.1 MG TABLET PO PRN (13:22)
--- NOTE | 2019-01-19 13:24 | PDOC PROGRESS REPORT ---
Subjective Progress Note for:: 01/19/19 Subjective:: This morning I walked into the patient's room with her nurse and her son was at bedside. Patient was also sitting up and having a sip of water from a cup. Patient able to answer some of my questions although she still stuttering and slow to respond. But she denied to me and did answer some of my questions. She denies any pain at this time. Her daughter came during the visit also and I stepped out of the room to speak with daughter and son about their mother's current medical admission and status. I discussed in length about need for medication changes and talking to her primary doctor about this. Reason For Visit: ENCEPHALOPAPHY Physical Exam Vital Signs: Temp Pulse Resp BP Pulse Ox 98.3 F 57 L 16 176/72 H 97 01/19/19 08:53 01/19/19 09:00 01/19/19 09:00 01/19/19 08:53 01/19/19 09:00 Intake & Output 01/18/19 01/19/19 01/20/19 06:59 06:59 06:59 Intake Total 719 2312 1114 Output Total 700 1250 Balance 19 1062 1114 Weight 171 lb 15.369 oz 173 lb 11.588 oz General appearance: PRESENT: no acute distress Head exam: PRESENT: atraumatic, normocephalic Eye exam: PRESENT: EOMI. ABSENT: scleral icterus Ear exam: PRESENT: normal external ear exam Mouth exam: PRESENT: moist, tongue midline Respiratory exam: PRESENT: clear to auscultation vinicius, symmetrical Cardiovascular exam: PRESENT: +S1, +S2 Pulses: PRESENT: +2 pedal pulses bilateral GI/Abdominal exam: PRESENT: normal bowel sounds, soft. ABSENT: tenderness Extremities exam: ABSENT: pedal edema Neurological exam: PRESENT: alert, awake, oriented to person, oriented to place, CN II-XII grossly intact. ABSENT: oriented to time, oriented to situation Skin exam: PRESENT: dry, warm Results Laboratory Results: 01/19/19 04:19 01/19/19 04:19 01/19/19 01/19/19 04:19 04:19 WBC 7.7 RBC 4.05 Hgb 10.9 L Hct 32.6 L MCV 81 MCH 27.0 MCHC 33.5 RDW 15.3 H Plt Count 286 Seg Neutrophils % 75.8 Lymphocytes % 14.4 Monocytes % 8.6 Eosinophils % 0.5 Basophils % 0.7 Absolute Neutrophils 5.8 Absolute Lymphocytes 1.1 Absolute Monocytes 0.7 Absolute Eosinophils 0.0 Absolute Basophils 0.1 Sodium 142.1 Potassium 3.4 L Chloride 111 H Carbon Dioxide 21 L Anion Gap 10 BUN 13 Creatinine 0.62 Est GFR ( Amer) > 60 Est GFR (Non-Af Amer) > 60 Glucose 176 H Calcium 9.1 Total Bilirubin 0.3 AST 32 ALT 23 Alkaline Phosphatase 65 Total Protein 6.9 Albumin 3.6 01/16/19 13:20 Catheterized Urine Urine Culture - Final NO GROWTH 2 DAYS Impressions: Head CT 01/16/19 14:37 IMPRESSION: No acute intracranial pathology. EVIDENCE OF ACUTE STROKE: NO. Chest X-Ray 01/16/19 16:41 IMPRESSION: Increased interstitial markings likely chronic pulmonary fibrosis accentuated by low lung volumes. 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 Today she was sitting up on the bed and answering questions and talking to us. This leads me to believe that her acute encephalopathy might have been secondary to medication overdose. We had held a lot of her medications after admission. Although she is still receiving IV Rocephin and acyclovir for suspected HSV related meningitis infection - I think this is not the case. I will give her 1 more day of antibiotics and stop antibiotics tomorrow if she continues to improve. This has happened to her in the past where she had come in an acute delirium and altered mental status and her medications were held after 3 to 4 days she would wake up and go back to normal. I will continue her IV fluids until she can resume an appropriate diet. Diabetes-continue with Lantus and SSI. Hypertension-currently on Bystolic. Blood pressure has been running higher than normal as all her home meds were held. I will start reintroduce her home med ications today-we will restart Norvasc and ARB?HCTz History of CAD-continue with aspirin
[2019-01-19] MEDS ORDERED: (PENDING PHARMACY ID) (Telmisartan/Hydrochlorothiazid [Telmisartan-Hctz 80-12.5 Mg Tb] 1 E PO SCH (13:30)
[2019-01-19] MEDS ORDERED: POTASSIUM CHLORIDE 10 MEQ CAPSULE.ER PO ONE (14:00)
[2019-01-19] MEDS: LOSARTAN POTASSIUM 50 MG TABLET PO SCH (14:30)
[2019-01-19] MEDS: AMLODIPINE BESYLATE 5 MG TABLET PO SCH (14:30)
[2019-01-19] MEDS: HYDROCHLOROTHIAZIDE 12.5 MG TABLET PO SCH (14:30)
[2019-01-19] MEDS: INSULIN GLARGINE,HUM.REC.ANLOG 1,000 UNIT/10 ML VIAL SUBCUT SCH (21:45)
[2019-01-19] MEDS: ATORVASTATIN CALCIUM 40 MG TABLET PO SCH (21:46)
[2019-01-19] MEDS: BUTALB/ACETAMINOPHEN/CAFFEINE 1 TAB EACH PO PRN (21:46)
[2019-01-20] MEDS: NORMAL SALINE 1000 ML 1,000 ML IV PRN (00:56)
[2019-01-20] MEDS: ACYCLOVIR SODIUM 700 MG in NORMAL SALINE 100 ML IV SCH (01:02)
[2019-01-20] MEDS: INSULIN REG, HUMAN 100 UNIT/ML 3 ML VIAL (PYX) SUBCUT SCH ×4 (08:02→21:51)
[2019-01-20] MEDS: DOCUSATE SODIUM 100 MG CAPSULE PO SCH (10:09)
[2019-01-20] MEDS: MAGNESIUM OXIDE 400 MG TABLET PO SCH (10:10)
[2019-01-20] MEDS: NEBIVOLOL HCL 10 MG TABLET PO SCH (10:10)
[2019-01-20] MEDS: LOSARTAN POTASSIUM 50 MG TABLET PO SCH (10:10)
[2019-01-20] MEDS: ASPIRIN 81 MG TABLET, ENT COATED PO SCH (10:10)
[2019-01-20] MEDS: HYDROCHLOROTHIAZIDE 12.5 MG TABLET PO SCH (10:10)
[2019-01-20] MEDS: ENOXAPARIN SODIUM INJ 40 MG/0.4 ML DISP.SYRIN SUBCUT SCH (10:10)
[2019-01-20] MEDS: FAMOTIDINE 20 MG TABLET PO SCH ×2 (10:10→21:57)
[2019-01-20] MEDS: AMLODIPINE BESYLATE 5 MG TABLET PO SCH (10:10)
[2019-01-20] MEDS ORDERED: AMLODIPINE BESYLATE 5 MG TABLET PO ONE (11:30)
[2019-01-20 11:33] LABS: ABSOLUTE BASOPHILS # (AUTO) 0.1 10^3/uL (0.0-0.2); ABSOLUTE EOSINOPHILS # (AUTO) 0.1 10^3/uL (0.0-0.6); ABSOLUTE LYMPHOCYTES (AUTO) 1.3 10^3/uL (0.5-4.7); ABSOLUTE MONOCYTES (AUTO) 0.7 10^3/uL (0.1-1.4); BASOPHILS % (AUTO) 0.9 % (0-2); EOSINOPHILS % (AUTO) 1.4 % (0-6); HEMATOCRIT 30.8 % (36.0-47.0); HEMOGLOBIN 10.2 g/dL (12.0-15.5); LYMPHOCYTES % (AUTO) 13.7 % (13-45); MEAN CORPUSCULAR HEMOGLOBIN 26.5 pg (27.0-33.4); MEAN CORPUSCULAR HGB CONC 33.1 g/dL (32.0-36.0); MEAN CORPUSCULAR VOLUME 80 fl (80-97); MONOCYTES % (AUTO) 7.9 % (3-13); PLATELET COUNT 324 10^3/uL (150-450); RED BLOOD COUNT 3.85 10^6/uL (3.72-5.28); RED CELL DISTRIBUTION WIDTH 15.1 % (11.5-14.0); SEGMENTED NEUTROPHILS % (AUTO) 76.1 % (42-78); TOTAL CELLS COUNTED % (AUTO) 100 %; WHITE BLOOD COUNT 9.2 10^3/uL (4.0-10.5)
[2019-01-20 11:40] LABS: ANION GAP 8 (5-19); BLOOD UREA NITROGEN 8 mg/dL (7-20); CALCIUM 8.9 mg/dL (8.4-10.2); CARBON DIOXIDE 22 mmol/L (22-30); CHLORIDE 106 mmol/L (98-107); GLUCOSE 158 mg/dL (75-110); POTASSIUM 3.5 mmol/L (3.6-5.0); SODIUM 136.1 mmol/L (137-145)
--- NOTE | 2019-01-20 15:32 | PDOC PROGRESS REPORT ---
Subjective Progress Note for:: 01/20/19 Subjective:: Spoke with family and patient at bedside. Daughter and son are at bedside. Patient is much more confused today. She is alert but making no sense. Supposedly overnight she had difficult such as this. She is also hallucinating and seeing things. She denies any pain-chest pain, shortness of breath, abdominal pain or nausea/vomiting Reason For Visit: ENCEPHALOPAPHY Physical Exam Vital Signs: Temp Pulse Resp BP Pulse Ox 97.3 F 66 14 162/74 H 97 01/20/19 12:19 01/20/19 12:19 01/20/19 12:19 01/20/19 12:19 01/20/19 12:19 Intake & Output 01/19/19 01/20/19 01/21/19 06:59 06:59 06:59 Intake Total 2312 2902 836 Output Total 1250 2050 Balance 1062 852 836 Weight 173 lb 11.588 oz 178 lb 5.663 oz General appearance: PRESENT: no acute distress Head exam: PRESENT: atraumatic, normocephalic Eye exam: PRESENT: EOMI. ABSENT: scleral icterus Ear exam: PRESENT: normal external ear exam Mouth exam: PRESENT: moist, tongue midline Neck exam: ABSENT: tracheal deviation Respiratory exam: PRESENT: clear to auscultation vinicius, symmetrical Cardiovascular exam: PRESENT: +S1, +S2 Pulses: PRESENT: +2 pedal pulses bilateral GI/Abdominal exam: PRESENT: normal bowel sounds, soft. ABSENT: tenderness Extremities exam: ABSENT: pedal edema Neurological exam: PRESENT: alert, awake, oriented to person, CN II-XII grossly intact. ABSENT: oriented to place, oriented to time, oriented to situation Skin exam: PRESENT: dry, warm Results Laboratory Results: 01/20/19 11:15 01/20/19 11:15 01/20/19 01/20/19 11:15 11:15 WBC 9.2 RBC 3.85 Hgb 10.2 L Hct 30.8 L MCV 80 MCH 26.5 L MCHC 33.1 RDW 15.1 H Plt Count 324 Seg Neutrophils % 76.1 Lymphocytes % 13.7 Monocytes % 7.9 Eosinophils % 1.4 Basophils % 0.9 Absolute Neutrophils 7.0 Absolute Lymphocytes 1.3 Absolute Monocytes 0.7 Absolute Eosinophils 0.1 Absolute Basophils 0.1 Sodium 136.1 L Potassium 3.5 L Chloride 106 Carbon Dioxide 22 Anion Gap 8 BUN 8 Creatinine 0.60 Est GFR ( Amer) > 60 Est GFR (Non-Af Amer) > 60 Glucose 158 H Calcium 8.9 Impressions: Head CT 01/16/19 14:37 IMPRESSION: No acute intracranial pathology. EVIDENCE OF ACUTE STROKE: NO. Chest X-Ray 01/16/19 16:41 IMPRESSION: Increased interstitial markings likely chronic pulmonary fibrosis accentuated by low lung volumes. Assessment and Plan - Diagnosis (2) CAD (coronary artery disease) Is this a current diagnosis for this admission?: Yes (3) DM w/o complication type II Qualifiers: Diabetes mellitus shelter insulin use: unspecified salvage determiner insulin use status Qualified Code(s): E11.9 - Type 2 diabetes mellitus without complications Is this a current diagnosis for this admission?: Yes (4) Hyponatremia Is this a current diagnosis for this admission?: Yes (5) Essential hypertension Is this a current diagnosis for this admission?: Yes - Plan Summary Plan Summary: Acute encephalopathy-unclear etiology-metabolic versus toxic versus septic. Yesterday she was alert but not hallucinating or having trouble with orientation as much. Today she seems to be a little bit more confused and hence I think the best she stay in the hospital for another 1 or 2 days to see if this clears. This can still all be related to her medications that we are holding currently. Initially she was started on IV Rocephin and acyclovir for suspected meningitis infection. I doubt this is likely since she has had this in the past where af ter 3 or 4 days she has come out of it and felt better. In the past her medications were also held and it makes me believe that this is all medication related. I have discussed about her medications that she takes at home with her family on multiple occasions. I will reintroduce her Zoloft from tomorrow at a lower dose of 50 mg daily. I am still continuing to hold her gabapentin and Xanax. Diabetes-continue with Lantus and SSI. Hypertension-currently on Bystolic Norvasc and, ARB/HCTZ. Her blood pressure still seems to be on the flight higher and. I will increase Norvasc to 10 mg daily. This may be acute and we will continue the use of hydralazine IV as needed. History of CAD-continue with aspirin
[2019-01-20] MEDS: INSULIN GLARGINE,HUM.REC.ANLOG 1,000 UNIT/10 ML VIAL SUBCUT SCH (21:57)
[2019-01-20] MEDS: ATORVASTATIN CALCIUM 40 MG TABLET PO SCH (21:57)
[2019-01-21] MEDS ORDERED: HYDRALAZINE HCL 25 MG TABLET PO ONE (01:15)
[2019-01-21 04:31] LABS: ABSOLUTE BASOPHILS # (AUTO) 0.1 10^3/uL (0.0-0.2); ABSOLUTE EOSINOPHILS # (AUTO) 0.2 10^3/uL (0.0-0.6); ABSOLUTE MONOCYTES (AUTO) 1.2 10^3/uL (0.1-1.4); EOSINOPHILS % (AUTO) 1.4 % (0-6); HEMATOCRIT 33.4 % (36.0-47.0); HEMOGLOBIN 11.1 g/dL (12.0-15.5); LYMPHOCYTES % (AUTO) 17.1 % (13-45); MEAN CORPUSCULAR HEMOGLOBIN 26.5 pg (27.0-33.4); MEAN CORPUSCULAR HGB CONC 33.1 g/dL (32.0-36.0); MEAN CORPUSCULAR VOLUME 80 fl (80-97); MONOCYTES % (AUTO) 10.6 % (3-13); PLATELET COUNT 367 10^3/uL (150-450); RED BLOOD COUNT 4.19 10^6/uL (3.72-5.28); RED CELL DISTRIBUTION WIDTH 15.3 % (11.5-14.0); SEGMENTED NEUTROPHILS % (AUTO) 69.9 % (42-78); TOTAL CELLS COUNTED % (AUTO) 100 %; WHITE BLOOD COUNT 11.4 10^3/uL (4.0-10.5)
[2019-01-21 04:51] LABS: ANION GAP 8 (5-19); BLOOD UREA NITROGEN 6 mg/dL (7-20); CALCIUM 9.5 mg/dL (8.4-10.2); CARBON DIOXIDE 23 mmol/L (22-30); CHLORIDE 105 mmol/L (98-107); GLUCOSE 95 mg/dL (75-110); POTASSIUM 3.4 mmol/L (3.6-5.0); SODIUM 135.8 mmol/L (137-145)
[2019-01-21] MEDS: INSULIN REG, HUMAN 100 UNIT/ML 3 ML VIAL (PYX) SUBCUT SCH ×4 (08:27→21:13)
[2019-01-21] MEDS: DOCUSATE SODIUM 100 MG CAPSULE PO SCH (09:21)
[2019-01-21] MEDS: NEBIVOLOL HCL 10 MG TABLET PO SCH (09:31)
[2019-01-21] MEDS: ENOXAPARIN SODIUM INJ 40 MG/0.4 ML DISP.SYRIN SUBCUT SCH (09:31)
[2019-01-21] MEDS: HYDROCHLOROTHIAZIDE 12.5 MG TABLET PO SCH (09:31)
[2019-01-21] MEDS: ASPIRIN 81 MG TABLET, ENT COATED PO SCH (09:31)
[2019-01-21] MEDS: MAGNESIUM OXIDE 400 MG TABLET PO SCH (09:32)
[2019-01-21] MEDS: AMLODIPINE BESYLATE 10 MG TABLET PO SCH (09:32)
[2019-01-21] MEDS: LOSARTAN POTASSIUM 50 MG TABLET PO SCH (09:32)
[2019-01-21] MEDS: FAMOTIDINE 20 MG TABLET PO SCH ×2 (09:32→21:14)
[2019-01-21] MEDS: SERTRALINE HCL 50 MG TABLET PO SCH (09:32)
[2019-01-21] MEDS: NICOTINE 7 MG/24 HR PATCH.TD24 TD SCH (09:32)
[2019-01-21] MEDS ORDERED: AMLODIPINE BESYLATE 5 MG TABLET PO SCH (10:00)
--- NOTE | 2019-01-21 12:20 | PDOC PROGRESS REPORT ---
Subjective Progress Note for:: 01/21/19 Subjective:: 73 year old female past medical history of CAD, per lipidemia, hypertension, PVD, COPD, diabetes, dementia, depression, recurrent, diffuse, recurrent altered mental status for the last 3 years. Last hospitalization , hospital for acute encephalopathy, gram- positive bacteremia, UTI. As per daughter patient was doing fine after discharge and at baseline she is independent and not altered, last night when she called her around 7:53 PM she sounded disoriented, when she checked on her and this morning she was unresponsive, and agitated. Per patient's daughter who is at the bedside, stating that her mother does not seem like following any commands and she was disoriented to the point she was missed taking the kitchen with her bathroom. Patient is awake, restless, does not follow any command, not seem to be in any acute distress, cannot communicate, touched for physical exam. Patient gets agitated. Patient daughter stating that she has been having altered mental status about every 6 months for the last 3 years, and symptoms tend to be all the same each time, and last hospitalization she was told that her ultrasound was closed by he r UTI. At baseline patient is living with her and living in independent life. 01/21/[id number]-gbif-old female with history of coronary artery disease, hyperlipidemia, hypertension, peripheral vascular disease, COPD, diabetic , deep depression admitted for altered mental status. As per the family she has this change in mental status on and off for the last 3 years. Patient is comfortably in the bed communicating well with me for few minutes then all of a sudden she is talking to the drugstore she is at this drugstore waiting for the medication to be delivered and she confused all of a sudden. No acute events in the last 24 hours afebrile. Reason For Visit: ENCEPHALOPAPHY Physical Exam Vital Signs: Temp Pulse Resp BP Pulse Ox 98.8 F 65 16 151/56 H 97 01/21/19 07:53 01/21/19 07:53 01/21/19 07:53 01/21/19 07:53 01/21/19 07:53 Intake & Output 01/20/19 01/21/19 01/22/19 06:59 06:59 06:59 Intake Total 2902 1236 Output Total 2050 2300 Balance 852 -1064 Weight 80.9 kg 78.6 kg General appearance: PRESENT: no acute distress Head exam: PRESENT: atraumatic Eye exam: PRESENT: PERRLA Ear exam: PRESENT: normal external ear exam Mouth exam: PRESENT: dry mucosa Teeth exam: PRESENT: poor dentation Neck exam: ABSENT: carotid bruit, JVD, lymphadenopathy, thyromegaly Respiratory exam: PRESENT: clear to auscultation vinicius. ABSENT: rales, rhonchi, wheezes Cardiovascular exam: PRESENT: RRR. ABSENT: diastolic murmur, rubs, systolic murmur Pulses: PRESENT: normal dorsalis pedis pul GI/Abdominal exam: PRESENT: normal bowel sounds, soft. ABSENT: distended, guarding, mass, organolmegaly, rebound, tenderness Rectal exam: PRESENT: deferred Neurological exam: PRESENT: alert, awake, oriented to person, oriented to place, oriented to time, oriented to situation, CN II-XII grossly intact. ABSENT: motor sensory deficit Psychiatric exam: PRESENT: agitated, anxious Results Laboratory Results: 01/21/19 04:18 01/21/19 04:18 01/21/19 01/21/19 04:18 04:18 WBC 11.4 H RBC 4.19 Hgb 11.1 L Hct 33.4 L MCV 80 MCH 26.5 L MCHC 33.1 RDW 15.3 H Plt Count 367 Seg Neutrophils % 69.9 Lymphocytes % 17.1 Monocytes % 10.6 Eosinophils % 1.4 Basophils % 1.0 Absolute Neutrophils 8.0 Absolute Lymphocytes 2.0 Absolute Monocytes 1.2 Absolute Eosinophils 0.2 Absolute Basophils 0.1 Sodium 135.8 L Potassium 3.4 L Chloride 105 Carbon Dioxide 23 Anion Gap 8 BUN 6 L Creatinine 0.63 Est GFR ( Amer) > 60 Est GFR (Non-Af Amer) > 60 Glucose 95 Calcium 9.5 Magnesium 1.7 Impressions: Head CT 01/16/19 14:37 IMPRESSION: No acute intracranial pathology. EVIDENCE OF ACUTE STROKE: NO. Chest X-Ray 01/16/19 16:41 IMPRESSION: Increased interstitial markings likely chronic pulmonary fibrosis accentuated by low lung volumes. Assessment and Plan - Diagnosis (1) Altered mental status Is this a current diagnosis for this admission?: Yes Plan: Metabolic versus polypharmacy. Patient is on several medications I counseled about 22. Daughter insists that her father is overseeing her medication intake and does not think that she has overdosed. She is on tizanidine, gabapentin, cyclobenzaprine, oxycodone, Xanax, triazolam on top of BP, CAD, and diabetes medications. On CBC patient has elevated leukocytes, and CMP mild hyponatremia otherwise unremarkable. UA negative. CT head negative for any acute changes. Admit to IMCU, telemetry, empiric IV antibiotics, hold psychoactive meds, culture, urine culture, PRN Haldol for agitation 01/21/2019-patient was admitted for altered mental status/ encephalopathy may be secondary to polypharmacy versus metabolic reasons. CT head was negative for acute changes. Patient is afebrile clear. Cultures are negative electrolytes are within normal limits. Patient may need to go to a rehab facility. (2) Diabetes Qualifiers: Diabetes mellitus type: type 2 Is this a current diagnosis for this admission?: Yes Plan: Diabetic diet, sliding scale insulin, long-acting insulin, pre-meal insulin, hypoglycemia protocol, Accu-Chek. Adjust meds as needed. Restart home meds upon discharge. Follow-up with PCP. 01/21/2019-patient has history of type 2 diabetes mellitus blood sugar is 95 today stable plan is to continue the present management. (3) Hypertension Is this a current diagnosis for this admission?: Yes Plan: Restart home meds. Adjust meds as needed. IV hydralazine PRN. 01/21/2019-patient blood pressure today is 136/60 stable. Plan is to continue the present management. (4) CAD (coronary artery disease) Is this a current diagnosis for this admission?: Yes Plan: Status post stent placement. EKG chronic LBBB. No acute changes. Continue antiplatelets, beta-blockers, ARB, statins. Outpatient PCP and cardiology follow-up. 01/21/2019-patient has history of coronary artery disease status post stent placement patient has history of LBBB no acute changes. (5) Leukocytosis Qualifiers: Leukocytosis type: unspecified Qualified Code(s): D72.829 - Elevated white blood cell count, unspecified Is this a current diagnosis for this admission?: Yes Plan: Improving. Mild leukocytosis neutrophilic predominant. No bandemia. Blood and urine culture no growth so far. Continue empiric IV antibiotics. Follow-up cultures. Mild leukocytosis, no bandemia. Blood culture, empiric IV antibiotics. Follow up blood culture. 01/21/2019-patient came in with mild leukocytosis today's WBC count is 11,400 presently off antibiotics blood cultures and urine cultures are negative. - Time Time Spent with patient: 15-24 minutes Medications reviewed and adjusted accordingly: Yes Anticipated discharge: SNF
[2019-01-21 13:07] LABS: ALANINE AMINOTRANSFERASE 26 U/L (9-52); ALBUMIN 3.6 g/dL (3.5-5.0); ALKALINE PHOSPHATASE 66 U/L (38-126); ASPARTATE AMINO TRANSFERASE 25 U/L (14-36); BILIRUBIN,DIRECT 0.3 mg/dL (0.0-0.4); BILIRUBIN,TOTAL 0.4 mg/dL (0.2-1.3); TOTAL PROTEIN 7.1 g/dL (6.3-8.2)
[2019-01-21] MEDS: ZOLPIDEM TARTRATE 5 MG TABLET PO PRN (21:14)
[2019-01-21] MEDS: INSULIN GLARGINE,HUM.REC.ANLOG 1,000 UNIT/10 ML VIAL SUBCUT SCH (21:14)
[2019-01-21] MEDS: ATORVASTATIN CALCIUM 40 MG TABLET PO SCH (21:14)
[2019-01-21] MEDS: ACETAMINOPHEN 325 MG TABLET PO PRN (21:17)
[2019-01-22] MEDS: ACETAMINOPHEN 325 MG TABLET PO PRN ×3 (02:04→21:42)
[2019-01-22] MEDS: BUTALB/ACETAMINOPHEN/CAFFEINE 1 TAB EACH PO PRN ×2 (04:05→16:00)
[2019-01-22 05:46] LABS: ABSOLUTE BASOPHILS # (AUTO) 0.1 10^3/uL (0.0-0.2); ABSOLUTE EOSINOPHILS # (AUTO) 0.2 10^3/uL (0.0-0.6); ABSOLUTE LYMPHOCYTES (AUTO) 1.4 10^3/uL (0.5-4.7); ABSOLUTE NEUT (AUTO) 6.4 10^3/uL (1.7-8.2); BASOPHILS % (AUTO) 0.7 % (0-2); EOSINOPHILS % (AUTO) 1.7 % (0-6); HEMATOCRIT 31.1 % (36.0-47.0); HEMOGLOBIN 10.5 g/dL (12.0-15.5); LYMPHOCYTES % (AUTO) 15.6 % (13-45); MEAN CORPUSCULAR HEMOGLOBIN 26.8 pg (27.0-33.4); MEAN CORPUSCULAR VOLUME 79 fl (80-97); MONOCYTES % (AUTO) 11.1 % (3-13); PLATELET COUNT 369 10^3/uL (150-450); RED BLOOD COUNT 3.94 10^6/uL (3.72-5.28); RED CELL DISTRIBUTION WIDTH 15.3 % (11.5-14.0); SEGMENTED NEUTROPHILS % (AUTO) 70.9 % (42-78); TOTAL CELLS COUNTED % (AUTO) 100 %; WHITE BLOOD COUNT 9.1 10^3/uL (4.0-10.5)
[2019-01-22] MEDS: INSULIN REG, HUMAN 100 UNIT/ML 3 ML VIAL (PYX) SUBCUT SCH ×4 (09:03→21:20)
[2019-01-22] MEDS: DOCUSATE SODIUM 100 MG CAPSULE PO SCH (09:51)
[2019-01-22] MEDS: NICOTINE 7 MG/24 HR PATCH.TD24 TD SCH (10:04)
[2019-01-22] MEDS: NEBIVOLOL HCL 10 MG TABLET PO SCH (10:04)
[2019-01-22] MEDS: AMLODIPINE BESYLATE 10 MG TABLET PO SCH (10:05)
[2019-01-22] MEDS: ENOXAPARIN SODIUM INJ 40 MG/0.4 ML DISP.SYRIN SUBCUT SCH (10:05)
[2019-01-22] MEDS: HYDROCHLOROTHIAZIDE 12.5 MG TABLET PO SCH (10:05)
[2019-01-22] MEDS: LOSARTAN POTASSIUM 50 MG TABLET PO SCH (10:05)
[2019-01-22] MEDS: FAMOTIDINE 20 MG TABLET PO SCH ×2 (10:05→21:42)
[2019-01-22] MEDS: SERTRALINE HCL 50 MG TABLET PO SCH (10:05)
[2019-01-22] MEDS: ASPIRIN 81 MG TABLET, ENT COATED PO SCH (10:05)
[2019-01-22] MEDS: MAGNESIUM OXIDE 400 MG TABLET PO SCH (10:05)
--- NOTE | 2019-01-22 16:01 | PDOC PROGRESS REPORT ---
Subjective Progress Note for:: 01/22/19 Subjective:: Pleasant 73-year-old female history of coronary disease, hyperlipidemia, hypertension, peripheral vascular disease, COPD, diabetic and deep depression admitted for altered mental status. Patient states this is been going on for several years and occurs on a regular basis. Patient not complain of any complaints at this time other than she has headaches, migraines in nature, and usually takes her Fioricet every 8 hours as needed. This is been held as patient was lethargic on admission. No acute episodes. Reason For Visit: ENCEPHALOPAPHY Physical Exam Vital Signs: Temp Pulse Resp BP Pulse Ox 97.4 F 59 L 16 139/53 H 97 01/22/19 11:34 01/22/19 14:00 01/22/19 11:34 01/22/19 11:34 01/22/19 11:34 Intake & Output 01/21/19 01/22/19 01/23/19 06:59 06:59 06:59 Intake Total 1236 1525 240 Output Total 2300 3800 1000 Balance -1064 -2275 -760 Weight 78.6 kg 77 kg General appearance: PRESENT: no acute distress, well-developed, well-nourished Head exam: PRESENT: atraumatic, normocephalic Neck exam: ABSENT: carotid bruit, JVD, lymphadenopathy, thyromegaly Respiratory exam: PRESENT: clear to auscultation vinicius. ABSENT: rales, rhonchi, wheezes Cardiovascular exam: PRESENT: RRR. ABSENT: diastolic murmur, rubs, systolic murmur Pulses: PRESENT: normal dorsalis pedis pul Vascular exam: PRESENT: normal capillary refill GI/Abdominal exam: PRESENT: normal bowel sounds, soft. ABSENT: distended, guarding, mass, organolmegaly, rebound, tenderness Extremities exam: PRESENT: full ROM. ABSENT: calf tenderness, clubbing, pedal edema Neurological exam: PRESENT: alert, oriented to person, oriented to place, oriented to time, oriented to situation - Occasionally confused Psychiatric exam: PRESENT: appropriate affect, normal mood. ABSENT: homicidal ideation, suicidal ideation Skin exam: PRESENT: dry, intact, warm. ABSENT: cyanosis, rash Results Laboratory Results: 01/22/19 05:35 01/21/19 04:18 01/22/19 05:35 WBC 9.1 RBC 3.94 Hgb 10.5 L Hct 31.1 L MCV 79 L MCH 26.8 L MCHC 34.0 RDW 15.3 H Plt Count 369 Seg Neutrophils % 70.9 Lymphocytes % 15.6 Monocytes % 11.1 Eosinophils % 1.7 Basophils % 0.7 Absolute Neutrophils 6.4 Absolute Lymphocytes 1.4 Absolute Monocytes 1.0 Absolute Eosinophils 0.2 Absolute Basophils 0.1 01/16/19 14:15 Blood Blood Culture - Final NO GROWTH IN 5 DAYS 01/16/19 13:30 Blood Blood Culture - Final NO GROWTH IN 5 DAYS Impressions: Head CT 01/16/19 14:37 IMPRESSION: No acute intracranial pathology. EVIDENCE OF ACUTE STROKE: NO. Chest X-Ray 01/16/19 16:41 IMPRESSION: Increased interstitial markings likely chronic pulmonary fibrosis accentuated by low lung volumes. Assessment and Plan - Diagnosis (1) Altered mental status Is this a current diagnosis for this admission?: Yes Plan: Metabolic versus polypharmacy. Patient is on several medications I counseled about 22. Daughter insists that her father is overseeing her medication intake and does not think that she has overdosed. She is on tizanidine, gabapentin, cyclobenzaprine, oxycodone, Xanax, triazolam on top of BP, CAD, and diabetes medications. On CBC patient has elevated leukocytes, and CMP mild hyponatremia otherwise unremarkable. UA negative. CT head negative for any acute changes. Admit to IMCU, telemetry, empiric IV antibiotics, hold psychoactive meds, cul ture, urine culture, PRN Haldol for agitation 01/21/2019-patient was admitted for altered mental status/ encephalopathy may be secondary to polypharmacy versus metabolic reasons. CT head was negative for acute changes. Patient is afebrile clear. Cultures are negative electrolytes are within normal limits. Patient may need to go to a rehab facility. 01/22/2019-admitted for mental status change/encephalopathy most likely secondary to polypharmacy. CT head was negative for acute changes patient afebrile and labs are essentially negative. Ready for rehab. (2) Diabetes Qualifiers: Diabetes mellitus type: type 2 Is this a current diagnosis for this admission?: Yes Plan: Diabetic diet, sliding scale insulin, long-acting insulin, pre-meal insulin, hypoglycemia protocol, Accu-Chek. Adjust meds as needed. Restart home meds upon discharge. Follow-up with PCP. 01/21/2019-patient has history of type 2 diabetes mellitus blood sugar is 95 today stable plan is to continue the present management. 01/22/2019-type 2 diabetes mellitus. Stable. Continue present management. (3) Hypertension Is this a current diagnosis for this admission?: Yes Plan: Restart home meds. Adjust meds as needed. IV hydralazine PRN. 01/21/2019-patient blood pressure today is 136/60 stable. Plan is to continue the present management. 01/22/2019-patient blood pressure stable at this time we will continue present management. Adjust as needed. (4) Anemia aplastic aregenerative Is this a current diagnosis for this admission?: Yes Plan: Appears to be chronic in nature but is stable. Will follow with repeat CBC in a.m. for stability. - Time Time Spent with patient: 15-24 minutes - Inpatient Certification Medical Necessity: Risk of Complication if Not Cared For in Hospital
[2019-01-22] MEDS: ZOLPIDEM TARTRATE 5 MG TABLET PO PRN (21:42)
[2019-01-22] MEDS: ATORVASTATIN CALCIUM 40 MG TABLET PO SCH (21:42)
[2019-01-22] MEDS: INSULIN GLARGINE,HUM.REC.ANLOG 1,000 UNIT/10 ML VIAL SUBCUT SCH (21:42)
[2019-01-23] MEDS: BUTALB/ACETAMINOPHEN/CAFFEINE 1 TAB EACH PO PRN ×2 (00:10→10:52)
[2019-01-23 08:05] LABS: ABSOLUTE EOSINOPHILS # (AUTO) 0.3 10^3/uL (0.0-0.6); ABSOLUTE LYMPHOCYTES (AUTO) 1.9 10^3/uL (0.5-4.7); ABSOLUTE NEUT (AUTO) 4.2 10^3/uL (1.7-8.2); BASOPHILS % (AUTO) 0.5 % (0-2); HEMATOCRIT 32.9 % (36.0-47.0); HEMOGLOBIN 11.2 g/dL (12.0-15.5); LYMPHOCYTES % (AUTO) 25.7 % (13-45); MEAN CORPUSCULAR HGB CONC 34.1 g/dL (32.0-36.0); MEAN CORPUSCULAR VOLUME 79 fl (80-97); MONOCYTES % (AUTO) 13.2 % (3-13); PLATELET COUNT 450 10^3/uL (150-450); RED BLOOD COUNT 4.15 10^6/uL (3.72-5.28); RED CELL DISTRIBUTION WIDTH 15.6 % (11.5-14.0); SEGMENTED NEUTROPHILS % (AUTO) 56.6 % (42-78); TOTAL CELLS COUNTED % (AUTO) 100 %; WHITE BLOOD COUNT 7.4 10^3/uL (4.0-10.5)
[2019-01-23 08:25] LABS: ANION GAP 9 (5-19); BLOOD UREA NITROGEN 9 mg/dL (7-20); CALCIUM 9.5 mg/dL (8.4-10.2); CARBON DIOXIDE 27 mmol/L (22-30); CHLORIDE 99 mmol/L (98-107); GLUCOSE 130 mg/dL (75-110); POTASSIUM 3.7 mmol/L (3.6-5.0); SODIUM 135.1 mmol/L (137-145)
[2019-01-23] MEDS: INSULIN REG, HUMAN 100 UNIT/ML 3 ML VIAL (PYX) SUBCUT SCH ×2 (08:25→12:05)
[2019-01-23] MEDS: ENOXAPARIN SODIUM INJ 40 MG/0.4 ML DISP.SYRIN SUBCUT SCH (10:17)
[2019-01-23] MEDS: DOCUSATE SODIUM 100 MG CAPSULE PO SCH (10:17)
[2019-01-23] MEDS: AMLODIPINE BESYLATE 10 MG TABLET PO SCH (10:52)
[2019-01-23] MEDS: LOSARTAN POTASSIUM 50 MG TABLET PO SCH (10:53)
[2019-01-23] MEDS: SERTRALINE HCL 50 MG TABLET PO SCH (10:53)
[2019-01-23] MEDS: NICOTINE 7 MG/24 HR PATCH.TD24 TD SCH (10:53)
[2019-01-23] MEDS: ASPIRIN 81 MG TABLET, ENT COATED PO SCH (10:53)
[2019-01-23] MEDS: HYDROCHLOROTHIAZIDE 12.5 MG TABLET PO SCH (10:53)
[2019-01-23] MEDS: FAMOTIDINE 20 MG TABLET PO SCH (10:53)
[2019-01-23] MEDS: NEBIVOLOL HCL 10 MG TABLET PO SCH (10:54)
[2019-01-23] MEDS: MAGNESIUM OXIDE 400 MG TABLET PO SCH (10:54)
--- NOTE | 2019-01-23 12:29 | PDOC DISCHARGE SUMMARY ---
General - Admit/Disc Date/PCP Admission Date/Primary Care Provider: 01/16/19 18:15 TERESA WARD, Discharge Date: 01/23/19 - Discharge Diagnosis (1) Altered mental status Is this a current diagnosis for this admission?: Yes (2) Diabetes Is this a current diagnosis for this admission?: Yes (3) Hypertension Is this a current diagnosis for this admission?: Yes (4) Anemia aplastic aregenerative Is this a current diagnosis for this admission?: Yes - Additional Information Discharge Diet: As Tolerated Discharge Activity: Activity As Tolerated Home Medications: Alprazolam [Xanax] 1 mg PO Q8HP PRN 11/09/17 Butalb/Acetaminophen/Caffeine [Fioricet (50-325-40 mg) Tablet] 1 tab PO Q6HP PRN MDD 4 TABLETS 11/09/17 Clonidine HCl [Catapres 0.1 mg Tablet] 0.1 mg PO Q8HP PRN 11/09/17 Gabapentin [Neurontin 400 mg Capsule] 1,200 mg PO QHS 11/09/17 Gabapentin [Neurontin 400 mg Capsule] 400 mg PO BID@0800,1400 11/09/17 Nebivolol HCl [Bystolic] 20 mg PO DAILY 11/09/17 Omeprazole 40 mg PO BIDBS 11/09/17 Oxycodone HCl [Oxycodone HCl 10 MG Tablet] 10 mg PO Q6HP PRN 11/09/17 Tizanidine HCl [Zanaflex 4 mg Tablet] 2 mg PO HSP PRN MDD 4 MG 11/09/17 Albuterol Sulfate [Albuterol Sulfate Hfa] 1 puff IH Q6HP PRN 12/18/18 Cyanocobalamin (Vitamin B-12) [Vitamin B-12 1000 mcg Tablet] 1,000 mcg PO DAILY 12/18/18 Cyclobenzaprine HCl [Flexeril 5 mg Tablet] 5 mg PO Q8HP PRN 12/18/18 Insulin Lispro [Humalog Insulin (Lispro) 100 unit/mL] 0 unit SUBCUT .SLD SCALE MDD 80 UNITS 12/18/18 Pioglitazone HCl [Actos 15 mg Tablet] 15 mg PO DAILY 12/18/18 Sertraline HCl [Zoloft 50 mg Tablet] 100 mg PO DAILY 12/18/18 Empagliflozin/Linagliptin [Glyxambi 10 mg-5 mg Tablet] 1 each PO DAILY 01/16/19 History of Present Illness History of Present Illness: ADILENE DARDEN is a 73 year old female who presented to the ER with acute encephalopathy most likely related to polypharmacy use. Patient is on multiple medications at home including Flexeril, Neurontin, Xanax. Patient was placed on IMCU all medications were withheld that would cause confusion. Over the course of several days medications were off and patient returned to baseline. At this time patient is answering all questions appropriately she is denying adamantly going to rehab. Patient states "I am going to the house". At this time patient is appropriate for return home she will see her primary care practitioner tomorrow for further evaluation and treatment. Hospital Course Hospital Course: Ms. Darden progressed well throughout her hospital course. Patient had all sedating medications held for several days which allowed her time to clear. Patient at this point is fully awake alert and oriented and having no confusion at all. Patient still complains of severe headaches for which she takes Bupap. She is on multiple other medications that I will leave for her primary care practitioner to evaluate. Physical Exam Vital Signs: Temp Pulse Resp BP Pulse Ox 98.2 F 54 L 18 151/60 H 99 01/23/19 03:14 01/23/19 07:00 01/23/19 03:14 01/23/19 03:14 01/23/19 03:14 Intake & Output 01/22/19 01/23/19 01/24/19 06:59 06:59 06:59 Intake Total 1525 708 Output Total 3800 1600 Balance -2085 -892 Weight 77 kg 74.9 kg General appearance: PRESENT: no acute distress, well-developed, well-nourished Head exam: PRESENT: atraumatic, normocephalic Eye exam: PRESENT: conjunctiva pink, EOMI, PERRLA. ABSENT: scleral icterus Ear exam: PRESENT: normal external ear exam Mouth exam: PRESENT: moist, tongue midline Neck exam: ABSENT: carotid bruit, JVD, lymphadenopathy, thyromegaly Respiratory exam: PRESENT: clear to auscultation vinicius. ABSENT: rales, rhonchi, wheezes Cardiovascular exam: PRESENT: RRR. ABSENT: diastolic murmur, rubs, systolic murmur Pulses: PRESENT: normal dorsalis pedis pul Vascular exam: PRESENT: normal capillary refill GI/Abdominal exam: PRESENT: normal bowel sounds, soft. ABSENT: distended, guarding, mass, organolmegaly, rebound, tenderness Rectal exam: PRESENT: deferred Extremities exam: PRESENT: full ROM. ABSENT: calf tenderness, clubbing, pedal edema Neurological exam: PRESENT: alert, awake, oriented to person, oriented to place, oriented to time, oriented to situation, CN II-XII grossly intact. ABSENT: motor sensory deficit Psychiatric exam: PRESENT: appropriate affect, normal mood. ABSENT: homicidal ideation, suicidal ideation Skin exam: PRESENT: dry, intact, warm. ABSENT: cyanosis, rash Results Laboratory Results: 01/23/19 07:52 01/23/19 07:52 01/23/19 01/23/19 07:52 07:52 WBC 7.4 RBC 4.15 Hgb 11.2 L Hct 32.9 L MCV 79 L MCH 27.0 MCHC 34.1 RDW 15.6 H Plt Count 450 Seg Neutrophils % 56.6 Lymphocytes % 25.7 Monocytes % 13.2 H Eosinophils % 4.0 Basophils % 0.5 Absolute Neutrophils 4.2 Absolute Lymphocytes 1.9 Absolute Monocytes 1.0 Absolute Eosinophils 0.3 Absolute Basophils 0.0 Sodium 135.1 L Potassium 3.7 Chloride 99 Carbon Dioxide 27 Anion Gap 9 BUN 9 Creatinine 0.77 Est GFR ( Amer) > 60 Est GFR (Non-Af Amer) > 60 Glucose 130 H Calcium 9.5 Impressions: Head CT 01/16/19 14:37 IMPRESSION: No acute intracranial pathology. EVIDENCE OF ACUTE STROKE: NO. Chest X-Ray 01/16/19 16:41 IMPRESSION: Increased interstitial markings likely chronic pulmonary fibrosis accentuated by low lung volumes. Qualifiers - * PATIENT BEING DISCHARGED WITH ANY OF THE FOLLOWING DIAGNOSIS: No Acute Heart Failure - Is this a Heart Failure Patient?: No Plan Time Spent: Greater than 30 Minutes
[2019-01-23 13:00] VITALS: BP 139/53
== END 2019-01-23 13:50 | disposition home or self-care (01) | DRG 917 ==
LOC: ER 12:44 → EH 18:15 → 3S 20:46
PROVIDERS: ADMIT Internal Medicine; ATTEND Internal Medicine
DX: T48.1X1A Poisoning by skeletal muscle relaxants [neuromuscular blocking agents], accidental (unintentional), initial encounter (principal); D61.89 Other specified aplastic anemias and other bone marrow failure syndromes; G93.40 Encephalopathy, unspecified; E87.1 Hypo-osmolality and hyponatremia; Z88.6 Allergy status to analgesic agent; Z88.5 Allergy status to narcotic agent; I25.10 Atherosclerotic heart disease of native coronary artery without angina pectoris; E78.5 Hyperlipidemia, unspecified; I10 Essential (primary) hypertension; I73.9 Peripheral vascular disease, unspecified; I65.29 Occlusion and stenosis of unspecified carotid artery; J44.9 Chronic obstructive pulmonary disease, unspecified; E11.9 Type 2 diabetes mellitus without complications; M19.90 Unspecified osteoarthritis, unspecified site; F31.9 Bipolar disorder, unspecified; F03.90 Unspecified dementia, unspecified severity, without behavioral disturbance, psychotic disturbance, mood disturbance, and anxiety; I44.7 Left bundle-branch block, unspecified; F40.240 Claustrophobia; T42.6X1A Poisoning by other antiepileptic and sedative-hypnotic drugs, accidental (unintentional), initial encounter; T42.4X1A Poisoning by benzodiazepines, accidental (unintentional), initial encounter
CPT/HCPCS: 36415; 70450; 71045; 80048; 80053; 80076; 80307; 81001; 82140; 82803; 82962; 83605; 83735; 84443; 85025; 85610; 86695; 86787; 87040; 87086; 93005; 93010; 99285; J0133; J0360; J0696; J1630; J1650; J1815; J2250; J2405; J3490; J7030; J7050; J7060

== ENCOUNTER 2019-05-08 08:50 | Day surgery (SDC) | payer MEDICARE, OTHER ==
[~2019-05-08 08:50] MED LIST: CHONDR SU A NA/HYALUR INTRAOC KIT (SURGICARE) ONE; EPINEPHRINE INJ/PF 1 MG/1 ML AMPULE ONE; FENTANYL CITRATE INJ/PF 100 MCG/2 ML AMPUL ONE; KETOROLAC TROMETHAMINE 0.45% 4 DROP/0.4 ML DROPERETTE OS PRN; LIDOCAINE 1% INJ-PF (10 MG/ML) 30 ML SDV ONE; MIDAZOLAM 2 MG/2 ML INJ ONE
[2019-05-08] MEDS: CYCLOPENTOLATE 0.2%/PHENYLEPHRINE 1% OPH SOLN 2 ML OS PRN ×3 (08:59→09:09)
[2019-05-08] MEDS: BESIFLOXACIN HCL 0.6% OPH SUSP 5 ML BOTTLE OS PRN ×5 (08:59→09:49)
[2019-05-08] MEDS: TROPICAMIDE 1% OPH SOLN 15 ML OS PRN ×3 (08:59→09:09)
[2019-05-08] MEDS: TETRACAINE HCL 0.5% OPH SOLN 4 ML OS PRN ×3 (09:00→09:31)
[2019-05-08] MEDS: TOBRAMYCIN SULFATE/DEXAMETH OPH OINTMENT 3.5 GM ONE ×3 (09:48→09:49)
[2019-05-08] MEDS: DORZOLAMIDE HCL 2%/TIMOLOL MALEAT 0.5% OPH SOLN 10 ML OS PRN ×3 (09:48→09:49)
== END 2019-05-08 10:31 | disposition home or self-care (01) ==
LOC: SC 08:50
PROVIDERS: ATTEND Ophthalmology
DX: H25.12 Age-related nuclear cataract, left eye (principal); E11.9 Type 2 diabetes mellitus without complications; I10 Essential (primary) hypertension; E78.00 Pure hypercholesterolemia, unspecified; Z86.73 Personal history of transient ischemic attack (TIA), and cerebral infarction without residual deficits
CPT/HCPCS: 66984; 82962; 00142; V2632; J2250; J3490 ×3; A9270 ×2; J0171; J3010; 142

== ENCOUNTER 2019-05-22 08:12 | Day surgery (SDC) | payer MEDICARE, OTHER ==
[~2019-05-22 08:12] MED LIST changes: -FENTANYL CITRATE INJ/PF 100 MCG/2 ML AMPUL ONE; +KETOROLAC TROMETHAMINE 0.45% 4 DROP/0.4 ML DROPERETTE OD PRN; -KETOROLAC TROMETHAMINE 0.45% 4 DROP/0.4 ML DROPERETTE OS PRN; -MIDAZOLAM 2 MG/2 ML INJ ONE
[2019-05-22] MEDS: CYCLOPENTOLATE 0.2%/PHENYLEPHRINE 1% OPH SOLN 2 ML OD PRN ×3 (08:50→09:10)
[2019-05-22] MEDS: TETRACAINE HCL 0.5% OPH SOLN 4 ML OD PRN ×3 (08:50→09:17)
[2019-05-22] MEDS: TROPICAMIDE 1% OPH SOLN 15 ML OD PRN ×3 (08:50→09:10)
[2019-05-22] MEDS: BESIFLOXACIN HCL 0.6% OPH SUSP 5 ML BOTTLE OD PRN ×4 (08:50→09:34)
[2019-05-22] MEDS ORDERED: FENTANYL CITRATE INJ/PF 100 MCG/2 ML AMPUL ONE (08:57)
[2019-05-22] MEDS ORDERED: MIDAZOLAM 2 MG/2 ML INJ ONE (08:57)
[2019-05-22] MEDS: DORZOLAMIDE HCL 2%/TIMOLOL MALEAT 0.5% OPH SOLN 10 ML OD PRN ×2 (09:28→09:34)
[2019-05-22] MEDS: TOBRAMYCIN SULFATE/DEXAMETH OPH OINTMENT 3.5 GM ONE ×2 (09:28→09:34)
== END 2019-05-22 10:09 | disposition home or self-care (01) ==
LOC: SC 08:12
PROVIDERS: ATTEND Ophthalmology
DX: H25.11 Age-related nuclear cataract, right eye (principal); Z98.42 Cataract extraction status, left eye; J44.9 Chronic obstructive pulmonary disease, unspecified; E11.9 Type 2 diabetes mellitus without complications; I11.9 Hypertensive heart disease without heart failure; E78.00 Pure hypercholesterolemia, unspecified; Z87.891 Personal history of nicotine dependence; I25.10 Atherosclerotic heart disease of native coronary artery without angina pectoris; I25.2 Old myocardial infarction
CPT/HCPCS: 66984; 82962; 00142; V2632; J3490 ×3; A9270 ×2; J0171; 142; J2250; J3010

== ENCOUNTER 2019-06-29 15:51 | Inpatient (IN) | payer MEDICARE, OTHER ==
[2019-06-29 16:36] LABS: ALBUMIN 3.7 g/dL (3.5-5.0); ALKALINE PHOSPHATASE 86 U/L (38-126); ANION GAP 15 (5-19); ASPARTATE AMINO TRANSFERASE 24 U/L (14-36); BILIRUBIN,DIRECT 0.2 mg/dL (0.0-0.4); BILIRUBIN,TOTAL 0.4 mg/dL (0.2-1.3); BLOOD UREA NITROGEN 44 mg/dL (7-20); CALCIUM 8.7 mg/dL (8.4-10.2); CARBON DIOXIDE 29 mmol/L (22-30); CHLORIDE 81 mmol/L (98-107); GLUCOSE 383 mg/dL (75-110); POTASSIUM 3.8 mmol/L (3.6-5.0); TOTAL PROTEIN 6.6 g/dL (6.3-8.2)
--- NOTE | 2019-06-29 16:47 | RADIOLOGY REPORT (SQ) ---
EXAM DESCRIPTION: CHEST SINGLE VIEW COMPLETED DATE/TIME: 06/29/2019 4:32 pm REASON FOR STUDY: sepsis alert COMPARISON: 01/16/2019 TECHNIQUE: Single frontal radiographic view of the chest acquired. NUMBER OF VIEWS: One view. LIMITATIONS: None. FINDINGS: LUNGS AND PLEURA: No pneumothorax. Similar interstitial changes -calcified granulomas. N o consolidation or pleural effusion. MEDIASTINUM AND HILAR STRUCTURES: Stable. HEART AND VASCULAR STRUCTURES: Stable. BONES: No acute findings. HARDWARE: None in the chest. OTHER: No other significant finding. IMPRESSION: NO ACUTE FINDINGS. TECHNICAL DOCUMENTATION: JOB ID: [id number] [email or web address] Rights [email or web address] Reading location - IP/workstation name: [email or web address]
[2019-06-29 16:55] LABS: INTERNATIONAL RATION (INR) 0.97; PROTHROMBIN TIME 12.9 SEC (11.4-15.4)
[2019-06-29 16:57] LABS: ABSOLUTE EOSINOPHILS # (AUTO) 0.2 10^3/uL (0.0-0.6); ABSOLUTE LYMPHOCYTES (AUTO) 1.8 10^3/uL (0.5-4.7); ABSOLUTE MONOCYTES (AUTO) 0.7 10^3/uL (0.1-1.4); ABSOLUTE NEUT (AUTO) 3.5 10^3/uL (1.7-8.2); BASOPHILS % (AUTO) 0.6 % (0-2); EOSINOPHILS % (AUTO) 2.9 % (0-6); HEMATOCRIT 28.2 % (36.0-47.0); HEMOGLOBIN 9.6 g/dL (12.0-15.5); MEAN CORPUSCULAR HEMOGLOBIN 27.4 pg (27.0-33.4); MEAN CORPUSCULAR HGB CONC 33.9 g/dL (32.0-36.0); MEAN CORPUSCULAR VOLUME 81 fl (80-97); MONOCYTES % (AUTO) 10.6 % (3-13); PLATELET COUNT 236 10^3/uL (150-450); RED CELL DISTRIBUTION WIDTH 15.4 % (11.5-14.0); SEGMENTED NEUTROPHILS % (AUTO) 56.9 % (42-78); TOTAL CELLS COUNTED % (AUTO) 100 %; WHITE BLOOD COUNT 6.2 10^3/uL (4.0-10.5)
[2019-06-29] MEDS ORDERED: NORMAL SALINE 1000 ML 1,000 ML IV PRN ×2 (17:13→17:48)
[2019-06-29] MEDS ORDERED: NORMAL SALINE 1000 ML 1,000 ML IV ONE (17:48)
--- NOTE | 2019-06-29 17:55 | ER Document Report ---
ED General - General Chief Complaint: Altered Mental Status Stated Complaint: BLOOD SUGAR ISSUE Time Seen by Provider: 06/29/19 16:05 Primary Care Provider: TERESA WARD DO [Primary Care Provider] - Follow up as needed TRAVEL OUTSIDE OF THE [place] IN LAST 30 DAYS: No - Related Data Allergies/Adverse Reactions: NSAIDS (Non-Steroidal Anti-Inflamma [Nsaids] Allergy (Severe, Verified 05/08/19 09:03) gastric bleed adhesive [Adhesive] Allergy (Intermediate, Verified 05/08/19 09:03) codeine Allergy (Verified 05/08/19 09:03) meperidine Allergy (Verified 05/08/19 09:03) morphine Allergy (Verified 05/08/19 09:03) Past Medical History - Social History Smoking Status: Unknown if Ever Smoked Family History: Reviewed & Not Pertinent, CAD, DM, Other - Peptic ulcer disease Patient has suicidal ideation: No Patient has homicidal ideation: No - Past Medical History Cardiac Medical History: Reports: Hx Coronary Artery Disease, Hx Hypercholesterolemia, Hx Hypertension, Hx Peripheral Vascular Disease - Carotid artery disease Denies: Hx Heart Attack Pulmonary Medical History: Reports: Hx Bronchitis, Hx COPD Denies: Hx Asthma Neurological Medical History: Denies: Hx Cerebrovascular Accident, Hx Seizures Endocrine Medical History: Reports: Hx Diabetes Mellitus Type 1, Hx Diabetes Mellitus Type 2. Denies: Hx Hyperthyroidism, Hx Hypothyroidism Renal/ Medical History: Denies: Hx Peritoneal Dialysis GI Medical History: Reports: Hx Hiatal Hernia. Denies: Hx Hepatitis, Hx Ulcer Musculoskeletal Medical History: Reports Hx Arthritis, Reports Hx Muscle Spasm Psychiatric Medical History: Reports: Hx Bipolar Disorder, Hx Dementia, Hx Depression Infectious Medical History: Denies: Hx Hepatitis Past Surgical History: Reports: Hx Abdominal Surgery - BOTOX INJECTIONS [id number], Hx Cholecystectomy, Hx Hysterectomy, Hx Orthopedic Surgery - Back surgery, Hx Urinary Tract Surgery, Other - Urinary bladder suspension procedure. Denies: Hx Mastectomy, Hx Open Heart Surgery, Hx Pacemaker - Immunizations Hx Diphtheria, Pertussis, Tetanus Vaccination: Yes Hx Pneumococcal Vaccination: 10/04/13 Physical Exam - Vital signs Vitals: Temp 97.7 F 06/29/19 15:52 - Notes Notes: Patient was brought in by paramedics with a syncopal episode. Family indicates that they was walking around the store she started staggering and felt weak. She sat down in a chair symptom over and became unresponsive. Not diaphoretic right before that was not have any complaints of chest pain shortness of breath or palpitations. Come around when paramedics arrived. To be hypotensive. Seizure activity noted. At this time patient is denying any headache chest pain shortness of breath nausea vomiting or abdominal pain. She says her appetite has been good. She has had no recent change in her medications has not taken much of her medications today. Today his sugar was elevated and her ga ve her her normal dose of insulin. Reported 2 days ago she took a laxative and had several episodes of watery diarrhea that resolved. There is no blood in it at the time. Is currently on Augmentin started about 3 days ago for a sinus infection Medical history significant for hypertension diabetes and COPD. Has chronic lower extremity edema. She has no coronary artery disease. Social history she occasionally smokes. No alcohol. Family history is noncontributory review of systems pertinent positives and negatives in HPI otherwise all the systems were reviewed and acutely negative PHYSICIAN EXAM -vital signs are noted triage note and note from triage reviewed GENERAL: Well-appearing, well-nourished and in _no acute distress she is a slow to answer and this appears slightly confused and concurs with this HEAD: Atraumatic, normocephalic. EYES: Pupils equal round and reactive to light, extraocular movements intact, sclera anicteric, conjunctiva are normal. ENT: nares patent, oropharynx clear without exudates. Dry mucous membranes. She is slightly hoarse but family says this is normal. Posterior pharynx is clear. There is no exudates she is handling secretions well NECK: supple without lymphadenopathy LUNGS: Breath sounds clear to auscultation bilaterally and equal. No wheezes rales or rhonchi. HEART: Regular rate and rhythm without murmurs weak radial pulses ABDOMEN: Soft, nontender, normoactive bowel sounds. EXTREMITIES: No deformity, +2 edema to the mid calf there is no palpable cords NEUROLOGICAL: She is alert and oriented x4 she is a little slow to answer occasion will get the question wrong but then can get a correct answer. Cranial nerves she is symmetrical smile facies and shoulder shrug motor strength is symmetric bilaterally in the upper lower extremities of 5/5 downgoing toes , sensation is intact light touch negative Romberg PSYCH: Normal mood, normal affect. SKIN: Warm, Dry, normal turgor, no rashes or lesions noted. BACK-nontender in the midline Differential r diagnose includes GI bleed dehydration anemia abnormal electrolytes arrhythmia Course - Re-evaluation Re-evalutation: 06/29/19 19:45 ED patient is remained stable she was given a liter of normal saline with improvement of blood pressure to about 105 systolic is now on maintenance fluid. Medical decision making patient presents with a syncopal episode probably related to her underlying hypotension probably related to her episode of diarrhea the other day and patient of the new diuretic IM hesitant to aggressively hydrate this patient is on her age and underlying medical problems. Her heart is slightly enlarged on x-ray with some mild chronic interstitial changes and I see no record of a previous echo. Medical decision making patient presents with syncopal episode probably related to her hypotension. There is no ones at this time to suggest that she has had an arrhythmia seen indication for head CT. Will need admission for additional hydration. Discussed the case with the hospitalist including lactic acid. He would prefer to hold off on antibiotics at this time think is reasonable again because she did not meet sirs criteria I discussed results of laboratory findings and diagnostic test with patient/family. The treatment plan was explained and I reviewed the discharge instructions with them. Questions were answered. The patient/family verbalizes understanding Dictation was done using voice recognition software. There may be some grammatical errors which are unintentional criteria 06/29/19 19:47 06/29/19 19:49 - Vital Signs Vital signs: Temp Pulse Resp BP Pulse Ox 97.8 F 15 117/65 96 06/29/19 19:00 06/29/19 19:00 06/29/19 19:00 06/29/19 19:00 - Laboratory Result Diagrams: 06/29/19 16:00 06/29/19 16:00 Laboratory results interpreted by me: 06/29/19 06/29/19 06/29/19 16:00 16:00 16:00 RBC 3.50 L Hgb 9.6 L Hct 28.2 L RDW 15.4 H Sodium 125.0 L Chloride 81 L BUN 44 H Creatinine 1.89 H Est GFR ( Amer) 32 L Est GFR (MDRD) Non-Af 26 L Glucose 383 H Lactic Acid (Sepsis) 2.6 H 06/29/19 19:45 Her previous laboratory studies she had a BUN and creatinine of 9 and 0.7 in January with hemoglobin 11.2 however she was Hemoccult negative lactic acid was noted. She has no anion gap acidosis - Diagnostic Test Radiology reviewed: Reports reviewed - EKG Interpretation by Me Additional EKG results interpreted by me: 06/29/19 18:01 EKG shows a normal sinus rhythm with a left bundle branch block. There is a QT interval upper limits of normal 0.49. No ST segment abnormalities and unchanged from previous Critical Care Note - Critical Care Note Total time excluding time spent on procedures (mins): 35 - Presented hypotensive. Comments: Patient presented hypotensive. Serial exams multiple medical interventions no history obtained from family with the hospitalist Discharge - Discharge Clinical Impression: Acute kidney injury Syncope Qualifiers: Syncope type: unspecified Qualified Code(s): R55 - Syncope and collapse Anemia Qualifiers: Anemia type: other cause Hypotension Qualifiers: Hypotension type: unspecified hypotension type Qualified Code(s): I95.9 - Hypotension, unspecified Disposition: ADMITTED INPATIENT Admitting Provider: Vandana (Hospitalist) Referrals: TERESA WARD DO [Primary Care Provider] - Follow up as needed
--- NOTE | 2019-06-29 18:04 | EKG REPORT ---
SEVERITY:- ABNORMAL ECG - SINUS RHYTHM INCOMPLETE LEFT BUNDLE BRANCH BLOCK LEFT VENTRICULAR HYPERTROPHY ANTERIOR INFARCT, AGE INDETERMINATE : Confirmed by: Gurinder Child MD 29-Jun-2019 18:02:42
[2019-06-29 18:22] LABS: VENOUS BLOOD BASE EXCESS 3.4 mmol/L; VENOUS BLOOD HCO3 30.9 mmol/L (20-32); VENOUS BLOOD PCO2 61.7 mmHg (35-63); VENOUS BLOOD PH 7.32 (7.30-7.42)
[2019-06-29] MEDS ORDERED: PIPERACILLIN/TAZOBACTAM 3.375 GM VIAL IV ONE (18:49)
[2019-06-29] MEDS ORDERED: MEROPENEM 1 GM VIAL IV ONE (19:35)
[2019-06-29 19:50] LABS: APPEARANCE,URINE CLEAR; BILIRUBIN,URINE NEGATIVE (NEGATIVE); COLOR,URINE YELLOW; GLUCOSE, URINE 50 mg/dL (NEGATIVE); KETONES,URINE NEGATIVE (NEGATIVE); PROTEIN,URINE NEGATIVE (NEGATIVE); URINE SPECIFIC GRAVITY 1.006; UROBILINOGEN,URINE NEGATIVE mg/dL (<2.0)
[2019-06-29] MEDS ORDERED: RINGERS SOLUTION,LACTATED 1,000 ML IV PRN (20:21)
[2019-06-29] MEDS ORDERED: LEVALBUTEROL HCL NEB 0.63 MG/3 ML AMPUL NEB PRN (20:21)
[2019-06-29] MEDS ORDERED: PROMETHAZINE HCL INJ 25 MG/1 ML VIAL IV PRN (20:21)
[2019-06-29] MEDS ORDERED: MAGNESIUM HYDROXIDE SUSP 30 ML UDCUP PO PRN (20:21)
[2019-06-29] MEDS ORDERED: HYDRALAZINE HCL INJ/PF 20 MG/1 ML SDV IV PRN (20:29)
[2019-06-29] MEDS ORDERED: ACETAMINOPHEN 325 MG TABLET PO PRN (20:29)
[2019-06-29] MEDS ORDERED: DEXTROSE 40% GEL 15 GM TUBE PO PRN ×2 (20:36)
[2019-06-29] MEDS ORDERED: INSULIN REG, HUMAN 100 UNIT/ML 3 ML VIAL (PYX) SUBCUT PRN (20:36)
[2019-06-29] MEDS ORDERED: DEXTROSE 50%-WATER 25 GM/50 ML DISP.SYRIN IV PRN ×2 (20:36)
[2019-06-29] MEDS ORDERED: GLUCAGON,HUMAN RECOMB 1 MG INJ IM PRN (20:36)
[2019-06-29] MEDS ORDERED: INSULIN REG, HUMAN 100 UNIT/ML 3 ML VIAL (PYX) SUBCUT SCH (22:00)
[2019-06-29] MEDS ORDERED: HEPARIN SOD (PORCINE) 5,000 UNIT/ML 1 ML VIAL SUBCUT SCH (22:00)
[2019-06-29] MEDS ORDERED: FAMOTIDINE 20 MG TABLET PO SCH (22:00)
[2019-06-29 22:14] VITALS: BP 127/45
--- NOTE | 2019-06-29 23:09 | PDOC H&P ---
History of Present Illness Admission Date/PCP: 06/29/2019 19:54 TERESA WARD DO Patient complains of: Syncopal episode History of Present Illness: ADILENE LEWIS is a 73 year old female who presented to the emergency room via EMS after an acute syncopal episode. The patient and her family report that while she was shopping today she suddenly started staggering and felt weak causing her to sit down in a chair and then she slumped over and became unresponsive for several minutes and regained consciousness by the time paramedics arrived. She denies other associated or accompanying signs and symptoms with her acute episode. She admits a visit to her primary care physician's office 3 days ago, where she was treated for a sinus infection with Augmentin and an additional diuretic was provided to her because her blood pressure was elevated. She additionally reports taking a laxative 2 days ago resulting in several watery stools. She denies prior similar episodes and has not identified any aggravating or ameliorating factors for her acute syncopal episode. Upon arrival the paramedics found her to be hypotensive. In the emergency room the patient was again noted to be hypotensive but her blood pre ssure recovered well with IV fluids. She was noted to have a sodium of 125, a BUN of 44, a creatinine of 1.89, a glucose of 383 and a serum lactate of 2.6. She was subsequently admitted for further evaluation and treatment. Past Medical History Cardiac Medical History: Reports: Coronary Artery Disease, Hyperlipidema, Hypertension, Peripheral Vascular Disease - Carotid artery disease Denies: Myocardial Infarction Pulmonary Medical History: Reports: Bronchitis, Chronic Obstructive Pulmonary Disease (COPD) Denies: Asthma EENT Medical History: Denies: Cataracts, Ears - Hearing aids Neurological Medical History: Denies: Hemorrhagic CVA, Ischemic CVA, Seizures Endocrine Medical History: Reports: Diabetes Mellitus Type 2 Denies: Diabetes Mellitus Type 1, Hyperthyroidism, Hypothyroidism Renal/ Medical History: Denies: Chronic Kidney Disease, Nephrolithiasis Malignancy Medical History: Reports: None GI Medical History: Reports: Hiatal Hernia Denies: Cirrhosis, Crohn's Disease, Hepatitis, Ulcerative Colitis Musculoskeltal Medical History: Reports: Arthritis Denies: Gout Skin Medical History: Denies: Eczema, Psoriasis Psychiatric Medical History: Reports: Bipolar Disorder, Dementia, Depression, Other - Nicotine dependency Denies: Alcohol Dependency, Substance Abuse, Tobacco Dependency Traumatic Medical History: Reports: None Hematology: Reports: Anemia - Chronic anemia Denies: Bleeding Tendencies Infectious Medical History: Reports: None Past Surgical History Past Surgical History: Reports: Cholecystectomy, Hysterectomy, Orthopedic Surgery - Back surgery, Other - Urinary bladder suspension procedure Social History Information Source: Patient Lives with: Spouse/Significant other Smoking Status: Current Every Day Smoker Electronic Cigarette use?: Yes Frequency of Alcohol Use: None Hx Recreational Drug Use: No Drugs: None Hx Prescription Drug Abuse: No - Advance Directive Resuscitation Status: Full Code Surrogate healthcare decision maker:: Gerry Lewis Family History Family History: CAD, DM, Other - Peptic ulcer disease Parental Family History Reviewed: Yes Children Family History Reviewed: No Sibling(s) Family History Reviewed.: Yes Medication/Allergy Home Medications: Alprazolam [Xanax] 1 mg PO Q8HP PRN 11/09/17 Butalb/Acetaminophen/Caffeine [Fioricet (50-325-40 mg) Tablet] 1 tab PO Q6HP PRN MDD 4 TABLETS 11/09/17 Clonidine HCl [Catapres 0.1 mg Tablet] 0.1 mg PO Q8HP PRN 11/09/17 Gabapentin [Neurontin 400 mg Capsule] 1,200 mg PO QHS 11/09/17 Gabapentin [Neurontin 400 mg Capsule] 400 mg PO BID@0800,1400 11/09/17 Nebivolol HCl [Bystolic] 20 mg PO DAILY 11/09/17 Omeprazole 40 mg PO BIDBS 11/09/17 Oxycodone HCl [Oxycodone HCl 10 MG Tablet] 10 mg PO Q6HP PRN 11/09/17 Albuterol Sulfate [Albuterol Sulfate Hfa] 1 puff IH Q6HP PRN 12/18/18 Cyanocobalamin (Vitamin B-12) [Vitamin B-12 1000 mcg Tablet] 1,000 mcg PO DAILY 12/18/18 Insulin Lispro [Humalog Insulin (Lispro) 100 unit/mL] 0 unit SUBCUT .SLD SCALE MDD 80 UNITS 12/18/18 Pioglitazone HCl [Actos 15 mg Tablet] 15 mg PO DAILY 12/18/18 Sertraline HCl [Zoloft 50 mg Tablet] 100 mg PO DAILY 12/18/18 Empagliflozin/Linagliptin [Glyxambi 10 mg-5 mg Tablet] 1 each PO DAILY 01/16/19 Albuterol Sulfate [Proair Hfa Inhalation Aerosol 8.5 gm Mdi] 1 puff IH Q4 PRN 05/01/19 Amlodipine Besylate [Norvasc 5 mg Tablet] 5 mg PO DAILY 05/01/19 Aspirin [Aspirin 81 mg Chewable Tablet] 81 mg PO DAILY 05/01/19 Magnesium Oxide [Magnesium] 400 mg PO DAILY 05/01/19 Ondansetron HCl [Zofran 4 mg Tablet] 1 - 2 tab PO Q4H PRN 05/01/19 Rosuvastatin Calcium 20 mg PO DAILY 05/01/19 Telmisartan/Hydrochlorothiazid [Telmisartan-Hctz 80-12.5 mg Tb] 1 each PO DAILY 05/01/19 Triazolam 0.5 mg PO QHS 05/01/19 Allergies/Adverse Reactions: NSAIDS (Non-Steroidal Anti-Inflamma [Nsaids] Allergy (Severe, Verified 05/08/19 09:03) gastric bleed adhesive [Adhesive] Allergy (Intermediate, Verified 05/08/19 09:03) codeine Allergy (Verified 05/08/19 09:03) meperidine Allergy (Verified 05/08/19 09:03) morphine Allergy (Verified 05/08/19 09:03) Review of Systems Constitutional: PRESENT: as per HPI, weakness - Sudden onset. ABSENT: chills, fever(s) Eyes: ABSENT: visual disturbances, other - Eye pain Ears: ABSENT: hearing changes, other - Ear pain Nose, Mouth, and Throat: ABSENT: headache(s), mouth pain, sore throat Cardiovascular: ABSENT: chest pain, palpitations Respiratory: ABSENT: cough, dyspnea Gastrointestinal: PRESENT: as per HPI, diarrhea. ABSENT: abdominal pain, constipation, nausea, vomiting Genitourinary: ABSENT: dysuria, hematuria Musculoskeletal: ABSENT: back pain, joint swelling, muscle weakness Integumentary: ABSENT: pruritus, rash Neurological: PRESENT: as per HPI, syncope. ABSENT: confusion, convulsions, focal weakness, memory loss Psychiatric: ABSENT: anxiety, depression Endocrine: ABSENT: cold intolerance, heat intolerance Hematologic/Lymphatic: ABSENT: easy bleeding, easy bruising Allergic/Immunologic: ABSENT: seasonal rhinorrhea Physical Exam Vital Signs: Temp Pulse Resp BP Pulse Ox 97.8 F 15 117/65 96 06/29/19 19:00 06/29/19 19:00 06/29/19 19:00 06/29/19 19:00 Intake & Output 06/27/19 06/28/19 06/29/19 23:59 23:59 23:59 Intake Total 1000 Balance 1000 Weight 88.2 kg General appearance: PRESENT: no acute distress, cooperative Head exam: PRESENT: atraumatic, normocephalic Eye exam: PRESENT: conjunctiva pink. ABSENT: conjunctival injection, scleral icterus Ear exam: PRESENT: normal external ear exam. ABSENT: bleeding, drainage Mouth exam: PRESENT: dry mucosa, neck supple Neck exam: ABSENT: thyromegaly, tracheal deviation Respiratory exam: PRESENT: decreased breath sounds - Mildly decreased breath sounds throughout all montes consistent with mild to moderate COPD, prolonged expiratory phas - Mildly prolonged expiratory phase in all montes, symmetrical, unlabored, wheezes - Mild wheezes present throughout all montes Cardiovascular exam: PRESENT: RRR. ABSENT: clicks, gallop, rubs Pulses: PRESENT: normal radial pulses, normal dorsalis pedis pul Vascular exam: PRESENT: normal capillary refill. ABSENT: pallor GI/Abdominal exam: PRESENT: normal bowel sounds, soft Rectal exam: PRESENT: deferred Extremities exam: ABSENT: joint swelling, pedal edema Musculoskeletal exam: ABSENT: deformity, dislocation Neurological exam: PRESENT: alert, oriented to person, oriented to place, oriented to time, oriented to situation, CN II-XII grossly intact. ABSENT: motor sensory deficit Psychiatric exam: PRESENT: anxious, other - Hostile mood Skin exam: PRESENT: dry, intact, warm. ABSENT: jaundice, rash, urticaria Results Laboratory Results: 06/29/19 16:00 06/29/19 16:00 06/29/19 06/29/19 06/29/19 16:00 16:00 18:00 WBC 6.2 RBC 3.50 L Hgb 9.6 L Hct 28.2 L MCV 81 MCH 27.4 MCHC 33.9 RDW 15.4 H Plt Count 236 Seg Neutrophils % 56.9 VBG pH 7.32 VBG pCO2 61.7 VBG HCO3 30.9 VBG Base Excess 3.4 Sodium 125.0 L Potassium 3.8 Chloride 81 L Carbon Dioxide 29 Anion Gap 15 BUN 44 H Creatinine 1.89 H Est GFR ( Amer) 32 L Glucose 383 H Calcium 8.7 Total Bilirubin 0.4 AST 24 Alkaline Phosphatase 86 Total Protein 6.6 Albumin 3.7 Urine Color Urine Appearance Urine pH Ur Specific [place] Urine Protein Urine Glucose (UA) Urine Ketones Urine Blood Urine RBC (Auto) 06/29/19 19:19 WBC RBC Hgb Hct MCV MCH MCHC RDW Plt Count Seg Neutrophils % VBG pH VBG pCO2 VBG HCO3 VBG Base Excess Sodium Potassium Chloride Carbon Dioxide Anion Gap BUN Creatinine Est GFR ( Amer) Glucose Calcium Total Bilirubin AST Alkaline Phosphatase Total Protein Albumin Urine Color YELLOW Urine Appearance CLEAR Urine pH 7.0 Ur Specific [place] 1.006 Urine Protein NEGATIVE Urine Glucose (UA) 50 H Urine Ketones NEGATIVE Urine Blood NEGATIVE Urine RBC (Auto) 1 06/29/19 16:00 Troponin I < 0.012 Impressions: Chest X-Ray 06/29/19 15:55 IMPRESSION: NO ACUTE FINDINGS. Assessment and Plan - Diagnosis (1) Episode of syncope Qualifiers: Syncope type: unspecified Qualified Code(s): R55 - Syncope and collapse Is this a current diagnosis for this admission?: Yes (2) Acute nontraumatic kidney injury Is this a current diagnosis for this admission?: Yes (3) Hyponatremia Is this a current diagnosis for this admission?: Yes (4) PVD (peripheral vascular disease) Is this a current diagnosis for this admission?: Yes (5) CAD (coronary artery disease) Qualifiers: Coronary Disease-Associated Artery/Lesion type: [place] artery [place] vs. transplanted heart: [place] heart Associated angina: without angina Qualified Code(s): I25.10 - Atherosclerotic heart disease of [place] coronary artery without angina pectoris Is this a current diagnosis for this admission?: Yes (6) Bipolar disorder Qualifiers: Active/Remission status: remission status unspecified Qualified Code(s): F31.9 - Bipolar disorder, unspecified Is this a current diagnosis for this admission?: Yes (7) Essential hypertension Is this a current diagnosis for this admission?: Yes (8) COPD (chronic obstructive pulmonary disease) Qualifiers: Emphysema type: unspecified Is this a current diagnosis for this admission?: Yes (9) GERD (gastroesophageal reflux disease) Qualifiers: Esophagitis presence: esophagitis presence not specified Qualified Code(s): K21.9 - Gastro-esophageal reflux disease without esophagitis Is this a current diagnosis for this admission?: Yes (10) Nicotine dependence with current use Is this a current diagnosis for this admission?: Yes (11) Diabetes mellitus type 2 in obese Is this a current diagnosis for this admission?: Yes - Plan Summary Summary: Patient will be managed to the medical floor with telemetry where she will receive routine supportive and symptomatic cares. She will be treated with IV fluids and aggressive management of her elevated blood sugar with before meals and at bedtime Accu-Cheks and a sliding scale insulin for hyperglycemia as well as a hypoglycemic protocol be in place. Her metabolic profile and lactic acids will be followed on a serial basis. A carotid Doppler study and a noncontrast CT scan of the head will be obtained. A cardiology consultation will be obtained with Dr. Reid. Patient will be continued on her usual medications and treatments for her chronic medical problems as appropriate. Cessation of e- cigarette usage is recommended and counseled briefly at the bedside. Nicotine replacement patches available for the patient's use, if desired. - Time Time Spent with patient: 25-34 minutes Smoking Cessation Education: 3 to 10 minutes Medications reviewed and adjusted accordingly: Yes Anticipated discharge: Home - Inpatient Certification Based on my medical assessment, after consideration of the patient's comorbidities, presenting symptoms, or acuity I expect that the services needed warrant INPATIENT care.: Yes I certify that my determination is in accordance with my understanding of Medicare's requirements for reasonable and necessary INPATIENT services [42 CFR 412.3e].: Yes Medical Necessity: Significant Comorbidiites Make Outpatient Treatment Too Risky, Need Close Monitoring Due to Risk of Patient Decompensation, Need For IV Fluids, Need For Continuous Telemetry Monitoring, Need for Neurological Checks, Risk of Complication if Not Cared For in Hospital
--- NOTE | 2019-06-29 23:14 | Left Against Medical Advice ---
Against Medical Advice Admission Date/Time: 06/29/19 20:40 Primary Care Provider: TERESA WARD DO Date of Patient Emigration: 06/29/19 - Diagnosis: (1) Episode of syncope Is this a current diagnosis for this admission?: Yes (2) Acute nontraumatic kidney injury Is this a current diagnosis for this admission?: Yes (3) Hyponatremia Is this a current diagnosis for this admission?: Yes (4) PVD (peripheral vascular disease) Is this a current diagnosis for this admission?: Yes (5) CAD (coronary artery disease) Is this a current diagnosis for this admission?: Yes (6) Bipolar disorder Is this a current diagnosis for this admission?: Yes (7) Essential hypertension Is this a current diagnosis for this admission?: Yes (8) COPD (chronic obstructive pulmonary disease) Is this a current diagnosis for this admission?: Yes (9) GERD (gastroesophageal reflux disease) Is this a current diagnosis for this admission?: Yes (10) Nicotine dependence with current use Is this a current diagnosis for this admission?: Yes (11) Diabetes mellitus type 2 in obese Is this a current diagnosis for this admission?: Yes - Summary: Summary: Please see Admission and Progress Notes as well. ADILENE LEWIS is a 73 F, who LEFT AGAINST MEDICAL ADVICE. The Patient was admitted on 06/29/19 20:40.
[2019-06-30] MEDS ORDERED: DOCUSATE SODIUM 100 MG CAPSULE PO SCH (10:00)
== END 2019-06-29 21:00 | disposition left against medical advice (07) | DRG 315 ==
LOC: ER 15:51 → EH 20:21 → UNDOADMIN 20:40 → ER 21:00
PROVIDERS: ADMIT Emergency Medicine; ATTEND Emergency Medicine
DX: I95.9 Hypotension, unspecified (principal); E87.1 Hypo-osmolality and hyponatremia; N17.9 Acute kidney failure, unspecified; R55 Syncope and collapse; D64.9 Anemia, unspecified; J44.9 Chronic obstructive pulmonary disease, unspecified; I25.10 Atherosclerotic heart disease of native coronary artery without angina pectoris; F31.9 Bipolar disorder, unspecified; E11.51 Type 2 diabetes mellitus with diabetic peripheral angiopathy without gangrene; J32.9 Chronic sinusitis, unspecified; I10 Essential (primary) hypertension; E78.5 Hyperlipidemia, unspecified; E11.65 Type 2 diabetes mellitus with hyperglycemia; K21.9 Gastro-esophageal reflux disease without esophagitis; F17.290 Nicotine dependence, other tobacco product, uncomplicated; Z79.4 Long term (current) use of insulin; Z88.8 Allergy status to other drugs, medicaments and biological substances; Z91.048 Other nonmedicinal substance allergy status; Z88.6 Allergy status to analgesic agent; Z88.5 Allergy status to narcotic agent; Z79.899 Other long term (current) drug therapy; Z79.82 Long term (current) use of aspirin
CPT/HCPCS: 36415; 71045; 80053; 81001; 82803; 82962; 83605; 84484; 85025; 85610; 87040; 87086; 93005; 93010; 96360; 96361; 99291; J7030

== ENCOUNTER 2019-09-20 00:53 | Emergency (ER) | payer MEDICARE, OTHER ==
[2019-09-20 01:04] VITALS: BP 147/108
--- NOTE | 2019-09-20 02:10 | ER Document Report ---
ED GI/ - General Chief Complaint: Urinary Problem Stated Complaint: TROUBLE URINATING Time Seen by Provider: 09/20/19 01:55 Primary Care Provider: TERESA WARD DO [Primary Care Provider] - Follow up tomorrow Notes: Patient is a 74-year-old female that comes emergency department for chief complaint of urinary retention. She states that over the past several days she has only been able to have dribbling urination and over the past day this increased to the point that she started having bloating, cramping, and pain to her lower abdomen. She states she had a bladder sling in the 80s, she has had problems with urinary retention but has never required a Harding catheter. She states she had a cystoscopy but this was reportedly negative. Patient states she is followed with a sr. payroll manager in the past but has not seen a urologist recently. Patient denies vomiting, fever, and she states that she just completed antibiotics for a urinary tract infection. She is on aspirin but no other blood thinners. at bedside. TRAVEL OUTSIDE OF THE [place] IN LAST 30 DAYS: Yes - Related Data Allergies/Adverse Reactions: NSAIDS (Non-Steroidal Anti-Inflamma [Nsaids] Allergy (Severe, Verified 09/20/19 01:08) gastric bleed adhesive [Adhesive] Allergy (Intermediate, Verified 09/20/19 01:08) codeine Allergy (Verified 09/20/19 01:08) meperidine Allergy (Verified 09/20/19 01:08) morphine Allergy (Verified 09/20/19 01:08) Past Medical History - General Information source: Patient - Social History Smoking Status: Former Smoker Frequency of alcohol use: None Drug Abuse: None Lives with: Family Family History: CAD, DM, Other - Peptic ulcer disease Patient has suicidal ideation: No Patient has homicidal ideation: No - Past Medical History Cardiac Medical History: Reports: Hx Coronary Artery Disease, Hx Hypercholesterolemia, Hx Hypertension, Hx Peripheral Vascular Disease - Carotid artery disease Denies: Hx Heart Attack Pulmonary Medical History: Reports: Hx Bronchitis, Hx COPD Denies: Hx Asthma Neurological Medical History: Denies: Hx Cerebrovascular Accident, Hx Seizures Endocrine Medical History: Reports: Hx Diabetes Mellitus Type 2. Denies: Hx Diabetes Mellitus Type 1, Hx Hyperthyroidism, Hx Hypothyroidism Renal/ Medical History: Denies: Hx Peritoneal Dialysis GI Medical History: Reports: Hx Hiatal Hernia. Denies: Hx Cirrhosis, Hx Crohn's Disease, Hx Hepatitis, Hx Ulcer, Hx Ulcerative Colitis Musculoskeletal Medical History: Reports Hx Arthritis, Denies Hx Gout, Reports Hx Muscle Spasm Skin Medical History: Denies Hx Eczema, Denies Hx Psoriasis Psychiatric Medical History: Reports: Hx Bipolar Disorder, Hx Dementia, Hx Depression Infectious Medical History: Denies: Hx Hepatitis Past Surgical History: Reports: Hx Abdominal Surgery - BOTOX INJECTIONS [id number], Hx Cholecystectomy, Hx Hysterectomy, Hx Orthopedic Surgery - Back surgery, Hx Urinary Tract Surgery, Other - Urinary bladder suspension procedure. Denies: Hx Mastectomy, Hx Open Heart Surgery, Hx Pacemaker - Immunizations Hx Diphtheria, Pertussis, Tetanus Vaccination: Yes Hx Pneumococcal Vaccination: 10/04/13 Review of Systems - Review of Systems Constitutional: No symptoms reported EENT: No symptoms reported Cardiovascular: No symptoms reported Respiratory: No symptoms reported Gastrointestinal: No symptoms reported Genitourinary: See HPI Female Genitourinary: No symptoms reported Musculoskeletal: No symptoms reported Skin: No symptoms reported Hematologic/Lymphatic: No symptoms reported Neurological/Psychological: No symptoms reported Physical Exam - Vital signs Vitals: Temp Pulse Resp BP Pulse Ox 98.3 F 93 18 147/108 H 100 09/20/19 01:03 09/20/19 01:03 09/20/19 01:03 09/20/19 01:03 09/20/19 01:03 - Notes Notes: GENERAL: Alert, interacts well. No acute distress. Smiling and well-appearing HEAD: Normocephalic, atraumatic. EYES: Pupils equal, round, and reactive to light. Extraocular movements intact. ENT: Oral mucosa moist, tongue midline. Oropharynx unremarkable. Airway patent. LUNGS: Clear to auscultation bilaterally, no wheezes, rales, or rhonchi. No respiratory distress. HEART: Regular rate and rhythm. No murmur ABDOMEN: Soft, non-tender. Non-distended. Bowel sounds present in all 4 quadrants. GENITOURINARY: Harding in place. There is some faint erythema suggesting Connie in the inguinal areas. EXTREMITIES: Moves all 4 extremities spontaneously. No edema, normal radial and dorsalis pedis pulses bilaterally. No cyanosis. BACK: no cervical, thoracic, lumbar midline tenderness. No saddle anesthesia, normal distal neurovascular exam. Moves all extremities in full range of motion. NEUROLOGICAL: Alert and oriented x3. Normal speech. Cranial nerves II through XII grossly intact. PSYCH: Normal affect, normal mood. SKIN: Warm, dry, normal turgor. No rashes or lesions noted. Course - Re-evaluation Re-evalutation: Patient had complete resolution of her symptoms after Harding catheter was placed. She did have about 750 cc output over time but not immediately. Afterwards she states she feels great and she wants to go home. She has faint evidence of fungal infection in the inguinal area, requesting treatment, given Diflucan CBC nonspecific, chemistry shows hyponatremia at 124.7, previous was 125. Urine is very dilute and does not show infection. Discussed with patient, she states she drinks 6 bottles of water a day and drinks 2 bottles of Pedialyte a day additionally. She also states that she was placed on Lasix recently. She also states that she has cut some sodium out of her diet because her blood pressure. I suspect volume overload is the most likely cause of the hyponatremia. I discussed with Dr. Howard. His recommendation is that we give her some normal saline here (given 500 cc bolus here), have her increase sodium in her diet, reduce her diuretic and her fluid intake, and have this rechecked very closely with her primary care. She is also to follow-up with urology. I discussed this in detail with patient and . They state they will absolutely get this rechecked very closely and they will return for any concerning symptoms. Discharged with return precautions. - Vital Signs Vital signs: Temp Pulse Resp BP Pulse Ox 98.3 F 93 18 147/108 H 100 09/20/19 01:03 09/20/19 01:03 09/20/19 01:03 09/20/19 01:03 09/20/19 01:03 - Laboratory Result Diagrams: 09/20/19 02:29 09/20/19 02:29 Laboratory results interpreted by me: 09/20/19 09/20/19 02:29 02:29 Hct 33.9 L RDW 14.6 H Sodium 124.7 L Chloride 84 L Carbon Dioxide 31 H Glucose 149 H Discharge - Discharge Clinical Impression: Urinary retention, Hyponatremia Condition: Stable Disposition: HOME, SELF-CARE Additional Instructions: Because of your urinary retention we had to place a Harding. Leave this in place, empty the bag as shown, please call the urology referral today for close follow-up in the office and additional management. See referral below. Your sodium is too low again. You have been given sodium chloride here, I recommend that you increase sodium in your diet (tomato juice is a good option), reduce your fluid intake (currently you are drinking too much fluid on a daily basis). I also recommend that you reduce your diuretics and follow-up very closely with your provider within the next couple of days to have your sodium level rechecked on a blood chemistry. Call your provider today to arrange this follow-up for additional management and a sodium recheck. Return if you worsen in any way including fever, vomiting, confusion, seizure, or any other concerning or worsening symptoms. [facility] [address] [place] [id number] [facility] [address] [place], [place] [id number] Referrals: TERESA WARD, [Primary Care Provider] - Follow up tomorrow
[2019-09-20 02:45] LABS: ABSOLUTE EOSINOPHILS # (AUTO) 0.2 10^3/uL (0.0-0.6); ABSOLUTE LYMPHOCYTES (AUTO) 1.3 10^3/uL (0.5-4.7); ABSOLUTE MONOCYTES (AUTO) 0.6 10^3/uL (0.1-1.4); ABSOLUTE NEUT (AUTO) 3.1 10^3/uL (1.7-8.2); BASOPHILS % (AUTO) 0.8 % (0-2); EOSINOPHILS % (AUTO) 4.5 % (0-6); HEMATOCRIT 33.9 % (36.0-47.0); HEMOGLOBIN 12.1 g/dL (12.0-15.5); LYMPHOCYTES % (AUTO) 24.2 % (13-45); MEAN CORPUSCULAR HEMOGLOBIN 28.6 pg (27.0-33.4); MEAN CORPUSCULAR HGB CONC 35.7 g/dL (32.0-36.0); MEAN CORPUSCULAR VOLUME 80 fl (80-97); MONOCYTES % (AUTO) 12.3 % (3-13); PLATELET COUNT 290 10^3/uL (150-450); RED BLOOD COUNT 4.24 10^6/uL (3.72-5.28); RED CELL DISTRIBUTION WIDTH 14.6 % (11.5-14.0); SEGMENTED NEUTROPHILS % (AUTO) 58.2 % (42-78); TOTAL CELLS COUNTED % (AUTO) 100 %; WHITE BLOOD COUNT 5.3 10^3/uL (4.0-10.5)
[2019-09-20 02:52] LABS: APPEARANCE,URINE CLEAR; BILIRUBIN,URINE NEGATIVE (NEGATIVE); COLOR,URINE YELLOW; GLUCOSE, URINE NEGATIVE (NEGATIVE); KETONES,URINE NEGATIVE (NEGATIVE); LEUKOCYTE ESTERASE,URINE NEGATIVE (NEGATIVE); NITRITE,URINE NEGATIVE (NEGATIVE); PROTEIN,URINE NEGATIVE (NEGATIVE); URINE SPECIFIC GRAVITY 1.005; UROBILINOGEN,URINE NEGATIVE mg/dL (<2.0)
[2019-09-20 03:11] LABS: ANION GAP 10 (5-19); BLOOD UREA NITROGEN 13 mg/dL (7-20); CARBON DIOXIDE 31 mmol/L (22-30); CHLORIDE 84 mmol/L (98-107); GLUCOSE 149 mg/dL (75-110); POTASSIUM 3.9 mmol/L (3.6-5.0)
[2019-09-20] MEDS ORDERED: NORMAL SALINE 500 ML IV ONE (03:57)
[2019-09-20] MEDS ORDERED: FLUCONAZOLE 100 MG TABLET PO ONE (04:37)
== END 2019-09-20 05:36 | disposition home or self-care (01) ==
LOC: ER 00:53
DX: R33.9 Retention of urine, unspecified (principal); E87.1 Hypo-osmolality and hyponatremia; R39.198 Other difficulties with micturition; R14.0 Abdominal distension (gaseous); R10.30 Lower abdominal pain, unspecified; Z88.8 Allergy status to other drugs, medicaments and biological substances; I25.10 Atherosclerotic heart disease of native coronary artery without angina pectoris; I10 Essential (primary) hypertension; J44.9 Chronic obstructive pulmonary disease, unspecified; E11.9 Type 2 diabetes mellitus without complications
CPT/HCPCS: 99283; 51702; 36415; 87086; 85025; 80048; 81001; J7040; A9270

== ENCOUNTER 2020-04-19 16:56 | Inpatient (IN) | payer MEDICARE, OTHER ==
[2020-04-19 17:20] LABS: ABSOLUTE NEUT (AUTO) 11.6 10^3/uL (1.7-8.2); BASOPHILS % (AUTO) 0.3 % (0-2); HEMATOCRIT 30.9 % (36.0-47.0); HEMOGLOBIN 10.4 g/dL (12.0-15.5); LYMPHOCYTES % (AUTO) 7.6 % (13-45); MEAN CORPUSCULAR HEMOGLOBIN 26.3 pg (27.0-33.4); MEAN CORPUSCULAR HGB CONC 33.7 g/dL (32.0-36.0); MEAN CORPUSCULAR VOLUME 78 fl (80-97); MONOCYTES % (AUTO) 7.3 % (3-13); PLATELET COUNT 324 10^3/uL (150-450); RED BLOOD COUNT 3.96 10^6/uL (3.72-5.28); RED CELL DISTRIBUTION WIDTH 16.3 % (11.5-14.0); SEGMENTED NEUTROPHILS % (AUTO) 84.8 % (42-78); TOTAL CELLS COUNTED % (AUTO) 100 %; WHITE BLOOD COUNT 13.7 10^3/uL (4.0-10.5)
--- NOTE | 2020-04-19 17:20 | RADIOLOGY REPORT (SQ) ---
EXAM DESCRIPTION: CT HEAD WITHOUT IMAGES COMPLETED DATE/TIME: 04/19/2020 4:08 pm REASON FOR STUDY: AMS COMPARISON: 01/16/2019 TECHNIQUE: Axial images acquired through the brain without intravenous contrast. Images reviewed wi th bone, brain and subdural windows. Additional sagittal and coronal reconstructions were generated. Images stored on PACS. All CT scanners at this facility use dose modulation, iterative reconstruction, and/or weight based d osing when appropriate to reduce radiation dose to as low as reasonably achievable (ALARA). [facility]: Dose Right [facility]: CareDose [facility]: Dose Right [facility]: Teradose 4D [facility]: Ensyn RADIATION DOSE: mGy. LIMITATIONS: None. FINDINGS: VENTRICLES: Normal size and contour. CEREBRUM: No masses. No hemorrhage. No midline shift. No evidence for acute infarction. Normal gra y/white matter differentiation. No areas of low density in the white matter. CEREBELLUM: No masses. No hemorrhage. No alteration of density. No evidence for acute infarction. EXTRAAXIAL SPACES: No fluid collections. No masses. ORBITS AND GLOBE: No intra- or extraconal masses. Normal contour of globe without masses. CALVARIUM: No fracture. PARANASAL SINUSES: No fluid or mucosal thickening. SOFT TISSUES: No mass or hematoma. OTHER: No other significant finding. IMPRESSION: NO ACUTE INTRACRANIAL IMAGING FINDINGS. EVIDENCE OF ACUTE STROKE: NO. COMMENT: Negative findings were called to Dr. Delgado on 04/19/2020 at 1713 hours Eastern time per stro protocol Quality ID # [id number]: Final reports with documentation of one or more dose reduction techniques (e.g., Au tomated exposure control, adjustment of the mA and/or kV according to patient size, use of iterative reconstruction technique) TECHNICAL DOCUMENTATION: JOB ID: [id number] 2010 [employer]- All Rights Reserved Reading location - IP/workstation name: [email or web address]
[2020-04-19 17:22] LABS: INTERNATIONAL RATION (INR) 1.02; PARTIAL THROMBOPLASTIN TIME 33.8 SEC (23.5-35.8); PROTHROMBIN TIME 13.6 SEC (11.4-15.4)
--- NOTE | 2020-04-19 17:25 | RADIOLOGY REPORT (SQ) ---
EXAM DESCRIPTION: CHEST SINGLE VIEW IMAGES COMPLETED DATE/TIME: 04/19/2020 5:09 pm REASON FOR STUDY: AMS COMPARISON: 06/29/2019 and 05/23/2016. EXAM PARAMETERS: NUMBER OF VIEWS: One view. TECHNIQUE: Single frontal radiographic view of the chest acquired. RADIATION DOSE: NA LIMITATIONS: None. FINDINGS: LUNGS AND PLEURA: Diffuse chronic interstitial changes. Stable small nodules, likely gran ulomas. No lobar infiltrate, masses or pneumothorax. No pleural effusion. MEDIASTINUM AND HILAR STRUCTURES: No masses. Contour normal. HEART AND VASCULAR STRUCTURES: Heart upper limits of normal in size. Normal vasculature. BONES: No acute findings. HARDWARE: None in the chest. OTHER: No other significant finding. IMPRESSION: CHRONIC INTERSTITIAL CHANGES. STABLE GRANULOMAS. NO ACUTE RADIOGRAPHIC FINDING IN THE CHEST. TECHNICAL DOCUMENTATION: JOB ID: [id number] 2010 [email or web address]- All Rights Reserved Reading location - IP/workstation name: [email or web address]
[2020-04-19] MEDS ORDERED: ONDANSETRON HCL INJ/PF 4 MG/2 ML SDV IV ONE (17:29)
[2020-04-19 17:35] LABS: ALBUMIN 4.2 g/dL (3.5-5.0); ALKALINE PHOSPHATASE 92 U/L (38-126); ANION GAP 12 (5-19); ASPARTATE AMINO TRANSFERASE 81 U/L (14-36); BILIRUBIN,DIRECT 0.3 mg/dL (0.0-0.4); BILIRUBIN,TOTAL 0.7 mg/dL (0.2-1.3); BLOOD UREA NITROGEN 14 mg/dL (7-20); CALCIUM 9.8 mg/dL (8.4-10.2); CARBON DIOXIDE 22 mmol/L (22-30); CHLORIDE 103 mmol/L (98-107); GLUCOSE 226 mg/dL (75-110); POTASSIUM 3.7 mmol/L (3.6-5.0); TOTAL PROTEIN 7.4 g/dL (6.3-8.2)
[2020-04-19 17:43] LABS: CREATINE KINASE 2552 U/L (30-135)
[2020-04-19 17:47] LABS: CREATINE KINASE MB 17.1 ng/mL (<4.55)
[2020-04-19 17:49] LABS: TROPONIN I 0.038 ng/mL
[2020-04-19] MEDS ORDERED: NORMAL SALINE 1000 ML 1,000 ML IV ONE (17:59)
--- NOTE | 2020-04-19 18:07 | ER Document Report ---
ED General - General Chief Complaint: S/S of Possible Stroke Stated Complaint: ALTERED MENTAL STATUS Time Seen by Provider: 04/19/20 16:59 Primary Care Provider: TERESA WARD DO [Primary Care Provider] - Follow up as needed TRAVEL OUTSIDE OF THE [place] IN LAST 30 DAYS: Yes - HPI Notes: Patient is a 74-year-old female brought in the emergency department for evaluation via EMS. They report altered mental status. She will not speak. I obtained the remainder of the history on the telephone from the patient's , Gerry Darden. Evidently the patient has been having altered mental status, had an MRI of her brain on April 16 in [place]. Because of her level of claustrophobia, she did require sedation. It took a while for them to "wake her up" per the . Since then she has not spoken a word. She has been very "groggy" and acting abnormally. She will lay on the couch for 5 minutes, get up, walk into the bedroom, lay there for a few minutes, and get up again. She was bringing hangers, random pieces of jewelry out. She seems very restless. It seems to be getting generally worse, so they bring her here to the emergency department for further evaluation. According to EMS and the patient's , the MRI was "normal." tells me that he has been giving her her insulin, but otherwise she has not taken any of her medications over the last 2 days. - Related Data Allergies/Adverse Reactions: NSAIDS (Non-Steroidal Anti-Inflamma [Nsaids] Allergy (Severe, Verified 09/20/19 01:08) gastric bleed adhesive [Adhesive] Allergy (Intermediate, Verified 09/20/19 01:08) codeine Allergy (Verified 09/20/19 01:08) meperidine Allergy (Verified 09/20/19 01:08) morphine Allergy (Verified 09/20/19 01:08) Home Medications: Fioricet, albuterol inhaler, Xanax, aspirin, clonidine, vitamin B12, Trulicity, gabapentin, NovoLog, losartan, magnesium oxide, multivitamin, Bystolic, omeprazole, ondansetron, oxycodone, rosuvastatin, sertraline, sumatriptan, triazolam Past Medical History - General Information source: Relative, Emergency Med Personnel - Social History Smoking Status: Unknown if Ever Smoked Frequency of alcohol use: None Drug Abuse: None Family History: CAD, DM, Other - Peptic ulcer disease - Past Medical History Cardiac Medical History: Reports: Hx Coronary Artery Disease, Hx Hypercholesterolemia, Hx Hypertension, Hx Peripheral Vascular Disease - Carotid artery disease Denies: Hx Heart Attack Pulmonary Medical History: Reports: Hx Bronchitis, Hx COPD Denies: Hx Asthma Neurological Medical History: Denies: Hx Cerebrovascular Accident, Hx Seizures Endocrine Medical History: Reports: Hx Diabetes Mellitus Type 2. Denies: Hx Diabetes Mellitus Type 1, Hx Hyperthyroidism, Hx Hypothyroidism Renal/ Medical History: Denies: Hx Peritoneal Dialysis GI Medical History: Reports: Hx Hiatal Hernia. Denies: Hx Cirrhosis, Hx Crohn's Disease, Hx Hepatitis, Hx Ulcer, Hx Ulcerative Colitis Musculoskeletal Medical History: Reports Hx Arthritis, Denies Hx Gout, Reports Hx Muscle Spasm Skin Medical History: Denies Hx Eczema, Denies Hx Psoriasis Psychiatric Medical History: Reports: Hx Bipolar Disorder, Hx Dementia, Hx Depression Infectious Medical History: Denies: Hx Hepatitis Past Surgical History: Reports: Hx Abdominal Surgery - BOTOX INJECTIONS [id number], Hx Cholecystectomy, Hx Hysterectomy, Hx Orthopedic Surgery - Back surgery, Hx Urinary Tract Surgery, Other - Urinary bladder suspension procedure. Denies: Hx Mastectomy, Hx Open Heart Surgery, Hx Pacemaker - Immunizations Hx Diphtheria, Pertussis, Tetanus Vaccination: Yes Hx Pneumococcal Vaccination: 10/04/13 Review of Systems - Review of Systems -: Yes ROS unobtainable due to patient's medical condition Physical Exam - Vital signs Vitals: Temp 97.4 F 04/19/20 16:57 - Notes Notes: This is a 74-year-old female who appears her stated age. She is mildly distressed. She will not speak, did occasionally grunt, specifically when I was checking her reflexes. She will intermittently follow commands. She looks confused, intermittently looks around the room. Vital signs reviewed, please refer to chart. Head is normocephalic, atraumatic. Pupils equal round, reactive to light. Neck is supple without meningismus. Heart is regular rate and rhythm. Lungs are clear to auscultation bilaterally. Abdomen is soft, nontender, normoactive bowel sounds throughout. Extremities without cyanosis, clubbing. Posterior calves are nontender. Peripheral pulses are equal. Skin is warm and dry. Patient is awake, alert, intermittently cooperative. She will not fully cooperate with strength testing, but moves all 4 extremities spontaneously. Her patellar, Achilles, biceps and brachioradialis reflexes are all equal. She has no gross facial asymmetry. Course - Re-evaluation Re-evalutation: 04/19/20 18:05 Patient presents to the emergency department for evaluation. She was initially called as a stroke alert, because EMS reported that her symptoms had only been present for an hour. After speaking with the family, I was able to clarify that the symptoms have been ongoing for days. I do not have a strong suspicion of a stroke, because these patients happened after a normal MRI. Orders were given to the nurse that she does not have to repeat stroke scale. Certainly if this is a stroke, she is not in the TPA window given onset about 48 hours ago. Beyond that, her symptoms are not necessarily consistent with that with the exception of the aphasia. Awaiting laboratory investigations and other studies, patient is currently stable. 04/19/20 20:45 Patient laboratory investigations revealed a urinary tract infection, leukocytosis. Blood cultures and urine cultures are ordered. She is given IV Rocephin and IV fluids. Her CT scan was unremarkable. 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 Otherwise it was age- appropriate without any enhancing lesions. I spoke with Dr. Ross regarding this patient. She will be admitted for further care. - Vital Signs Vital signs: Temp Pulse Resp BP Pulse Ox 98.9 F 75 20 143/57 H 90 L 04/19/20 20:06 04/19/20 16:59 04/19/20 20:04 04/19/20 20:04 04/19/20 20:04 - Laboratory Result Diagrams: 04/19/20 16:40 04/19/20 16:40 Laboratory results interpreted by me: 04/19/20 04/19/20 04/19/20 16:40 16:40 16:40 WBC 13.7 H Hgb 10.4 L Hct 30.9 L MCV 78 L MCH 26.3 L RDW 16.3 H Lymph % (Auto) 7.6 L Absolute Neuts (auto) 11.6 H Seg Neutrophils % 84.8 H Glucose 226 H AST 81 H ALT 51 H Creatine Kinase 2552 H CK-MB (CK-2) 17.10 H Urine Protein Urine Ketones Urine Blood Ur Leukocyte Esterase 04/19/20 19:55 WBC Hgb Hct MCV MCH RDW Lymph % (Auto) Absolute Neuts (auto) Seg Neutrophils % Glucose AST ALT Creatine Kinase CK-MB (CK-2) Urine Protein 30 H Urine Ketones TRACE H Urine Blood SMALL H Ur Leukocyte Esterase LARGE H - Diagnostic Test Radiology reviewed: Reports reviewed Radiology results interpreted by me: 04/19/20 18:06 Chest X-Ray 04/19/20 17:00 IMPRESSION: CHRONIC INTERSTITIAL CHANGES. STABLE GRANULOMAS. NO ACUTE RADIOGRAPHIC FINDING IN THE CHEST. Head CT 04/19/20 17:00 IMPRESSION: NO ACUTE INTRACRANIAL IMAGING FINDINGS. EVIDENCE OF ACUTE STROKE: NO. - EKG Interpretation by Me Additional EKG results interpreted by me: 04/19/20 20:46 Sinus mechanism with rate of 66 bpm. Left axis deviation. Nonspecific ST changes, but no acute changes concerning for ischemia or infarction. No significant change compared to prior study. Discharge - Discharge Clinical Impression: Altered mental status Qualifiers: Altered mental status type: disorientation Qualified Code(s): R41.0 - Disorientation, unspecified UTI (urinary tract infection) Qualifiers: Urinary tract infection type: site unspecified Hematuria presence: without hematuria Qualified Code(s): N39.0 - Urinary tract infection, site not specified Condition: Stable Disposition: ADMITTED INPATIENT Admitting Provider: Vandana (Hospitalist) Unit Admitted: Medical Floor Referrals: TERESA WARD DO [Primary Care Provider] - Follow up as needed
[2020-04-19 20:21] LABS: APPEARANCE,URINE SLIGHTLY-CLOUDY; BILIRUBIN,URINE NEGATIVE (NEGATIVE); COLOR,URINE YELLOW; GLUCOSE, URINE NEGATIVE (NEGATIVE); KETONES,URINE TRACE mg/dL (NEGATIVE); LEUKOCYTE ESTERASE,URINE LARGE (NEGATIVE); NITRITE,URINE NEGATIVE (NEGATIVE); PROTEIN,URINE 30 mg/dL (NEGATIVE); URINE SPECIFIC GRAVITY 1.014; UROBILINOGEN,URINE NEGATIVE mg/dL (<2.0)
[2020-04-19] MEDS ORDERED: NORMAL SALINE 1000 ML 1,000 ML IV PRN ×2 (20:35→21:00)
--- NOTE | 2020-04-19 20:53 | EKG REPORT ---
SEVERITY:- ABNORMAL ECG - SINUS RHYTHM LEFT ATRIAL ABNORMALITY NONSPECIFIC INTRAVENTRICULAR CONDUCTION DELAY PROBABLE ANTEROSEPTAL INFARCT, AGE INDETERM : Confirmed by: Gurinder Child MD 19-Apr-2020 20:52:37
[2020-04-19] MEDS ORDERED: CEFTRIAXONE 1 GM/D5W RTU 1 GM/50 ML RTUPB IV ONE (21:00)
[2020-04-19] MEDS ORDERED: MAGNESIUM HYDROXIDE SUSP 30 ML UDCUP PO PRN (21:17)
[2020-04-19] MEDS ORDERED: ONDANSETRON HCL INJ/PF 4 MG/2 ML SDV IV PRN (21:17)
[2020-04-19] MEDS ORDERED: MAG HYDROX/AL HYDROX/SIMETH SUSP 30 ML UDCUP PO PRN (21:17)
[2020-04-19] MEDS ORDERED: LEVALBUTEROL HCL NEB 0.63 MG/3 ML AMPUL NEB PRN (21:17)
[2020-04-19] MEDS ORDERED: METOPROLOL TARTRATE PF/INJ 5 MG/5 ML SDV IV PRN (21:21)
[2020-04-19] MEDS ORDERED: GLUCAGON,HUMAN RECOMB 1 MG INJ IM PRN (21:22)
[2020-04-19] MEDS ORDERED: DEXTROSE 40% GEL 15 GM TUBE PO PRN ×2 (21:22)
[2020-04-19] MEDS ORDERED: DEXTROSE 50%-WATER 25 GM/50 ML DISP.SYRIN IV PRN ×2 (21:22)
[2020-04-19] MEDS: INSULIN REG, HUMAN 100 UNIT/ML 3 ML VIAL (PYX) SUBCUT SCH (22:27)
[2020-04-19] MEDS: FAMOTIDINE 20 MG TABLET PO SCH (22:28)
[2020-04-19] MEDS: HEPARIN SOD (PORCINE) 5,000 UNIT/ML 1 ML VIAL SUBCUT SCH (22:28)
[2020-04-19 23:10] LABS: CREATINE KINASE MB 17.8 ng/mL (<4.55); TROPONIN I 0.036 ng/mL
[2020-04-20] MEDS: HYDRALAZINE HCL INJ/PF 20 MG/1 ML SDV IV PRN ×2 (00:22→16:15)
[2020-04-20] MEDS: GUAIFENESIN SYRP 200 MG/10 ML UDC PO PRN (02:13)
--- NOTE | 2020-04-20 05:09 | PDOC H&P ---
History of Present Illness Admission Date/PCP: 04/19/2020 20:55 TERESA WARD DO Patient complains of: Altered mental status History of Present Illness: ADILENE LEWIS is a 74 year old female who presented to the emergency room via EMS with altered mental status x3 days. The patient is nonverbal at this time and unable to provide input into her history. Her states that she had an MRI performed at [facility] on 04/16/2020 which required sedation due to her extreme anxiety. She was slow to recover after sedation and went to bed immediately after they arrived at home and slept for the better part of the next 24 hours. After waking she has been nonverbal and very confused with unusual repetitive behaviors and poor responsiveness to verbal direction. He feels that her poor responsiveness is not improving and may be worsening. He admits that she has had a prior similar episode after receiving sedative medications. He has not identified any additional aggravating or ameliorating factors for her altered mental status. In the emergency room the patient was noted to be confused and poorly responsive to verbal stimuli and commands. No focal neurologic deficits were identified and a CT scan of the head revealed no acute changes or evidence of stroke. Patient was subsequently admitted to the hospital for further evaluation and treatment. Past Medical History Cardiac Medical History: Reports: Coronary Artery Disease, Hyperlipidema, Hypertension, Peripheral Vascular Disease - Carotid artery disease Denies: Atrial Fibrillation, Congestive Heart Failure, Myocardial Infarction Pulmonary Medical History: Reports: Bronchitis, Chronic Obstructive Pulmonary Disease (COPD) Denies: Asthma EENT Medical History: Denies: Cataracts, Ears - Hearing aids Neurological Medical History: Denies: Hemorrhagic CVA, Ischemic CVA, Seizures Endocrine Medical History: Reports: Diabetes Mellitus Type 2, Obesity Denies: Diabetes Mellitus Type 1, Hyperthyroidism, Hypothyroidism Renal/ Medical History: Denies: Chronic Kidney Disease, Nephrolithiasis Malignancy Medical History: Reports: None GI Medical History: Reports: Gastroesophageal Reflux Disease, Hiatal Hernia Denies: Cirrhosis, Crohn's Disease, Hepatitis, Ulcerative Colitis Musculoskeltal Medical History: Reports: Arthritis Denies: Gout Skin Medical History: Denies: Eczema, Psoriasis Psychiatric Medical History: Reports: Bipolar Disorder, Dementia, Depression, Tobacco Dependency Denies: Alcohol Dependency, Substance Abuse Traumatic Medical History: Reports: None Hematology: Reports: Anemia - Chronic anemia Denies: Bleeding Tendencies Infectious Medical History: Reports: None Past Surgical History Past Surgical History: Reports: Cholecystectomy, Hysterectomy, Orthopedic Surgery - Back surgery, Other - Urinary bladder suspension procedure Social History Information Source: Relative, [facility] Lives with: Spouse/Significant other Smoking Status: Current Every Day Smoker Electronic Cigarette use?: No Frequency of Alcohol Use: None Hx Recreational Drug Use: No Drugs: None Hx Prescription Drug Abuse: No - Advance Directive Resuscitation Status: Full Code Surrogate healthcare decision maker:: Steffany Tom Family History Family History: CAD, DM, Other - Peptic ulcer disease Parental Family History Reviewed: Yes Children Family History Reviewed: No Sibling(s) Family History Reviewed.: Yes Medication/Allergy Home Medications: Alprazolam [Xanax] 1 mg PO Q8HP PRN 11/09/17 Butalb/Acetaminophen/Caffeine [Fioricet (50-325-40 mg) Tablet] 1 tab PO Q6HP PRN MDD 4 TABLETS 11/09/17 Clonidine HCl [Catapres 0.1 mg Tablet] 0.1 mg PO Q8HP PRN 11/09/17 Gabapentin [Neurontin 400 mg Capsule] 1,200 mg PO QHS 11/09/17 Gabapentin [Neurontin 400 mg Capsule] 400 mg PO BID@0800,1400 11/09/17 Nebivolol HCl [Bystolic] 20 mg PO DAILY 11/09/17 Omeprazole 40 mg PO BIDBS 11/09/17 Oxycodone HCl [Oxycodone HCl 10 MG Tablet] 10 mg PO Q6HP PRN 11/09/17 Albuterol Sulfate [Albuterol Sulfate Hfa] 1 puff IH Q6HP PRN 12/18/18 Cyanocobalamin (Vitamin B-12) [Vitamin B-12 1000 mcg Tablet] 1,000 mcg PO DAILY 12/18/18 Insulin Lispro [Humalog Insulin (Lispro) 100 unit/mL] 0 unit SUBCUT .SLD SCALE MDD 80 UNITS 12/18/18 Pioglitazone HCl [Actos 15 mg Tablet] 15 mg PO DAILY 12/18/18 Sertraline HCl [Zoloft 50 mg Tablet] 100 mg PO DAILY 12/18/18 Empagliflozin/Linagliptin [Glyxambi 10 mg-5 mg Tablet] 1 each PO DAILY 01/16/19 Albuterol Sulfate [Proair Hfa Inhalation Aerosol 8.5 gm Mdi] 1 puff IH Q4 PRN 05/01/19 Amlodipine Besylate [Norvasc 5 mg Tablet] 5 mg PO DAILY 05/01/19 Aspirin [Aspirin 81 mg Chewable Tablet] 81 mg PO DAILY 05/01/19 Magnesium Oxide [Magnesium] 400 mg PO DAILY 05/01/19 Ondansetron HCl [Zofran 4 mg Tablet] 1 - 2 tab PO Q4H PRN 05/01/19 Rosuvastatin Calcium 20 mg PO DAILY 05/01/19 Telmisartan/Hydrochlorothiazid [Telmisartan-Hctz 80-12.5 mg Tb] 1 each PO DAILY 05/01/19 Triazolam 0.5 mg PO QHS 05/01/19 Allergies/Adverse Reactions: NSAIDS (Non-Steroidal Anti-Inflamma [Nsaids] Allergy (Severe, Verified 09/20/19 01:08) gastric bleed adhesive [Adhesive] Allergy (Intermediate, Verified 09/20/19 01:08) codeine Allergy (Verified 09/20/19 01:08) meperidine Allergy (Verified 09/20/19 01:08) morphine Allergy (Verified 09/20/19 01:08) Review of Systems ROS unobtainable: Due to mental status - Acute encephalopathy Physical Exam Vital Signs: Temp Pulse Resp BP Pulse Ox 98.9 F 75 20 143/57 H 90 L 04/19/20 20:06 04/19/20 16:59 04/19/20 20:04 04/19/20 20:04 04/19/20 20:04 Intake & Output 04/17/20 04/18/20 04/19/20 23:59 23:59 23:59 Intake Total 150 Balance 150 Weight 86.5 kg General appearance: PRESENT: no acute distress, obese. ABSENT: cooperative - Does not follow verbal commands Head exam: PRESENT: atraumatic, normocephalic Eye exam: PRESENT: conjunctiva pink. ABSENT: conjunctival injection, scleral icterus Ear exam: PRESENT: normal external ear exam. ABSENT: bleeding, drainage Mouth exam: PRESENT: dry mucosa, neck supple Neck exam: ABSENT: thyromegaly, tracheal deviation Respiratory exam: PRESENT: decreased breath sounds - Minimally decreased breath sounds throughout all montes, prolonged expiratory phas - Minimally prolonged expiratory phase in all montes, symmetrical, unlabored Cardiovascular exam: PRESENT: RRR. ABSENT: clicks, gallop, rubs Pulses: PRESENT: normal radial pulses, normal dorsalis pedis pul Vascular exam: PRESENT: normal capillary refill. ABSENT: pallor GI/Abdominal exam: PRESENT: normal bowel sounds, soft Rectal exam: PRESENT: deferred Extremities exam: ABSENT: joint swelling, pedal edema Musculoskeletal exam: ABSENT: deformity, dislocation Neurological exam: PRESENT: altered - Nonverbal, withdrawn, CN II-XII grossly intact. ABSENT: motor sensory deficit Psychiatric exam: PRESENT: flat affect, other - Nonverbal, withdrawn Skin exam: PRESENT: dry, intact, warm. ABSENT: jaundice, rash, urticaria Results Laboratory Results: 04/19/20 16:40 04/19/20 16:40 04/19/20 04/19/20 04/19/20 16:40 16:40 19:55 WBC 13.7 H RBC 3.96 Hgb 10.4 L Hct 30.9 L MCV 78 L MCH 26.3 L MCHC 33.7 RDW 16.3 H Plt Count 324 Seg Neutrophils % 84.8 H Sodium 137.4 Potassium 3.7 Chloride 103 Carbon Dioxide 22 Anion Gap 12 BUN 14 Creatinine 0.71 Est GFR ( Amer) > 60 Glucose 226 H Calcium 9.8 Total Bilirubin 0.7 AST 81 H Alkaline Phosphatase 92 Total Protein 7.4 Albumin 4.2 Urine Color YELLOW Urine Appearance SLIGHTLY-CLOUDY Urine pH 5.0 Ur Specific [place] 1.014 Urine Protein 30 H Urine Glucose (UA) NEGATIVE Urine Ketones TRACE H Urine Blood SMALL H Urine Nitrite NEGATIVE Ur Leukocyte Esterase LARGE H Urine WBC (Auto) 133 Urine RBC (Auto) 1 04/19/20 04/19/20 16:40 16:40 Creatine Kinase 2552 H CK-MB (CK-2) 17.10 H Troponin I 0.038 Impressions: Chest X-Ray 04/19/20 17:00 IMPRESSION: CHRONIC INTERSTITIAL CHANGES. STABLE GRANULOMAS. NO ACUTE RADIOGRAPHIC FINDING IN THE CHEST. Head CT 04/19/20 17:00 IMPRESSION: NO ACUTE INTRACRANIAL IMAGING FINDINGS. EVIDENCE OF ACUTE STROKE: NO. Assessment and Plan - Diagnosis (1) Acute encephalopathy Is this a current diagnosis for this admission?: Yes (2) Pyuria Is this a current diagnosis for this admission?: Yes (3) Elevation of cardiac enzymes Is this a current diagnosis for this admission?: Yes (4) CAD (coronary artery disease) Qualifiers: Coronary Disease-Associated Artery/Lesion type: samish artery [place] vs. transplanted heart: samish heart Associated angina: without angina Qualified Code(s): I25.10 - Atherosclerotic heart disease of samish coronary artery without angina pectoris Is this a current diagnosis for this admission?: Yes (5) Hypertension Qualifiers: Hypertension type: essential hypertension Qualified Code(s): I10 - Essential (primary) hypertension Is this a current diagnosis for this admission?: Yes (6) Diabetes mellitus type 2 in obese Is this a current diagnosis for this admission?: Yes (7) Bipolar disorder Qualifiers: Active/Remission status: remission status unspecified Qualified Code(s): F31.9 - Bipolar disorder, unspecified Is this a current diagnosis for this admission?: Yes (8) Chronic pain Qualifiers: Chronic pain type: other chronic pain Qualified Code(s): G89.29 - Other chronic pain Is this a current diagnosis for this admission?: Yes (9) COPD (chronic obstructive pulmonary disease) Qualifiers: COPD type: unspecified COPD Qualified Code(s): J44.9 - Chronic obstructive pulmonary disease, unspecified Is this a current diagnosis for this admission?: Yes (10) GERD (gastroesophageal reflux disease) Qualifiers: Esophagitis presence: esophagitis presence not specified Qualified Code(s): K21.9 - Gastro-esophageal reflux disease without esophagitis Is this a current diagnosis for this admission?: Yes (11) Nicotine dependence with current use Is this a current diagnosis for this admission?: Yes - Plan Summary Summary: Patient will be admitted to medical floor on telemetry where she will receive routine supportive and symptomatic cares. Before meals and at bedtime Accu- Cheks will be performed with sliding scale insulin for hyperglycemia and a hypoglycemic protocol in place. Patient will be on a cardiac and diabetic restricted diet. Sedative medications will be withheld and the patient will be observed with every 4 hours neuro checks. Additional laboratory and/or radiog raphic evaluations will be obtained as appropriate. Blood pressure will be controlled with intravenous metoprolol and/or hydralazine to maintain a systolic blood pressure less than 160 and a diastolic blood pressure less than 100. Serial cardiac enzymes will be obtained. A cardiology consultation with Dr. Ratliff will be obtained. Patient will be continued on Rocephin empirically for her pyuria with blood and urine cultures pending. - Time Time Spent with patient: Less than 15 minutes Medications reviewed and adjusted accordingly: Yes Anticipated Discharge Disposition: Home with Home Health Anticipated Discharge Timeframe: within 72 hours - Inpatient Certification Based on my medical assessment, after consideration of the patient's comorbidit ies, presenting symptoms, or acuity I expect that the services needed warrant INPATIENT care.: Yes I certify that my determination is in accordance with my understanding of [facility]'s requirements for reasonable and necessary INPATIENT services [42 CFR 412.3e].: Yes Medical Necessity: Significant Comorbidiites Make Outpatient Treatment Too Risky, Need For Continuous Telemetry Monitoring, Need for Neurological Checks
[2020-04-20] MEDS: HEPARIN SOD (PORCINE) 5,000 UNIT/ML 1 ML VIAL SUBCUT SCH ×3 (05:19→22:00)
[2020-04-20 05:23] LABS: HEMATOCRIT 30.3 % (36.0-47.0); HEMOGLOBIN 10.1 g/dL (12.0-15.5); MEAN CORPUSCULAR HGB CONC 33.3 g/dL (32.0-36.0); MEAN CORPUSCULAR VOLUME 78 fl (80-97); PLATELET COUNT 274 10^3/uL (150-450); RED BLOOD COUNT 3.88 10^6/uL (3.72-5.28); RED CELL DISTRIBUTION WIDTH 16.4 % (11.5-14.0); WHITE BLOOD COUNT 15.6 10^3/uL (4.0-10.5)
--- NOTE | 2020-04-20 05:41 | CDI QUERY ---
CDI Query CDI Review: Dear Provider, After further study, please specify type ENCEPHALOPATHY documented in progress notes. ACUTE TOXIC ENCEPHALOPATHY likely due to medications / other? ACUTE METABOLIC ENCEPHALOPATHY likely due to ? OTHER? UNABLE TO DETERMINE Thanks, Ruthie Parker, CDI [phone]
[2020-04-20 05:49] LABS: ALBUMIN 3.8 g/dL (3.5-5.0); ALKALINE PHOSPHATASE 85 U/L (38-126); ANION GAP 13 (5-19); ASPARTATE AMINO TRANSFERASE 74 U/L (14-36); BILIRUBIN,DIRECT 0.4 mg/dL (0.0-0.4); BILIRUBIN,TOTAL 0.6 mg/dL (0.2-1.3); BLOOD UREA NITROGEN 15 mg/dL (7-20); CALCIUM 9.3 mg/dL (8.4-10.2); CARBON DIOXIDE 22 mmol/L (22-30); CHLORIDE 106 mmol/L (98-107); GLUCOSE 253 mg/dL (75-110); POTASSIUM 3.6 mmol/L (3.6-5.0); TOTAL PROTEIN 6.8 g/dL (6.3-8.2)
[2020-04-20] MEDS: INSULIN REG, HUMAN 100 UNIT/ML 3 ML VIAL (PYX) SUBCUT SCH ×4 (07:28→23:12)
[2020-04-20 08:00] LABS: CREATINE KINASE MB 15.4 ng/mL (<4.55); TROPONIN I 0.046 ng/mL
[2020-04-20] MEDS: DOCUSATE SODIUM 100 MG CAPSULE PO SCH ×2 (09:47→17:31)
[2020-04-20] MEDS: FAMOTIDINE 20 MG TABLET PO SCH ×2 (09:47→23:10)
[2020-04-20] MEDS ORDERED: ONDANSETRON HCL INJ/PF 4 MG/2 ML SDV IV PRN (14:00)
[2020-04-20 15:44] LABS: CREATINE KINASE MB 10.7 ng/mL (<4.55); TROPONIN I 0.033 ng/mL
--- NOTE | 2020-04-20 15:55 | PDOC PROGRESS REPORT ---
Subjective Progress Note for:: 04/20/20 Subjective:: No adverse events overnight. Patient is sitting up in bed looking at the television holding her heart monitor, but she is still nonverbal. She shifts herself around in the bed independently. Reason For Visit: ACUTE ENCEPHALOPATHY,ELEVATED CARDIAC ENZYMES, Physical Exam Vital Signs: Temp Pulse Resp BP Pulse Ox 99.1 F 67 24 H 144/62 H 94 04/20/20 11:08 04/20/20 14:00 04/20/20 11:08 04/20/20 11:08 04/20/20 11:08 Intake & Output 04/19/20 04/20/20 04/21/20 06:59 06:59 06:59 Intake Total 2170 520 Output Total 500 Balance 1670 520 Weight 86.8 kg 86.8 kg General appearance: PRESENT: no acute distress, disheveled, morbidly obese Respiratory exam: PRESENT: clear to auscultation vinicius, symmetrical, unlabored. ABSENT: accessory muscle use, chest wall tenderness, crackles, prolonged expiratory phas, rhonchi, tachypnea, wheezes Cardiovascular exam: PRESENT: RRR, +S1, +S2 Pulses: PRESENT: normal carotid pulses Vascular exam: PRESENT: normal capillary refill GI/Abdominal exam: PRESENT: normal bowel sounds, soft. ABSENT: distended, guarding, rebound, tenderness Extremities exam: ABSENT: clubbing, pedal edema Musculoskeletal exam: PRESENT: normal inspection. ABSENT: deformity Neurological exam: PRESENT: awake, oriented to person, aphasic Psychiatric exam: PRESENT: flat affect Skin exam: PRESENT: dry, warm Results Laboratory Results: 04/20/20 04:26 04/20/20 04:26 04/19/20 04/19/20 04/19/20 16:40 16:40 19:55 WBC 13.7 H RBC 3.96 Hgb 10.4 L Hct 30.9 L MCV 78 L MCH 26.3 L MCHC 33.7 RDW 16.3 H Plt Count 324 Seg Neutrophils % 84.8 H Sodium 137.4 Potassium 3.7 Chloride 103 Carbon Dioxide 22 Anion Gap 12 BUN 14 Creatinine 0.71 Est GFR ( Amer) > 60 Glucose 226 H Calcium 9.8 Magnesium Total Bilirubin 0.7 AST 81 H Alkaline Phosphatase 92 Total Protein 7.4 Albumin 4.2 TSH Urine Color YELLOW Urine Appearance SLIGHTLY-CLOUDY Urine pH 5.0 Ur Specific [place] 1.014 Urine Protein 30 H Urine Glucose (UA) NEGATIVE Urine Ketones TRACE H Urine Blood SMALL H Urine Nitrite NEGATIVE Ur Leukocyte Esterase LARGE H Urine WBC (Auto) 133 Urine RBC (Auto) 1 04/20/20 04/20/20 04/20/20 04:26 04:26 04:26 WBC 15.6 H RBC 3.88 Hgb 10.1 L Hct 30.3 L MCV 78 L MCH 26.0 L MCHC 33.3 RDW 16.4 H Plt Count 274 Seg Neutrophils % Sodium 141.0 Potassium 3.6 Chloride 106 Carbon Dioxide 22 Anion Gap 13 BUN 15 Creatinine 0.72 Est GFR ( Amer) > 60 Glucose 253 H Calcium 9.3 Magnesium 1.7 Total Bilirubin 0.6 AST 74 H Alkaline Phosphatase 85 Total Protein 6.8 Albumin 3.8 TSH 1.29 Urine Color Urine Appearance Urine pH Ur Specific [place] Urine Protein Urine Glucose (UA) Urine Ketones Urine Blood Urine Nitrite Ur Leukocyte Esterase Urine WBC (Auto) Urine RBC (Auto) 04/19/20 04/19/20 04/19/20 16:40 16:40 22:12 Creatine Kinase 2552 H 2645 H CK-MB (CK-2) 17.10 H Troponin I 0.038 04/19/20 04/20/20 04/20/20 22:12 04:26 06:46 Creatine Kinase 2226 H CK-MB (CK-2) 17.80 H 15.40 H Troponin I 0.036 0.046 04/20/20 04/20/20 15:04 15:04 Creatine Kinase 1240 H CK-MB (CK-2) 10.70 H Troponin I 0.033 Impressions: Chest X-Ray 04/19/20 17:00 IMPRESSION: CHRONIC INTERSTITIAL CHANGES. STABLE GRANULOMAS. NO ACUTE RADIOGRAPHIC FINDING IN THE CHEST. Head CT 04/19/20 17:00 IMPRESSION: NO ACUTE INTRACRANIAL IMAGING FINDINGS. EVIDENCE OF ACUTE STROKE: NO. Assessment and Plan - Diagnosis (1) Acute encephalopathy Is this a current diagnosis for this admission?: Yes Plan: Possibly multifactorial. This patient has been admitted several times for encephalopathy due to polypharmacy. We have held all of her sedating medications. We also have her on some antibiotics in case this is a true urinary tract infection. (2) Elevation of cardiac enzymes Is this a current diagnosis for this admission?: Yes Plan: She has elevations of her CPK and CK-MB. No complaint discernible of any chest pain, no EKG changes. We will continue to monitor on telemetry. Continuing to trend enzymes. (3) Pyuria Is this a current diagnosis for this admission?: Yes Plan: Urine culture pending, on empiric Rocephin - Plan Summary Summary: Patient will be admitted to medical floor on telemetry where she will receive routine supportive and symptomatic cares. Before meals and at bedtime Accu- Cheks will be performed with sliding scale insulin for hyperglycemia and a hypoglycemic protocol in place. Patient will be on a cardiac and diabetic restricted diet. Sedative medications will be withheld and the patient will be observed with every 4 hours neuro checks. Additional laboratory and/or radiog raphic evaluations will be obtained as appropriate. Blood pressure will be controlled with intravenous metoprolol and/or hydralazine to maintain a systolic blood pressure less than 160 and a diastolic blood pressure less than 100. Serial cardiac enzymes will be obtained. A cardiology consultation with Dr. Ratliff will be obtained. Patient will be continued on Rocephin empirically for her pyuria with blood and urine cultures pending. - Time Time Spent with patient: 15-24 minutes Anticipated Discharge Disposition: Home with Home Health Anticipated Discharge Timeframe: within 72 hours
[2020-04-21] MEDS: GUAIFENESIN SYRP 200 MG/10 ML UDC PO PRN (01:43)
[2020-04-21] MEDS: HEPARIN SOD (PORCINE) 5,000 UNIT/ML 1 ML VIAL SUBCUT SCH ×3 (05:12→21:56)
[2020-04-21] MEDS: INSULIN REG, HUMAN 100 UNIT/ML 3 ML VIAL (PYX) SUBCUT SCH ×4 (07:37→21:56)
[2020-04-21] MEDS ORDERED: INFLUENZA QUAD (6MOS+) 2020-21 VAC 0.5 ML SYR IM ONE (08:00)
[2020-04-21] MEDS: FAMOTIDINE 20 MG TABLET PO SCH ×2 (09:28→21:56)
[2020-04-21] MEDS: DOCUSATE SODIUM 100 MG CAPSULE PO SCH ×2 (09:28→17:25)
[2020-04-21] MEDS ORDERED: ALBUTEROL SULFATE HFA (90 MCG/PUFF) 8 GM MDI (1 MDI/ER DISP) IH PRN (11:42)
[2020-04-21] MEDS: GABAPENTIN 400 MG CAPSULE PO SCH ×2 (13:43→21:55)
[2020-04-21] MEDS: PANTOPRAZOLE SODIUM 40 MG TABLET.DR PO SCH (16:28)
--- NOTE | 2020-04-21 17:16 | PDOC PROGRESS REPORT ---
Subjective Progress Note for:: 04/21/20 Subjective:: No adverse events overnight. She is a little more interactive today. She is at least answering yes and no occasionally. She does not answer any open-ended questions. Reason For Visit: ACUTE ENCEPHALOPATHY,ELEVATED CARDIAC ENZYMES, Physical Exam Vital Signs: Temp Pulse Resp BP Pulse Ox 97.9 F 77 13 156/68 H 96 04/21/20 16:00 04/21/20 16:00 04/21/20 16:00 04/21/20 16:00 04/21/20 12:00 Intake & Output 04/20/20 04/21/20 04/22/20 06:59 06:59 06:59 Intake Total 2170 520 Output Total 500 675 Balance 1670 -155 Weight 86.8 kg 85 kg General appearance: PRESENT: no acute distress, disheveled, morbidly obese Respiratory exam: PRESENT: clear to auscultation vinicius, symmetrical, unlabored. ABSENT: accessory muscle use, chest wall tenderness, crackles, prolonged expiratory phas, rhonchi, tachypnea, wheezes Cardiovascular exam: PRESENT: RRR, +S1, +S2 Pulses: PRESENT: normal carotid pulses Vascular exam: PRESENT: normal capillary refill GI/Abdominal exam: PRESENT: normal bowel sounds, soft. ABSENT: distended, guarding, rebound, tenderness Extremities exam: ABSENT: clubbing, pedal edema Musculoskeletal exam: PRESENT: normal inspection. ABSENT: deformity Neurological exam: PRESENT: awake, oriented to person, aphasic-will answer yes and no occasionally Psychiatric exam: PRESENT: flat affect Skin exam: PRESENT: dry, warm Results Laboratory Results: 04/20/20 04:26 04/20/20 04:26 04/19/20 19:55 Catheterized Urine Urine Culture - Final Escherichia Coli 04/19/20 04/19/20 04/19/20 16:40 16:40 22:12 Creatine Kinase 2552 H 2645 H CK-MB (CK-2) 17.10 H Troponin I 0.038 04/19/20 04/20/20 04/20/20 22:12 04:26 06:46 Creatine Kinase 2226 H CK-MB (CK-2) 17.80 H 15.40 H Troponin I 0.036 0.046 04/20/20 04/20/20 15:04 15:04 Creatine Kinase 1240 H CK-MB (CK-2) 10.70 H Troponin I 0.033 Impressions: Chest X-Ray 04/19/20 17:00 IMPRESSION: CHRONIC INTERSTITIAL CHANGES. STABLE GRANULOMAS. NO ACUTE RADIOGRAPHIC FINDING IN THE CHEST. Head CT 04/19/20 17:00 IMPRESSION: NO ACUTE INTRACRANIAL IMAGING FINDINGS. EVIDENCE OF ACUTE STROKE: NO. Assessment and Plan - Diagnosis (1) Acute encephalopathy Is this a current diagnosis for this admission?: Yes Plan: Possibly multifactorial. This patient has been admitted several times for encephalopathy due to polypharmacy. We have held all of her sedating medications. We also have her on some antibiotics in case this is a true urinary tract infection. She seems to have some slight improvement today. (2) Elevation of cardiac enzymes Is this a current diagnosis for this admission?: Yes Plan: She has elevations of her CPK and CK-MB. No complaint discernible of any chest pain, no EKG changes. We will continue to monitor on telemetry. Enzymes are trending down. (3) Pyuria Is this a current diagnosis for this admission?: Yes Plan: Urine culture pending, on empiric Rocephin - Plan Summary Summary: Patient will be admitted to medical floor on telemetry where she will receive routine supportive and symptomatic cares. Before meals and at bedtime Accu- Cheks will be performed with sliding scale insulin for hyperglycemia and a hypoglycemic protocol in place. Patient will be on a cardiac and diabetic restricted diet. Sedative medications will be withheld and the patient will be observed with every 4 hours neuro checks. Additional laboratory and/or radiographic evaluations will be obtained as appropriate. Blood pressure will be controlled with intravenous metoprolol and/or hydralazine to maintain a systo lic blood pressure less than 160 and a diastolic blood pressure less than 100. Serial cardiac enzymes will be obtained. A cardiology consultation with Dr. Ratliff will be obtained. Patient will be continued on Rocephin empirically for her pyuria with blood and urine cultures pending. - Time Time Spent with patient: 15-24 minutes Anticipated Discharge Disposition: Home with Home Health Anticipated Discharge Timeframe: Pending clinical course
[2020-04-21] MEDS: INSULIN GLARGINE,HUM.REC.ANLOG 1,000 UNIT/10 ML VIAL SUBCUT SCH (21:56)
[2020-04-21] MEDS: ATORVASTATIN CALCIUM 40 MG TABLET PO SCH (21:57)
[2020-04-21] MEDS: CEFTRIAXONE 1 GM/D5W RTU 1 GM/50 ML RTUPB IV SCH (21:59)
[2020-04-22] MEDS: HEPARIN SOD (PORCINE) 5,000 UNIT/ML 1 ML VIAL SUBCUT SCH ×3 (05:40→21:22)
[2020-04-22] MEDS: SERTRALINE HCL 50 MG TABLET PO SCH (09:20)
[2020-04-22] MEDS: ASPIRIN 81 MG TABLET, ENT COATED PO SCH (09:20)
[2020-04-22] MEDS: DOCUSATE SODIUM 100 MG CAPSULE PO SCH ×2 (09:20→17:15)
[2020-04-22] MEDS: NEBIVOLOL HCL 10 MG TABLET PO SCH (09:21)
[2020-04-22] MEDS: MAGNESIUM OXIDE 400 MG TABLET PO SCH (09:22)
[2020-04-22] MEDS: FAMOTIDINE 20 MG TABLET PO SCH ×2 (09:22→21:23)
[2020-04-22] MEDS: CEFTRIAXONE 1 GM/D5W RTU 1 GM/50 ML RTUPB IV SCH (09:22)
[2020-04-22] MEDS: AMLODIPINE BESYLATE 5 MG TABLET PO SCH (09:24)
[2020-04-22] MEDS: FUROSEMIDE 40 MG TABLET PO SCH (09:25)
[2020-04-22] MEDS: PANTOPRAZOLE SODIUM 40 MG TABLET.DR PO SCH ×2 (09:25→16:30)
[2020-04-22] MEDS: INSULIN REG, HUMAN 100 UNIT/ML 3 ML VIAL (PYX) SUBCUT SCH ×3 (09:31→15:39)
[2020-04-22] MEDS: GABAPENTIN 400 MG CAPSULE PO SCH ×3 (09:35→21:23)
[2020-04-22] MEDS ORDERED: (PENDING PHARMACY ID) (Rosuvastatin Calcium [Rosuvastatin Calcium] 20 MG) PO SCH (10:00)
[2020-04-22] MEDS ORDERED: (PENDING PHARMACY ID) (Nebivolol Hcl [Bystolic] 20 MG) PO SCH (10:00)
[2020-04-22] MEDS ORDERED: (PENDING PHARMACY ID) (Magnesium Oxide [Magnesium] 400 MG) PO SCH (10:00)
--- NOTE | 2020-04-22 15:45 | PDOC PROGRESS REPORT ---
Subjective Progress Note for:: 04/22/20 Subjective:: ADILENE LEWIS is a 74 year old female who presented altered mental status x3 days. The patient is nonverbal at this time and unable to provide input into her history. Her states that she had an MRI performed at [facility] on 04/16/2020 which required sedation due to her extreme anxiety. She was slow to recover after sedation and went to bed immediately after they arrived at home and slept for the better part of the next 24 hours. After waking she has been nonverbal and very confused with unusual repetitive behaviors and poor responsiveness to verbal direction. He feels that her poor responsiveness is not improving and may be worsening. He admits that she has had a prior similar episode after receiving sedative medications. He has not identified any additional aggravating or ameliorating factors for her altered mental status. In the emergency room the patient was noted to be confused and poorly responsive to verbal stimuli and commands. No focal neurologic deficits were identified and a CT scan of the head revealed no acute changes or evidence of stroke. Patient was subsequently admitted to the hospital for further evaluation and treatment. 04/22/2020. No acute events overnight. Patient complains of severe apparent distress, alert and oriented to person place, cooperative with physical examination, does not appear to be in any apparent distress, denies any fever, chills, nausea, vomiting, diarrhea. Has not had bowel movement since admission. Reason For Visit: ACUTE ENCEPHALOPATHY,ELEVATED CARDIAC ENZYMES, Physical Exam Vital Signs: Temp Pulse Resp BP Pulse Ox 98.5 F 71 20 126/50 H 99 04/22/20 10:48 04/22/20 10:48 04/22/20 10:48 04/22/20 10:48 04/22/20 10:48 Intake & Output 04/21/20 04/22/20 04/23/20 06:59 06:59 06:59 Intake Total 520 900 50 Output Total 675 825 Balance -155 75 50 Weight 85 kg 85.6 kg General appearance: PRESENT: no acute distress, obese, well-developed, well- nourished Head exam: PRESENT: atraumatic, normocephalic Respiratory exam: PRESENT: clear to auscultation vinicius. ABSENT: rales, rhonchi, wheezes Cardiovascular exam: PRESENT: RRR. ABSENT: diastolic murmur, rubs, systolic murmur GI/Abdominal exam: PRESENT: normal bowel sounds, soft. ABSENT: distended, guarding, mass, organolmegaly, rebound, tenderness Neurological exam: PRESENT: alert, awake, oriented to person, oriented to place, CN II-XII grossly intact. ABSENT: motor sensory deficit Results Laboratory Results: 04/20/20 04:26 04/20/20 04:26 04/19/20 04/19/20 04/19/20 16:40 16:40 22:12 Creatine Kinase 2552 H 2645 H CK-MB (CK-2) 17.10 H Troponin I 0.038 04/19/20 04/20/20 04/20/20 22:12 04:26 06:46 Creatine Kinase 2226 H CK-MB (CK-2) 17.80 H 15.40 H Troponin I 0.036 0.046 04/20/20 04/20/20 15:04 15:04 Creatine Kinase 1240 H CK-MB (CK-2) 10.70 H Troponin I 0.033 Impressions: Chest X-Ray 04/19/20 17:00 IMPRESSION: CHRONIC INTERSTITIAL CHANGES. STABLE GRANULOMAS. NO ACUTE RADIOGRAPHIC FINDING IN THE CHEST. Head CT 04/19/20 17:00 IMPRESSION: NO ACUTE INTRACRANIAL IMAGING FINDINGS. EVIDENCE OF ACUTE STROKE: NO. Assessment and Plan - Diagnosis (1) Acute encephalopathy Is this a current diagnosis for this admission?: Yes Plan: Acute metabolic encephalopathy. Multifactorial, likely due to UTI complicated by polypharmacy. Alert and oriented to person place. Continue treating underlying infectious process, reconcile medications, avoid opioids and benzodiazepines. (2) Elevation of cardiac enzymes Is this a current diagnosis for this admission?: Yes Plan: Denies any anginal symptoms. No acute EKG changes. Troponins 0.038, 0.036, 0.046, 0.033 Continue telemetry, antiplatelets, beta-blockers, statins, WILDA. Cardiology consulted. Pending recommendations. (3) UTI (urinary tract infection) Qualifiers: Urinary tract infection type: site unspecified Hematuria presence: without hematuria Qualified Code(s): N39.0 - Urinary tract infection, site not specified Is this a current diagnosis for this admission?: Yes Plan: Due to E. coli, sensitive to ceftriaxone. Day 3 IV ceftriaxone. Continue antibiotics. (4) CAD (coronary artery disease) Qualifiers: Coronary Disease-Associated Artery/Lesion type: [place] artery [place] vs. transplanted heart: [place] heart Associated angina: without angina Qualified Code(s): I25.10 - Atherosclerotic heart disease of [place] coronary artery without angina pectoris Is this a current diagnosis for this admission?: Yes Plan: Denies any anginal symptoms. Continue antiplatelets, beta-blockers, WILDA and statins. Outpatient PCP and cardiology follow-up. (5) Diabetes mellitus type 2 in obese Is this a current diagnosis for this admission?: Yes Plan: Not controlled. Hemoglobin A1c 9.3%. Continue diabetic diet, sliding scale, correctional and basal insulin, hypoglycemic protocol, Accu-Chek. Resume home meds upon discharge. (6) Depression Is this a current diagnosis for this admission?: Yes Plan: Denies any suicidal homicidal ideation. Resume home meds. Outpatient PCP and psychiatry follow-up. (7) Hypertension Qualifiers: Hypertension type: essential hypertension Qualified Code(s): I10 - Essential (primary) hypertension Is this a current diagnosis for this admission?: Yes Plan: Euvolemic. Normotensive. Resume home meds. Adjust meds as needed. PRN IV hydralazine and IV metoprolol. - Time Time Spent with patient: 25-34 minutes Medications reviewed and adjusted accordingly: Yes Anticipated Discharge Disposition: Home with Home Health Anticipated Discharge Timeframe: within 48 hours
[2020-04-22] MEDS ORDERED: DEXTROSE 50%-WATER 25 GM/50 ML DISP.SYRIN IV PRN ×2 (15:50)
[2020-04-22] MEDS ORDERED: GLUCAGON,HUMAN RECOMB 1 MG INJ IM PRN (15:50)
[2020-04-22] MEDS ORDERED: IPRATROPIUM/ALBUTEROL 0.5-2.5 MG/3 ML AMPUL NEB PRN (15:50)
[2020-04-22] MEDS ORDERED: DEXTROSE 40% GEL 15 GM TUBE PO PRN ×2 (15:50)
[2020-04-22] MEDS: INSULIN LISPRO 100 UNIT/ML 3 ML VIAL SUBCUT SCH ×2 (18:45→21:07)
[2020-04-22] MEDS: INSULIN GLARGINE,HUM.REC.ANLOG 1,000 UNIT/10 ML VIAL SUBCUT SCH (21:23)
[2020-04-22] MEDS: ATORVASTATIN CALCIUM 40 MG TABLET PO SCH (21:23)
[2020-04-23 05:26] LABS: ABSOLUTE LYMPHOCYTES (AUTO) 1.8 10^3/uL (0.5-4.7); ABSOLUTE MONOCYTES (AUTO) 1.1 10^3/uL (0.1-1.4); ABSOLUTE NEUT (AUTO) 7.6 10^3/uL (1.7-8.2); BASOPHILS % (AUTO) 0.4 % (0-2); EOSINOPHILS % (AUTO) 0.4 % (0-6); HEMATOCRIT 34.1 % (36.0-47.0); HEMOGLOBIN 11.2 g/dL (12.0-15.5); LYMPHOCYTES % (AUTO) 17.2 % (13-45); MEAN CORPUSCULAR HEMOGLOBIN 25.7 pg (27.0-33.4); MEAN CORPUSCULAR HGB CONC 32.8 g/dL (32.0-36.0); MEAN CORPUSCULAR VOLUME 78 fl (80-97); MONOCYTES % (AUTO) 9.9 % (3-13); PLATELET COUNT 297 10^3/uL (150-450); RED BLOOD COUNT 4.35 10^6/uL (3.72-5.28); RED CELL DISTRIBUTION WIDTH 16.5 % (11.5-14.0); SEGMENTED NEUTROPHILS % (AUTO) 72.1 % (42-78); TOTAL CELLS COUNTED % (AUTO) 100 %; WHITE BLOOD COUNT 10.6 10^3/uL (4.0-10.5)
[2020-04-23 05:47] LABS: ALBUMIN 3.7 g/dL (3.5-5.0); ALKALINE PHOSPHATASE 88 U/L (38-126); ANION GAP 11 (5-19); ASPARTATE AMINO TRANSFERASE 31 U/L (14-36); BILIRUBIN,DIRECT 0.3 mg/dL (0.0-0.4); BILIRUBIN,TOTAL 0.6 mg/dL (0.2-1.3); BLOOD UREA NITROGEN 21 mg/dL (7-20); CALCIUM 9.1 mg/dL (8.4-10.2); CARBON DIOXIDE 24 mmol/L (22-30); CHLORIDE 102 mmol/L (98-107); GLUCOSE 148 mg/dL (75-110); POTASSIUM 3.6 mmol/L (3.6-5.0); TOTAL PROTEIN 6.7 g/dL (6.3-8.2)
[2020-04-23] MEDS: HEPARIN SOD (PORCINE) 5,000 UNIT/ML 1 ML VIAL SUBCUT SCH ×3 (06:13→22:50)
[2020-04-23] MEDS: INSULIN LISPRO 100 UNIT/ML 3 ML VIAL SUBCUT SCH ×4 (09:10→22:50)
[2020-04-23] MEDS: ASPIRIN 81 MG TABLET, ENT COATED PO SCH (09:12)
[2020-04-23] MEDS: DOCUSATE SODIUM 100 MG CAPSULE PO SCH ×2 (09:12→17:09)
[2020-04-23] MEDS: AMLODIPINE BESYLATE 5 MG TABLET PO SCH (09:12)
[2020-04-23] MEDS: SERTRALINE HCL 50 MG TABLET PO SCH (09:12)
[2020-04-23] MEDS: FUROSEMIDE 40 MG TABLET PO SCH (09:13)
[2020-04-23] MEDS: MAGNESIUM OXIDE 400 MG TABLET PO SCH (09:13)
[2020-04-23] MEDS: FAMOTIDINE 20 MG TABLET PO SCH ×2 (09:14→22:53)
[2020-04-23] MEDS: NEBIVOLOL HCL 10 MG TABLET PO SCH (09:14)
[2020-04-23] MEDS: CEFTRIAXONE 1 GM/D5W RTU 1 GM/50 ML RTUPB IV SCH (09:14)
[2020-04-23] MEDS: GABAPENTIN 400 MG CAPSULE PO SCH ×2 (09:29→13:42)
[2020-04-23] MEDS: PANTOPRAZOLE SODIUM 40 MG TABLET.DR PO SCH ×2 (09:29→16:45)
--- NOTE | 2020-04-23 12:25 | PDOC PROGRESS REPORT ---
Subjective Progress Note for:: 04/23/20 Subjective:: ADILENE LEWIS is a 74 year old female who presented altered mental status x3 days. The patient is nonverbal at this time and unable to provide input into her history. Her states that she had an MRI performed at [facility] on 04/16/2020 which required sedation due to her extreme anxiety. She was slow to recover after sedation and went to bed immediately after they arrived at home and slept for the better part of the next 24 hours. After waking she has been nonverbal and very confused with unusual repetitive behaviors and poor responsiveness to verbal direction. He feels that her poor responsiveness is not improving and may be worsening. He admits that she has had a prior similar episode after receiving sedative medications. He has not identified any additional aggravating or ameliorating factors for her altered mental status. In the emergency room the patient was noted to be confused and poorly responsive to verbal stimuli and commands. No focal neurologic deficits were identified and a CT scan of the head revealed no acute changes or evidence of stroke. Patient was subsequently admitted to the hospital for further evaluation and treatment. 04/22/2020. No acute events overnight. Patient complains of severe apparent distress, alert and oriented to person place, cooperative with physical examination, does not appear to be in any apparent distress, denies any fever, chills, nausea, vomiting, diarrhea. Has not had bowel movement since admission. 04/23/2020. No acute events overnight. Patient continues been hypotensive, unfortunately patient still confused about date and time at stating that her was assassinated even though her is alive, cooperative with physical evaluation, pleasant, denies any fever, chills, nausea, vomiting, diarrhea, constipation or any urinary symptoms. Reason For Visit: ACUTE ENCEPHALOPATHY,ELEVATED CARDIAC ENZYMES, Physical Exam Vital Signs: Temp Pulse Resp BP Pulse Ox 98.6 F 67 18 131/58 H 99 04/23/20 08:54 04/23/20 02:00 04/23/20 00:33 04/23/20 00:33 04/23/20 00:33 Intake & Output 04/22/20 04/23/20 04/24/20 06:59 06:59 06:59 Intake Total 900 817 50 Output Total 825 525 Balance 75 292 50 Weight 85.6 kg 85.8 kg General appearance: PRESENT: no acute distress, obese, well-developed, well- nourished Head exam: PRESENT: atraumatic, normocephalic Respiratory exam: PRESENT: clear to auscultation vinicius. ABSENT: rales, rhonchi, wheezes Cardiovascular exam: PRESENT: RRR. ABSENT: diastolic murmur, rubs, systolic murmur GI/Abdominal exam: PRESENT: normal bowel sounds, soft. ABSENT: distended, guarding, mass, organolmegaly, rebound, tenderness Neurological exam: PRESENT: alert, awake, oriented to person, oriented to place, CN II-XII grossly intact. ABSENT: motor sensory deficit Results Laboratory Results: 04/23/20 04:45 04/23/20 04:45 04/23/20 04/23/20 04:45 04:45 WBC 10.6 H RBC 4.35 Hgb 11.2 L Hct 34.1 L MCV 78 L MCH 25.7 L MCHC 32.8 RDW 16.5 H Plt Count 297 Seg Neutrophils % 72.1 Sodium 137.2 Potassium 3.6 Chloride 102 Carbon Dioxide 24 Anion Gap 11 BUN 21 H Creatinine 0.78 Est GFR ( Amer) > 60 Glucose 148 H Calcium 9.1 Magnesium 2.3 Total Bilirubin 0.6 AST 31 Alkaline Phosphatase 88 Total Protein 6.7 Albumin 3.7 04/19/20 04/19/20 04/19/20 16:40 16:40 22:12 Creatine Kinase 2552 H 2645 H CK-MB (CK-2) 17.10 H Troponin I 0.038 04/19/20 04/20/20 04/20/20 22:12 04:26 06:46 Creatine Kinase 2226 H CK-MB (CK-2) 17.80 H 15.40 H Troponin I 0.036 0.046 04/20/20 04/20/20 15:04 15:04 Creatine Kinase 1240 H CK-MB (CK-2) 10.70 H Troponin I 0.033 Impressions: Chest X-Ray 04/19/20 17:00 IMPRESSION: CHRONIC INTERSTITIAL CHANGES. STABLE GRANULOMAS. NO ACUTE RADIOGRAPHIC FINDING IN THE CHEST. Head CT 04/19/20 17:00 IMPRESSION: NO ACUTE INTRACRANIAL IMAGING FINDINGS. EVIDENCE OF ACUTE STROKE: NO. Assessment and Plan - Diagnosis (1) Acute encephalopathy Is this a current diagnosis for this admission?: Yes Plan: Acute metabolic encephalopathy. Multifactorial, likely due to UTI complicated by polypharmacy. Alert and oriented to person place. Continue treating underlying infectious process, reconcile medications, avoid opioids and benzodiazepines. (2) Elevation of cardiac enzymes Is this a current diagnosis for this admission?: Yes Plan: Denies any anginal symptoms. No acute EKG changes. Troponins 0.038, 0.036, 0.046, 0.033 Continue telemetry, antiplatelets, beta-blockers, statins, WILDA. Cardiology consulted. Pending recommendations. (3) UTI (urinary tract infection) Qualifiers: Urinary tract infection type: site unspecified Hematuria presence: without hematuria Qualified Code(s): N39.0 - Urinary tract infection, site not specified Is this a current diagnosis for this admission?: Yes Plan: Due to E. coli, sensitive to ceftriaxone. Day 4 IV ceftriaxone. Continue antibiotics. (4) CAD (coronary artery disease) Qualifiers: Coronary Disease-Associated Artery/Lesion type: [place] artery [place] vs. transplanted heart: [place] heart Associated angina: without angina Qualified Code(s): I25.10 - Atherosclerotic heart disease of [place] coronary artery without angina pectoris Is this a current diagnosis for this admission?: Yes Plan: Denies any anginal symptoms. Continue antiplatelets, beta-blockers, WILDA and statins. Outpatient PCP and cardiology follow-up. (5) Diabetes mellitus type 2 in obese Is this a current diagnosis for this admission?: Yes Plan: Not controlled. Hemoglobin A1c 9.3%. Continue diabetic diet, sliding scale, correctional and basal insulin, hypoglycemic protocol, Accu-Chek. Resume home meds upon discharge. (6) Depression Is this a current diagnosis for this admission?: Yes Plan: Denies any suicidal homicidal ideation. Resume home meds. Outpatient PCP and psychiatry follow-up. (7) Hypertension Qualifiers: Hypertension type: essential hypertension Qualified Code(s): I10 - Essential (primary) hypertension Is this a current diagnosis for this admission?: Yes Plan: Euvolemic. Normotensive. Resume home meds. Adjust meds as needed. PRN IV hydralazine and IV metoprolol. - Time Time Spent with patient: 25-34 minutes Medications reviewed and adjusted accordingly: Yes Anticipated Discharge Disposition: Home with Home Health Anticipated Discharge Timeframe: within 48 hours
[2020-04-23 16:04] LABS: ALBUMIN 4.1 g/dL (3.5-5.0); ALKALINE PHOSPHATASE 91 U/L (38-126); ANION GAP 13 (5-19); ASPARTATE AMINO TRANSFERASE 36 U/L (14-36); BILIRUBIN,DIRECT 0.3 mg/dL (0.0-0.4); BILIRUBIN,TOTAL 0.5 mg/dL (0.2-1.3); BLOOD UREA NITROGEN 18 mg/dL (7-20); CALCIUM 8.7 mg/dL (8.4-10.2); CARBON DIOXIDE 26 mmol/L (22-30); CHLORIDE 95 mmol/L (98-107); GLUCOSE 213 mg/dL (75-110); POTASSIUM 3.1 mmol/L (3.6-5.0); TOTAL PROTEIN 7.3 g/dL (6.3-8.2)
[2020-04-23] MEDS ORDERED: POTASSIUM CHLORIDE 10 MEQ TABLET.ER PO ONE (17:21)
[2020-04-23] MEDS: DULOXETINE HCL 30 MG CAPSULE.DR PO SCH (18:21)
[2020-04-23] MEDS ORDERED: ONDANSETRON HCL INJ/PF 4 MG/2 ML SDV IV PRN (18:36)
[2020-04-23] MEDS: INSULIN GLARGINE,HUM.REC.ANLOG 1,000 UNIT/10 ML VIAL SUBCUT SCH (22:50)
[2020-04-23] MEDS: ATORVASTATIN CALCIUM 40 MG TABLET PO SCH (22:52)
[2020-04-24] MEDS ORDERED: HALOPERIDOL LACTATE INJ 5 MG/1 ML VIAL IV ONE (03:56)
[2020-04-24 05:44] LABS: ABSOLUTE EOSINOPHILS # (AUTO) 0.1 10^3/uL (0.0-0.6); ABSOLUTE LYMPHOCYTES (AUTO) 1.2 10^3/uL (0.5-4.7); ABSOLUTE MONOCYTES (AUTO) 1.2 10^3/uL (0.1-1.4); ABSOLUTE NEUT (AUTO) 7.8 10^3/uL (1.7-8.2); BASOPHILS % (AUTO) 0.2 % (0-2); EOSINOPHILS % (AUTO) 0.6 % (0-6); HEMATOCRIT 29.9 % (36.0-47.0); HEMOGLOBIN 10.2 g/dL (12.0-15.5); MEAN CORPUSCULAR HEMOGLOBIN 26.2 pg (27.0-33.4); MEAN CORPUSCULAR VOLUME 77 fl (80-97); MONOCYTES % (AUTO) 11.3 % (3-13); PLATELET COUNT 259 10^3/uL (150-450); RED BLOOD COUNT 3.88 10^6/uL (3.72-5.28); SEGMENTED NEUTROPHILS % (AUTO) 75.9 % (42-78); TOTAL CELLS COUNTED % (AUTO) 100 %; WHITE BLOOD COUNT 10.3 10^3/uL (4.0-10.5)
[2020-04-24] MEDS: HEPARIN SOD (PORCINE) 5,000 UNIT/ML 1 ML VIAL SUBCUT SCH ×3 (06:09→22:10)
[2020-04-24] MEDS: PANTOPRAZOLE SODIUM 40 MG TABLET.DR PO SCH ×2 (07:49→17:37)
[2020-04-24] MEDS: INSULIN LISPRO 100 UNIT/ML 3 ML VIAL SUBCUT SCH ×4 (07:50→22:09)
[2020-04-24] MEDS: CEFTRIAXONE 1 GM/D5W RTU 1 GM/50 ML RTUPB IV SCH (10:30)
[2020-04-24 10:33] LABS: ANION GAP 11 (5-19); BLOOD UREA NITROGEN 16 mg/dL (7-20); CALCIUM 8.6 mg/dL (8.4-10.2); CARBON DIOXIDE 25 mmol/L (22-30); CHLORIDE 97 mmol/L (98-107); GLUCOSE 150 mg/dL (75-110); POTASSIUM 3.3 mmol/L (3.6-5.0)
[2020-04-24] MEDS: FUROSEMIDE 40 MG TABLET PO SCH (11:23)
[2020-04-24] MEDS: DULOXETINE HCL 30 MG CAPSULE.DR PO SCH (11:23)
[2020-04-24] MEDS: NEBIVOLOL HCL 10 MG TABLET PO SCH (11:23)
[2020-04-24] MEDS: FAMOTIDINE 20 MG TABLET PO SCH ×2 (11:23→22:10)
[2020-04-24] MEDS: AMLODIPINE BESYLATE 5 MG TABLET PO SCH (11:23)
[2020-04-24] MEDS: ASPIRIN 81 MG TABLET, ENT COATED PO SCH (11:24)
[2020-04-24] MEDS: DOCUSATE SODIUM 100 MG CAPSULE PO SCH ×2 (11:24→17:38)
[2020-04-24] MEDS: MAGNESIUM OXIDE 400 MG TABLET PO SCH (11:24)
[2020-04-24] MEDS: SERTRALINE HCL 50 MG TABLET PO SCH (11:24)
[2020-04-24] MEDS ORDERED: CHOLECALCIFEROL (D3) 1,000 UNIT (25 MCG) TABLET PO ONE (11:33)
--- NOTE | 2020-04-24 13:17 | PDOC PROGRESS REPORT ---
Subjective Progress Note for:: 04/24/20 Subjective:: ADILENE LEWIS is a 74 year old female who presented altered mental status x3 days. The patient is nonverbal at this time and unable to provide input into her history. Her states that she had an MRI performed at [facility] on 04/16/2020 which required sedation due to her extreme anxiety. She was slow to recover after sedation and went to bed immediately after they arrived at home and slept for the better part of the next 24 hours. After waking she has been nonverbal and very confused with unusual repetitive behaviors and poor responsiveness to verbal direction. He feels that her poor responsiveness is not improving and may be worsening. He admits that she has had a prior similar episode after receiving sedative medications. He has not identified any additional aggravating or ameliorating factors for her altered mental status. In the emergency room the patient was noted to be confused and poorly responsive to verbal stimuli and commands. No focal neurologic deficits were identified and a CT scan of the head revealed no acute changes or evidence of stroke. Patient was subsequently admitted to the hospital for further evaluation and treatment. 04/22/2020. No acute events overnight. Patient complains of severe apparent distress, alert and oriented to person place, cooperative with physical examination, does not appear to be in any apparent distress, denies any fever, chills, nausea, vomiting, diarrhea. Has not had bowel movement since admission. 04/23/2020. No acute events overnight. Patient continues been hypotensive, unfortunately patient still confused about date and time at stating that her was assassinated even though her is alive, cooperative with physical evaluation, pleasant, denies any fever, chills, nausea, vomiting, diarrhea, constipation or any urinary symptoms. 04/24/2020. No acute events overnight, patient was noted to be agitated last night and was given some Haldol, this morning comfortably sitting up in distress, communicated better when she still confused, only oriented to person and place, denies any fever, chills, nausea, vomiting, diarrhea, constipation or any urinary symptoms. I have had extensive conversation with patient and her about disposition, patient has been stating that if she does not recover back to baseline he would like her to be transition to short-term placement. Reason For Visit: ACUTE ENCEPHALOPATHY,ELEVATED CARDIAC ENZYMES, Physical Exam Vital Signs: Temp Pulse Resp BP Pulse Ox 101.0 F H 66 18 152/59 H 99 04/24/20 08:00 04/24/20 08:00 04/24/20 08:00 04/24/20 08:00 04/24/20 08:00 Intake & Output 04/23/20 04/24/20 04/25/20 06:59 06:59 06:59 Intake Total 817 610 Output Total 525 2260 Balance 292 -1650 Weight 85.8 kg 87.3 kg General appearance: PRESENT: no acute distress, obese, well-developed, well- nourished Head exam: PRESENT: atraumatic, normocephalic Respiratory exam: PRESENT: clear to auscultation vinicius. ABSENT: rales, rhonchi, wheezes Cardiovascular exam: PRESENT: RRR. ABSENT: diastolic murmur, rubs, systolic murmur GI/Abdominal exam: PRESENT: normal bowel sounds, soft. ABSENT: distended, guarding, mass, organolmegaly, rebound, tenderness Neurological exam: PRESENT: alert, awake, oriented to person, oriented to place, CN II-XII grossly intact. ABSENT: motor sensory deficit Results Laboratory Results: 04/24/20 04:24 04/24/20 04:24 04/23/20 04/24/20 04/24/20 14:30 04:24 04:24 WBC 10.3 RBC 3.88 Hgb 10.2 L Hct 29.9 L MCV 77 L MCH 26.2 L MCHC 34.0 RDW 16.0 H Plt Count 259 Seg Neutrophils % 75.9 Sodium 133.9 L 132.6 L Potassium 3.1 L 3.3 L Chloride 95 L 97 L Carbon Dioxide 26 25 Anion Gap 13 11 BUN 18 16 Creatinine 0.89 0.70 Est GFR ( Amer) > 60 > 60 Glucose 213 H 150 H Calcium 8.7 8.6 Magnesium 2.0 Total Bilirubin 0.5 AST 36 Alkaline Phosphatase 91 Total Protein 7.3 Albumin 4.1 04/19/20 04/19/20 04/19/20 16:40 16:40 22:12 Creatine Kinase 2552 H 2645 H CK-MB (CK-2) 17.10 H Troponin I 0.038 04/19/20 04/20/20 04/20/20 22:12 04:26 06:46 Creatine Kinase 2226 H CK-MB (CK-2) 17.80 H 15.40 H Troponin I 0.036 0.046 04/20/20 04/20/20 15:04 15:04 Creatine Kinase 1240 H CK-MB (CK-2) 10.70 H Troponin I 0.033 Impressions: Chest X-Ray 04/19/20 17:00 IMPRESSION: CHRONIC INTERSTITIAL CHANGES. STABLE GRANULOMAS. NO ACUTE RADIOGRAPHIC FINDING IN THE CHEST. Head CT 04/19/20 17:00 IMPRESSION: NO ACUTE INTRACRANIAL IMAGING FINDINGS. EVIDENCE OF ACUTE STROKE: NO. Assessment and Plan - Diagnosis (1) Acute encephalopathy Is this a current diagnosis for this admission?: Yes Plan: Acute metabolic encephalopathy. Multifactorial, likely due to UTI complicated by polypharmacy. Patient is on very high dose of gabapentin, Fioricet, triazolam add Xanax on top of her regular medications. Alert and oriented to person place. As per at baseline patient is sharp and independent. Continue treating underlying infectious process, reconcile medications, avoid opioids and benzodiazepines. (2) Elevation of cardiac enzymes Is this a current diagnosis for this admission?: Yes Plan: Denies any anginal symptoms. No acute EKG changes. Troponins 0.038, 0.036, 0.046, 0.033 Continue telemetry, antiplatelets, beta-blockers, statins, WILDA. Cardiology consulted. Pending recommendations. (3) UTI (urinary tract infection) Qualifiers: Urinary tract infection type: site unspecified Hematuria presence: without hematuria Qualified Code(s): N39.0 - Urinary tract infection, site not specified Is this a current diagnosis for this admission?: Yes Plan: Due to E. coli, sensitive to ceftriaxone. Day 4 IV ceftriaxone. Continue antibiotics. (4) CAD (coronary artery disease) Qualifiers: Coronary Disease-Associated Artery/Lesion type: [place] artery [place] vs. transplanted heart: [place] heart Associated angina: without angina Qualified Code(s): I25.10 - Atherosclerotic heart disease of [place] coronary artery without angina pectoris Is this a current diagnosis for this admission?: Yes Plan: Denies any anginal symptoms. Continue antiplatelets, beta-blockers, WILDA and statins. Outpatient PCP and cardiology follow-up. (5) Diabetes mellitus type 2 in obese Is this a current diagnosis for this admission?: Yes Plan: Not controlled. Hemoglobin A1c 9.3%. Continue diabetic diet, sliding scale, correctional and basal insulin, hypoglycemic protocol, Accu-Chek. Resume home meds upon discharge. (6) Depression Is this a current diagnosis for this admission?: Yes Plan: Denies any suicidal homicidal ideation. Resume home meds. Outpatient PCP and psychiatry follow-up. (7) Hypertension Qualifiers: Hypertension type: essential hypertension Qualified Code(s): I10 - Essen tial (primary) hypertension Is this a current diagnosis for this admission?: Yes Plan: Euvolemic. Normotensive. Resume home meds. Adjust meds as needed. PRN IV hydralazine and IV metoprolol. - Time Time Spent with patient: 25-34 minutes Medications reviewed and adjusted accordingly: Yes Anticipated Discharge Disposition: Intermediate Facility Anticipated Discharge Timeframe: within 48 hours
[2020-04-24] MEDS ORDERED: POTASSIUM CHLORIDE 10 MEQ TABLET.ER PO ONE (13:18)
[2020-04-24] MEDS: ATORVASTATIN CALCIUM 40 MG TABLET PO SCH (22:10)
[2020-04-24] MEDS: ACETAMINOPHEN 325 MG TABLET PO PRN (22:10)
[2020-04-24] MEDS: INSULIN GLARGINE,HUM.REC.ANLOG 1,000 UNIT/10 ML VIAL SUBCUT SCH (22:11)
[2020-04-25 05:12] LABS: ABSOLUTE EOSINOPHILS # (AUTO) 0.1 10^3/uL (0.0-0.6); ABSOLUTE LYMPHOCYTES (AUTO) 1.6 10^3/uL (0.5-4.7); ABSOLUTE MONOCYTES (AUTO) 1.4 10^3/uL (0.1-1.4); ABSOLUTE NEUT (AUTO) 8.3 10^3/uL (1.7-8.2); BASOPHILS % (AUTO) 0.2 % (0-2); EOSINOPHILS % (AUTO) 1.1 % (0-6); HEMATOCRIT 31.5 % (36.0-47.0); HEMOGLOBIN 10.7 g/dL (12.0-15.5); LYMPHOCYTES % (AUTO) 14.4 % (13-45); MEAN CORPUSCULAR HEMOGLOBIN 26.1 pg (27.0-33.4); MEAN CORPUSCULAR HGB CONC 34.1 g/dL (32.0-36.0); MEAN CORPUSCULAR VOLUME 77 fl (80-97); MONOCYTES % (AUTO) 12.1 % (3-13); PLATELET COUNT 287 10^3/uL (150-450); RED BLOOD COUNT 4.11 10^6/uL (3.72-5.28); RED CELL DISTRIBUTION WIDTH 16.2 % (11.5-14.0); SEGMENTED NEUTROPHILS % (AUTO) 72.2 % (42-78); TOTAL CELLS COUNTED % (AUTO) 100 %; WHITE BLOOD COUNT 11.4 10^3/uL (4.0-10.5)
[2020-04-25 05:42] LABS: ALBUMIN 3.9 g/dL (3.5-5.0); ALKALINE PHOSPHATASE 83 U/L (38-126); ANION GAP 11 (5-19); ASPARTATE AMINO TRANSFERASE 31 U/L (14-36); BILIRUBIN,DIRECT 0.3 mg/dL (0.0-0.4); BILIRUBIN,TOTAL 0.6 mg/dL (0.2-1.3); BLOOD UREA NITROGEN 12 mg/dL (7-20); CARBON DIOXIDE 26 mmol/L (22-30); CHLORIDE 98 mmol/L (98-107); GLUCOSE 83 mg/dL (75-110); TOTAL PROTEIN 6.9 g/dL (6.3-8.2)
[2020-04-25] MEDS ORDERED: POTASSIUM CHLORIDE 10 MEQ TABLET.ER PO ONE (06:20)
[2020-04-25] MEDS: HEPARIN SOD (PORCINE) 5,000 UNIT/ML 1 ML VIAL SUBCUT SCH ×3 (06:51→22:46)
[2020-04-25] MEDS: INSULIN LISPRO 100 UNIT/ML 3 ML VIAL SUBCUT SCH ×4 (07:31→22:15)
[2020-04-25] MEDS: PANTOPRAZOLE SODIUM 40 MG TABLET.DR PO SCH ×2 (07:35→18:06)
[2020-04-25] MEDS: SERTRALINE HCL 50 MG TABLET PO SCH (10:47)
[2020-04-25] MEDS: MAGNESIUM OXIDE 400 MG TABLET PO SCH (10:47)
[2020-04-25] MEDS: FUROSEMIDE 40 MG TABLET PO SCH (10:47)
[2020-04-25] MEDS: DULOXETINE HCL 30 MG CAPSULE.DR PO SCH (10:47)
[2020-04-25] MEDS: CEFTRIAXONE 1 GM/D5W RTU 1 GM/50 ML RTUPB IV SCH (10:48)
[2020-04-25] MEDS: POTASSIUM CHLORIDE 10 MEQ TABLET.ER PO SCH (10:48)
[2020-04-25] MEDS: ASPIRIN 81 MG TABLET, ENT COATED PO SCH (10:48)
[2020-04-25] MEDS: AMLODIPINE BESYLATE 5 MG TABLET PO SCH (10:48)
[2020-04-25] MEDS: FAMOTIDINE 20 MG TABLET PO SCH ×2 (10:48→22:46)
[2020-04-25] MEDS: DOCUSATE SODIUM 100 MG CAPSULE PO SCH ×2 (10:48→18:06)
[2020-04-25] MEDS: NEBIVOLOL HCL 10 MG TABLET PO SCH (10:48)
--- NOTE | 2020-04-25 14:22 | PDOC PROGRESS REPORT ---
Subjective Progress Note for:: 04/25/20 Subjective:: ADILENE LEWIS is a 74 year old female who presented altered mental status x3 days. The patient is nonverbal at this time and unable to provide input into her history. Her states that she had an MRI performed at [facility] on 04/16/2020 which required sedation due to her extreme anxiety. She was slow to recover after sedation and went to bed immediately after they arrived at home and slept for the better part of the next 24 hours. After waking she has been nonverbal and very confused with unusual repetitive behaviors and poor responsiveness to verbal direction. He feels that her poor responsiveness is not improving and may be worsening. He admits that she has had a prior similar episode after receiving sedative medications. He has not identified any additional aggravating or ameliorating factors for her altered mental status. In the emergency room the patient was noted to be confused and poorly responsive to verbal stimuli and commands. No focal neurologic deficits were identified and a CT scan of the head revealed no acute changes or evidence of stroke. Patient was subsequently admitted to the hospital for further evaluation and treatment. 04/22/2020. No acute events overnight. Patient complains of severe apparent distress, alert and oriented to person place, cooperative with physical examination, does not appear to be in any apparent distress, denies any fever, chills, nausea, vomiting, diarrhea. Has not had bowel movement since admission. 04/23/2020. No acute events overnight. Patient continues been hypotensive, unfortunately patient still confused about date and time at stating that her was assassinated even though her is alive, cooperative with physical evaluation, pleasant, denies any fever, chills, nausea, vomiting, diarrhea, constipation or any urinary symptoms. 04/24/2020. No acute events overnight, patient was noted to be agitated last night and was given some Haldol, this morning comfortably sitting up in distress, communicated better when she still confused, only oriented to person and place, denies any fever, chills, nausea, vomiting, diarrhea, constipation or any urinary symptoms. I have had extensive conversation with patient and her about disposition, patient has been stating that if she does not recover back to baseline he would like her to be transition to short-term placement. 04/25/2020. No acute events overnight. Unfortunately patient still only orie nted to self and place, seems confused, fails to follow three-step command, does not appear to be in apparent distress, denies any fever, chills, nausea, vomiting, diarrhea, constipation or any urinary symptoms. Reason For Visit: ACUTE ENCEPHALOPATHY,ELEVATED CARDIAC ENZYMES, Physical Exam Vital Signs: Temp Pulse Resp BP Pulse Ox 98.3 F 68 18 157/66 H 93 04/25/20 11:23 04/25/20 11:23 04/25/20 11:23 04/25/20 11:23 04/25/20 11:23 Intake & Output 04/24/20 04/25/20 04/26/20 06:59 06:59 06:59 Intake Total 610 50 Output Total 2260 825 Balance -1650 -775 Weight 87.3 kg 85.7 kg General appearance: PRESENT: no acute distress, obese, well-developed, well- nourished Head exam: PRESENT: atraumatic, normocephalic Respiratory exam: PRESENT: clear to auscultation vinicius. ABSENT: rales, rhonchi, wheezes Cardiovascular exam: PRESENT: RRR. ABSENT: diastolic murmur, rubs, systolic murmur GI/Abdominal exam: PRESENT: normal bowel sounds, soft. ABSENT: distended, guarding, mass, organolmegaly, rebound, tenderness Neurological exam: PRESENT: alert, awake, oriented to person, oriented to place, CN II-XII grossly intact. ABSENT: motor sensory deficit Results Laboratory Results: 04/25/20 04:57 04/25/20 04:57 04/25/20 04/25/20 04:57 04:57 WBC 11.4 H RBC 4.11 Hgb 10.7 L Hct 31.5 L MCV 77 L MCH 26.1 L MCHC 34.1 RDW 16.2 H Plt Count 287 Seg Neutrophils % 72.2 Sodium 134.8 L Potassium 3.0 L* Chloride 98 Carbon Dioxide 26 Anion Gap 11 BUN 12 Creatinine 0.69 Est GFR ( Amer) > 60 Glucose 83 Calcium 9.0 Magnesium 2.1 Total Bilirubin 0.6 AST 31 Alkaline Phosphatase 83 Total Protein 6.9 Albumin 3.9 04/19/20 22:12 Blood Blood Culture - Final NO GROWTH IN 5 DAYS 04/19/20 21:12 Blood Blood Culture - Final NO GROWTH IN 5 DAYS 1004/19/20 04/19/20 16:40 16:40 22:12 Creatine Kinase 2552 H 2645 H CK-MB (CK-2) 17.10 H Troponin I 0.038 04/19/20 04/20/20 04/20/20 22:12 04:26 06:46 Creatine Kinase 2226 H CK-MB (CK-2) 17.80 H 15.40 H Troponin I 0.036 0.046 04/20/20 04/20/20 15:04 15:04 Creatine Kinase 1240 H CK-MB (CK-2) 10.70 H Troponin I 0.033 Impressions: Chest X-Ray 04/19/20 17:00 IMPRESSION: CHRONIC INTERSTITIAL CHANGES. STABLE GRANULOMAS. NO ACUTE RADIOGRAPHIC FINDING IN THE CHEST. Head CT 04/19/20 17:00 IMPRESSION: NO ACUTE INTRACRANIAL IMAGING FINDINGS. EVIDENCE OF ACUTE STROKE: NO. Assessment and Plan - Diagnosis (1) Acute encephalopathy Is this a current diagnosis for this admission?: Yes Plan: Unchanged. Multifactorial, likely due to UTI complicated by polypharmacy. Patient is on very high dose of gabapentin, Fioricet, triazolam add Xanax on top of her regular medications. Awake, alert, oriented to person and place. Will not follow three-step command. As per at baseline patient is sharp and independent. CT head negative on admission. As per patient had MRI of her head as outpatient was negative, will attempt to get the results of normal to another MRI to rule out any underlying stroke. Continue treating underlying infectious process, reconcile medications, avoid opioids and benzodiazepines. (2) Elevation of cardiac enzymes Is this a current diagnosis for this admission?: Yes Plan: Denies any anginal symptoms. No acute EKG changes. Troponins 0.038, 0.036, 0.046, 0.033 Continue telemetry, antiplatelets, beta-blockers, statins, WILDA. Cardiology consulted. Pending recommendations. (3) UTI (urinary tract infection) Qualifiers: Urinary tract infection type: site unspecified Hematuria presence: without hematuria Qualified Code(s): N39.0 - Urinary tract infection, site not specified Is this a current diagnosis for this admission?: Yes Plan: Due to E. coli, sensitive to ceftriaxone. Completed a course of IV ceftriaxone. DC antibiotics. (4) CAD (coronary artery disease) Qualifiers: Coronary Disease-Associated Artery/Lesion type: [place] artery [place] vs. transplanted heart: council heart Associated angina: without angina Qualified Code(s): I25.10 - Atherosclerotic heart disease of council coronary artery without angina pectoris Is this a current diagnosis for this admission?: Yes Plan: Denies any anginal symptoms. Continue antiplatelets, beta-blockers, WILDA and statins. Outpatient PCP and cardiology follow-up. (5) Diabetes mellitus type 2 in obese Is this a current diagnosis for this admission?: Yes Plan: Not controlled. Hemoglobin A1c 9.3%. Continue diabetic diet, sliding scale, correctional and basal insulin, hypoglycemic protocol, Accu-Chek. Resume home meds upon discharge. (6) Depression Is this a current diagnosis for this admission?: Yes Plan: Denies any suicidal homicidal ideation. Resume home meds. Outpatient PCP and psychiatry follow-up. (7) Hypertension Qualifiers: Hypertension type: essential hypertension Qualified Code(s): I10 - Essential (primary) hypertension Is this a current diagnosis for this admission?: Yes Plan: Euvolemic. Normotensive. Resume home meds. Adjust meds as needed. PRN IV hydralazine and IV metoprolol. - Time Time Spent with patient: 35 or more minutes Medications reviewed and adjusted accordingly: Yes Anticipated Discharge Disposition: Residential Facility Anticipated Discharge Timeframe: when bed available
[2020-04-25] MEDS ORDERED: LORAZEPAM INJ 2 MG/1 ML VIAL IV PRN ×2 (15:26)
--- NOTE | 2020-04-25 17:11 | RADIOLOGY REPORT (SQ) ---
EXAM DESCRIPTION: MRI HEAD WITHOUT IMAGES COMPLETED DATE/TIME: 04/25/2020 4:52 pm REASON FOR STUDY: MRI OF HEAD WITH AND WITHOUT CONTRAST COMPARISON: None. TECHNIQUE: Diffusion and T2 weighted sequences without contrast. Remaining sequences could not be o btained due to patient motion. FINDINGS: No obvious acute infarct. No evidence of hemorrhage. No obvious extra-axial fluid collec tion. IMPRESSION: Technical limitations. Recommend repeat when the patient is more stable. TECHNICAL DOCUMENTATION: JOB ID: [id number] [employer]- All Rights Reserved Reading location - IP/workstation name: [email or web address]
[2020-04-25] MEDS: ACETAMINOPHEN 325 MG TABLET PO PRN (18:05)
[2020-04-25] MEDS: GABAPENTIN 100 MG CAPSULE PO SCH ×2 (18:06→22:46)
[2020-04-25] MEDS: INSULIN GLARGINE,HUM.REC.ANLOG 1,000 UNIT/10 ML VIAL SUBCUT SCH (22:16)
[2020-04-25] MEDS: ATORVASTATIN CALCIUM 40 MG TABLET PO SCH (22:46)
[2020-04-26] MEDS: HEPARIN SOD (PORCINE) 5,000 UNIT/ML 1 ML VIAL SUBCUT SCH ×3 (05:37→21:37)
[2020-04-26] MEDS: GABAPENTIN 100 MG CAPSULE PO SCH ×3 (05:37→21:37)
[2020-04-26 05:54] LABS: HEMATOCRIT 31.8 % (36.0-47.0); HEMOGLOBIN 10.8 g/dL (12.0-15.5); MEAN CORPUSCULAR HGB CONC 33.9 g/dL (32.0-36.0); MEAN CORPUSCULAR VOLUME 77 fl (80-97); PLATELET COUNT 265 10^3/uL (150-450); RED BLOOD COUNT 4.14 10^6/uL (3.72-5.28); WHITE BLOOD COUNT 10.2 10^3/uL (4.0-10.5)
[2020-04-26 06:13] LABS: ALBUMIN 3.6 g/dL (3.5-5.0); ALKALINE PHOSPHATASE 82 U/L (38-126); ASPARTATE AMINO TRANSFERASE 30 U/L (14-36); CARBON DIOXIDE 23 mmol/L (22-30); TOTAL PROTEIN 6.5 g/dL (6.3-8.2)
[2020-04-26 06:15] LABS: ANION GAP 11 (5-19); CHLORIDE 102 mmol/L (98-107)
[2020-04-26 06:16] LABS: BILIRUBIN,DIRECT 0.3 mg/dL (0.0-0.4); BILIRUBIN,TOTAL 0.7 mg/dL (0.2-1.3); BLOOD UREA NITROGEN 10 mg/dL (7-20); CALCIUM 8.9 mg/dL (8.4-10.2); GLUCOSE 95 mg/dL (75-110); POTASSIUM 3.5 mmol/L (3.6-5.0)
[2020-04-26] MEDS: INSULIN LISPRO 100 UNIT/ML 3 ML VIAL SUBCUT SCH ×4 (07:59→21:37)
[2020-04-26] MEDS: NEBIVOLOL HCL 10 MG TABLET PO SCH (10:06)
[2020-04-26] MEDS: FAMOTIDINE 20 MG TABLET PO SCH ×2 (10:06→21:37)
[2020-04-26] MEDS: DULOXETINE HCL 30 MG CAPSULE.DR PO SCH (10:07)
[2020-04-26] MEDS: POTASSIUM CHLORIDE 10 MEQ TABLET.ER PO SCH (10:07)
[2020-04-26] MEDS: PANTOPRAZOLE SODIUM 40 MG TABLET.DR PO SCH ×2 (10:08→17:32)
[2020-04-26] MEDS: AMLODIPINE BESYLATE 5 MG TABLET PO SCH (10:08)
[2020-04-26] MEDS: MAGNESIUM OXIDE 400 MG TABLET PO SCH (10:08)
[2020-04-26] MEDS: SERTRALINE HCL 50 MG TABLET PO SCH (10:08)
[2020-04-26] MEDS: FUROSEMIDE 40 MG TABLET PO SCH (10:09)
[2020-04-26] MEDS: CEFTRIAXONE 1 GM/D5W RTU 1 GM/50 ML RTUPB IV SCH (10:09)
[2020-04-26] MEDS: ASPIRIN 81 MG TABLET, ENT COATED PO SCH (10:09)
[2020-04-26] MEDS: DOCUSATE SODIUM 100 MG CAPSULE PO SCH ×2 (10:10→17:32)
--- NOTE | 2020-04-26 12:48 | PDOC PROGRESS REPORT ---
Subjective Progress Note for:: 04/26/20 Subjective:: ADILENE LEWIS is a 74 year old female who presented altered mental status x3 days. The patient is nonverbal at this time and unable to provide input into her history. Her states that she had an MRI performed at [facility] on 04/16/2020 which required sedation due to her extreme anxiety. She was slow to recover after sedation and went to bed immediately after they arrived at home and slept for the better part of the next 24 hours. After waking she has been nonverbal and very confused with unusual repetitive behaviors and poor responsiveness to verbal direction. He feels that her poor responsiveness is not improving and may be worsening. He admits that she has had a prior similar episode after receiving sedative medications. He has not identified any additional aggravating or ameliorating factors for her altered mental status. In the emergency room the patient was noted to be confused and poorly responsive to verbal stimuli and commands. No focal neurologic deficits were identified and a CT scan of the head revealed no acute changes or evidence of stroke. Patient was subsequently admitted to the hospital for further evaluation and treatment. 04/22/2020. No acute events overnight. Patient complains of severe apparent distress, alert and oriented to person place, cooperative with physical examination, does not appear to be in any apparent distress, denies any fever, chills, nausea, vomiting, diarrhea. Has not had bowel movement since admission. 04/23/2020. No acute events overnight. Patient continues been hypotensive, unfortunately patient still confused about date and time at stating that her was assassinated even though her is alive, cooperative with physical evaluation, pleasant, denies any fever, chills, nausea, vomiting, diarrhea, constipation or any urinary symptoms. 04/24/2020. No acute events overnight, patient was noted to be agitated last night and was given some Haldol, this morning comfortably sitting up in distress, communicated better when she still confused, only oriented to person and place, denies any fever, chills, nausea, vomiting, diarrhea, constipation or any urinary symptoms. I have had extensive conversation with patient and her about disposition, patient has been stating that if she does not recover back to baseline he would like her to be transition to short-term placement. 04/25/2020. No acute events overnight. Unfortunately patient still only orie nted to self and place, seems confused, fails to follow three-step command, does not appear to be in apparent distress, denies any fever, chills, nausea, vomiting, diarrhea, constipation or any urinary symptoms. 05/2020. No acute events overnight, patient is somnolent but arousable, she does take her medications does not hold much conversation as patient falls asleep readily, does not appear to be in any acute distress. Based on my conversation with her daughter and primary nurse's conversation with Soniya her granddaughter who is a nurse at [employer], patient does have history of episodic confusion. As per granddaughter these episodes patient tends to wander off in the middle of the night going to the mall, or cooking pancakes at the middle of the night. Per daughter her encephalopathy resolves within 2 to 3 days after being hospitalized and treated for UTI, per daughter this episode of confusion is different and seems to have lasted longer. Patient has been hospitalized before however has not had a lumbar puncture or not being by evaluated by a neurologist. An MRI of head as outpatient was done however we do not have the results and do not know the finding, we attempted to do an MRI yesterday but unfortunately patient was moving too much and MRI images were not optimal, I have talked to her daughter and mentioned that she may benefit from a lumbar puncture. Reason For Visit: ACUTE ENCEPHALOPATHY,ELEVATED CARDIAC ENZYMES, Physical Exam Vital Signs: Temp Pulse Resp BP Pulse Ox 99.2 F 64 18 158/61 H 97 04/26/20 11:37 04/26/20 11:37 04/26/20 11:37 04/26/20 11:37 04/26/20 11:37 Intake & Output 04/25/20 04/26/20 04/27/20 06:59 06:59 06:59 Intake Total 50 180 50 Output Total 825 3200 Balance -775 -3020 50 Weight 85.7 kg 84.5 kg General appearance: PRESENT: no acute distress, well-developed, well-nourished, other - Somnolent easily arousable Head exam: PRESENT: atraumatic, normocephalic Respiratory exam: PRESENT: clear to auscultation vinicius. ABSENT: rales, rhonchi, wheezes Cardiovascular exam: PRESENT: RRR. ABSENT: diastolic murmur, rubs, systolic murmur GI/Abdominal exam: PRESENT: normal bowel sounds, soft. ABSENT: distended, guarding, mass, organolmegaly, rebound, tenderness Psychiatric exam: PRESENT: other - Somnolent easily arousable Results Laboratory Results: 04/26/20 05:00 04/26/20 05:00 04/26/20 04/26/20 05:00 05:00 WBC 10.2 RBC 4.14 Hgb 10.8 L Hct 31.8 L MCV 77 L MCH 26.0 L MCHC 33.9 RDW 16.0 H Plt Count 265 Sodium 136.3 L Potassium 3.5 L Chloride 102 Carbon Dioxide 23 Anion Gap 11 BUN 10 Creatinine 0.71 Est GFR ( Amer) > 60 Glucose 95 Calcium 8.9 Magnesium 2.1 Total Bilirubin 0.7 AST 30 Alkaline Phosphatase 82 Total Protein 6.5 Albumin 3.6 04/19/20 04/19/20 04/19/20 16:40 16:40 22:12 Creatine Kinase 2552 H 2645 H CK-MB (CK-2) 17.10 H Troponin I 0.038 04/19/20 04/20/20 04/20/20 22:12 04:26 06:46 Creatine Kinase 2226 H CK-MB (CK-2) 17.80 H 15.40 H Troponin I 0.036 0.046 04/20/20 04/20/20 15:04 15:04 Creatine Kinase 1240 H CK-MB (CK-2) 10.70 H Troponin I 0.033 Impressions: Chest X-Ray 04/19/20 17:00 IMPRESSION: CHRONIC INTERSTITIAL CHANGES. STABLE GRANULOMAS. NO ACUTE RADIOGRAPHIC FINDING IN THE CHEST. Head CT 04/19/20 17:00 IMPRESSION: NO ACUTE INTRACRANIAL IMAGING FINDINGS. EVIDENCE OF ACUTE STROKE: NO. Head MRI 04/25/20 15:24 IMPRESSION: Technical limitations. Recommend repeat when the patient is more stable. Assessment and Plan - Diagnosis (1) Acute encephalopathy Is this a current diagnosis for this admission?: Yes Plan: Unchanged. Patient is more somnolent since being given Ativan in preparation of MRI of the brain. Multifactorial, likely due to UTI complicated by polypharmacy or underlying neurological disorder. Patient is on very high dose of gabapentin, Fioricet, triazolam add Xanax on top of her regular medications. Patient has had previous hospitalization for similar episodes however she has never had a lumbar puncture or or evaluated by a neurologist. CT head negative on admission. An MRI with contrast was attempted however patient was moving and pictures were none optimal. As per my conversation with daughter she had an MRI as outpatient and she will try to get the results to us. Continue treating underlying infectious process, reconcile medications, avoid opioids and benzodiazepines. Fall, seizure and aspiration precautions. Possible lumbar puncture if family agrees to. (2) Elevation of cardiac enzymes Is this a current diagnosis for this admission?: Yes Plan: Denies any anginal symptoms. No acute EKG changes. Troponins 0.038, 0.036, 0.046, 0.033 Continue telemetry, antiplatelets, beta-blockers, statins, WILDA. Cardiology consulted. Pending recommendations. (3) UTI (urinary tract infection) Qualifiers: Urinary tract infection type: site unspecified Hematuria presence: without hematuria Qualified Code(s): N39.0 - Urinary tract infection, site not specified Is this a current diagnosis for this admission?: Yes Plan: Due to E. coli, sensitive to ceftriaxone. Completed a course of IV ceftriaxone. DC antibiotics. (4) CAD (coronary artery disease) Qualifiers: Coronary Disease-Associated Artery/Lesion type: [place] artery [place] vs. transplanted heart: sam[place] heart Associated angina: without angina Qualified Code(s): I25.10 - Atherosclerotic heart disease of sam[place] coronary artery without angina pectoris Is this a current diagnosis for this admission?: Yes Plan: Denies any anginal symptoms. Continue antiplatelets, beta-blockers, WILDA and statins. Outpatient PCP and cardiology follow-up. (5) Diabetes mellitus type 2 in obese Is this a current diagnosis for this admission?: Yes Plan: Not controlled. Hemoglobin A1c 9.3%. Continue diabetic diet, sliding scale, correctional and basal insulin, hypoglycemic protocol, Accu-Chek. Resume home meds upon discharge. (6) Depression Is this a current diagnosis for this admission?: Yes Plan: Denies any suicidal homicidal ideation. Resume home meds. Outpatient PCP and psychiatry follow-up. (7) Hypertension Qualifiers: Hypertension type: essential hypertension Qualified Code(s): I10 - Essential (primary) hypertension Is this a current diagnosis for this admission?: Yes Plan: Euvolemic. Normotensive. Resume home meds. Adjust meds as needed. PRN IV hydralazine and IV metoprolol. - Time Time Spent with patient: 35 or more minutes Medications reviewed and adjusted accordingly: Yes Anticipated Discharge Disposition: Half-Way Facility Anticipated Discharge Timeframe: within 72 hours
[2020-04-26] MEDS ORDERED: FENTANYL CITRATE INJ/PF 100 MCG/2 ML AMPUL ONE (14:06)
[2020-04-26 14:44] LABS: FOLATE > 20.00 ng/mL (>2.76)
[2020-04-26] MEDS ORDERED: FENTANYL CITRATE INJ/PF 100 MCG/2 ML AMPUL IV ONE (15:30)
[2020-04-26] MEDS: ACETAMINOPHEN 325 MG TABLET PO PRN (17:31)
[2020-04-26 18:42] LABS: GLUCOSE,CSF 59 mg/dL (40-70); PROTEIN,CSF 45 mg/dL (12-60)
[2020-04-26 18:51] LABS: APPEARANCE TUBE 1 CLEAR; APPEARANCE TUBE 2 CLEAR; APPEARANCE TUBE 3 CLEAR; COLOR TUBE 1 COLORLESS; COLOR TUBE 2 COLORLESS; COLOR TUBE 3 COLORLESS; CSF TOTAL VOLUME 11.5 CC; CSF TUBE NUMBER 2; VOLUME TUBE 2 4.5 CC
[2020-04-26 18:52] LABS: RED BLOOD CELL,CSF 0 /uL (0-10)
[2020-04-26 18:53] LABS: WHITE BLOOD CELL,CSF 0 /uL (0-5)
[2020-04-26] MEDS: ATORVASTATIN CALCIUM 40 MG TABLET PO SCH (21:37)
[2020-04-26] MEDS: INSULIN GLARGINE,HUM.REC.ANLOG 1,000 UNIT/10 ML VIAL SUBCUT SCH (21:38)
[2020-04-27 05:54] LABS: ALKALINE PHOSPHATASE 90 U/L (38-126); ANION GAP 16 (5-19); ASPARTATE AMINO TRANSFERASE 27 U/L (14-36); BILIRUBIN,DIRECT 0.4 mg/dL (0.0-0.4); BILIRUBIN,TOTAL 0.8 mg/dL (0.2-1.3); BLOOD UREA NITROGEN 14 mg/dL (7-20); CALCIUM 9.2 mg/dL (8.4-10.2); CARBON DIOXIDE 21 mmol/L (22-30); CHLORIDE 101 mmol/L (98-107); GLUCOSE 120 mg/dL (75-110); POTASSIUM 3.1 mmol/L (3.6-5.0); TOTAL PROTEIN 7.2 g/dL (6.3-8.2)
[2020-04-27] MEDS: HEPARIN SOD (PORCINE) 5,000 UNIT/ML 1 ML VIAL SUBCUT SCH ×3 (05:55→22:48)
[2020-04-27] MEDS: GABAPENTIN 100 MG CAPSULE PO SCH ×3 (05:55→22:48)
[2020-04-27] MEDS: INSULIN LISPRO 100 UNIT/ML 3 ML VIAL SUBCUT SCH ×4 (08:41→23:01)
[2020-04-27] MEDS: FUROSEMIDE 40 MG TABLET PO SCH (08:43)
[2020-04-27] MEDS: PANTOPRAZOLE SODIUM 40 MG TABLET.DR PO SCH ×2 (08:43→17:04)
[2020-04-27] MEDS: NEBIVOLOL HCL 10 MG TABLET PO SCH (09:31)
[2020-04-27] MEDS: CEFTRIAXONE 1 GM/D5W RTU 1 GM/50 ML RTUPB IV SCH (09:31)
[2020-04-27] MEDS: POTASSIUM CHLORIDE 10 MEQ TABLET.ER PO SCH (09:31)
[2020-04-27] MEDS: SERTRALINE HCL 50 MG TABLET PO SCH (09:31)
[2020-04-27] MEDS: AMLODIPINE BESYLATE 5 MG TABLET PO SCH (09:32)
[2020-04-27] MEDS: DOCUSATE SODIUM 100 MG CAPSULE PO SCH ×2 (09:32→17:04)
[2020-04-27] MEDS: MAGNESIUM OXIDE 400 MG TABLET PO SCH (09:32)
[2020-04-27] MEDS: ASPIRIN 81 MG TABLET, ENT COATED PO SCH (09:32)
[2020-04-27] MEDS: FAMOTIDINE 20 MG TABLET PO SCH ×2 (09:32→22:48)
[2020-04-27] MEDS: ACETAMINOPHEN 325 MG TABLET PO PRN (09:43)
[2020-04-27] MEDS ORDERED: POTASSIUM CHLORIDE 10 MEQ TABLET.ER PO ONE (10:45)
--- NOTE | 2020-04-27 18:17 | PDOC PROGRESS REPORT ---
Subjective Progress Note for:: 04/27/20 Subjective:: ADILENE LEWIS is a 74 year old female who presented altered mental status x3 days. The patient is nonverbal at this time and unable to provide input into her history. Her states that she had an MRI performed at [facility] on 04/16/2020 which required sedation due to her extreme anxiety. She was slow to recover after sedation and went to bed immediately after they arrived at home and slept for the better part of the next 24 hours. After waking she has been nonverbal and very confused with unusual repetitive behaviors and poor responsiveness to verbal direction. He feels that her poor responsiveness is not improving and may be worsening. He admits that she has had a prior similar episode after receiving sedative medications. He has not identified any additional aggravating or ameliorating factors for her altered mental status. In the emergency room the patient was noted to be confused and poorly responsive to verbal stimuli and commands. No focal neurologic deficits were identified and a CT scan of the head revealed no acute changes or evidence of stroke. Patient was subsequently admitted to the hospital for further evaluation and treatment. 04/22/2020. No acute events overnight. Patient complains of severe apparent distress, alert and oriented to person place, cooperative with physical examination, does not appear to be in any apparent distress, denies any fever, chills, nausea, vomiting, diarrhea. Has not had bowel movement since admission. 04/23/2020. No acute events overnight. Patient continues been hypotensive, unfortunately patient still confused about date and time at stating that her was assassinated even though her is alive, cooperative with physical evaluation, pleasant, denies any fever, chills, nausea, vomiting, diarrhea, constipation or any urinary symptoms. 04/24/2020. No acute events overnight, patient was noted to be agitated last night and was given some Haldol, this morning comfortably sitting up in distress, communicated better when she still confused, only oriented to person and place, denies any fever, chills, nausea, vomiting, diarrhea, constipation or any urinary symptoms. I have had extensive conversation with patient and her about disposition, patient has been stating that if she does not recover back to baseline he would like her to be transition to short-term placement. 04/25/2020. No acute events overnight. Unfortunately patient still only orie nted to self and place, seems confused, fails to follow three-step command, does not appear to be in apparent distress, denies any fever, chills, nausea, vomiting, diarrhea, constipation or any urinary symptoms. 04/26/2020. No acute events overnight, patient is somnolent but arousable, she does take her medications does not hold much conversation as patient falls asleep readily, does not appear to be in any acute distress. Based on my conversation with her daughter and primary nurse's conversation with Soniya her granddaughter who is a nurse at [employer], patient does have history of episodic confusion. As per granddaughter these episodes patient tends to wander off in the middle of the night going to the mall, or cooking pancakes at the middle of the night. Per daughter her encephalopathy resolves within 2 to 3 days after being hospitalized and treated for UTI, per daughter this episode of confusion is different and seems to have lasted longer. Patient has been hospitalized before however has not had a lumbar puncture or not being by evaluated by a neurologist. An MRI of head as outpatient was done however we do not have the results and do not know the finding, we attempted to do an MRI yesterday but unfortunately patient was moving too much and MRI images were not optimal, I have talked to her daughter and mentioned that she may benefit from a lumbar puncture. 04/27/2020. No acute events overnight. This morning patient was sleepy but easily arousable and cooperative, this afternoon patient behavior has changed significantly, she is alert and awake however she has developed delusional ideas and thinking that the hospital staff is spying on her, she refuses all her medication and fluid wants curtains down, only communicating a whispering voice. Patient denies any headache, nausea, vomiting, diarrhea, constipation or any urinary symptoms. Patient had an LP yesterday which initial labs does not show any abnormality and the results are pending, psychiatry has also been consulted and recommendations pending. Reason For Visit: ACUTE ENCEPHALOPATHY,ELEVATED CARDIAC ENZYMES, Physical Exam Vital Signs: Temp Pulse Resp BP Pulse Ox 98.7 F 70 12 120/57 L 99 04/27/20 12:00 04/27/20 12:00 04/27/20 12:00 04/27/20 12:00 04/27/20 12:00 Intake & Output 04/26/20 04/27/20 04/28/20 06:59 06:59 06:59 Intake Total 180 290 226 Output Total 3200 2175 Balance -3020 -1885 226 Weight 84.5 kg 82.2 kg General appearance: PRESENT: no acute distress, obese, well-developed, well- nourished Head exam: PRESENT: atraumatic, normocephalic Respiratory exam: PRESENT: clear to auscultation vinicius. ABSENT: rales, rhonchi, wheezes Cardiovascular exam: PRESENT: RRR. ABSENT: diastolic murmur, rubs, systolic murmur GI/Abdominal exam: PRESENT: normal bowel sounds, soft. ABSENT: distended, guarding, mass, organolmegaly, rebound, tenderness Extremities exam: PRESENT: full ROM. ABSENT: calf tenderness, clubbing, pedal edema Neurological exam: PRESENT: alert, awake, oriented to person, oriented to place, oriented to time, oriented to situation, CN II-XII grossly intact. ABSENT: motor sensory deficit Focused psych exam: PRESENT: delusional Results Laboratory Results: 04/26/20 05:00 04/27/20 04:32 04/26/20 04/26/20 04/27/20 14:40 14:40 04:32 Sodium 138.3 Potassium 3.1 L Chloride 101 Carbon Dioxide 21 L Anion Gap 16 BUN 14 Creatinine 0.88 Est GFR ( Amer) > 60 Glucose 120 H Calcium 9.2 Magnesium 2.0 Total Bilirubin 0.8 AST 27 Alkaline Phosphatase 90 Total Protein 7.2 Albumin 4.0 Fluid Tube Number 2 CSF Volume 11.5 CSF WBC 0 CSF RBC 0 CSF Color (1) COLORLESS CSF Appearance (1) CLEAR CSF Color (2) COLORLESS CSF Appearance (2) CLEAR CSF Color (3) COLORLESS CSF Appearance (3) CLEAR CSF Glucose 59 CSF Total Protein 45 04/19/20 04/19/20 04/19/20 16:40 16:40 22:12 Creatine Kinase 2552 H 2645 H CK-MB (CK-2) 17.10 H Troponin I 0.038 04/19/20 04/20/20 04/20/20 22:12 04:26 06:46 Creatine Kinase 2226 H CK-MB (CK-2) 17.80 H 15.40 H Troponin I 0.036 0.046 04/20/20 04/20/20 15:04 15:04 Creatine Kinase 1240 H CK-MB (CK-2) 10.70 H Troponin I 0.033 Impressions: Chest X-Ray 04/19/20 17:00 IMPRESSION: CHRONIC INTERSTITIAL CHANGES. STABLE GRANULOMAS. NO ACUTE RADIOGRAPHIC FINDING IN THE CHEST. Head CT 04/19/20 17:00 IMPRESSION: NO ACUTE INTRACRANIAL IMAGING FINDINGS. EVIDENCE OF ACUTE STROKE: NO. Head MRI 04/25/20 15:24 IMPRESSION: Technical limitations. Recommend repeat when the patient is more stable. Assessment and Plan - Diagnosis (1) Acute encephalopathy Is this a current diagnosis for this admission?: Yes Plan: Patient is awake and alert, resting in her recliner. Feels all her medications refilled. Has delusional ideas. Thinks the hospital is spying on her. Only communicates in a whispering voice. Psychiatry has been consulted. Status post lumbar puncture 04/27/2020. Initial results negative for any acute infection, pending further work-up results. Multifactorial, likely due to UTI complicated by polypharmacy or underlying neurological disorder. Patient is on very high dose of gabapentin, Fioricet, triazolam add Xanax on top of her regular medications. Patient has had previous hospitalization for similar episodes however she has never had a lumbar puncture or or evaluated by a neurologist. CT head negative on admission. An MRI with contrast was attempted however patient was moving and pictures were none optimal. As per my conversation with daughter she had an MRI as outpatient and she will try to get the results to us. Continue treating underlying infectious process, reconcile medications, avoid o pioids and benzodiazepines. Fall, seizure and aspiration precautions. Possible lumbar puncture if family agrees to. (2) Elevation of cardiac enzymes Is this a current diagnosis for this admission?: Yes Plan: Denies any anginal symptoms. No acute EKG changes. Troponins 0.038, 0.036, 0.046, 0.033 Continue telemetry, antiplatelets, beta-blockers, statins, WILDA. Cardiology consulted. Pending recommendations. (3) UTI (urinary tract infection) Qualifiers: Urinary tract infection type: site unspecified Hematuria presence: without hematuria Qualified Code(s): N39.0 - Urinary tract infection, site not specified Is this a current diagnosis for this admission?: Yes Plan: Due to E. coli, sensitive to ceftriaxone. Completed a course of IV ceftriaxone. DC antibiotics. (4) CAD (coronary artery disease) Qualifiers: Coronary Disease-Associated Artery/Lesion type: [place] artery [place] vs. transplanted heart: [place] heart Associated angina: without angina Qualified Code(s): I25.10 - Atherosclerotic heart disease of [place] coronary artery withou t angina pectoris Is this a current diagnosis for this admission?: Yes Plan: Denies any anginal symptoms. Continue antiplatelets, beta-blockers, WILDA and statins. Outpatient PCP and cardiology follow-up. (5) Diabetes mellitus type 2 in obese Is this a current diagnosis for this admission?: Yes Plan: Not controlled. Hemoglobin A1c 9.3%. Continue diabetic diet, sliding scale, correctional and basal insulin, hypoglycemic protocol, Accu-Chek. Resume home meds upon discharge. (6) Depression Is this a current diagnosis for this admission?: Yes Plan: Denies any suicidal homicidal ideation. Resume home meds. Outpatient PCP and psychiatry follow-up. (7) Hypertension Qualifiers: Hypertension type: essential hypertension Qualified Code(s): I10 - Essential (primary) hypertension Is this a current diagnosis for this admission?: Yes Plan: Euvolemic. Normotensive. Resume home meds. Adjust meds as needed. PRN IV hydralazine and IV metoprolol. - Time Time Spent with patient: 35 or more minutes Medications reviewed and adjusted accordingly: Yes Anticipated Discharge Disposition: [facility]way Facility Anticipated Discharge Timeframe: within 72 hours
[2020-04-27] MEDS: ATORVASTATIN CALCIUM 40 MG TABLET PO SCH (22:48)
[2020-04-27] MEDS: INSULIN GLARGINE,HUM.REC.ANLOG 1,000 UNIT/10 ML VIAL SUBCUT SCH (22:49)
[2020-04-28] MEDS: ACETAMINOPHEN 325 MG TABLET PO PRN (00:42)
[2020-04-28] MEDS: GABAPENTIN 100 MG CAPSULE PO SCH ×3 (05:56→22:17)
[2020-04-28] MEDS: HEPARIN SOD (PORCINE) 5,000 UNIT/ML 1 ML VIAL SUBCUT SCH ×3 (05:56→22:17)
[2020-04-28] MEDS: INSULIN LISPRO 100 UNIT/ML 3 ML VIAL SUBCUT SCH ×4 (07:53→22:18)
[2020-04-28] MEDS: PANTOPRAZOLE SODIUM 40 MG TABLET.DR PO SCH ×2 (08:07→18:26)
[2020-04-28 08:19] LABS: ANION GAP 15 (5-19); BLOOD UREA NITROGEN 14 mg/dL (7-20); CALCIUM 8.9 mg/dL (8.4-10.2); CARBON DIOXIDE 21 mmol/L (22-30); CHLORIDE 97 mmol/L (98-107); GLUCOSE 97 mg/dL (75-110); POTASSIUM 3.3 mmol/L (3.6-5.0)
[2020-04-28] MEDS: SERTRALINE HCL 50 MG TABLET PO SCH (09:25)
[2020-04-28] MEDS: NEBIVOLOL HCL 10 MG TABLET PO SCH (09:25)
[2020-04-28] MEDS: FAMOTIDINE 20 MG TABLET PO SCH ×2 (09:25→22:17)
[2020-04-28] MEDS: ASPIRIN 81 MG TABLET, ENT COATED PO SCH (09:25)
[2020-04-28] MEDS: MAGNESIUM OXIDE 400 MG TABLET PO SCH (09:25)
[2020-04-28] MEDS: DOCUSATE SODIUM 100 MG CAPSULE PO SCH ×2 (09:25→18:20)
[2020-04-28] MEDS: AMLODIPINE BESYLATE 5 MG TABLET PO SCH (09:26)
[2020-04-28] MEDS: POTASSIUM CHLORIDE 10 MEQ TABLET.ER PO SCH (09:26)
[2020-04-28] MEDS: CEFTRIAXONE 1 GM/D5W RTU 1 GM/50 ML RTUPB IV SCH (09:27)
[2020-04-28] MEDS ORDERED: POTASSIUM CHLORIDE 10 MEQ TABLET.ER PO ONE (13:00)
--- NOTE | 2020-04-28 16:10 | PDOC PROGRESS REPORT ---
Subjective Progress Note for:: 04/28/20 Subjective:: ADILENE LEWIS is a 74 year old female who presented altered mental status x3 days. The patient is nonverbal at this time and unable to provide input into her history. Her states that she had an MRI performed at [facility] on 04/16/2020 which required sedation due to her extreme anxiety. She was slow to recover after sedation and went to bed immediately after they arrived at home and slept for the better part of the next 24 hours. After waking she has been nonverbal and very confused with unusual repetitive behaviors and poor responsiveness to verbal direction. He feels that her poor responsiveness is not improving and may be worsening. He admits that she has had a prior similar episode after receiving sedative medications. He has not identified any additional aggravating or ameliorating factors for her altered mental status. In the emergency room the patient was noted to be confused and poorly responsive to verbal stimuli and commands. No focal neurologic deficits were identified and a CT scan of the head revealed no acute changes or evidence of stroke. Patient was subsequently admitted to the hospital for further evaluation and treatment. 04/22/2020. No acute events overnight. Patient complains of severe apparent distress, alert and oriented to person place, cooperative with physical examination, does not appear to be in any apparent distress, denies any fever, chills, nausea, vomiting, diarrhea. Has not had bowel movement since admission. 04/23/2020. No acute events overnight. Patient continues been hypotensive, unfortunately patient still confused about date and time at stating that her was assassinated even though her is alive, cooperative with physical evaluation, pleasant, denies any fever, chills, nausea, vomiting, diarrhea, constipation or any urinary symptoms. 04/24/2020. No acute events overnight, patient was noted to be agitated last night and was given some Haldol, this morning comfortably sitting up in distress, communicated better when she still confused, only oriented to person and place, denies any fever, chills, nausea, vomiting, diarrhea, constipation or any urinary symptoms. I have had extensive conversation with patient and her about disposition, patient has been stating that if she does not recover back to baseline he would like her to be transition to short-term placement. 04/25/2020. No acute events overnight. Unfortunately patient still only orie nted to self and place, seems confused, fails to follow three-step command, does not appear to be in apparent distress, denies any fever, chills, nausea, vomiting, diarrhea, constipation or any urinary symptoms. 04/26/2020. No acute events overnight, patient is somnolent but arousable, she does take her medications does not hold much conversation as patient falls asleep readily, does not appear to be in any acute distress. Based on my conversation with her daughter and primary nurse's conversation with Soniya her granddaughter who is a nurse at [employer], patient does have history of episodic confusion. As per granddaughter these episodes patient tends to wander off in the middle of the night going to the mall, or cooking pancakes at the middle of the night. Per daughter her encephalopathy resolves within 2 to 3 days after being hospitalized and treated for UTI, per daughter this episode of confusion is different and seems to have lasted longer. Patient has been hospitalized before however has not had a lumbar puncture or not being by evaluated by a neurologist. An MRI of head as outpatient was done however we do not have the results and do not know the finding, we attempted to do an MRI yesterday but unfortunately patient was moving too much and MRI images were not optimal, I have talked to her daughter and mentioned that she may benefit from a lumbar puncture. 04/27/2020. No acute events overnight. This morning patient was sleepy but easily arousable and cooperative, this afternoon patient behavior has changed significantly, she is alert and awake however she has developed delusional ideas and thinking that the hospital staff is spying on her, she refuses all her medication and fluid wants curtains down, only communicating a whispering voice. Patient denies any headache, nausea, vomiting, diarrhea, constipation or any urinary symptoms. Patient had an LP yesterday which initial labs does not show any abnormality and the results are pending, psychiatry has also been consulted and recommendations pending. 04/28/2020. This morning patient has much improved, she is comfortably sitting bed no apparent distress, she has taken her medication and has had her breakfast, she does not think that she is being spied on anymore, and she talks in normal voice tone, she is alert and oriented x3. Patient could potentially be discharged home tomorrow once been evaluated by psychiatrist. I have been updating her family and I have urged him to have her evaluated by a neurologist once she is discharged. Patient can be discharged home safely tomorrow if evaluated by a psychiatrist and is safe to be discharged home, patient has been evaluated by physical therapist and recommendation is for outpatient PT, patient does not qualify for inpatient rehab/snf as per discharge planning. Patient denies any fever, chills, nausea, vomiting, diarrhea, constipation or any urinary symptoms. Reason For Visit: ACUTE ENCEPHALOPATHY,ELEVATED CARDIAC ENZYMES, Physical Exam Vital Signs: Temp Pulse Resp BP Pulse Ox 99.0 F 67 19 123/56 L 98 04/28/20 11:36 04/28/20 11:36 04/28/20 11:36 04/28/20 11:36 04/28/20 11:36 Intake & Output 04/27/20 04/28/20 04/29/20 06:59 06:59 06:59 Intake Total 290 1236 496 Output Total 2175 1080 400 Balance -1885 156 96 Weight 82.2 kg 78.9 kg General appearance: PRESENT: no acute distress, well-developed, well-nourished Head exam: PRESENT: atraumatic, normocephalic Respiratory exam: PRESENT: clear to auscultation vinicius. ABSENT: rales, rhonchi, wheezes Cardiovascular exam: PRESENT: RRR. ABSENT: diastolic murmur, rubs, systolic murmur GI/Abdominal exam: PRESENT: normal bowel sounds, soft. ABSENT: distended, guarding, mass, organolmegaly, rebound, tenderness Neurological exam: PRESENT: alert, awake, oriented to person, oriented to place, oriented to time, CN II-XII grossly intact. ABSENT: motor sensory deficit Skin exam: PRESENT: dry, intact, warm. ABSENT: cyanosis, rash Results Laboratory Results: 04/26/20 05:00 04/28/20 06:14 04/26/20 04/28/20 14:40 06:14 Sodium 132.9 L Potassium 3.3 L Chloride 97 L Carbon Dioxide 21 L Anion Gap 15 BUN 14 Creatinine 0.78 Est GFR ( Amer) > 60 Glucose 97 Calcium 8.9 Magnesium 1.9 CSF VDRL Non Reactive 04/19/20 04/19/20 04/19/20 16:40 16:40 22:12 Creatine Kinase 2552 H 2645 H CK-MB (CK-2) 17.10 H Troponin I 0.038 04/19/20 04/20/20 04/20/20 22:12 04:26 06:46 Creatine Kinase 2226 H CK-MB (CK-2) 17.80 H 15.40 H Troponin I 0.036 0.046 04/20/20 04/20/20 15:04 15:04 Creatine Kinase 1240 H CK-MB (CK-2) 10.70 H Troponin I 0.033 Impressions: Chest X-Ray 04/19/20 17:00 IMPRESSION: CHRONIC INTERSTITIAL CHANGES. STABLE GRANULOMAS. NO ACUTE RADIOGRAPHIC FINDING IN THE CHEST. Head CT 04/19/20 17:00 IMPRESSION: NO ACUTE INTRACRANIAL IMAGING FINDINGS. EVIDENCE OF ACUTE STROKE: NO. Head MRI 04/25/20 15:24 IMPRESSION: Technical limitations. Recommend repeat when the patient is more stable. Assessment and Plan - Diagnosis (1) Acute encephalopathy Is this a current diagnosis for this admission?: Yes Plan: Moderate improvement. Patient is alert and oriented x3. Does not have de lusional ideas anymore. Patient is cooperative with physical examination, taking her medications and eating her food. Status post lumbar puncture 04/27/2020. Initial results negative for any acute infection, pending further work-up results. Multifactorial, likely due to UTI complicated by polypharmacy or underlying neurological disorder. Patient is on very high dose of gabapentin, Fioricet, triazolam add Xanax on top of her regular medications. Patient medication needs to be reconciled before discharge. Most of her home medication has been held on this admission with no major side effects. Patient has had previous hospitalization for similar episodes however she has never had a lumbar puncture or or evaluated by a neurologist. CT head negative on admission. An MRI with contrast was attempted however patient was moving and pictures were none optimal. As per my conversation with daughter she had an MRI as outpatient and she will try to get the results to us. Continue treating underlying infectious process, reconcile medications, avoid opioids and benzodiazepines. Continue fall, seizure and aspiration precautions. (2) Elevation of cardiac enzymes Is this a current diagnosis for this admission?: Yes Plan: Denies any anginal symptoms. No acute EKG changes. Troponins 0.038, 0.036, 0.046, 0.033 Continue telemetry, antiplatelets, beta-blockers, statins, WILDA. Cardiology consulted. Pending recommendations. (3) UTI (urinary tract infection) Qualifiers: Urinary tract infection type: site unspecified Hematuria presence: without hematuria Qualified Code(s): N39.0 - Urinary tract infection, site not specified Is this a current diagnosis for this admission?: Yes Plan: Due to E. coli, sensitive to ceftriaxone. Completed a course of IV ceftriaxone. DC antibiotics. (4) CAD (coronary artery disease) Qualifiers: Coronary Disease-Associated Artery/Lesion type: [place] artery [place] vs. transplanted heart: [place] heart Associated angina: without angina Qualified Code(s): I25.10 - Atherosclerotic heart disease of [place] coronary artery without angina pectoris Is this a current diagnosis for this admission?: Yes Plan: Denies any anginal symptoms. Continue antiplatelets, beta-blockers, WILDA and statins. Outpatient PCP and cardiology follow-up. (5) Diabetes mellitus type 2 in obese Is this a current diagnosis for this admission?: Yes Plan: Not controlled. Hemoglobin A1c 9.3%. Continue diabetic diet, sliding scale, correctional and basal insulin, hypoglycemic protocol, Accu-Chek. Resume home meds upon discharge. (6) Depression Is this a current diagnosis for this admission?: Yes Plan: Denies any suicidal homicidal ideation. Resume home meds. Outpatient PCP and psychiatry follow-up. (7) Hypertension Qualifiers: Hypertension type: essential hypertension Qualified Code(s): I10 - Essential (primary) hypertension Is this a current diagnosis for this admission?: Yes Plan: Euvolemic. Normotensive. Resume home meds. Adjust meds as needed. PRN IV hydralazine and IV metoprolol. - Time Time Spent with patient: 25-34 minutes Medications reviewed and adjusted accordingly: Yes Anticipated Discharge Disposition: Home with Home Health Anticipated Discharge Timeframe: within 24 hours
--- NOTE | 2020-04-28 18:48 | PSYCHOLOGICAL NOTE ---
Psych Note - Psych Note Date seen by psych provider: 04/28/20 - Notified of consult 04/28/2020 at 1113 Time seen by psych provider: 19:00 - 1999 Psych Note: Reason for Consult: Confusion and violent outbursts Patient presented to [facility] ED for altered mental status that had lasted for 3 days. Upon arrival, the patient was nonverbal. Her disclosed the patient had an MRI performed at [facility] on 04/16/2020 which required sedation due to her extreme anxiety. She was slow to recover after sedation and went to bed immediately after they arrived at home and slept for the better part of the next 24 hours. After waking she has been nonverbal and very confused with unusual repetitive behaviors and poor responsiveness to verbal direction. There was concern the patient's presentation was worsening not improving. The patient's disclosed she has had a prior similar episode after receiving sedative medications. Patient was admitted medically. Impression/Plan: Patient was able to demonstrate full orientation and engage in free flowing conversation. She her history and current mental health and was able to articulate her concerns. This patient has been seen preciously by the behavioral health team and has had inpatient psychiatric treatment. There is concern that the patient's "episodes" identified by family have only occurred for the last 4-5 years and while she has a mental health history had never experienced psychosis previous to family reported "episodes.' The family report concern that "the cause" of these events have not been determined to their satisfaction ie they are told different things each time such as UTI, drug i nteraction and or withdrawal. Clinician provided psychoeducation on psychosis in geriatric and understanding that medical and medication can significantly impact presentation. The patient is not demonstrating an current psychosis or confusion during evaluation. The family reports that there has been days the patient presents similarity then then next day is altered again. This report from family supports probable drug interaction; however, this is not confirmed. Please contact the behavioral health team is the patient presents altered again. Patient should be able to engage in free flowing conversation and answering open ended questions. At this time the patient is cleared from acute psychiatric services.. The patient is currently receiving her psychiatric medication for her primary doctor, it is highly recommended the patient obtain specialists ie psychiatrist, neurologist, and possibly a hand stoner.
[2020-04-28] MEDS ORDERED: INFLUENZA QUAD (6MOS+) 2020-21 VAC 0.5 ML SYR IM ONE (20:45)
[2020-04-28] MEDS: ATORVASTATIN CALCIUM 40 MG TABLET PO SCH (22:17)
[2020-04-28] MEDS: INSULIN GLARGINE,HUM.REC.ANLOG 1,000 UNIT/10 ML VIAL SUBCUT SCH (22:17)
[2020-04-29 05:51] LABS: ANION GAP 12 (5-19); BLOOD UREA NITROGEN 10 mg/dL (7-20); CALCIUM 9.2 mg/dL (8.4-10.2); CARBON DIOXIDE 22 mmol/L (22-30); CHLORIDE 98 mmol/L (98-107); GLUCOSE 85 mg/dL (75-110); POTASSIUM 3.5 mmol/L (3.6-5.0)
[2020-04-29] MEDS: HEPARIN SOD (PORCINE) 5,000 UNIT/ML 1 ML VIAL SUBCUT SCH ×3 (05:52→21:46)
[2020-04-29] MEDS: GABAPENTIN 100 MG CAPSULE PO SCH ×3 (05:52→21:48)
[2020-04-29] MEDS: ACETAMINOPHEN 325 MG TABLET PO PRN ×2 (09:01→17:24)
[2020-04-29] MEDS: AMLODIPINE BESYLATE 5 MG TABLET PO SCH (09:02)
[2020-04-29] MEDS: MAGNESIUM OXIDE 400 MG TABLET PO SCH (09:02)
[2020-04-29] MEDS: NEBIVOLOL HCL 10 MG TABLET PO SCH (09:02)
[2020-04-29] MEDS: ASPIRIN 81 MG TABLET, ENT COATED PO SCH (09:02)
[2020-04-29] MEDS: DOCUSATE SODIUM 100 MG CAPSULE PO SCH ×2 (09:03→17:24)
[2020-04-29] MEDS: FAMOTIDINE 20 MG TABLET PO SCH ×2 (09:03→21:48)
[2020-04-29] MEDS: PANTOPRAZOLE SODIUM 40 MG TABLET.DR PO SCH ×2 (09:03→17:24)
[2020-04-29] MEDS: SERTRALINE HCL 50 MG TABLET PO SCH (09:03)
[2020-04-29] MEDS: POTASSIUM CHLORIDE 10 MEQ TABLET.ER PO SCH (09:03)
[2020-04-29] MEDS: INSULIN LISPRO 100 UNIT/ML 3 ML VIAL SUBCUT SCH ×4 (09:04→21:47)
--- NOTE | 2020-04-29 17:23 | PDOC PROGRESS REPORT ---
Subjective Progress Note for:: 04/29/20 Subjective:: No adverse events overnight. No new complaints. It has been about a week since I last saw this patient, and she appears dramatically better. She is able to talk and interact, and to both ask and answer questions. Yesterday it was reported that the patient's family thought that she was lucid and they wanted her to come home. We were going to discharge her today but her family appealed the discharge because they said she is not at her mental baseline. She got up today with a 2 wheeled walker and physical therapy standby assistance and walked all over the fourth floor with no problems whatsoever. She also appears to have been cleared from psychiatric services as of yesterday evening. Reason For Visit: ALTERED MENTAL STATUS Physical Exam Vital Signs: Temp Pulse Resp BP Pulse Ox 98.4 F 73 16 141/66 H 97 04/29/20 11:06 04/29/20 11:06 04/29/20 11:06 04/29/20 11:06 04/29/20 11:06 Intake & Output 04/28/20 04/29/20 04/30/20 06:59 06:59 06:59 Intake Total 1236 666 Output Total 1080 1200 Balance 156 -534 Weight 78.9 kg 82.6 kg General appearance: PRESENT: no acute distress, well-developed, well-nourished Head exam: PRESENT: atraumatic, normocephalic Respiratory exam: PRESENT: clear to auscultation vinicius. ABSENT: rales, rhonchi, wheezes Cardiovascular exam: PRESENT: RRR. ABSENT: diastolic murmur, rubs, systolic m urmur GI/Abdominal exam: PRESENT: normal bowel sounds, soft. ABSENT: distended, guarding, mass, organolmegaly, rebound, tenderness Neurological exam: PRESENT: alert, awake, oriented to person, oriented to place, oriented to situation, CN II-XII grossly intact. ABSENT: motor sensory deficit Skin exam: PRESENT: dry, intact, warm. ABSENT: cyanosis, rash Results Laboratory Results: 04/26/20 05:00 04/29/20 04:42 04/29/20 04:42 Sodium 131.6 L Potassium 3.5 L Chloride 98 Carbon Dioxide 22 Anion Gap 12 BUN 10 Creatinine 0.76 Est GFR ( Amer) > 60 Glucose 85 Calcium 9.2 Magnesium 1.9 04/26/20 14:40 Cerebral Spinal Fluid - Tube 3 (Csf) Enterovirus RNA (PCR) - Final 04/26/20 14:40 Cerebral Spinal Fluid - Csf Gram Stain - Final 04/26/20 14:40 Cerebral Spinal Fluid - Csf CSF Culture - Final NO GROWTH 3 DAYS 04/26/20 14:40 Cerebral Spinal Fluid - Csf AFB Smear Concentration - Final 04/26/20 14:40 Cerebral Spinal Fluid - Csf Acid Fast Bacilli Smear - Final 04/19/20 04/19/20 04/19/20 16:40 16:40 22:12 Creatine Kinase 2552 H 2645 H CK-MB (CK-2) 17.10 H Troponin I 0.038 04/19/20 04/20/20 04/20/20 22:12 04:26 06:46 Creatine Kinase 2226 H CK-MB (CK-2) 17.80 H 15.40 H Troponin I 0.036 0.046 04/20/20 04/20/20 15:04 15:04 Creatine Kinase 1240 H CK-MB (CK-2) 10.70 H Troponin I 0.033 Impressions: Chest X-Ray 04/19/20 17:00 IMPRESSION: CHRONIC INTERSTITIAL CHANGES. STABLE GRANULOMAS. NO ACUTE RADIOGRAPHIC FINDING IN THE CHEST. Head CT 04/19/20 17:00 IMPRESSION: NO ACUTE INTRACRANIAL IMAGING FINDINGS. EVIDENCE OF ACUTE STROKE: NO. Head MRI 04/25/20 15:24 IMPRESSION: Technical limitations. Recommend repeat when the patient is more stable. Assessment and Plan - Diagnosis (1) Acute encephalopathy Is this a current diagnosis for this admission?: Yes (2) Elevation of cardiac enzymes Is this a current diagnosis for this admission?: Yes (3) Pyuria Is this a current diagnosis for this admission?: Yes (4) Depression Is this a current diagnosis for this admission?: Yes (5) Hypertension Qualifiers: Hypertension type: essential hypertension Qualified Code(s): I10 - Essential (primary) hypertension Is this a current diagnosis for this admission?: Yes (6) CAD (coronary artery disease) Qualifiers: Coronary Disease-Associated Artery/Lesion type: [place] artery [place] vs. transplanted heart: [place] heart Associated angina: without angina Qualified Code(s): I25.10 - Atherosclerotic heart disease of [place] coronary artery without angina pectoris Is this a current diagnosis for this admission?: Yes (7) COPD (chronic obstructive pulmonary disease) Qualifiers: COPD type: unspecified COPD Qualified Code(s): J44.9 - Chronic obstructive pulmonary disease, unspecified Is this a current diagnosis for this admission?: Yes (8) Diabetes mellitus type 2 in obese Is this a current diagnosis for this admission?: Yes (9) Neuropathy Is this a current diagnosis for this admission?: Yes (10) PVD (peripheral vascular disease) Is this a current diagnosis for this admission?: Yes (11) Bipolar disorder Qualifiers: Active/Remission status: remission status unspecified Qualified Code(s): F31.9 - Bipolar disorder, unspecified Is this a current diagnosis for this admission?: Yes - Plan Summary Summary: I believe her mental status is at baseline. I think a lot of her issues were due to polypharmacy. We have taken away nearly all of her sedating medications and her mental status has improved substantially. She completed treatment for urinary tract infection. She has been discharged from psychiatric services, and physical therapy was of the opinion that she did not need any further physical therapy in an inpatient setting, possibly as an outpatient if the family desires. We have set up an outpatient follow-up with a neurologist to pursue further work-up if the family desires. Her family has appealed her discharge today. We are awaiting the final result on that appeal. - Time Time Spent with patient: 25-34 minutes Anticipated Discharge Disposition: Home with Home Health Anticipated Discharge Timeframe: within 72 hours
[2020-04-29] MEDS: INSULIN GLARGINE,HUM.REC.ANLOG 1,000 UNIT/10 ML VIAL SUBCUT SCH (21:47)
[2020-04-29] MEDS: ATORVASTATIN CALCIUM 40 MG TABLET PO SCH (21:47)
[2020-04-30] MEDS: ACETAMINOPHEN 325 MG TABLET PO PRN (00:55)
[2020-04-30] MEDS: GABAPENTIN 100 MG CAPSULE PO SCH ×3 (05:39→22:14)
[2020-04-30] MEDS: HEPARIN SOD (PORCINE) 5,000 UNIT/ML 1 ML VIAL SUBCUT SCH ×3 (05:39→22:12)
[2020-04-30] MEDS: INSULIN LISPRO 100 UNIT/ML 3 ML VIAL SUBCUT SCH ×4 (08:12→22:20)
[2020-04-30] MEDS: FAMOTIDINE 20 MG TABLET PO SCH ×2 (11:28→22:14)
[2020-04-30] MEDS: AMLODIPINE BESYLATE 5 MG TABLET PO SCH (11:28)
[2020-04-30] MEDS: PANTOPRAZOLE SODIUM 40 MG TABLET.DR PO SCH ×2 (11:28→17:55)
[2020-04-30] MEDS: NEBIVOLOL HCL 10 MG TABLET PO SCH (11:28)
[2020-04-30] MEDS: DOCUSATE SODIUM 100 MG CAPSULE PO SCH ×2 (11:29→17:55)
[2020-04-30] MEDS: POTASSIUM CHLORIDE 10 MEQ TABLET.ER PO SCH (11:29)
[2020-04-30] MEDS: SERTRALINE HCL 50 MG TABLET PO SCH (11:29)
[2020-04-30] MEDS: ASPIRIN 81 MG TABLET, ENT COATED PO SCH (11:29)
[2020-04-30] MEDS: MAGNESIUM OXIDE 400 MG TABLET PO SCH (11:29)
--- NOTE | 2020-04-30 17:26 | PDOC PROGRESS REPORT ---
Subjective Progress Note for:: 04/30/20 Subjective:: No adverse events overnight. No new complaints. No change in her clinical condition. Results of discharge appeal are pending. Reason For Visit: ALTERED MENTAL STATUS Physical Exam Vital Signs: Temp Pulse Resp BP Pulse Ox 98.4 F 70 17 148/60 H 98 04/30/20 16:00 04/30/20 16:00 04/30/20 16:00 04/30/20 16:00 04/30/20 16:00 Intake & Output 04/29/20 04/30/20 05/01/20 06:59 06:59 06:59 Intake Total 666 810 240 Output Total 1200 425 Balance -534 385 240 Weight 82.6 kg 82.6 kg General appearance: PRESENT: no acute distress, well-developed, well-nourished Head exam: PRESENT: atraumatic, normocephalic Respiratory exam: PRESENT: clear to auscultation vinicius. ABSENT: rales, rhonchi, wheezes Cardiovascular exam: PRESENT: RRR. ABSENT: diastolic murmur, rubs, systolic murmur GI/Abdominal exam: PRESENT: normal bowel sounds, soft. ABSENT: distended, guarding, mass, organolmegaly, rebound, tenderness Neurological exam: PRESENT: alert, awake, oriented to person, oriented to place, oriented to situation, CN II-XII grossly intact. ABSENT: motor sensory deficit Skin exam: PRESENT: dry, intact, warm. ABSENT: cyanosis, rash Results Laboratory Results: 04/26/20 05:00 04/29/20 04:42 04/26/20 14:40 Cerebral Spinal Fluid - Tube 3 (Csf) Enterovirus RNA (PCR) - Final 04/19/20 04/19/20 04/19/20 16:40 16:40 22:12 Creatine Kinase 2552 H 2645 H CK-MB (CK-2) 17.10 H Troponin I 0.038 04/19/20 04/20/20 04/20/20 22:12 04:26 06:46 Creatine Kinase 2226 H CK-MB (CK-2) 17.80 H 15.40 H Troponin I 0.036 0.046 04/20/20 04/20/20 15:04 15:04 Creatine Kinase 1240 H CK-MB (CK-2) 10.70 H Troponin I 0.033 Impressions: Chest X-Ray 04/19/20 17:00 IMPRESSION: CHRONIC INTERSTITIAL CHANGES. STABLE GRANULOMAS. NO ACUTE RADIOGRAPHIC FINDING IN THE CHEST. Head CT 04/19/20 17:00 IMPRESSION: NO ACUTE INTRACRANIAL IMAGING FINDINGS. EVIDENCE OF ACUTE STROKE: NO. Head MRI 04/25/20 15:24 IMPRESSION: Technical limitations. Recommend repeat when the patient is more stable. Assessment and Plan - Diagnosis (1) Acute encephalopathy Is this a current diagnosis for this admission?: Yes (2) Elevation of cardiac enzymes Is this a current diagnosis for this admission?: Yes (3) Pyuria Is this a current diagnosis for this admission?: Yes (4) Depression Is this a current diagnosis for this admission?: Yes (5) Hypertension Qualifiers: Hypertension type: essential hypertension Qualified Code(s): I10 - Essential (primary) hypertension Is this a current diagnosis for this admission?: Yes (6) CAD (coronary artery disease) Qualifiers: Coronary Disease-Associated Artery/Lesion type: [place] artery [place] vs. t ransplanted heart: [place] heart Associated angina: without angina Qualified Code(s): I25.10 - Atherosclerotic heart disease of [place] coronary artery without angina pectoris Is this a current diagnosis for this admission?: Yes (7) COPD (chronic obstructive pulmonary disease) Qualifiers: COPD type: unspecified COPD Qualified Code(s): J44.9 - Chronic obstructive pulmonary disease, unspecified Is this a current diagnosis for this admission?: Yes (8) Diabetes mellitus type 2 in obese Is this a current diagnosis for this admission?: Yes (9) Neuropathy Is this a current diagnosis for this admission?: Yes (10) PVD (peripheral vascular disease) Is this a current diagnosis for this admission?: Yes (11) Bipolar disorder Qualifiers: Active/Remission status: remission status unspecified Qualified Code(s): F 31.9 - Bipolar disorder, unspecified Is this a current diagnosis for this admission?: Yes - Plan Summary Summary: I believe her mental status is at baseline. I think a lot of her issues were due to polypharmacy. We have taken away nearly all of her sedating medications and her mental status has improved substantially. She completed treatment for urinary tract infection. She has been discharged from psychiatric services, and physical therapy was of the opinion that she did not need any further physical therapy in an inpatient setting, possibly as an outpatient if the family desires. We have set up an outpatient follow-up with a neurologist to pursue further work-up if the family desires. We continue to await the results of the discharge appeal. - Time Time Spent with patient: Less than 15 minutes Anticipated Discharge Disposition: Home with Home Health Anticipated Discharge Timeframe: within 24 hours
--- NOTE | 2020-04-30 19:17 | PDOC CONSULTATION ---
Consultation-Blank Consultation: Behavioral Health Consult: Altered Mental Status. Patient was being discharged when family expressed concern with patient having been lucid yesterday but being altered again today. Patient's Gerry ([phone]) and daughter (Steffany) called ([phone]) to speak with the other [facility] Behavioral Health Clinician Kehinde Nieves since they had spoke to her last evening. They expressed concerns with patient being discharged and presenting altered, that there is no plan in place, and concerns for their ability to manage patient at home. They stated they appealed the discharge. They were psychoeducated and informed this could be patient's new baseline which can worsen with age. They were also informed if the medical team has concerns they can re consult behavioral health. Shortly after a re consult was initiated by the medical team. Chart review revealed patient was prescribed Triazolam (0.25MG at night as needed) and Alprazolam (1MG twice a day, add 1 tablet as needed for panic attack) at home. These were not provided while in the hospital as medical staff was concerned for polypharmacy issues (being on multiple sedative medications). She likely went through some withdrawal initially but with this being day 10 the immediate benzodiazepine withdrawal should be done. He Head CT dated did NOT have neurodegenerative language and the Head MRI from 04/25/2020 has too much patient motion. Patient had a UTI initially and was was started on Rocephin immediately. Many of her Chemistry labs were off. From [id number] evaluated patient with present. Patient was sitting at the side of her bed seeming too have appropriate interactions with and this clinician. When left room to use restroom asked patient some general capacity screening questions to get at current mentation. She was aware she was in the hospital, knew her birthday, knew her was the one visiting, knew his name, and knew her daughter's name. She admitted she did not know the current date or year. When returned she listened to him with respect to staying in bed or adjusting self so as to not fall off and continued to have appropriate interactions. noted he contacted [facility] today who said they will try to cover whatever Medicare won't. Spoke to Attending Nurse who noted patient is being linked to [facility] and picked [facility] as agency providing the services. Explained to this is a supportive service to try to help him and family take care of patient in home setting. Clinical Presentation: Waxing and waning of altered mental status felt to be related to polypharmacy, not being administered many of the sedative medication (2 were benzodiazepines) while in the hospital, and being at new baseline as a result Impression/Plan: Patient is cleared from acute psychiatric services. [facility] is likely going to assist and family. Recommendation for PCM, Neurology, and Psychiatric follow up. Patient not given Halcion and Xanax in hospital and prescribed them as well as other sedative medications at home. Medical staff already reduced and discontinued many of the sedative medications. There could have been initial Benzo withdrawal but now at 10 days later this is likely baseline. Consulted with Dr. Dickson regarding the management and care of patient. Attending Hospitalist made aware of recommendations (spoke to him via telephone at [phone] just based off chart review).
[2020-04-30] MEDS: ATORVASTATIN CALCIUM 40 MG TABLET PO SCH (22:12)
[2020-04-30] MEDS: INSULIN GLARGINE,HUM.REC.ANLOG 1,000 UNIT/10 ML VIAL SUBCUT SCH (22:16)
[2020-05-01] MEDS: HEPARIN SOD (PORCINE) 5,000 UNIT/ML 1 ML VIAL SUBCUT SCH (06:11)
[2020-05-01] MEDS: GABAPENTIN 100 MG CAPSULE PO SCH (06:11)
[2020-05-01] MEDS: INSULIN LISPRO 100 UNIT/ML 3 ML VIAL SUBCUT SCH (07:31)
[2020-05-01 09:40] VITALS: BP 148/60
[2020-05-01] MEDS: POTASSIUM CHLORIDE 10 MEQ TABLET.ER PO SCH (09:45)
[2020-05-01] MEDS: NEBIVOLOL HCL 10 MG TABLET PO SCH (09:45)
[2020-05-01] MEDS: MAGNESIUM OXIDE 400 MG TABLET PO SCH (09:45)
[2020-05-01] MEDS: AMLODIPINE BESYLATE 5 MG TABLET PO SCH (09:45)
[2020-05-01] MEDS: DOCUSATE SODIUM 100 MG CAPSULE PO SCH (09:46)
[2020-05-01] MEDS: ASPIRIN 81 MG TABLET, ENT COATED PO SCH (09:46)
[2020-05-01] MEDS: PANTOPRAZOLE SODIUM 40 MG TABLET.DR PO SCH (09:46)
[2020-05-01] MEDS: SERTRALINE HCL 50 MG TABLET PO SCH (09:46)
[2020-05-01] MEDS: FAMOTIDINE 20 MG TABLET PO SCH (09:46)
--- NOTE | 2020-05-01 16:12 | PDOC DISCHARGE SUMMARY ---
Impression - Admit/DC Date/PCP Admission Date/Primary Care Provider: 04/19/20 21:13 TERESA WARD DO Discharge Date: 05/01/20 - Discharge Diagnosis (1) Acute encephalopathy Is this a current diagnosis for this admission?: Yes (2) Elevation of cardiac enzymes Is this a current diagnosis for this admission?: Yes (3) Pyuria Is this a current diagnosis for this admission?: Yes (4) Depression Is this a current diagnosis for this admission?: Yes (5) Hypertension Is this a current diagnosis for this admission?: Yes (6) CAD (coronary artery disease) Is this a current diagnosis for this admission?: Yes (7) COPD (chronic obstructive pulmonary disease) Is this a current diagnosis for this admission?: Yes (8) Diabetes mellitus type 2 in obese Is this a current diagnosis for this admission?: Yes (9) Neuropathy Is this a current diagnosis for this admission?: Yes (10) PVD (peripheral vascular disease) Is this a current diagnosis for this admission?: Yes (11) Bipolar disorder Is this a current diagnosis for this admission?: Yes - Assessment Summary: I believe her mental status is at baseline. I think a lot of her issues were due to polypharmacy. We have taken away nearly all of her sedating medications and her mental status has improved substantially. She completed treatment for urinary tract infection. She has been discharged from psychiatric services, and physical therapy was of the opinion that she did not need any further physical therapy in an inpatient setting, possibly as an outpatient if the family desires. We have set up an outpatient follow-up with a neurologist to pursue further work-up if the family desires. We continue to await the results of the discharge appeal. - Additional Information Resuscitation Status: Full Code Discharge Diet: Cardiac, Diabetic Discharge Activity: Activity As Tolerated, No Driving, Supervised Activity Referrals: FELY SOLER MD [NO LOCAL MD] - 04/29/20 (04/29 @ 1115. No answer at provider's office. A message was left for office to call patient with a follow up appt. date/time.) TERESA WARD DO [Primary Care Provider] - 05/07/20 3:00 pm Prescriptions: Gabapentin [Neurontin 100 mg Capsule] 100 mg PO Q8 #90 capsule Home Medications: Nebivolol HCl [Bystolic] 20 mg PO DAILY 11/09/17 Omeprazole 40 mg PO BIDBS 11/09/17 Albuterol Sulfate [Albuterol Sulfate Hfa] 2 puff IH Q6HP PRN 12/18/18 Cyanocobalamin (Vitamin B-12) [Vitamin B-12 1000 mcg Tablet] 1,000 mcg PO DAILY 12/18/18 Insulin Lispro [Humalog Insulin (Lispro) 100 unit/mL] 0 unit SUBCUT .SLD SCALE MDD 80 UNITS 12/18/18 Pioglitazone HCl [Actos 15 mg Tablet] 15 mg PO DAILY 12/18/18 Sertraline HCl [Zoloft 50 mg Tablet] 100 mg PO DAILY 12/18/18 Amlodipine Besylate [Norvasc 5 mg Tablet] 5 mg PO DAILY 05/01/19 Magnesium Oxide [Magnesium] 400 mg PO DAILY 05/01/19 Rosuvastatin Calcium 20 mg PO DAILY 05/01/19 Aspirin [Ecotrin 81 mg EC Tablet] 81 mg PO DAILY 04/20/20 Cyclosporine 0.05% Oph Emulsio [Restasis 0.05% Oph Emulsion Pf 0.4 ml] 1 drop OU Q12 04/20/20 Exenatide Microspheres [Bydureon Bcise] 2 mg SQ WE@1000 04/20/20 Furosemide [Lasix 40 mg Tablet] 40 mg PO QAM 04/20/20 Insulin Degludec [Tresiba Flextouch U-100] 20 unit SUBCUT DAILY@1900 04/20/20 Alprazolam [Xanax] 0.5 mg PO DAILYP PRN #0 04/29/20 Gabapentin [Neurontin 100 mg Capsule] 100 mg PO Q8 #90 capsule 04/29/20 History of Present Illiness History of Present Illness: ADILENE LEWIS is a 74 year old female who presented to the emergency room via EMS with altered mental status x3 days. The patient is nonverbal at this time and unable to provide input into her history. Her states that she had an MRI performed at [facility] on 04/16/2020 which required sedation due to her extreme anxiety. She was slow to recover after sedation and went to bed immediately after they arrived at home and slept for the better part of the next 24 hours. After waking she has been nonverbal and very confused with unusual r epetitive behaviors and poor responsiveness to verbal direction. He feels that her poor responsiveness is not improving and may be worsening. He admits that she has had a prior similar episode after receiving sedative medications. He has not identified any additional aggravating or ameliorating factors for her altered mental status. In the emergency room the patient was noted to be confused and poorly responsive to verbal stimuli and commands. No focal neurologic deficits were identified and a CT scan of the head revealed no acute changes or evidence of stroke. Patient was subsequently admitted to the hospital for further evaluation and treatment. Hospital Course Hospital Course: She has completed treatment for urinary tract infection. Her mental status is most likely at baseline now. She has had multiple admissions for encephalopathy, and a common theme amongst most if not all of those admissions has been polypharmacy. We took away all of this patient sedating medications and her mental status has improved dramatically. From a physical standpoint, she walked all over the fourth floor using a walker and only standby assist from the physical therapist, and she walked at a very good pace. We are going to discharge the patient a couple of days ago but the family appealed the discharge. The discharge was upheld and the patient was discharged home today with home health in good condition. A revised medication list was provided to her family. Physical Exam Vital Signs: Temp Pulse Resp BP Pulse Ox 97.5 F 66 20 148/60 H 98 05/01/20 10:00 05/01/20 09:39 05/01/20 09:39 05/01/20 09:39 05/01/20 09:39 Intake & Output 04/30/20 05/01/20 05/02/20 06:59 06:59 06:59 Intake Total 810 796 236 Output Total 425 Balance 385 796 236 Weight 82.6 kg 82.6 kg General appearance: PRESENT: no acute distress, well-developed, well-nourished Head exam: PRESENT: atraumatic, normocephalic Respiratory exam: PRESENT: clear to auscultation vinicius. ABSENT: rales, rhonchi, wheezes Cardiovascular exam: PRESENT: RRR. ABSENT: diastolic murmur, rubs, systolic murmur GI/Abdominal exam: PRESENT: normal bowel sounds, soft. ABSENT: distended, guarding, mass, organolmegaly, rebound, tenderness Neurological exam: PRESENT: alert, awake, oriented to person, oriented to place, oriented to situation, CN II-XII grossly intact. ABSENT: motor sensory deficit Skin exam: PRESENT: dry, intact, warm. ABSENT: cyanosis, rash Results Laboratory Results: WBC 10.2 10^3/uL (4.0-10.5) 04/26/20 05:00 RBC 4.14 10^6/uL (3.72-5.28) 04/26/20 05:00 Hgb 10.8 g/dL (12.0-15.5) L 04/26/20 05:00 Hct 31.8 % (36.0-47.0) L 04/26/20 05:00 MCV 77 fl (80-97) L 04/26/20 05:00 MCH 26.0 pg (27.0-33.4) L 04/26/20 05:00 MCHC 33.9 g/dL (32.0-36.0) 04/26/20 05:00 RDW 16.0 % (11.5-14.0) H 04/26/20 05:00 Plt Count 265 10^3/uL (150-450) 04/26/20 05:00 Lymph % (Auto) 14.4 % (13-45) 04/25/20 04:57 [place] % (Auto) 12.1 % (3-13) 04/25/20 04:57 Eos % (Auto) 1.1 % (0-6) 04/25/20 04:57 Baso % (Auto) 0.2 % (0-2) 04/25/20 04:57 Absolute Neuts (auto) 8.3 10^3/uL (1.7-8.2) H 04/25/20 04:57 Absolute Lymphs (auto) 1.6 10^3/uL (0.5-4.7) 04/25/20 04:57 Absolute Monos (auto) 1.4 10^3/uL (0.1-1.4) 04/25/20 04:57 Absolute Eos (auto) 0.1 10^3/uL (0.0-0.6) 04/25/20 04:57 Absolute Basos (auto) 0.0 10^3/uL (0.0-0.2) 04/25/20 04:57 Seg Neutrophils % 72.2 % (42-78) 04/25/20 04:57 PT 13.6 SEC (11.4-15.4) 04/19/20 16:40 INR 1.02 04/19/20 16:40 APTT 33.8 SEC (23.5-35.8) 04/19/20 16:40 Sodium 131.6 mmol/L (137-145) L 04/29/20 04:42 Potassium 3.5 mmol/L (3.6-5.0) L 04/29/20 04:42 Chloride 98 mmol/L (98-107) 04/29/20 04:42 Carbon Dioxide 22 mmol/L (22-30) 04/29/20 04:42 Anion Gap 12 (5-19) 04/29/20 04:42 BUN 10 mg/dL (7-20) 04/29/20 04:42 Creatinine 0.76 mg/dL (0.52-1.25) 04/29/20 04:42 Est GFR ( Amer) > 60 (>60) 04/29/20 04:42 Est GFR (MDRD) Non-Af > 60 (>60) 04/29/20 04:42 Glucose 85 mg/dL (75-110) 04/29/20 04:42 POC Glucose 101 mg/dL (70-110) 05/01/20 05:40 Hemoglobin A1c % 9.3 % (4.7-6.0) H 04/20/20 04:26 Calcium 9.2 mg/dL (8.4-10.2) 04/29/20 04:42 Magnesium 1.9 mg/dL (1.6-2.3) 04/29/20 04:42 Total Bilirubin 0.8 mg/dL (0.2-1.3) 04/27/20 04:32 Direct Bilirubin 0.4 mg/dL (0.0-0.4) 04/27/20 04:32 Neonat Total Bilirubin Not Reportable 04/27/20 04:32 Neonat Direct Bilirubin Not Reportable 04/27/20 04:32 Neonat Indirect Bili Not Reportable 04/27/20 04:32 AST 27 U/L (14-36) 04/27/20 04:32 ALT 23 U/L (<35) 04/27/20 04:32 Alkaline Phosphatase 90 U/L (38-126) 04/27/20 04:32 Creatine Kinase 1240 U/L (30-135) H 04/20/20 15:04 CK-MB (CK-2) 10.70 ng/mL (<4.55) H 04/20/20 15:04 Troponin I 0.033 ng/mL 04/20/20 15:04 Total Protein 7.2 g/dL (6.3-8.2) 04/27/20 04:32 Albumin 4.0 g/dL (3.5-5.0) 04/27/20 04:32 Vitamin B12 992.0 pg/mL (239-931) H 04/26/20 05:00 Vitamin D 25-Hydroxy < 12.8 ng/mL (14.7-68.3) L 04/24/20 04:24 Folate > 20.00 ng/mL (>2.76) 04/26/20 05:00 TSH 1.29 uIU/mL (0.47-4.68) 04/20/20 04:26 Urine Color YELLOW 04/19/20 19:55 Urine Appearance SLIGHTLY-CLOUDY 04/19/20 19:55 Urine pH 5.0 (5.0-9.0) 04/19/20 19:55 Ur Specific [place] 1.014 04/19/20 19:55 Urine Protein 30 mg/dL (NEGATIVE) H 04/19/20 19:55 Urine Glucose (UA) NEGATIVE mg/dL (NEGATIVE) 04/19/20 19:55 Urine Ketones TRACE mg/dL (NEGATIVE) H 04/19/20 19:55 Urine Blood SMALL (NEGATIVE) H 04/19/20 19:55 Urine Nitrite NEGATIVE (NEGATIVE) 04/19/20 19:55 Urine Bilirubin NEGATIVE (NEGATIVE) 04/19/20 19:55 Urine Urobilinogen NEGATIVE mg/dL (<2.0) 04/19/20 19:55 Ur Leukocyte Esterase LARGE (NEGATIVE) H 04/19/20 19:55 Urine WBC (Auto) 133 /HPF 04/19/20 19:55 Urine RBC (Auto) 1 /HPF 04/19/20 19:55 Urine Bacteria (Auto) 3+ /HPF 04/19/20 19:55 Urine WBC Clumps FEW /HPF 04/19/20 19:55 Squamous Epi Cells Auto 1 /HPF 04/19/20 19:55 Urine Mucus (Auto) RARE /LPF 04/19/20 19:55 Urine Ascorbic Acid NEGATIVE (NEGATIVE) 04/19/20 19:55 Fluid Tube Number 2 04/26/20 14:40 CSF Volume 11.5 CC 04/26/20 14:40 CSF WBC 0 /uL (0-5) 04/26/20 14:40 CSF RBC 0 /uL (0-10) 04/26/20 14:40 CSF Color (1) COLORLESS 04/26/20 14:40 CSF Appearance (1) CLEAR 04/26/20 14:40 CSF Color (2) COLORLESS 04/26/20 14:40 CSF Appearance (2) CLEAR 04/26/20 14:40 CSF Color (3) COLORLESS 04/26/20 14:40 CSF Appearance (3) CLEAR 04/26/20 14:40 CSF Glucose 59 mg/dL (40-70) 04/26/20 14:40 CSF Total Protein 45 mg/dL (12-60) 04/26/20 14:40 CSF/Ser Oligoclon Bands Comment (.) 04/26/20 14:40 CSF VDRL Non Reactive (Non [place]:<1) 04/26/20 14:40 COVID-19 Source Cancelled 04/24/20 11:57 COVID-19 (SARA) Cancelled 04/24/20 11:57 SARS-CoV-2 (PCR) NEGATIVE (NEGATIVE) 04/24/20 11:57 04/19/20 04/19/20 04/20/20 16:40 22:12 06:46 CK-MB (CK-2) 17.10 H 17.80 H 15.40 H Troponin I 0.038 0.036 0.046 04/20/20 15:04 CK-MB (CK-2) 10.70 H Troponin I 0.033 Impressions: Chest X-Ray 04/19/20 17:00 IMPRESSION: CHRONIC INTERSTITIAL CHANGES. STABLE GRANULOMAS. NO ACUTE RADIOGRAPHIC FINDING IN THE CHEST. Head CT 04/19/20 17:00 IMPRESSION: NO ACUTE INTRACRANIAL IMAGING FINDINGS. EVIDENCE OF ACUTE STROKE: NO. Head MRI 04/25/20 15:24 IMPRESSION: Technical limitations. Recommend repeat when the patient is more stable. Plan Time Spent: Greater than 30 Minutes Stroke Is this a Stroke Patient?: No Acute Heart Failure Is this a Heart Failure Patient?: No
== END 2020-05-01 10:54 | disposition home health service (06) | DRG 91 ==
LOC: ER 16:56 → EH 21:13 → 4N 21:55
PROVIDERS: ADMIT Emergency Medicine; ATTEND Family Medicine
PROC: 00JU3ZZ Inspection of Spinal Canal, Percutaneous Approach (ICD-10-PCS; principal; 2020-04-26)
PROC: 3E02340 Introduction of Influenza Vaccine into Muscle, Percutaneous Approach (ICD-10-PCS; 2020-04-29)
DX: G92 Toxic encephalopathy (principal); G93.41 Metabolic encephalopathy; N39.0 Urinary tract infection, site not specified; T50.915A Adverse effect of multiple unspecified drugs, medicaments and biological substances, initial encounter; Y92.9 Unspecified place or not applicable; I10 Essential (primary) hypertension; I25.10 Atherosclerotic heart disease of native coronary artery without angina pectoris; J44.9 Chronic obstructive pulmonary disease, unspecified; E66.9 Obesity, unspecified; E11.40 Type 2 diabetes mellitus with diabetic neuropathy, unspecified; E11.51 Type 2 diabetes mellitus with diabetic peripheral angiopathy without gangrene; F31.9 Bipolar disorder, unspecified; F41.9 Anxiety disorder, unspecified; E78.5 Hyperlipidemia, unspecified; K21.9 Gastro-esophageal reflux disease without esophagitis; F17.210 Nicotine dependence, cigarettes, uncomplicated; F03.90 Unspecified dementia, unspecified severity, without behavioral disturbance, psychotic disturbance, mood disturbance, and anxiety; G89.29 Other chronic pain; B96.20 Unspecified Escherichia coli [E. coli] as the cause of diseases classified elsewhere; E11.65 Type 2 diabetes mellitus with hyperglycemia; R79.89 Other specified abnormal findings of blood chemistry; Z79.899 Other long term (current) drug therapy; Z79.4 Long term (current) use of insulin; Z83.3 Family history of diabetes mellitus; Z82.49 Family history of ischemic heart disease and other diseases of the circulatory system; Z79.82 Long term (current) use of aspirin; Z88.6 Allergy status to analgesic agent; Z88.8 Allergy status to other drugs, medicaments and biological substances; Z03.818 Encounter for observation for suspected exposure to other biological agents ruled out; Z23 Encounter for immunization
CPT/HCPCS: 36415; 70450; 70551; 71045; 80048; 80053; 81001; 82306; 82550; 82553; 82607; 82746; 82945; 82962; 83036; 83735; 83916; 84157; 84443; 84484; 85025; 85027; 85610; 85730; 86592; 87015; 87040; 87070; 87086; 87088; 87116; 87186; 87205; 87206; 87252; 87498; 87635; 87798; 89050; 90471; 90686; 93005; 93010; 94640; 96361; 96374; 99285; C9803; G0008; J0360; J0696; J1630; J1644; J1815; J2060; J2405; J3010; J3490; J7030